=== PATIENT | female | born 1975 | race American Indian/Alaskan Native ===

== ENCOUNTER 2016-06-29 06:08 | Inpatient (IN) | payer MEDICARE, MEDICAID, OTHER ==
[2016-06-29 06:12] VITALS: BMI 25.9
[2016-06-29 06:17] VITALS: O2SAT 98
--- NOTE | 2016-06-29 06:40 | ED PDOC ---
Arrival/HPI - General Chief Complaint: Psychiatric Evaluation Time Seen by Provider: 06/29/16 06:28 - History of Present Illness Narrative History of Present Illness (Text): 41F c/o feeling "very depressed" for the last 2 months. she stopped taking her psych meds 30 days ago bc she says "I didn't feel right on them." she says her uncle 2 days ago and she drank etoh last night and wanted to overdose on nyquill, she says not to kill herself but to "sleep a long time." she says she wants help and to get back on medications. she admits to smoking a drug called "redstack" 2 days ago. (Kervin Cohen) Past Medical History - Infectious Disease Hx of Infectious Diseases: None - Cardiac Hx Cardiac Disorders: Yes Hx Hypertension: Yes - Pulmonary Hx Respiratory Disorders: No Hx Tuberculosis: No - Neurological Hx Neurological Disorder: No HX Cerebrovascular Accident: No Hx Seizures: No - HEENT Hx HEENT Disorder: No Other/Comment: PATIENT HAS INFECTION IN LEFT EYE - Renal Hx Renal Disorder: No - Endocrine/Metabolic Hx Endocrine Disorders: No - Hematological/Oncological Hx Blood Disorders: No Hx Cancer: No - Integumentary Hx Dermatological Disorder: No - Musculoskeletal/Rheumatological Hx Musculoskeletal Disorders: No - Gastrointestinal Hx Gastrointestinal Disorders: No - Genitourinary/Gynecological Hx Genitourinary Disorders: No Hx Sexually Transmitted Diseases: No - Psychiatric Hx Schizophrenia: Yes Hx Substance Use: Yes - Surgical History Other/Comment: Laparoscopy; had tumor - Anesthesia Hx Anesthesia: Yes Hx Anesthesia Reactions: No Hx Malignant Hyperthermia: No - Suicidal Assessment Feels Threatened In Home Enviroment: No Family/Social History Family/Social History: Other (nc) Smoking Status: yes Hx Alcohol Use: Yes Frequency of alcohol use: Socially Hx Substance Use: Yes Substance used: PCP Allergies/Home Meds Allergies/Adverse Reactions: Allergies No Known Allergies Allergy (Verified 04/26/16 19:15) Review of Systems - Physician Review All systems were reviewed & negative as marked: Yes - Review of Systems Constitutional: absent: Fevers Eyes: absent: Vision Changes Respiratory: absent: SOB, Cough Cardiovascular: absent: Chest Pain Gastrointestinal: absent: Abdominal Pain, Vomiting Genitourinary Female: Frequency. absent: Dysuria Neurological: absent: Headache, Dizziness, Focal Weakness Psychiatric: Depression Physical Exam Vital Signs Reviewed: Yes Appearance: Positive for: Well-Appearing, Non-Toxic, Comfortable Pain Distress: None Mental Status: Positive for: Alert and Oriented X 3 - Systems Exam Head: Present: Atraumatic Pupils: Present: PERRL Extroacular Muscles: Present: EOMI Mouth: Present: Moist Mucous Membranes Neck: Present: Normal Range of Motion Respiratory/Chest: Present: Clear to Auscultation. No: Respiratory Distress, Accessory Muscle Use Cardiovascular: Present: Regular Rate and Rhythm Abdomen: No: Tenderness, Distention Neurological: Present: GCS=15, Motor Func Grossly Intact, Normal Sensory Function Skin: Present: Warm, Dry Psychiatric: Present: Alert, Oriented x 3 Medical Decision Making ED Course and Treatment: ecg- nsr 73, nl axis, nl int, no acute ischemia (Kervin Cohen) 06/29/16 07:00 Patient signed out to me by Dr. Cohen. Patient medically cleared for PES evaluation 06/29/16 09:10 Patient accepted to psych (Jerome Tse) - Lab Interpretations Lab Results: 06/29/16 06:30 06/29/16 06:30 Lab Results 06/29/16 06:30: Alcohol, Quantitative < 10 06/29/16 06:30: Salicylates < 1 L, Acetaminophen < 10.0 L 06/29/16 06:30: Sodium 136, Potassium 3.6, Chloride 103, Carbon Dioxide 26, Anion Gap 11, BUN 9, Creatinine 0.8, Est GFR ( Amer) > 60, Est GFR (Non- Af Amer) > 60, Random Glucose 80, Calcium 8.9, Total Bilirubin 0.6, AST 26, ALT 27, Alkaline Phosphatase 56, Total Protein 7.2, Albumin 4.0, Globulin 3.2, Albumin/Globulin Ratio 1.3 06/29/16 06:30: WBC 7.2 D, RBC 4.11, Hgb 12.9, Hct 37.6, MCV 91.5, MCH 31.4, MCHC 34.3, RDW 13.0, Plt Count 213, MPV 10.6, Gran % 52.5, Lymph % (Auto) 36.0 H , [place] % (Auto) 8.6 H, Eos % (Auto) 2.5, Baso % (Auto) 0.4, Gran # 3.80, Lymph # 2.6, [place] # 0.6, Eos # 0.2, Baso # 0.03 06/29/16 06:28: Urine Opiates Screen Negative, Urine Methadone Screen Negative, Ur Barbiturates Screen Negative, Ur Phencyclidine Scrn Negative, Ur Amphetamines Screen Negative, U Benzodiazepines Scrn Negative, U Oth Cocaine Metabols Positive H, U Cannabinoids Screen Negative 06/29/16 06:28: Urine Color Yellow, Urine Appearance Sl cloudy, Urine pH 6.0, Ur Specific [place] 1.020, Urine Protein 100 H, Urine Glucose (UA) Negative, Urine Ketones Negative, Urine Blood Trace-lysed H, Urine Nitrate Negative, Urine Bilirubin Negative, Urine Urobilinogen 0.2, Ur Leukocyte Esterase Trace H , Urine RBC 1 - 3, Urine WBC 1 - 3, Ur Epithelial Cells 1 - 3, Urine Bacteria Few, Urine HCG, Qual Negative Disposition/Present on Arrival - Present on Arrival Any Indicators Present on Arrival: No History of DVT/PE: No History of Uncontrolled Diabetes: No Urinary Catheter: No History of Decub. Ulcer: No History Surgical Site Infection Following: None - Disposition Have Diagnosis and Disposition been Completed?: No Disposition Time: 07:00 - Disposition Diagnosis: Depression Patient Problems: Current Active Problems Problem Status Onset Depression Acute Condition: STABLE Referrals: Sheldon Rose MD [Primary Care Provider] - Follow up with primary Physician Patient Turnover Patient Signed Over To: Jerome Tse Handoff Comments: f/u wrkup and psych recs
[2016-06-29 07:15] LABS: ADD MANUAL DIFF? NO
[2016-06-29 07:18] LABS: BASO # 0.03 K/mm3 (0.0-2.0); BASO % 0.4 % (0.0-3.0); EOS # 0.2 (0.0-0.7); EOS % 2.5 % (1.5-5.0); GRAN % 52.5 % (50.0-68.0); HEMATOCRIT 37.6 % (36.0-48.0); LYMPH # 2.6 (1.2-3.4); MEAN CELL VOLUME 91.5 fL (80.0-105.0); MEAN CORPUSCULAR HEMOGLOBIN 31.4 pg (25.0-35.0); MEAN CORPUSCULAR HGB CONC 34.3 g/dl (31.0-37.0); MEAN PLATELET VOLUME 10.6 fl (7.0-11.0); MONO # 0.6 (0.1-0.6); MONO % 8.6 % (1.0-6.0); PLATELET COUNT 213 10^3/uL (120.0-450.0); WHITE BLOOD COUNT 7.2 10^3/ul (4.5-11.0)
[2016-06-29 07:35] LABS: ALB/GLOB RATIO 1.3 (1.1-1.8); ALKALINE PHOSPHATASE 56 U/L (38-133); ALT/SGPT 27 U/L (7-56); AST/SGOT 26 U/L (15-39); BILIRUBIN,TOTAL 0.6 mg/dL (0.2-1.3); BLOOD UREA NITROGEN 9 mg/dL (7-21); CALCIUM 8.9 mg/dL (8.4-10.5); CARBON DIOXIDE 26 mmol/L (21-33); CHLORIDE 103 mmol/L (98-107); GFR AFRICAN-AMERICAN > 60; GLUCOSE,RANDOM 80 mg/dL (70-110); POTASSIUM 3.6 mmol/L (3.6-5.0); SODIUM 136 mmol/L (132-148); TOTAL PROTEIN 7.2 g/dL (5.8-8.3)
[2016-06-29 07:48] LABS: URINE APPEARANCE SL CLOUDY (CLEAR); URINE BILIRUBIN NEGATIVE (NEGATIVE); URINE BLOOD TRACE-LYSED (NEGATIVE); URINE COLOR YELLOW (YELLOW); URINE GLUCOSE (UA) NEGATIVE (NEGATIVE); URINE KETONE NEGATIVE (NEGATIVE); URINE LEUKOCYTE ESTERASE TRACE Leu/uL (NEGATIVE); URINE PROTEIN 100 mg/dL (<30 mg/dL); URINE UROBILINOGEN 0.2 E.U./dL (<1 E.U./dL)
[2016-06-29 07:53] LABS: URINE BACTERIA FEW (NEG)
--- NOTE | 2016-06-29 09:06 | CARD ---
APPROVED REPORT EKG Measurement Heart [id number] [id number] [id number] <Conclusion> Normal sinus rhythm Normal ECG
[2016-06-29] MEDS ORDERED: OLANZapine 5 mg Disintegrating Tab PO STA (09:20)
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
[2016-06-29] MEDS: OLANZapine 5 mg Disintegrating Tab PO SCH (21:43)
[2016-06-29] MEDS: Divalproex 500 mg ER (ONCE DAILY formulation) PO SCH (21:43)
--- NOTE | 2016-06-30 09:36 | PCM.PYCHPN ---
Psychiatric Progress Note - Psychiatric Progress Note Patient seen today, length of contact: 25 min Patient Chief Complaint: "all right" Problems Identified/Issues Discussed: I reviewed recent notes and met with patient at bedside. Patient appears poorly groomed however she is superficially oriented to month, year and circumstances. Patient reports she is feeling "all right". Affect is blunt. Patient appears a little withdrawn and disengaged during questioning. She denies hallucinations however appears preoccupied. Active delusions were not elicited during this initial interview. Patient denies any new discomfort or pain and has been tolerating her medications thus far. Does complain of chronic back pain. Nursing indicates that patient has been spending a lot of time in her room. She generally keeps to her self, minimally interacting with other patients. There were no major behavioral issues overnight Diagnostic Results: h/o schizophrenia stimulant use disorder r/o substance induced psychosis Medication Change: No Medical Record Reviewed: Yes (notes, vitals, labs, reports) Mental Status Examination - Cognitive Function Orientation: Person, Place, Situation - Mood Mood: Depressed ( "all right"), Anxious - Affect Affect: Flat - Formal Thought Process Formal Thought Process: Hallucinations (denies this morning), Delusions, Paranoia - Suicidal Ideation Suicidal Ideation: No - Homicidal Ideation Homicidal Ideation: No Goal/Treatment Plan - Goal/Treatment Plan Progress Toward Problem(s) and Goals/Treatment Plan: * c/w current tx and plan * No new labs overnight * Vitals reviewed and noted below: Selected Entries 06/29/16 06/29/16 06/29/16 06:12 06:17 10:59 Temperature 98.2 F 98.2 F 98.2 F Pulse Rate 78 78 70 Pulse Rate [ Radial] Pulse Rhythm [ Radial] Pulse Strength [Radial] Pulse Assessment Method [Radial] Respiratory 18 18 18 Rate Blood Pressure 118/74 118/78 120/67 Blood Pressure Mean 06/29/16 06/29/16 13:38 16:16 Temperature Pulse Rate 61 Pulse Rate [ 58 L Radial] Pulse Rhythm [ Regular Radial] Pulse Strength +2=Normal [Radial] Pulse BP Machine Assessment Method [Radial] Respiratory 20 Rate Blood Pressure 81/50 L Blood Pressure 60 Mean
[2016-06-30] MEDS: OLANZapine 5 mg Disintegrating Tab PO SCH ×2 (10:06→22:27)
[2016-06-30] MEDS: Divalproex 500 mg ER (ONCE DAILY formulation) PO SCH (22:27)
--- NOTE | 2016-07-01 08:37 | PCM.PYCHPN ---
Psychiatric Progress Note - Psychiatric Progress Note Patient seen today, length of contact: 25 min Patient Chief Complaint: "all right" Problems Identified/Issues Discussed: I reviewed recent notes and met with patient at bedside. Patient appears \\ better groomed and more engaged this morning. She is oriented to month, year and circumstances. Patient reports that she is "doing great" and that she is sleeping well. Affect is less blunt and more reactive as well as more related than yesterday though she still appears internally preoccupied. She continues to deny hallucinations and delusions were not elicited throughout the weekend. Patient denies any new discomfort or pain and has been tolerating her medications thus far. There were no major behavioral issues over the weekend. Diagnostic Results: h/o schizophrenia stimulant use disorder r/o substance induced psychosis Medication Change: No Medical Record Reviewed: Yes (notes, vitals, labs, reports) Mental Status Examination - Cognitive Function Orientation: Person, Place, Situation - Mood Mood: Depressed ( "all right"), Anxious - Affect Affect: Flat (more related and reactive than yesterday) - Formal Thought Process Formal Thought Process: Hallucinations (denied all weekend), Delusions, Paranoia - Suicidal Ideation Suicidal Ideation: No - Homicidal Ideation Homicidal Ideation: No Goal/Treatment Plan - Goal/Treatment Plan Progress Toward Problem(s) and Goals/Treatment Plan: * c/w current tx and plan * No new weekend labs * Vitals reviewed and noted below: Selected Entries 06/29/16 06/29/16 06/29/16 06:17 10:59 13:38 Temperature 98.2 F 98.2 F Pulse Rate 78 70 Pulse Rate [ 58 L Radial] Pulse Rhythm [ Regular Radial] Pulse Strength +2=Normal [Radial] Pulse BP Machine Assessment Method [Radial] Respiratory 18 18 20 Rate Blood Pressure 118/78 120/67 O2 Sat by Pulse 98 98 Oximetry 06/29/16 06/30/16 16:16 06:24 Temperature 98 F Pulse Rate 61 56 L Pulse Rate [ Radial] Pulse Rhythm [ Radial] Pulse Strength [Radial] Pulse Assessment Method [Radial] Respiratory 20 Rate Blood Pressure 81/50 L 84/50 L O2 Sat by Pulse Oximetry
[2016-07-01] MEDS: OLANZapine 5 mg Disintegrating Tab PO SCH ×2 (09:00→22:02)
[2016-07-01] MEDS: Divalproex 500 mg ER (ONCE DAILY formulation) PO SCH (22:02)
--- NOTE | 2016-07-02 08:15 | PN ---
DATE: 07/01/2016 The patient is a 41-year-old female. The patient seen and examined on the bedside, sleepy, arousable, moving all 4 extremities. No focal deficits. No fever, no chills. No hematuria, no hematochezia. No swelling of the legs. PHYSICAL EXAMINATION: VITAL SIGNS: Temperature 97.1, pulse 80 , blood pressure 94/45, respiratory rate 15. HEENT: Head normocephalic, atraumatic. Eyes PERRLA. Extraocular muscles intact. Conjunctivae clear. Nose patent. Mucous membranes moist. NECK: Supple. No carotid bruit, no JVD, no thyromegaly. CHEST: Bilaterally symmetrical. HEART: S1, S2 positive. LUNGS: Clear to auscultation. ABDOMEN: Soft. Bowel sounds positive. No organomegaly. EXTREMITIES: No edema, no cyanosis. NEUROLOGIC: The patient is sleepy, moving all 4 extremities. No focal deficits. MEDICATIONS: Abilify, Ativan, Depakote, Geodon, Nicoderm, Zyprexa. LABORATORIES: We do not have recent labs today, but I reviewed old labs. ASSESSMENT AND PLAN: The patient is a 41-year-old lady with proteinuria, hematuria, urinary tract infection, cocaine is positive in her system, history of bipolar disorder, history of hypertension, gastroesophageal reflux disease, dyspepsia, anxiety, depression, history of use of marijuana and cocaine, history of abnormal liver function test. Psychiatrist is on the case. Complaining about anxiety. Gastrointestinal and deep venous thrombosis prophylaxis. Repeat labs. We will follow up. Vira Denton MD cc: [id number] TT: 07/02/2016 08:14:29 Confirmation # [id number] Dictation # [id number] en MTDD
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
[2016-07-02] MEDS: OLANZapine 5 mg Disintegrating Tab PO SCH ×2 (09:14→22:05)
--- NOTE | 2016-07-02 16:24 | PCM.PYCHPN ---
Psychiatric Progress Note - Psychiatric Progress Note Patient seen today, length of contact: 30 minute Patient Chief Complaint: "I m feeling great, by the way have cavities, I came here only because of was vomiting, I had adverse reactions from the medications." Problems Identified/Issues Discussed: Suicide/ homicide prevention, past psychiatric h/o, current psychiatric symptoms , medical problems, risk/benefits and alternatives of medications, medications compliance, coping strategies, substance abuse h/o, relapse prevention, importance of follow up with psychiatrist and therapist, discharge plan. Medical Problems: multiple medical issues, please see medical team notes for more detailed information, patient complained that she had needful discharges, denied things discharged today. Diagnostic Results: 06/29/16 06:30 06/29/16 06:30 Lab Results 06/29/16 06:30: Alcohol, Quantitative < 10 06/29/16 06:30: Salicylates < 1 L, Acetaminophen < 10.0 L 06/29/16 06:30: Sodium 136, Potassium 3.6, Chloride 103, Carbon Dioxide 26, Anion Gap 11, BUN 9, Creatinine 0.8, Est GFR ( Amer) > 60, Est GFR (Non- Af Amer) > 60, Random Glucose 80, Calcium 8.9, Total Bilirubin 0.6, AST 26, ALT 27, Alkaline Phosphatase 56, Total Protein 7.2, Albumin 4.0, Globulin 3.2, Albumin/Globulin Ratio 1.3 06/29/16 06:30: WBC 7.2 D, RBC 4.11, Hgb 12.9, Hct 37.6, MCV 91.5, MCH 31.4, MCHC 34.3, RDW 13.0, Plt Count 213, MPV 10.6, Gran % 52.5, Lymph % (Auto) 36.0 H , [place] % (Auto) 8.6 H, Eos % (Auto) 2.5, Baso % (Auto) 0.4, Gran # 3.80, Lymph # 2.6, [place] # 0.6, Eos # 0.2, Baso # 0.03 06/29/16 06:28: Urine Opiates Screen Negative, Urine Methadone Screen Negative, Ur Barbiturates Screen Negative, Ur Phencyclidine Scrn Negative, Ur Amphetamines Screen Negative, U Benzodiazepines Scrn Negative, U Oth Cocaine Metabols Positive H, U Cannabinoids Screen Negative 06/29/16 06:28: Urine Color Yellow, Urine Appearance Sl cloudy, Urine pH 6.0, Ur Specific [place] 1.020, Urine Protein 100 H, Urine Glucose (UA) Negative, Urine Ketones Negative, Urine Blood Trace-lysed H, Urine Nitrate Negative, Urine Bilirubin Negative, Urine Urobilinogen 0.2, Ur Leukocyte Esterase Trace H , Urine RBC 1 - 3, Urine WBC 1 - 3, Ur Epithelial Cells 1 - 3, Urine Bacteria Few, Urine HCG, Qual Negative Temp Pulse Resp BP Pulse Ox 97.1 F L 63 16 94/45 L 98 07/01/16 07:30 07/01/16 07:30 07/01/16 07:30 07/01/16 07:30 06/29/16 10:59 Vital Signs Temp Pulse Pulse Resp BP Pulse Ox 07/01/16 07:30 97.1 F L 63 16 94/45 L 06/30/16 06:24 98 F 56 L 20 84/50 L 06/29/16 16:16 61 81/50 L 06/29/16 13:38 58 L 20 06/29/16 10:59 98.2 F 70 18 120/67 98 06/29/16 06:17 98.2 F 78 18 118/78 98 06/29/16 06:12 98.2 F 78 18 118/74 98 DSM 5 Symptoms Update: Shortly pt is a 41 year old female, with long h/o mental illness and substance abuse, pt has multiple psychiatric admissions into the psychiatric inpatient unit including to [facility], most recent was about 2 months ago, pt has chronic noncompliance with f/u appts and medications, pt brought herself for evaluation of auditory hallucinations, suicidal ideation, worsening of depression, noncompliance with medications, using drugs. Pt needs further evaluation and stabilization. patient was seen at the treatment team meeting, acceptable personal hygiene, fare ADLs. patient was superficially corporative, said that she feels "great", patient reported that after she was discharged from the hospital last admission patient was taking her medication but he shouldn't was discharged from the psychiatric inpatient unit here in [place] on 05/03/16, 4 weeks supply was provided, most likely pt was not taking meds. pt was disorganized, psychotic, superficial. he shouldn't reported tolerating medications well, no side effects observed or reported. Patient complains of needle discharges last Saturday, prolactin level was ordered, was not done, we'll find out why. Patient denied any nipple discharge is today. Impression: DSM 5 Diagnosis: h/o schizophrenia stimulant use disorder r/o substance induced psychosis Medication Change: Yes Medical Record Reviewed: Yes (notes, vitals, labs, reports) Consults ordered or reviewed: Medical consult appreciated Mental Status Examination - Cognitive Function Orientation: Person, Place, Situation Memory: Intact Attention: Poor Concentration: Poor Association: Loose Fund of Knowledge: Poor - Mood Mood: Depressed ( "all right"), Anxious - Affect Affect: Flat (more related and reactive than yesterday) - Formal Thought Process Formal Thought Process: Hallucinations (denied all weekend), Delusions, Paranoia - Suicidal Ideation Suicidal Ideation: No - Homicidal Ideation Homicidal Ideation: No Goal/Treatment Plan - Goal/Treatment Plan Need for Continued Stay: Remain at risks for inpatient hospitalization, Severe depression anxiety, Discharge may exacerbated symptoms, Failed transitioning, Severe functional impairment Progress Toward Problem(s) and Goals/Treatment Plan: milieu, structure, supportive therapyWe'll not resume Risperdal as of now Zyprexa zydis is 5 mg at the morning time at the nighttime for psychosis Depakote will be resumed 500 mg daily for mood stabilization Trazodone 50 mg at the nighttime for depression and insomnia pt c/o nipples discharges (will f/u on Prolactin level) urine test was negative Abilify as dopamine agonist antagonist when necessary medications Medical evaluation draw off worker evaluation We'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 - Smoking Cessation Smoking Cessation Initiated: Yes
[2016-07-02 18:40] LABS: HEMATOCRIT 38.1 % (36.0-48.0); MEAN CELL VOLUME 93.2 fL (80.0-105.0); MEAN CORPUSCULAR HEMOGLOBIN 31.1 pg (25.0-35.0); MEAN CORPUSCULAR HGB CONC 33.3 g/dl (31.0-37.0); MEAN PLATELET VOLUME 10.8 fl (7.0-11.0); RED CELL DISTRIBUTION WIDTH 12.7 % (11.5-14.5); WHITE BLOOD COUNT 6.2 10^3/ul (4.5-11.0)
[2016-07-02 18:50] LABS: ALB/GLOB RATIO 1.2 (1.1-1.8); ALKALINE PHOSPHATASE 45 U/L (38-133); ALT/SGPT 21 U/L (7-56); AST/SGOT 17 U/L (15-39); BILIRUBIN,TOTAL 0.3 mg/dL (0.2-1.3); BLOOD UREA NITROGEN 16 mg/dL (7-21); CALCIUM 8.9 mg/dL (8.4-10.5); CARBON DIOXIDE 27 mmol/L (21-33); CHLORIDE 105 mmol/L (98-107); CHOLESTEROL 178 mg/dL (130-200); GFR AFRICAN-AMERICAN > 60; GLUCOSE,FASTING 102 mg/dL (65-110); GLUCOSE,RANDOM 102 mg/dL (70-110); POTASSIUM 3.7 mmol/L (3.6-5.0); SODIUM 139 mmol/L (132-148); TOTAL PROTEIN 6.7 g/dL (5.8-8.3)
[2016-07-02] MEDS: Divalproex 500 mg ER (ONCE DAILY formulation) PO SCH (22:04)
--- NOTE | 2016-07-03 07:17 | PN ---
DATE: 07/02/2016 SUBJECTIVE: The patient was seen and examined on the bedside, sleepy, arousable , moving all 4 extremities. No focal deficits. No fever, no chills, nausea, vomiting, or diarrhea. No hematuria or hematochezia. No swelling of the legs. PHYSICAL EXAMINATION: VITAL SIGNS: Temperature 97.1, pulse 75, blood pressure 104/49, respiratory rate 15. HEENT: Head normocephalic, atraumatic. Eyes: PERRLA. Extraocular muscles intact. Conjunctivae clear. Nose patent. Mucous membranes moist. NECK: Supple. No carotid bruit, JVD or thyromegaly. CHEST: Bilaterally symmetrical. HEART: S1, S2 positive. LUNGS: Clear to auscultation. ABDOMEN: Soft. Bowel sounds positive. No organomegaly. EXTREMITIES: No edema, no cyanosis. NEUROLOGIC: The patient is awake, alert and moving all 4 extremities. No focal deficit. MEDICATIONS: Abilify, Ativan, Depakote, trazodone, Geodon, Nicoderm, Pepcid. LABORATORY DATA: We do not have recent labs today, but I reviewed old labs. ASSESSMENT AND PLAN: The patient is a 41-year-old female with multiple medical problems. According to the patient, she wanted to go home today. The patient thinking that she is working some whare , Gastrointestinal and deep venous thrombosis prophylaxis. Repeat labs. We will follow up. Vira Denton MD cc: [id number] TT: 07/03/2016 07:16:31 Confirmation # [id number] Dictation # [id number] tn MTDD
[2016-07-03] MEDS: OLANZapine 5 mg Disintegrating Tab PO SCH (10:23)
--- NOTE | 2016-07-03 15:16 | PCM.PYCHPN ---
Psychiatric Progress Note - Psychiatric Progress Note Patient seen today, length of contact: 30 minute Patient Chief Complaint: "I m feeling great, I found a job in [employer], are you happy for me?" Problems Identified/Issues Discussed: Suicide/ homicide prevention, past psychiatric h/o, current psychiatric symptoms , medical problems, risk/benefits and alternatives of medications, medications compliance, coping strategies, substance abuse h/o, relapse prevention, importance of follow up with psychiatrist and therapist, discharge plan. Medical Problems: multiple medical issues, please see medical team notes for more detailed information, patient complained that she had needful discharges, denied things discharged today. Diagnostic Results: 06/29/16 06:30 06/29/16 06:30 Lab Results 06/29/16 06:30: Alcohol, Quantitative < 10 06/29/16 06:30: Salicylates < 1 L, Acetaminophen < 10.0 L 06/29/16 06:30: Sodium 136, Potassium 3.6, Chloride 103, Carbon Dioxide 26, Anion Gap 11, BUN 9, Creatinine 0.8, Est GFR ( Amer) > 60, Est GFR (Non- Af Amer) > 60, Random Glucose 80, Calcium 8.9, Total Bilirubin 0.6, AST 26, ALT 27, Alkaline Phosphatase 56, Total Protein 7.2, Albumin 4.0, Globulin 3.2, Albumin/Globulin Ratio 1.3 06/29/16 06:30: WBC 7.2 D, RBC 4.11, Hgb 12.9, Hct 37.6, MCV 91.5, MCH 31.4, MCHC 34.3, RDW 13.0, Plt Count 213, MPV 10.6, Gran % 52.5, Lymph % (Auto) 36.0 H , [place] % (Auto) 8.6 H, Eos % (Auto) 2.5, Baso % (Auto) 0.4, Gran # 3.80, Lymph # 2.6, [place] # 0.6, Eos # 0.2, Baso # 0.03 06/29/16 06:28: Urine Opiates Screen Negative, Urine Methadone Screen Negative, Ur Barbiturates Screen Negative, Ur Phencyclidine Scrn Negative, Ur Amphetamines Screen Negative, U Benzodiazepines Scrn Negative, U Oth Cocaine Metabols Positive H, U Cannabinoids Screen Negative 06/29/16 06:28: Urine Color Yellow, Urine Appearance Sl cloudy, Urine pH 6.0, Ur Specific [place] 1.020, Urine Protein 100 H, Urine Glucose (UA) Negative, Urine Ketones Negative, Urine Blood Trace-lysed H, Urine Nitrate Negative, Urine Bilirubin Negative, Urine Urobilinogen 0.2, Ur Leukocyte Esterase Trace H , Urine RBC 1 - 3, Urine WBC 1 - 3, Ur Epithelial Cells 1 - 3, Urine Bacteria Few, Urine HCG, Qual Negative Temp Pulse Resp BP Pulse Ox 97.1 F L 63 16 94/45 L 98 07/01/16 07:30 07/01/16 07:30 07/01/16 07:30 07/01/16 07:30 06/29/16 10:59 Vital Signs Temp Pulse Pulse Resp BP Pulse Ox 07/01/16 07:30 97.1 F L 63 16 94/45 L 06/30/16 06:24 98 F 56 L 20 84/50 L 06/29/16 16:16 61 81/50 L 06/29/16 13:38 58 L 20 06/29/16 10:59 98.2 F 70 18 120/67 98 06/29/16 06:17 98.2 F 78 18 118/78 98 06/29/16 06:12 98.2 F 78 18 118/74 98 Temp Pulse Resp BP Pulse Ox 97.1 F L 75 16 104/49 L 98 07/01/16 07:30 07/02/16 16:15 07/01/16 07:30 07/02/16 16:15 06/29/16 10:59 Abnormal Lab Results 07/02/16 07/02/16 07/02/16 17:55 17:55 17:55 WBC 6.2 RBC 4.09 Hgb 12.7 Hct 38.1 MCV 93.2 MCH 31.1 MCHC 33.3 RDW 12.7 Plt Count 212 MPV 10.8 Sodium 139 Potassium 3.7 Chloride 105 Carbon Dioxide 27 Anion Gap 11 BUN 16 Creatinine 0.8 Est GFR ( Amer) > 60 Est GFR (Non-Af Amer) > 60 Random Glucose 102 Fasting Glucose 102 Hemoglobin A1c 5.2 Calcium 8.9 Total Bilirubin 0.3 AST 17 ALT 21 Alkaline Phosphatase 45 Total Protein 6.7 Albumin 3.6 Globulin 3.1 Albumin/Globulin Ratio 1.2 Triglycerides 178 H Cholesterol 178 LDL Cholesterol Direct 72 HDL Cholesterol 72 H TSH 3rd Generation Prolactin 11.8 07/02/16 17:55 WBC RBC Hgb Hct MCV MCH MCHC RDW Plt Count MPV Sodium Potassium Chloride Carbon Dioxide Anion Gap BUN Creatinine Est GFR ( Amer) Est GFR (Non-Af Amer) Random Glucose Fasting Glucose Hemoglobin A1c Calcium Total Bilirubin AST ALT Alkaline Phosphatase Total Protein Albumin Globulin Albumin/Globulin Ratio Triglycerides Cholesterol LDL Cholesterol Direct HDL Cholesterol TSH 3rd Generation 0.54 Prolactin DSM 5 Symptoms Update: Shortly pt is a 41 year old female, with long h/o mental illness and substance abuse, pt has multiple psychiatric admissions into the psychiatric inpatient unit including to [facility], most recent was about 2 months ago, pt has chronic noncompliance with f/u appts and medications, pt brought herself for evaluation of auditory hallucinations, suicidal ideation, worsening of depression, noncompliance with medications, using drugs. Pt needs further evaluation and stabilization. patient was seen at the treatment team meeting, poor personal hygiene, fare ADLs. patient was superficially corporative, said that she feels "great", "I found a job, it is started tomorrow, I will start working at [employer], are you happy for me?", pt seems to be delusional, psychotic, disorganized, but at the same time there is some improvement with pt's presentation, no agitation no aggression. pt c/o nipple discharges at the time of admission, prolactin level is WNL, abilify will be d/c, will d/w . Patient denied any nipple discharge is today. Impression: DSM 5 Diagnosis: h/o schizophrenia stimulant use disorder r/o substance induced psychosis Medication Change: Yes (abilify d/c, zyprexa increased) Medical Record Reviewed: Yes (notes, vitals, labs, reports) Consults ordered or reviewed: Medical consult appreciated Mental Status Examination - Cognitive Function Orientation: Person, Place, Situation Memory: Intact Attention: Poor Concentration: Poor Association: Loose Fund of Knowledge: Poor - Mood Mood: Depressed ( "all right"), Anxious - Affect Affect: Flat (more related and reactive than yesterday) - Formal Thought Process Formal Thought Process: Hallucinations (denied all weekend), Delusions, Paranoia - Suicidal Ideation Suicidal Ideation: No - Homicidal Ideation Homicidal Ideation: No Goal/Treatment Plan - Goal/Treatment Plan Need for Continued Stay: Remain at risks for inpatient hospitalization, Severe depression anxiety, Discharge may exacerbated symptoms, Failed transitioning, Severe functional impairment Progress Toward Problem(s) and Goals/Treatment Plan: milieu, structure, supportive therapyWe'll not resume Risperdal as of now Zyprexa zydis is 5 mg at the morning time and 10 mg at nighttime for psychosis Depakote will be resumed 500 mg daily for mood stabilization Trazodone 50 mg at the nighttime for depression and insomnia history of nipples discharges (Prolactin level within normal limits) urine test was negative Abilify was discontinued today when necessary medications 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
[2016-07-03] MEDS: OLANZapine 10 mg Disintegrating Tab PO SCH (21:20)
[2016-07-03] MEDS: Divalproex 500 mg ER (ONCE DAILY formulation) PO SCH (21:21)
--- NOTE | 2016-07-04 07:31 | PN ---
DATE: 07/03/2016 SUBJECTIVE: The patient was seen and examined on the bedside. According to the patient, she is havi ng milk from her left breast and she is feeling great. She found a job in [employer] and "I want to go home because I have to go for a job," but on physical examination, there is no milk from both giovanni sts. No headache, no dizziness. No nausea, vomiting, or diarrhea. No hematuria or hematochezia. N o swelling of the leg. No headache, no dizziness. PHYSICAL EXAMINATION: VITAL SIGNS: Temperature 97.1, pulse 56, blood pressure 109/61, respiratory rate is 16. HEENT: Head normocephalic and atraumatic. Eyes: PERRLA. Extraocular muscles intact. Conjunctivae pink. Eyelids unremarkable. Nose patent. Mucous membranes moist. NECK: Supple. No carotid bruit. No JVD or thyromegaly. CHEST: Bilaterally symmetrical. HEART: S1, S2 positive. LUNGS: Clear to auscultation. ABDOMEN: Soft. Bowel sounds positive. No organomegaly. EXTREMITIES: No edema, no cyanosis. NEUROLOGIC: The patient is awake, alert, moving all 4 extremities. No focal deficits. MEDICATIONS: Ativan, Depakote, trazodone, Geodon, Nicoderm patch, Pepcid, Zyprexa. LABORATORY DATA: White blood cells 6.8, hemoglobin 12.7, hematocrit 38.1, platelets 212, triglycerid es 178, HDL 72. ASSESSMENT AND PLAN: The patient is a 41-year-old lady with hypertriglyceridemia. Prolactin is 11.8 . History of cocaine abuse. RPR is negative. History of bipolar, schizophrenia, under care of the psychiatrist. The patient seen by Dr. Laureen Fajardo. History of proteinuria, hematuria, urinary tract infection. History of hypertension, gastroesophageal reflux disease, dyspepsia, anxiety, depre ssion, history of use of marijuana and cocaine, history of abnormal liver function test, but improved . Gastrointestinal and deep venous thrombosis prophylaxis. Repeat labs. We will follow up. Vira Denton MD cc: [id number] TT: 07/04/2016 07:30:37 Confirmation # [id number] Dictation # [id number] tn
[2016-07-04 07:34] VITALS: RESP 20
[2016-07-04] MEDS: OLANZapine 5 mg Disintegrating Tab PO SCH (08:21)
--- NOTE | 2016-07-04 14:07 | PCM.PYCHPN ---
Psychiatric Progress Note - Psychiatric Progress Note Patient seen today, length of contact: 30 minutes Patient Chief Complaint: "I m feeling great, I found a job in [employer], are you happy for me?"few minutes later patient said that she wants to go to inpatient rehabilitation. Problems Identified/Issues Discussed: Suicide/ homicide prevention, past psychiatric h/o, current psychiatric symptoms , medical problems, risk/benefits and alternatives of medications, medications compliance, coping strategies, substance abuse h/o, relapse prevention, importance of follow up with psychiatrist and therapist, discharge plan. Medical Problems: multiple medical issues, please see medical team notes for more detailed information, patient complained that she had needful discharges, denied things discharged today. Diagnostic Results: 06/29/16 06:30 06/29/16 06:30 Lab Results 06/29/16 06:30: Alcohol, Quantitative < 10 06/29/16 06:30: Salicylates < 1 L, Acetaminophen < 10.0 L 06/29/16 06:30: Sodium 136, Potassium 3.6, Chloride 103, Carbon Dioxide 26, Anion Gap 11, BUN 9, Creatinine 0.8, Est GFR ( Amer) > 60, Est GFR (Non- Af Amer) > 60, Random Glucose 80, Calcium 8.9, Total Bilirubin 0.6, AST 26, ALT 27, Alkaline Phosphatase 56, Total Protein 7.2, Albumin 4.0, Globulin 3.2, Albumin/Globulin Ratio 1.3 06/29/16 06:30: WBC 7.2 D, RBC 4.11, Hgb 12.9, Hct 37.6, MCV 91.5, MCH 31.4, MCHC 34.3, RDW 13.0, Plt Count 213, MPV 10.6, Gran % 52.5, Lymph % (Auto) 36.0 H , [place] % (Auto) 8.6 H, Eos % (Auto) 2.5, Baso % (Auto) 0.4, Gran # 3.80, Lymph # 2.6, [place] # 0.6, Eos # 0.2, Baso # 0.03 06/29/16 06:28: Urine Opiates Screen Negative, Urine Methadone Screen Negative, Ur Barbiturates Screen Negative, Ur Phencyclidine Scrn Negative, Ur Amphetamines Screen Negative, U Benzodiazepines Scrn Negative, U Oth Cocaine Metabols Positive H, U Cannabinoids Screen Negative 06/29/16 06:28: Urine Color Yellow, Urine Appearance Sl cloudy, Urine pH 6.0, Ur Specific [place] 1.020, Urine Protein 100 H, Urine Glucose (UA) Negative, Urine Ketones Negative, Urine Blood Trace-lysed H, Urine Nitrate Negative, Urine Bilirubin Negative, Urine Urobilinogen 0.2, Ur Leukocyte Esterase Trace H , Urine RBC 1 - 3, Urine WBC 1 - 3, Ur Epithelial Cells 1 - 3, Urine Bacteria Few, Urine HCG, Qual Negative Temp Pulse Resp BP Pulse Ox 97.1 F L 63 16 94/45 L 98 07/01/16 07:30 07/01/16 07:30 07/01/16 07:30 07/01/16 07:30 06/29/16 10:59 Vital Signs Temp Pulse Pulse Resp BP Pulse Ox 07/01/16 07:30 97.1 F L 63 16 94/45 L 06/30/16 06:24 98 F 56 L 20 84/50 L 06/29/16 16:16 61 81/50 L 06/29/16 13:38 58 L 20 06/29/16 10:59 98.2 F 70 18 120/67 98 06/29/16 06:17 98.2 F 78 18 118/78 98 06/29/16 06:12 98.2 F 78 18 118/74 98 Temp Pulse Resp BP Pulse Ox 97.1 F L 75 16 104/49 L 98 07/01/16 07:30 07/02/16 16:15 07/01/16 07:30 07/02/16 16:15 06/29/16 10:59 Abnormal Lab Results 07/02/16 07/02/16 07/02/16 17:55 17:55 17:55 WBC 6.2 RBC 4.09 Hgb 12.7 Hct 38.1 MCV 93.2 MCH 31.1 MCHC 33.3 RDW 12.7 Plt Count 212 MPV 10.8 Sodium 139 Potassium 3.7 Chloride 105 Carbon Dioxide 27 Anion Gap 11 BUN 16 Creatinine 0.8 Est GFR ( Amer) > 60 Est GFR (Non-Af Amer) > 60 Random Glucose 102 Fasting Glucose 102 Hemoglobin A1c 5.2 Calcium 8.9 Total Bilirubin 0.3 AST 17 ALT 21 Alkaline Phosphatase 45 Total Protein 6.7 Albumin 3.6 Globulin 3.1 Albumin/Globulin Ratio 1.2 Triglycerides 178 H Cholesterol 178 LDL Cholesterol Direct 72 HDL Cholesterol 72 H TSH 3rd Generation Prolactin 11.8 07/02/16 17:55 WBC RBC Hgb Hct MCV MCH MCHC RDW Plt Count MPV Sodium Potassium Chloride Carbon Dioxide Anion Gap BUN Creatinine Est GFR ( Amer) Est GFR (Non-Af Amer) Random Glucose Fasting Glucose Hemoglobin A1c Calcium Total Bilirubin AST ALT Alkaline Phosphatase Total Protein Albumin Globulin Albumin/Globulin Ratio Triglycerides Cholesterol LDL Cholesterol Direct HDL Cholesterol TSH 3rd Generation 0.54 Prolactin DSM 5 Symptoms Update: Shortly pt is a 41 year old female, with long h/o mental illness and substance abuse, pt has multiple psychiatric admissions into the psychiatric inpatient unit including to [facility], most recent was about 2 months ago, pt has chronic noncompliance with f/u appts and medications, pt brought herself for evaluation of auditory hallucinations, suicidal ideation, worsening of depression, noncompliance with medications, using drugs. Pt needs further evaluation and stabilization. patient was seen at the treatment team meeting, poor personal hygiene, fare ADLs. patient was superficially corporative, said that she feels "great", "I found a job, it is started tomorrow, I will start working at [employer], are you happy for me?", patient seems to be hyper,speech was overproductive, at the same time patient wanted to go to rehabilitation, patient seems to be very superficial, Disorganized, cannot finalize her discharge plan, patient also has poor personal hygiene, has flat stains on her T-shirt, wig is very messy, appearance gives patient weird look. pt was paranoid towards her roommate. patient was seen by medical team, this law writer discussed case with Dr. Denton, there is no nipple discharge is, there is no action needs to be done at present moment. Patient tolerates medication well, no side effects observed or reported. Impression: DSM 5 Diagnosis: h/o schizophrenia stimulant use disorder r/o substance induced psychosis Medication Change: Yes (Abilify was discontinued yesterday, Depakote will be increased today) Medical Record Reviewed: Yes (notes, vitals, labs, reports) Consults ordered or reviewed: Medical consult appreciated see no somewhat detailed information No nipple discharge is, prolactin level within normal limits, no action needs to be taken at present moment Mental Status Examination - Cognitive Function Orientation: Person, Place, Situation Memory: Intact Attention: Poor Concentration: Poor Association: Loose Fund of Knowledge: Poor - Mood Mood: Euphoric - Affect Affect: Broad (aat times inappropriate) - Formal Thought Process Formal Thought Process: Hallucinations (denied all weekend), Delusions, Paranoia - Suicidal Ideation Suicidal Ideation: No - Homicidal Ideation Homicidal Ideation: No Goal/Treatment Plan - Goal/Treatment Plan Need for Continued Stay: Remain at risks for inpatient hospitalization (a), Severe depression anxiety, Discharge may exacerbated symptoms, Failed transitioning, Severe functional impairment Progress Toward Problem(s) and Goals/Treatment Plan: milieu, structure, supportive therapyWe'll not resume Risperdal as of now Zyprexa zydis is 5 mg at the morning time and 10 mg at nighttime for psychosis Depakote will be increased to 1000 mg daily for mood stabilization Trazodone 50 mg at the nighttime for depression and insomnia history of nipples discharges (Prolactin level within normal limits), no action need to be taken now as per medical team urine test was negative Abilify was discontinued 07/03/2016 when necessary medications/ 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
[2016-07-04] MEDS: Divalproex 500 mg ER (ONCE DAILY formulation) PO SCH (21:03)
[2016-07-04] MEDS: OLANZapine 10 mg Disintegrating Tab PO SCH (21:04)
--- NOTE | 2016-07-05 07:13 | PN ---
DATE: 07/04/2016 SUBJECTIVE: The patient was seen and examined on her bed, sleepy, arousable, talking about going go home and was complaining about milk is coming from her breast. I did her detailed examination. It is ____, maybe she is feeling like that. No nausea, vomiting, or diarrhea. Detailed discussion was done with Dr. Laureen Fajardo. No fever, no chills. PHYSICAL EXAMINATION: VITAL SIGNS: Temperature 98.1, pulse 65, blood pressure 101/57, respiratory rate 20. HEENT: Head normocephalic, atraumatic. Eyes: PERRLA. Extraocular muscles intact. Conjunctivae pink. Eyelids unremarkable. Nose patent. Mucous membranes moist. NECK: Supple. No carotid bruit, JVD or thyromegaly. CHEST: Bilaterally symmetrical. HEART: S1, S2 positive. LUNGS: Clear to auscultation. ABDOMEN: Soft. Bowel sounds present. No organomegaly. EXTREMITIES: No edema, no cyanosis. NEUROLOGIC: The patient is sleepy, but arousable, moving all 4 extremities. No focal deficit. MEDICATIONS: Ativan, Depakote, trazodone and Geodon, Nicoderm patch, Zyprexa. LABORATORY DATA: We do not have recent labs today, but I reviewed old labs. ASSESSMENT AND PLAN: The patient is a 41-year-old lady with hypertriglyceridemia, proteinuria, hematuria, rule out urinary tract infection, but the patient does not have any signs or symptoms of urinary tract infection. History of cocaine abuse. RPR negative, seen by Dr. Laureen Fajardo, psychiatrist, and as per Dr. Laureen aFjardo, the patient cannot to inpatient rehabilitation. The patient has history of schizophrenia, and substance- induced psychosis. Dr. Garduno started Depakote and increased the dose. No nipple discharge. Prolactin level is within normal limits. No action needed to take at present moment because there is no pathology. History of degenerative joint disease; is complaining about insomnia, history of hypertension, hypercholesterolemia, history of laparoscopic removal of tumor, but the patient does not remember what type. Continue present treatment. Continue, Ativan, Depakote, trazodone, Geodon, nicotine patch because of the patient is a heavy smoker, Pepcid. Gastrointestinal prophylaxis, Zyprexa. We will follow up. Vira Denton MD cc: [id number] TT: 07/05/2016 07:12:07 Confirmation # [id number] Dictation # [id number] tn MTDD
[2016-07-05] MEDS: OLANZapine 5 mg Disintegrating Tab PO SCH (08:04)
--- NOTE | 2016-07-05 14:40 | PCM.PYCHPN ---
Psychiatric Progress Note - Psychiatric Progress Note Patient seen today, length of contact: 30 minutes Patient Chief Complaint: "I m feeling great" Problems Identified/Issues Discussed: Suicide/ homicide prevention, past psychiatric h/o, current psychiatric symptoms , medical problems, risk/benefits and alternatives of medications, medications compliance, coping strategies, substance abuse h/o, relapse prevention, importance of follow up with psychiatrist and therapist, discharge plan. Medical Problems: multiple medical issues, please see medical team notes for more detailed information, patient complained that she had needful discharges, denied things discharged today. Diagnostic Results: 06/29/16 06:30 06/29/16 06:30 Lab Results 06/29/16 06:30: Alcohol, Quantitative < 10 06/29/16 06:30: Salicylates < 1 L, Acetaminophen < 10.0 L 06/29/16 06:30: Sodium 136, Potassium 3.6, Chloride 103, Carbon Dioxide 26, Anion Gap 11, BUN 9, Creatinine 0.8, Est GFR ( Amer) > 60, Est GFR (Non- Af Amer) > 60, Random Glucose 80, Calcium 8.9, Total Bilirubin 0.6, AST 26, ALT 27, Alkaline Phosphatase 56, Total Protein 7.2, Albumin 4.0, Globulin 3.2, Albumin/Globulin Ratio 1.3 06/29/16 06:30: WBC 7.2 D, RBC 4.11, Hgb 12.9, Hct 37.6, MCV 91.5, MCH 31.4, MCHC 34.3, RDW 13.0, Plt Count 213, MPV 10.6, Gran % 52.5, Lymph % (Auto) 36.0 H , [place] % (Auto) 8.6 H, Eos % (Auto) 2.5, Baso % (Auto) 0.4, Gran # 3.80, Lymph # 2.6, [place] # 0.6, Eos # 0.2, Baso # 0.03 06/29/16 06:28: Urine Opiates Screen Negative, Urine Methadone Screen Negative, Ur Barbiturates Screen Negative, Ur Phencyclidine Scrn Negative, Ur Amphetamines Screen Negative, U Benzodiazepines Scrn Negative, U Oth Cocaine Metabols Positive H, U Cannabinoids Screen Negative 06/29/16 06:28: Urine Color Yellow, Urine Appearance Sl cloudy, Urine pH 6.0, Ur Specific [place] 1.020, Urine Protein 100 H, Urine Glucose (UA) Negative, Urine Ketones Negative, Urine Blood Trace-lysed H, Urine Nitrate Negative, Urine Bilirubin Negative, Urine Urobilinogen 0.2, Ur Leukocyte Esterase Trace H , Urine RBC 1 - 3, Urine WBC 1 - 3, Ur Epithelial Cells 1 - 3, Urine Bacteria Few, Urine HCG, Qual Negative Temp Pulse Resp BP Pulse Ox 97.1 F L 63 16 94/45 L 98 07/01/16 07:30 07/01/16 07:30 07/01/16 07:30 07/01/16 07:30 06/29/16 10:59 Vital Signs Temp Pulse Pulse Resp BP Pulse Ox 07/01/16 07:30 97.1 F L 63 16 94/45 L 06/30/16 06:24 98 F 56 L 20 84/50 L 06/29/16 16:16 61 81/50 L 06/29/16 13:38 58 L 20 06/29/16 10:59 98.2 F 70 18 120/67 98 06/29/16 06:17 98.2 F 78 18 118/78 98 06/29/16 06:12 98.2 F 78 18 118/74 98 Temp Pulse Resp BP Pulse Ox 97.1 F L 75 16 104/49 L 98 07/01/16 07:30 07/02/16 16:15 07/01/16 07:30 07/02/16 16:15 06/29/16 10:59 Abnormal Lab Results 07/02/16 07/02/16 07/02/16 17:55 17:55 17:55 WBC 6.2 RBC 4.09 Hgb 12.7 Hct 38.1 MCV 93.2 MCH 31.1 MCHC 33.3 RDW 12.7 Plt Count 212 MPV 10.8 Sodium 139 Potassium 3.7 Chloride 105 Carbon Dioxide 27 Anion Gap 11 BUN 16 Creatinine 0.8 Est GFR ( Amer) > 60 Est GFR (Non-Af Amer) > 60 Random Glucose 102 Fasting Glucose 102 Hemoglobin A1c 5.2 Calcium 8.9 Total Bilirubin 0.3 AST 17 ALT 21 Alkaline Phosphatase 45 Total Protein 6.7 Albumin 3.6 Globulin 3.1 Albumin/Globulin Ratio 1.2 Triglycerides 178 H Cholesterol 178 LDL Cholesterol Direct 72 HDL Cholesterol 72 H TSH 3rd Generation Prolactin 11.8 05/01/17 17:55 WBC RBC Hgb Hct MCV MCH MCHC RDW Plt Count MPV Sodium Potassium Chloride Carbon Dioxide Anion Gap BUN Creatinine Est GFR ( Amer) Est GFR (Non-Af Amer) Random Glucose Fasting Glucose Hemoglobin A1c Calcium Total Bilirubin AST ALT Alkaline Phosphatase Total Protein Albumin Globulin Albumin/Globulin Ratio Triglycerides Cholesterol LDL Cholesterol Direct HDL Cholesterol TSH 3rd Generation 0.54 Prolactin DSM 5 Symptoms Update: Shortly pt is a 41 year old female, with long h/o mental illness and substance abuse, pt has multiple psychiatric admissions into the psychiatric inpatient unit including to [facility], most recent was about 2 months ago, pt has chronic noncompliance with f/u appts and medications, pt brought herself for evaluation of auditory hallucinations, suicidal ideation, worsening of depression, noncompliance with medications, using drugs. Pt needs further evaluation and stabilization. patient was seen in her room, poor personal hygiene, fare ADLs. said that she feels "great", patient complained of galactorrhea at the time of admission, patient was educated about normal lab work, patient also got to know that as per she does not need to have any additional workup, patient seems to be happy to hear that. pt denied nipple discharges anymore. Patient was superficially corporative, patient requested to be discharged tomorrow, saying that she has job interview, at the same time patient presented to be mildly disorganized, poor personal hygiene, but to compare with the time of admission patient presents better. patient deemed to be at her baseline,we will consider to discharge patient tomorrow. Patient tolerates medication well, no side effects observed or reported.aims 0, no EPS. Impression: DSM 5 Diagnosis: h/o schizophrenia stimulant use disorder r/o substance induced psychosis Medication Change: No (aadjusted yesterday) Medical Record Reviewed: Yes (notes, vitals, labs, reports) Consults ordered or reviewed: Medical consult appreciated see no somewhat detailed information No nipple discharge is, prolactin level within normal limits, no action needs to be taken at present moment Mental Status Examination - Cognitive Function Orientation: Person, Place, Situation Memory: Intact Attention: Poor (some improvement) Concentration: Poor (some improvement) Association: Loose (chronic) Fund of Knowledge: Poor (chronic) - Mood Mood: Euphoric - Affect Affect: Broad (aat times inappropriate) - Formal Thought Process Formal Thought Process: Hallucinations (enied), Delusions (denied), Paranoia ( better) - Suicidal Ideation Suicidal Ideation: No - Homicidal Ideation Homicidal Ideation: No Goal/Treatment Plan - Goal/Treatment Plan Need for Continued Stay: Remain at risks for inpatient hospitalization (a), Severe depression anxiety, Discharge may exacerbated symptoms, Failed transitioning, Severe functional impairment Progress Toward Problem(s) and Goals/Treatment Plan: milieu, structure, supportive therapyWe'll not resume Risperdal as of now Zyprexa zydis is 5 mg at the morning time and 10 mg at nighttime for psychosis Depakote 1000 mg daily for mood stabilization Trazodone 50 mg at the nighttime for depression and insomnia we'll check Depakote level tomorrow history of nipples discharges (Prolactin level within normal limits), no action need to be taken now as per medical team urine test was negative Abilify was discontinued 07/03/2016 when necessary medications/ Medical evaluation campaign worker evaluation We'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
[2016-07-05] MEDS: OLANZapine 10 mg Disintegrating Tab PO SCH (22:01)
[2016-07-05] MEDS: Divalproex 500 mg ER (ONCE DAILY formulation) PO SCH (22:04)
[2016-07-06 06:35] VITALS: BP 126/59; PULSE 60; TEMP 98
--- NOTE | 2016-07-06 08:07 | PN ---
DATE: 07/05/2016 SUBJECTIVE: The patient seen and examined on the bedside. Looks comfortable. Looks better. As per patient, she is feeling better. No nausea, vomiting, or diarrhea. No hematuria or hematochezia. According to her, she did not have bowel movement and her knees are hurting her, feeling gassy in the stomach. PHYSICAL EXAMINATION: VITAL SIGNS: Temperature 97.6, pulse 71, blood pressure 102/58, respiratory rate 20. HEENT: Head normocephalic, atraumatic. Eyes: PERRLA. Extraocular muscles intact. Conjunctivae pink. Eyelids unremarkable. Nose patent. Mucous membranes are moist. NECK: Supple. No carotid bruit, JVD or thyromegaly. CHEST: Bilaterally symmetrical. HEART: S1, S2 positive. LUNGS: Clear to auscultation. ABDOMEN: Soft. Bowel sounds present. No organomegaly. EXTREMITIES: No edema, no cyanosis. NEUROLOGIC: The patient is awake, alert, moving all 4 extremities. No focal deficits. MEDICATIONS: Ativan, Depakote, trazodone, Geodon, Nicoderm, Pepcid, Zyprexa. LABORATORY DATA: We do not have recent labs today, but I reviewed old labs. ASSESSMENT AND PLAN: The patient is a 41-year-old lady with hypertriglyceridemia, proteinuria, hematochezia, cocaine positive in the toxicology, RPR negative, has history of hypertension, hypercholesterolemia, gastroesophageal reflux disease, dyspepsia, history of drug abuse with a long history of mental illness and substance abuse. The patient had multiple psychiatric admissions into the psychiatric inpatient unit, including [facility]; most recent was about 2 months ago. Has chronic noncompliance with followup appointments and medications. The patient brought herself for auditory hallucinations and suicidal ideation, worsening depression, noncompliance with medications. The patient needs further evaluation and stabilization. Now, according to her, she wants a letter to show her boyfriend that she does not have any STD. I explained to her but she wants a written letter that she does not have std, syphilis, or hepatitis. RPR is ordered, negative. Ordered hepatitis and HIV profile. Appreciated psych input. Repeat labs. Will follow up. Vira Denton MD cc: [id number] TT: 07/06/2016 08:07:11 Confirmation # [id number] Dictation # [id number] diane MAY
[2016-07-06] MEDS: OLANZapine 5 mg Disintegrating Tab PO SCH (08:42)
--- NOTE | 2016-07-06 16:56 | PCM.PYCHDC ---
Mental Status Examination - Mental Status Examination Orientation: Person, Place, Situation, Time Memory: Intact Mood: Neutral Affect: Constricted (but reactive mood congruent) Speech: Appropriate Attention: WNL Concentration: WNL Association: WNL Fund of Knowledge: WNL Formal Thought Process: Other (mild thought disorganized process, chronic) Description of patient's judgement and insight: Pt has improved insight into mental and medical illness, pt was compliant with medications and unit rules and regulations, pt was going to groups, was calm, cooperative, socially appropriate, no behavioral incidents, no agitation, no aggression. Psychotic Thoughts and Behaviors: Pt denied v/a/t hallucinations, denied paranoid ideations, pt does not appear to be psychotic, and thought process is goal directed. Suicidal Ideation: No Current Homicidal Ideation?: No Plan: pt adamantly denied thoughts of harming self or others denied intent or plan. Discharge Summary - Discharge Note Reason for Hospitalization: patient was admitted to the psychiatric inpatient unit for evaluation and stabilization of psychotic symptoms, worsening of depression, inability to function,patient was noncompliant with the medications, using drugs. Psychiatric History (includes Medical, Family, Personal Hx): see HPI Laboratory Data: Abnormal Lab Results 07/06/16 07/06/16 07/06/16 07:00 07:30 07:30 Valproic Acid 40 L RPR Nonreactive Hepatitis A IgM Ab Negative Hep Bs Antigen Negative Hep B Core IgM Ab Negative Hepatitis C Antibody Negative Consultations:: List each consultation separately and include: 1. Reason for request. 2. Findings. 3. Follow-up Consultations: Medical consult appreciated see no somewhat detailed information No nipple discharge is, prolactin level within normal limits, no action needs to be taken at present moment Summary of Hospital Course include:: 1. Description of specific treatment plan utilized for patients during their course of treatmen. 2. Summarize the time- course for resolution of acute symptoms and/or regressed behaviors. 3. Describe issues identified and worked on during hospitalization. 4. Describe medication utilized. 5. Describe medical problems identified and treated. 6. Reassessment of suicide risk Summary of Hospital Course: Shortly pt is a 41 year old female, with long h/o mental illness and substance abuse, pt has multiple psychiatric admissions into the psychiatric inpatient unit including [place] [facility], most recent was about 2 months ago, pt has chronic noncompliance with f/u appts and medications, pt brought herself for evaluation of auditory hallucinations, suicidal ideation, worsening of depression, noncompliance with medications, using drugs. Pt needs further evaluation and stabilization. patient was seen in the emergency room, presented to have acceptable personal hygiene, fare ADLs. Patient presented to be depressed, patient reported that her uncle 3 days ago, since that time she is feeling worse, feeling of hopelessness and helplessness, passive wish to be . Patient reported that she was hearing voices and whispers denied command type hallucinations. Patient reported no anxiety symptoms. Patient said that she was noncompliant with the medications for the past 2 months because she has discharges from her breasts. patient said that she was using drugs, UDS positive for cocaine pt said that she was using "redstack". pt is disorganized in her thoughts, difficulties to stay focused, difficulties to concentrate, thought process is circumstantial and tangential. 06/29/16 06:30 06/29/16 06:30 Lab Results 06/29/16 06:30: Alcohol, Quantitative < 10 06/29/16 06:30: Salicylates < 1 L, Acetaminophen < 10.0 L 06/29/16 06:30: Sodium 136, Potassium 3.6, Chloride 103, Carbon Dioxide 26, Anion Gap 11, BUN 9, Creatinine 0.8, Est GFR ( Amer) > 60, Est GFR (Non- Af Amer) > 60, Random Glucose 80, Calcium 8.9, Total Bilirubin 0.6, AST 26, ALT 27, Alkaline Phosphatase 56, Total Protein 7.2, Albumin 4.0, Globulin 3.2, Albumin/Globulin Ratio 1.3 06/29/16 06:30: WBC 7.2 D, RBC 4.11, Hgb 12.9, Hct 37.6, MCV 91.5, MCH 31.4, MCHC 34.3, RDW 13.0, Plt Count 213, MPV 10.6, Gran % 52.5, Lymph % (Auto) 36.0 H , [place] % (Auto) 8.6 H, Eos % (Auto) 2.5, Baso % (Auto) 0.4, Gran # 3.80, Lymph # 2.6, [place] # 0.6, Eos # 0.2, Baso # 0.03 06/29/16 06:28: Urine Opiates Screen Negative, Urine Methadone Screen Negative, Ur Barbiturates Screen Negative, Ur Phencyclidine Scrn Negative, Ur Amphetamines Screen Negative, U Benzodiazepines Scrn Negative, U Oth Cocaine Metabols Positive H, U Cannabinoids Screen Negative 06/29/16 06:28: Urine Color Yellow, Urine Appearance Sl cloudy, Urine pH 6.0, Ur Specific [place] 1.020, Urine Protein 100 H, Urine Glucose (UA) Negative, Urine Ketones Negative, Urine Blood Trace-lysed H, Urine Nitrate Negative, Urine Bilirubin Negative, Urine Urobilinogen 0.2, Ur Leukocyte Esterase Trace H , Urine RBC 1 - 3, Urine WBC 1 - 3, Ur Epithelial Cells 1 - 3, Urine Bacteria Few, Urine HCG, Qual Negative Vital Signs Temp Pulse Pulse Resp BP Pulse Ox 06/29/16 13:38 58 L 20 06/29/16 10:59 98.2 F 70 18 120/67 98 06/29/16 06:17 98.2 F 78 18 118/78 98 06/29/16 06:12 98.2 F 78 18 118/74 98 uring this hospitalization patient was stabilized on the following medications: zyprexa Zydis 5 mg at the morning time and 10 mg at the nighttime for psychotic symptoms and disorganized behavior Depakote was increased to 1000 mg at the nighttime, please see Depakote level which was normal limits For insomnia patient had trazodone 50 mg at the nighttime patient complained of Galactorrhea that's why Abilify was started, prolactin level was within normal limits, no galactorrhea observed, patient was cleared by medical team. No further action needs to be taken. Abilify was discontinued Patient tolerated medications well, no side effectsreported or observed, aims 0 , no EPS. overall patient improved, patient became more organized in her thoughts and behavior, patient still has some mild thought process disorganization, but much improvement. Patient denied being depressed, denied thoughts of harming herself or others, patient does not present to be depressed or anxious. Over the course of hospitalization patient had therapeutic milieu, medication management, was seen by therapist, medical team as well as. patient seems to be improved, deems to be pretty for discharge. At the time of discharge patient denied thoughts of harming herself or others, has future oriented plans to follow up with outpatient psychiatrist, and find a job at [employer], patient reported that she has job interview today, seems to be doing much better. pt will be following up with outpatient psychiatrist and therapist, [facility] program, information about follow up appointment, time and address provided to the pt, it is patient responsibility to follow up with outpatient clinic, PMD as well as specialists (see note for more detailed information). In case pt will need to obtain results of studies pending at discharge pt was provided with contact information of Psychiatric Inpatient unit [phone] as well as Medical Record Department [phone]. Nicotine patch was offered Counseling about smoking and alcohol cessation provided AA meetings as well as [facility] smoking cessation treatment program information was provided by the pt was provided with prescriptions for all of medications (please see medication reconciliation form) Pt was educated about safety plan in case of worsening of symptoms or in case of suicidal or homicidal ideation call 911 or go to the nearest ER, also was educated to take meds as prescribed and stay away from drugs, pt verbalized understanding. - Diagnosis (1) Disorganized type schizophrenia Status: Acute (2) Polysubstance dependence including opioid type drug without complication, episodic abuse Status: Acute - Final Diagnosis (DSM 5) Condition upon Discharge: STABLE Disposition: HOME/ ROUTINE Follow-up Treatment Plan: pt will be following up with outpatient psychiatrist and therapist, [facility] program, information about follow up appointment, time and address provided to the pt, it is patient responsibility to follow up with outpatient clinic, PMD as well as specialists (see note for more detailed information). In case pt will need to obtain results of studies pending at discharge pt was provided with contact information of Psychiatric Inpatient unit [phone] as well as Medical Record Department [phone]. Nicotine patch was offered Counseling about smoking and alcohol cessation provided AA meetings as well as [facility] smoking cessation treatment program information was provided by the pt was provided with prescriptions for all of medications (please see medication reconciliation form) Pt was educated about safety plan in case of worsening of symptoms or in case of suicidal or homicidal ideation call 911 or go to the nearest ER, also was educated to take meds as prescribed and stay away from drugs, pt verbalized understanding. Prescriptions/Medication Reconciliation: Divalproex [Depakote ER(ONCE DAILY)] 1,000 mg PO HS #30 ter Famotidine [Pepcid] 40 mg PO HS #7 tab Nicotine 14 mg/24 hr [Nicoderm CQ] 1 patch TD DAILY #14 patch OLANZapine [Zyprexa Zydis] 10 mg PO HS #14 odt OLANZapine [Zyprexa Zydis] 5 mg PO DAILY #14 odt traZODone [Desyrel] 50 mg PO HS PRN #14 tab PRN Reason: Insomnia depression - Smoking Cessation Smoking Cessation Medication prescribed: Yes - Antipsychotic Medications Pt discharged on 2 or more routine antipsychotic medications: No
--- NOTE | 2016-07-07 07:23 | PN ---
DATE: 07/06/2016 SUBJECTIVE: The patient was seen and examined on 07/06/2016. The patient was seen walking around. No nausea, vomiting, or diarrhea. No hematuria or hematochezia. No swelling of the leg. No chest pain, no palpitations. No headache, no dizziness. PHYSICAL EXAMINATION: VITAL SIGNS: Temperature 98, heart rate 60, blood pressure 126/59, respiratory rate 20. HEENT: Head normocephalic, atraumatic. Eyes: PERRLA. Extraocular muscles intact. Conjunctivae are clear. Nose patent. NECK: Supple. No carotid bruit, JVD or thyromegaly. CHEST: Bilaterally symmetrical. HEART: S1, S2 positive. LUNGS: Clear to auscultation. ABDOMEN: Soft. Bowel sounds present. No organomegaly. EXTREMITIES: No edema, no cyanosis. NEUROLOGIC: The patient is awake, alert, moving all 4 extremities. No focal deficits. MEDICATIONS: She was getting in the hospital was Ativan, Depakote, Trazodone, Geodon, Nicoderm patch, Pepcid, Zyprexa. Prescription medication given by Dr. Fajardo. LABORATORY DATA: White blood cells 6.2, hemoglobin 12.7, hematocrit 38.1, platelets 212. Sodium 139, potassium 3.7. Hemoglobin A1c 5.2. Triglycerides 178, HDL 72. ASSESSMENT AND PLAN: The patient is a 41-year-old with hypertriglyceridemia. She was talking about STD. Will check her RPR, nonreactive. Hepatitis profile is nonreactive. The patient's cocaine was positive. Urine has proteinuria, hematuria, urinary tract infection, but the patient was not symptomatic. The patient was seen and treated by Dr. Fajardo. History of depression, substance abuse, gastroesophageal reflux disease, dyspepsia, history of hypertension, history of breast discharge as per patient, but there is no witness. Discharge home with followup with her own psychiatrist and primary care physician. Vira Denton MD cc: [id number] TT: 07/07/2016 07:22:09 Confirmation # [id number] Dictation # [id number]
== END 2016-07-06 15:48 | disposition home or self-care (01) | DRG 885 ==
LOC: ED 06:08 → ERH 09:08 → PSYC 11:17
PROVIDERS: ADMIT Psychiatry & Neurology Psychiatry; ATTEND Psychiatry & Neurology Psychiatry
DX: F20.1 Disorganized schizophrenia (principal); Z91.14 Patient's other noncompliance with medication regimen; I10 Essential (primary) hypertension; F19.20 Other psychoactive substance dependence, uncomplicated; E78.00 Pure hypercholesterolemia, unspecified; R31.9 Hematuria, unspecified; K21.9 Gastro-esophageal reflux disease without esophagitis; F41.9 Anxiety disorder, unspecified; F12.90 Cannabis use, unspecified, uncomplicated; J45.909 Unspecified asthma, uncomplicated; F14.10 Cocaine abuse, uncomplicated; G47.00 Insomnia, unspecified; M19.90 Unspecified osteoarthritis, unspecified site; F17.210 Nicotine dependence, cigarettes, uncomplicated; E78.1 Pure hyperglyceridemia; Z91.19 Patient's noncompliance with other medical treatment and regimen

== ENCOUNTER 2016-09-22 06:40 | Inpatient (IN) | payer MEDICARE, MEDICAID, OTHER ==
[2016-09-22 06:45] VITALS: BMI 27.3
[2016-09-22 08:00] LABS: BARBITURATES, UR NEGATIVE (NEGATIVE); BASO # 0.04 K/mm3 (0.0-2.0); BASO % 0.4 % (0.0-3.0); EOS # 0.3 (0.0-0.7); EOS % 2.5 % (1.5-5.0); GRAN # 5.95 (1.4-6.5); GRAN % 58.2 % (50.0-68.0); HEMOGLOBIN 12.4 gm/dL (12.0-16.0); LYMPH # 3.4 (1.2-3.4); LYMPH % 32.9 % (22.0-35.0); MEAN CELL VOLUME 90.7 fL (80.0-105.0); MEAN CORPUSCULAR HEMOGLOBIN 31.3 pg (25.0-35.0); MEAN CORPUSCULAR HGB CONC 34.5 g/dl (31.0-37.0); MEAN PLATELET VOLUME 10.6 fl (7.0-11.0); MONO # 0.6 (0.1-0.6); OPIATES, UR NEGATIVE (NEGATIVE); PHENCYCLIDINE, UR NEGATIVE (NEGATIVE); PLATELET COUNT 215 10^3/uL (120.0-450.0); RBC 3.96 10^6/uL (3.5-6.1); RED CELL DISTRIBUTION WIDTH 12.9 % (11.5-14.5); SALICYLATE < 1 mg/dL (2.0-20.0); WHITE BLOOD COUNT 10.2 10^3/ul (4.5-11.0)
[2016-09-22 08:04] LABS: ACETAMINOPHEN < 10.0 ug/ml (10.0-20.0)
[2016-09-22 08:05] LABS: URINE BILIRUBIN NEGATIVE (NEGATIVE); URINE BLOOD SMALL (NEGATIVE); URINE GLUCOSE (UA) NEGATIVE (NEGATIVE); URINE LEUKOCYTE ESTERASE NEGATIVE Leu/uL (NEGATIVE); URINE NITRATE NEGATIVE (NEGATIVE); URINE PROTEIN 100 mg/dL (<30 mg/dL); URINE UROBILINOGEN 0.2 E.U./dL (<1 E.U./dL)
[2016-09-22 08:06] LABS: ALB/GLOB RATIO 1.4 (1.1-1.8); ALBUMIN 4.2 g/dL (3.0-4.8); ALT/SGPT 17 U/L (7-56); AST/SGOT 27 U/L (15-39); BLOOD UREA NITROGEN 9 mg/dL (7-21); CALCIUM 8.9 mg/dL (8.4-10.5); GFR AFRICAN-AMERICAN > 60; GFR NON-AFRICAN AMERICAN > 60
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
[2016-09-22 08:09] LABS: URINE APPEARANCE CLEAR (CLEAR); URINE COLOR YELLOW (YELLOW)
[2016-09-22 08:12] LABS: BENZODIAZEPINES, UR NEGATIVE (NEGATIVE)
[2016-09-22 08:16] LABS: URINE BACTERIA NEG (NEG)
[2016-09-22] MEDS ORDERED: Nitroglycerin 2% Ointment Foilpak UD TOP ONE (09:18)
[2016-09-22 12:09] VITALS: RESP 20; O2SAT 96
--- NOTE | 2016-09-22 12:50 | PCM.BM ---
<DamianTriston - Last Filed: 09/22/16 12:57> Treatment Plan Problems - Problems identified on initial assessmt Altered thought process Date Initiated: 09/22/16 Time Initiated: 12:51 Assessment reference: NA Status: Active Medication nonadherence Date Initiated: 09/22/16 Time Initiated: 12:52 Assessment reference: NA Status: Active Auditory hallucinations Date Initiated: 09/22/16 Time Initiated: 12:54 Assessment reference: NA Status: Active Treatment assets and liabiliti Patient Assests: adapts well, resourceful, negotiates basic needs Patient Liabilities: live alone, poor support system, relationship conflicts, substance abuse, medical problems, other - Milieu Protocol Maintain good personal hygiene: daily Encourage regular showers, daily Remind patient to perform daily oral care, daily Assist patient to perform ADL's Maintain personal safety: daily Educate patient to report safety concerns to staff, daily Monitor environment for contraband/sharps Medication safety: Monitor for expected outcome, potential side effects: daily, Assess barriers to learning: daily, Assess readiness for medication education: daily Discharge/Continuing Care - Education Needs Education Needs: Patient Medication, Patient Diagnosis/Disease Process, Patient Coping Skills, Patient Anger Management skills, Patient Placement options, Patient Community resources, Patient Activities of Daily Living, Patient Personal Hygiene/Grooming, Patient Aftercare Safety Plan, Patient Other - Discharge Discharge Criteria: Tolerates medication w/o severe side effects, Free of Suicidal thoughts, Free of Homicidal thoughts, Free of paranoid thoughts, Free of agitation Discharge to:: Other <Anca Jordan - Last Filed: 09/24/16 07:57> - Diagnosis (1) Schizophrenia Status: Acute (2) Anxiety Status: Acute (3) Cocaine abuse Status: Acute (4) Depression Status: Acute <Gina Castillo - Last Filed: 09/24/16 15:52> Family Contact Family involvement: Famliy/SO not involved
--- NOTE | 2016-09-22 20:38 | CARD ---
APPROVED REPORT EKG Measurement Heart [id number] <Conclusion> Normal sinus rhythm Normal ECG
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
[2016-09-23 08:05] LABS: GLUCOSE,FASTING 127 mg/dL (65-110); HDL CHOLESTEROL 75 mg/dL (29-60); LDL CHOLESTEROL 66 mg/dL (0-129)
[2016-09-23 08:24] LABS: FREE T4 0.85 ng/dL (0.78-2.19)
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
[2016-09-23] MEDS: Divalproex 500 mg ER (ONCE DAILY formulation) PO SCH (22:00)
[2016-09-23] MEDS ORDERED: Magnesium Hydroxide Susp 30 ml UD PO PRN (22:23)
[2016-09-23] MEDS ORDERED: Alum-Mag Hydrox-Simethicone Susp (30 mL) PO PRN (22:23)
--- NOTE | 2016-09-24 04:43 | PN ---
DATE: 09/24/2016 SUBJECTIVE: The patient was seen and examined at the bedside, looks like restless, talking about unknown things, about getting education and needs certificate, does not make any sense. No nausea, vomiting, diarrhea. No hematuria or hematochezia. No swelling of the leg. No chest pain. No palpitations. PHYSICAL EXAMINATION VITAL SIGNS: Temperature 98.2, pulse 54, blood pressure 104/46, respiratory rate is 18. HEENT: Head is normocephalic and atraumatic. Eyes: PERRLA. Extraocular muscles intact. Conjunctivae clear. Nose patent. Mucous membranes moist. NECK: Supple. No carotid bruit. No thyromegaly. CHEST: Bilaterally symmetrical. HEART: S1 and S2 positive. LUNGS: Clear to auscultation. ABDOMEN: Soft. Bowel sounds positive. No organomegaly. EXTREMITIES: No edema. No cyanosis. NEUROLOGIC: The patient is awake and alert. Moving all four extremities. No focal deficit. MEDICATIONS: Depakote, Haldol, Maalox, milk of magnesia, Nicoderm patch, Sonata, Tylenol, Zyprexa. LABORATORY DATA: White blood cell 10.2, hemoglobin 11.4, hematocrit 35.9, platelets 215. Sodium 132, potassium 3.09, BUN 9, creatinine 0.7, glucose of 127. HDL 75. ASSESSMENT AND PLAN: The patient is a 41-year-old female with hyperglycemia, history of hypercholesterolemia, history of schizophrenia, depression, schizoaffective disorder, substance abuse, UDS positive cocaine, multiple psychiatric admissions, chronic noncompliance with follow up appointments and medications, who brought herself for treatment of hallucination and depression in context of noncompliance with the medications. She is a marijuana abuser, history of heavy smoking. Has to quit smoking, has to quit drugs. Nicotine patches given. We will continue Centrum, Seroquel, Risperdal. GI and DVT prophylaxis. We will follow up. Vira Denton MD
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
[2016-09-24] MEDS: Divalproex 500 mg ER (ONCE DAILY formulation) PO SCH (22:26)
--- NOTE | 2016-09-25 03:30 | PN ---
SUBJECTIVE: The patient is seen and examined at the bedside, looking comfortable. No nausea, vomiting, or diarrhea. No hematuria or hematochezia. No swelling of the leg. No chest pain, no palpitations. No headache, no dizziness. PHYSICAL EXAMINATION: VITAL SIGNS: Temperature 99.2, pulse 54, blood pressure 104/46, and respiratory rate 20. HEENT: Head is normocephalic and atraumatic. Eyes, PERRLA. Extraocular muscles are intact. Conjunctivae clear. Nose is patent. Mucous membranes moist. NECK: Supple. No carotid bruits or thyromegaly. CHEST: Bilaterally symmetrical. HEART: S1 and S2 positive. LUNGS: Clear to auscultation. ABDOMEN: Soft. Bowel sounds positive. No organomegaly. EXTREMITIES: No edema. No cyanosis. NEUROLOGIC: The patient is awake and alert. Moving all four extremities. No focal deficit. MEDICATIONS: Depakote, trazodone, Haldol, Maalox, milk of magnesia, Nicoderm patch, Tylenol and Zyprexa. LABORATORY DATA: We do not have recent labs today, but I reviewed old labs. ASSESSMENT AND PLAN: Ms. Chelsea Aleman is a 41-year-old lady with multiple psych problem, still having hallucinations, has disorganized type schizophrenia, polysubstance dependency, cocaine in UDS. Psychiatrist increased the Zyprexa. Thyroid is within normal limits. History of hyperglycemia, hypercholesterolemia, schizophrenia. Very noncompliant with medications and appointments. She is a marijuana abuser, advised to quit smoking because she is heavy smoker. GI and DVT prophylaxis. Repeat labs. Vira Denton MD MTD[facility]
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
[2016-09-25] MEDS: Divalproex 500 mg ER (ONCE DAILY formulation) PO SCH (21:12)
--- NOTE | 2016-09-26 14:45 | PCM.PYCHPN ---
Psychiatric Progress Note - Psychiatric Progress Note Patient seen today, length of contact: 30min Patient Chief Complaint: "guess what, I had a great news, I will have an apartment, you need to let me go tomorrow" Problems Identified/Issues Discussed: Suicide/ homicide prevention, past psychiatric h/o, current psychiatric symptoms , medical problems, risk/benefits and alternatives of medications, medications compliance, coping strategies, substance abuse h/o, relapse prevention, importance of follow up with psychiatrist and therapist, discharge plan. Medical Problems: pt reported to be healthy, was seen by Diagnostic Results: 09/22/16 06:55 09/22/16 06:55 Lab Results 09/23/16 06:30: Free T4 0.85, TSH 3rd Generation 1.25 09/23/16 06:30: Fasting Glucose 127 H, Triglycerides 100, Cholesterol 165, LDL Cholesterol Direct 66, HDL Cholesterol 75 H 09/22/16 07:22: Valproic Acid < 10 L 09/22/16 06:55: [place] < 0.2 L 09/22/16 06:55: Urine HCG, Qual Negative 09/22/16 06:55: Urine Opiates Screen Negative, Urine Methadone Screen Negative, Ur Barbiturates Screen Negative, Ur Phencyclidine Scrn Negative, Ur Amphetamines Screen Negative, U Benzodiazepines Scrn Negative, U Oth Cocaine Metabols Positive H, U Cannabinoids Screen Negative 09/22/16 06:55: Alcohol, Quantitative < 10 09/22/16 06:55: Salicylates < 1 L, Acetaminophen < 10.0 L 09/22/16 06:55: Sodium 138, Potassium 3.9, Chloride 105, Carbon Dioxide 24, Anion Gap 13, BUN 9, Creatinine 0.7, Est GFR ( Amer) > 60, Est GFR (Non- Af Amer) > 60, Random Glucose 85, Calcium 8.9, Total Bilirubin 0.8, AST 27, ALT 17, Alkaline Phosphatase 48, Total Creatine Kinase 165, Total Protein 7.3, Albumin 4.2, Globulin 3.1, Albumin/Globulin Ratio 1.4 09/22/16 06:55: Urine Color Yellow, Urine Appearance Clear, Urine pH 6.0, Ur Specific [place] >= 1.030, Urine Protein 100 H, Urine Glucose (UA) Negative, Urine Ketones Negative, Urine Blood Small H, Urine Nitrate Negative, Urine Bilirubin Negative, Urine Urobilinogen 0.2, Ur Leukocyte Esterase Negative, Urine RBC 2 - 5, Urine WBC 1 - 3, Ur Epithelial Cells 4 - 5, Urine Bacteria Neg 09/22/16 06:55: WBC 10.2 D, RBC 3.96, Hgb 12.4, Hct 35.9 L, MCV 90.7, MCH 31.3 , MCHC 34.5, RDW 12.9, Plt Count 215, MPV 10.6, Gran % 58.2, Lymph % (Auto) 32.9 , [place] % (Auto) 6.0, Eos % (Auto) 2.5, Baso % (Auto) 0.4, Gran # 5.95, Lymph # 3.4, [place] # 0.6, Eos # 0.3, Baso # 0.04 Vital Signs Temp Pulse Resp BP Pulse Ox 09/23/16 16:27 54 L 104/46 L 09/22/16 12:08 99.2 F 72 20 99/49 L 96 09/22/16 09:00 77 18 110/78 99 09/22/16 07:07 98.2 F 76 16 109/58 L 98 Temp Pulse Resp BP Pulse Ox 99.2 F 69 20 106/52 L 96 09/22/16 12:08 09/25/16 16:30 09/22/16 12:08 09/25/16 16:30 09/22/16 12:08 DSM 5 Symptoms Update: Pt is a 41 year old female, with long h/o mental illness [dx include schizophrenia, depression, schizoaffective disorder] and substance abuse [UDS + cocaine], multiple psychiatric admissions, most recently at [facility] 06/29/16-07/06/16, chronic noncompliance with f/u appts and medications who brought herself for treatment of hallucinations and depression in context of noncompliance with medications x two weeks as well as cocaine use [UDS +cocaine on 09/22/16]. pt is very familiar to this write from multiple psych admissions. pt presented to be disorganized, personal hygiene is poor, patient wears big wig (correction to my yesterday note), dirty clothes, pt is disorganized, said "guess what, I had a great news, I will have an apartment, you need to let me go tomorrow", pt is very superficial, was observed next to the entrance door screaming for food. , thought process is disorganized, tangential, circumstantial, pressured speech. As per reports from the nursing staff patient is stealing food from other patients, needs to have constant observation, but there is no aggression, no agitation. patient tolerates medications well, no side effects observed or reported, AIMS 0 , no EPS. Impression: shcizoaffective disorder polysubstance abuse and dependence Medication Change: No (zyprexa increased, depakote started) Medical Record Reviewed: Yes Mental Status Examination - Cognitive Function Orientation: Person, Place, Situation Attention: WNL Concentration: Poor Association: Loose - Mood Mood: Depressed (improving) - Affect Affect: Other (labile) - Speech Speech: Appropriate - Formal Thought Process Formal Thought Process: Hallucinations (currently denies), Loosening of associations - Suicidal Ideation Suicidal Ideation: No - Homicidal Ideation Homicidal Ideation: No Goal/Treatment Plan - Goal/Treatment Plan Need for Continued Stay: Remain at risks for inpatient hospitalization, Severe depression anxiety, Discharge may exacerbated symptoms, Severe functional impairment Progress Toward Problem(s) and Goals/Treatment Plan: milieu, structure, supportive therapy Depakote was resumed 1000 mg at the nighttime for mood stabilization Zyprexa 10 mg at the morning time 10 mg at the nighttime for psychosis depakote 500mg bid for mood stabilization PRN medications Medical consult derrick worker evaluation We'll monitor closely pt submitted 48hr notice, later decided to rescinded it later on Estimated Date of D/C: 09/28/16 (will monitor closely)
[2016-09-26] MEDS: Divalproex 500 mg DR(BID formulation) PO SCH (17:55)
[2016-09-26] MEDS: Divalproex 500 mg ER (ONCE DAILY formulation) PO SCH (22:34)
--- NOTE | 2016-09-27 08:11 | PN ---
DATE: 09/25/2016 SUBJECTIVE: The patient seen and examined , looking comfortable. No nausea, vomiting, or diarrhea. No hematuria or hematochezia. No swelling of the legs. No chest pain. No palpitations. No headache. No dizziness. PHYSICAL EXAMINATION: VITAL SIGNS: Temperature is 99.2, pulse 80, blood pressure 106/52, respiratory rate 20. HEENT: Normocephalic and atraumatic. Eyes, PERRLA. Extraocular muscles intact. Conjunctivae clear. Nose is patent. Mucous membranes moist. NECK: Supple. No carotid bruits. No JVD. No thyromegaly. CHEST: Bilaterally symmetrical. HEART: S1 and S2 positive. LUNGS: Clear to auscultation. ABDOMEN: Soft. Bowel sounds positive. No organomegaly. EXTREMITIES: No edema. No cyanosis. NEUROLOGIC: The patient is awake and alert, moving all four extremities. No focal deficit. MEDICATIONS: Depakote, trazodone, Haldol, Maalox, milk of magnesia, Nicoderm patch, Tylenol, and Zyprexa. LABORATORY DATA: We do not have recent labs today, but I reviewed old labs. ASSESSMENT AND PLAN: The patient is a 41-year-old female with multiple medical problems, especially multiple psych problems, has multiple site admissions, has disorganized type of schizophrenia, polysubstance abuse, history of hyperglycemia, hypercholesterolemia, schizophrenia, noncompliant, history of migraine, marijuana abuser, still smoking, advised to quit smoking. Psychiatrist is on the case. Gastrointestinal and deep vein thrombosis prophylaxis. Repeat labs. We will follow up. Vira Denton MD MTD[facility]
[2016-09-27] MEDS: Divalproex 500 mg DR(BID formulation) PO SCH (09:21)
--- NOTE | 2016-09-27 14:22 | PCM.PYCHPN ---
Psychiatric Progress Note - Psychiatric Progress Note Patient seen today, length of contact: 30min Patient Chief Complaint: "guess what, I sign 48hr notice, I feel great, I want to go home..., I was angry but not anymore, I feel great" Problems Identified/Issues Discussed: Suicide/ homicide prevention, past psychiatric h/o, current psychiatric symptoms , medical problems, risk/benefits and alternatives of medications, medications compliance, coping strategies, substance abuse h/o, relapse prevention, importance of follow up with psychiatrist and therapist, discharge plan. Medical Problems: pt reported to be healthy, was seen by Diagnostic Results: 09/22/16 06:55 09/22/16 06:55 Lab Results 09/23/16 06:30: Free T4 0.85, TSH 3rd Generation 1.25 09/23/16 06:30: Fasting Glucose 127 H, Triglycerides 100, Cholesterol 165, LDL Cholesterol Direct 66, HDL Cholesterol 75 H 09/22/16 07:22: Valproic Acid < 10 L 09/22/16 06:55: [place] < 0.2 L 09/22/16 06:55: Urine HCG, Qual Negative 09/22/16 06:55: Urine Opiates Screen Negative, Urine Methadone Screen Negative, Ur Barbiturates Screen Negative, Ur Phencyclidine Scrn Negative, Ur Amphetamines Screen Negative, U Benzodiazepines Scrn Negative, U Oth Cocaine Metabols Positive H, U Cannabinoids Screen Negative 09/22/16 06:55: Alcohol, Quantitative < 10 09/22/16 06:55: Salicylates < 1 L, Acetaminophen < 10.0 L 09/22/16 06:55: Sodium 138, Potassium 3.9, Chloride 105, Carbon Dioxide 24, Anion Gap 13, BUN 9, Creatinine 0.7, Est GFR ( Amer) > 60, Est GFR (Non- Af Amer) > 60, Random Glucose 85, Calcium 8.9, Total Bilirubin 0.8, AST 27, ALT 17, Alkaline Phosphatase 48, Total Creatine Kinase 165, Total Protein 7.3, Albumin 4.2, Globulin 3.1, Albumin/Globulin Ratio 1.4 09/22/16 06:55: Urine Color Yellow, Urine Appearance Clear, Urine pH 6.0, Ur Specific [place] >= 1.030, Urine Protein 100 H, Urine Glucose (UA) Negative, Urine Ketones Negative, Urine Blood Small H, Urine Nitrate Negative, Urine Bilirubin Negative, Urine Urobilinogen 0.2, Ur Leukocyte Esterase Negative, Urine RBC 2 - 5, Urine WBC 1 - 3, Ur Epithelial Cells 4 - 5, Urine Bacteria Neg 09/22/16 06:55: WBC 10.2 D, RBC 3.96, Hgb 12.4, Hct 35.9 L, MCV 90.7, MCH 31.3 , MCHC 34.5, RDW 12.9, Plt Count 215, MPV 10.6, Gran % 58.2, Lymph % (Auto) 32.9 , [place] % (Auto) 6.0, Eos % (Auto) 2.5, Baso % (Auto) 0.4, Gran # 5.95, Lymph # 3.4, [place] # 0.6, Eos # 0.3, Baso # 0.04 Vital Signs Temp Pulse Resp BP Pulse Ox 09/23/16 16:27 54 L 104/46 L 09/22/16 12:08 99.2 F 72 20 99/49 L 96 09/22/16 09:00 77 18 110/78 99 09/22/16 07:07 98.2 F 76 16 109/58 L 98 Temp Pulse Resp BP Pulse Ox 99.2 F 69 20 106/52 L 96 09/22/16 12:08 09/25/16 16:30 09/22/16 12:08 09/25/16 16:30 09/22/16 12:08 Temp Pulse Resp BP Pulse Ox 99.2 F 69 20 106/52 L 96 09/22/16 12:08 09/25/16 16:30 09/22/16 12:08 09/25/16 16:30 09/22/16 12:08 DSM 5 Symptoms Update: Pt is a 41 year old female, with long h/o mental illness [dx include schizophrenia, depression, schizoaffective disorder] and substance abuse [UDS + cocaine], multiple psychiatric admissions, most recently at [facility] [place] [place] 06/29/16-07/06/16, chronic noncompliance with f/u appts and medications who brought herself for treatment of hallucinations and depression in context of noncompliance with medications x two weeks as well as cocaine use [UDS +cocaine on 09/22/16]. pt is very familiar to this write from multiple psych admissions. pt presented to be disorganized, personal hygiene is somewhat better, but still poor, patient wears big wig, pt is disorganized superficial, but overall pleasant and cooperative. pt signed 48hr notice, wants to be d/c. pt said that she does not have any thoughts of harming self or others. there is no aggression, no agitation. patient tolerates medications well, no side effects observed or reported, AIMS 0 , no EPS. Impression: shcizoaffective disorder polysubstance abuse and dependence Medication Change: No (zyprexa was increased yesterday) Medical Record Reviewed: Yes Consults ordered or reviewed: medical consult appreciated Mental Status Examination - Cognitive Function Orientation: Person, Place, Situation Attention: WNL Concentration: Poor (somewhat better) Association: Loose (somewhat better) - Mood Mood: Depressed (improving) - Affect Affect: Other (labile) - Speech Speech: Appropriate - Formal Thought Process Formal Thought Process: Hallucinations (currently denies), Loosening of associations (chronic) - Suicidal Ideation Suicidal Ideation: No - Homicidal Ideation Homicidal Ideation: No Goal/Treatment Plan - Goal/Treatment Plan Need for Continued Stay: Remain at risks for inpatient hospitalization, Severe depression anxiety, Discharge may exacerbated symptoms, Severe functional impairment Progress Toward Problem(s) and Goals/Treatment Plan: milieu, structure, supportive therapy Depakote was resumed 1000 mg at the nighttime for mood stabilization Zyprexa 10 mg at the morning time 10 mg at the nighttime for psychosis PRN medications Medical consult workers compensation paralegal evaluation We'll monitor closely pt submitted 48hr notice, requesting d/c tomorrow Estimated Date of D/C: 09/28/16 (will monitor closely)
[2016-09-27] MEDS: Divalproex 500 mg ER (ONCE DAILY formulation) PO SCH (21:11)
[2016-09-28 07:34] VITALS: BP 106/64; PULSE 72; TEMP 98
--- NOTE | 2016-09-28 08:14 | PCM.PYCHDC ---
Mental Status Examination - Mental Status Examination Orientation: Person, Place, Situation Memory: Intact Mood: Neutral Affect: Broad (expanded, at times smiles inapropriately) Speech: Appropriate (overproductive, but not pressured) Attention: WNL (improved) Concentration: WNL (improved) Association: WNL Fund of Knowledge: WNL Formal Thought Process: Other (disorganized thought process, chronic) Description of patient's judgement and insight: Pt has improved but still limited insight into mental and medical illness, pt was compliant with medications and unit rules and regulations, pt was going to groups, was calm, cooperative, socially appropriate, no behavioral incidents, no agitation, no aggression. Psychotic Thoughts and Behaviors: Pt denied v/a/t hallucinations, denied paranoid ideations, pt does not appear to be psychotic, and thought process is goal directed. Suicidal Ideation: No Current Homicidal Ideation?: No Plan: pt adamantly denied thoughts of harming self or others denied intent or plan. Discharge Summary - Discharge Note Reason for Hospitalization: psychosis, possible suicidal/ homicidal thoughts (pt denied at the time of d/c) Psychiatric History (includes Medical, Family, Personal Hx): multiple psych admisisons, choronic noncompliance with meds and f/u appt Laboratory Data: 09/22/16 06:55 09/22/16 06:55 Lab Results 09/23/16 06:30: Free T4 0.85, TSH 3rd Generation 1.25 09/23/16 06:30: Fasting Glucose 127 H, Triglycerides 100, Cholesterol 165, LDL Cholesterol Direct 66, HDL Cholesterol 75 H 09/22/16 07:22: Valproic Acid < 10 L 09/22/16 06:55: [place] < 0.2 L 09/22/16 06:55: Urine HCG, Qual Negative 09/22/16 06:55: Urine Opiates Screen Negative, Urine Methadone Screen Negative, Ur Barbiturates Screen Negative, Ur Phencyclidine Scrn Negative, Ur Amphetamines Screen Negative, U Benzodiazepines Scrn Negative, U Oth Cocaine Metabols Positive H, U Cannabinoids Screen Negative 09/22/16 06:55: Alcohol, Quantitative < 10 09/22/16 06:55: Salicylates < 1 L, Acetaminophen < 10.0 L 09/22/16 06:55: Sodium 138, Potassium 3.9, Chloride 105, Carbon Dioxide 24, Anion Gap 13, BUN 9, Creatinine 0.7, Est GFR ( Amer) > 60, Est GFR (Non- Af Amer) > 60, Random Glucose 85, Calcium 8.9, Total Bilirubin 0.8, AST 27, ALT 17, Alkaline Phosphatase 48, Total Creatine Kinase 165, Total Protein 7.3, Albumin 4.2, Globulin 3.1, Albumin/Globulin Ratio 1.4 09/22/16 06:55: Urine Color Yellow, Urine Appearance Clear, Urine pH 6.0, Ur Specific [place] >= 1.030, Urine Protein 100 H, Urine Glucose (UA) Negative, Urine Ketones Negative, Urine Blood Small H, Urine Nitrate Negative, Urine Bilirubin Negative, Urine Urobilinogen 0.2, Ur Leukocyte Esterase Negative, Urine RBC 2 - 5, Urine WBC 1 - 3, Ur Epithelial Cells 4 - 5, Urine Bacteria Neg 09/22/16 06:55: WBC 10.2 D, RBC 3.96, Hgb 12.4, Hct 35.9 L, MCV 90.7, MCH 31.3 , MCHC 34.5, RDW 12.9, Plt Count 215, MPV 10.6, Gran % 58.2, Lymph % (Auto) 32.9 , [place] % (Auto) 6.0, Eos % (Auto) 2.5, Baso % (Auto) 0.4, Gran # 5.95, Lymph # 3.4, [place] # 0.6, Eos # 0.3, Baso # 0.04 Vital Signs Temp Pulse Resp BP Pulse Ox 09/28/16 07:34 98.0 F 72 20 106/64 09/27/16 16:00 82 98/53 L 09/25/16 16:30 69 106/52 L 09/23/16 16:27 54 L 104/46 L 09/22/16 12:08 99.2 F 72 20 99/49 L 96 09/22/16 09:00 77 18 110/78 99 09/22/16 07:07 98.2 F 76 16 109/58 L 98 Consultations:: List each consultation separately and include: 1. Reason for request. 2. Findings. 3. Follow-up Consultations: medical consult appreciated see notes for more detailed information Summary of Hospital Course include:: 1. Description of specific treatment plan utilized for patients during their course of treatmen. 2. Summarize the time- course for resolution of acute symptoms and/or regressed behaviors. 3. Describe issues identified and worked on during hospitalization. 4. Describe medication utilized. 5. Describe medical problems identified and treated. 6. Reassessment of suicide risk Summary of Hospital Course: Pt is a 41 year old female, with long h/o mental illness [dx include schizophrenia, depression, schizoaffective disorder] and substance abuse [UDS + cocaine], multiple psychiatric admissions, most recently at [facility] [place] 06/29/16-07/06/16, chronic noncompliance with f/u appts and medications who brought herself for treatment of hallucinations and depression in context of noncompliance with medications x two weeks as well as cocaine use [UDS +cocaine on 09/22/16]. at the time of the initial evaluation pt presented to be depressed with hallucinations, denies having any suicidal thoughts or thoughts of harming anybody including her ex-boyfriend. pt would like to be stabilized with her discharge medication regimen. pt presented to be disorganized with poor personal hygiene over the course of this hospitalization pt was stabilized on the following meds: Depakote 1000 mg at the nighttime for mood stabilization Zyprexa 10 mg at the morning time 10 mg at the nighttime for psychosis pt tolerated meds well, no side effects observed or reported, AIMS 0, no EPS pt is chronically disorganized, was constantly asking for food, tried to steal it from other patients, pt's hygiene is far from ideal, wears big wig, clothes with a lot of stains from food, but overall pt is pleasant, superficial, tried to present well, no aggression or agitation. pt submitted 48hr notice, requested d/c today. Over the course of this hospitalization pt was attending groups, pt also had medication management, had therapeutic milieu. Overall pt improved no behavioral issues, pts insight improved, but still limited, pt deemed to be ready for discharge. At the time of the discharge pt denied been depressed, denied thoughts of harming self or others, denied psychotic symptoms, but presented to be disorganized (chronic), pt was considered to pose no threat to self or others, will be following up with outpatient provider of her choice, information about follow up appointment, time and address provided to the pt, it is patient responsibility to follow up with outpatient clinic, PMD as well as specialists ( see SW note for more detailed information). In case pt will need to obtain results of studies pending at discharge pt was provided with contact information of Psychiatric Inpatient unit [phone] as well as Medical Record Department [phone]. Nicotine patch was offered Counseling about smoking and substance cessation provided AA meetings as well as smoking cessation treatment program information was provided by the pt was provided with prescriptions for all of medications (please see medication reconciliation form) Pt was educated about safety plan in case of worsening of symptoms or in case of suicidal or homicidal ideation call 911 or go to the nearest ER, also was educated to take meds as prescribed and stay away from drugs, pt verbalized understanding. - Diagnosis (1) Schizophrenia Current Visit: Yes Status: Chronic Priority: Medium (2) Cocaine abuse Current Visit: No Status: Chronic Priority: Medium - Final Diagnosis (DSM 5) Condition upon Discharge: FAIR Disposition: AGAINST MEDICAL ADVICE Follow-up Treatment Plan: At the time of the discharge pt denied been depressed, denied thoughts of harming self or others, denied psychotic symptoms, but presented to be disorganized (chronic), pt was considered to pose no threat to self or others, will be following up with outpatient provider of her choice, information about follow up appointment, time and address provided to the pt, it is patient responsibility to follow up with outpatient clinic, PMD as well as specialists ( see note for more detailed information). In case pt will need to obtain results of studies pending at discharge pt was provided with contact information of Psychiatric Inpatient unit [phone] as well as Medical Record Department [phone]. Nicotine patch was offered Counseling about smoking and substance cessation provided AA meetings as well as smoking cessation treatment program information was provided by the pt was provided with prescriptions for all of medications (please see medication reconciliation form) Pt was educated about safety plan in case of worsening of symptoms or in case of suicidal or homicidal ideation call 911 or go to the nearest ER, also was educated to take meds as prescribed and stay away from drugs, pt verbalized understanding. Prescriptions/Medication Reconciliation: Divalproex [Depakote ER(ONCE DAILY)] 1,000 mg PO HS #30 ter Nicotine 7 mg/24 hr [Nicoderm CQ] 1 patch TD DAILY #14 patch OLANZapine [Zyprexa] 10 mg PO AMHS #30 tab
--- NOTE | 2016-09-28 14:03 | PN ---
DATE: 09/27/2016 The patient is a 41-year-old female. CHIEF COMPLAINT: The patient was complaining about anxiety, otherwise no nausea, vomiting, diarrhea, hematuria, or hematochezia. No headaches. No dizziness. No chest pain. No palpitation. No diarrhea or constipation. PHYSICAL EXAMINATION: VITAL SIGNS: Temperature 97.8, pulse is 82, blood pressure 98/63, respiratory rate 18. HEENT: Head is normocephalic, atraumatic. Eyes; PERRLA, extraocular muscles intact, conjunctivae clear. Nose patent. Mucous membranes moist. NECK: Supple. No carotid bruits. No JVD or thyromegaly. CHEST: Bilaterally symmetrical. HEART: S1 and S2 positive. LUNGS: Clear to auscultation. ABDOMEN: Soft. Bowel sounds present. No organomegaly. EXTREMITIES: No edema. No cyanosis. NEUROLOGIC: The patient is awake and alert. Moving all four extremities. No focal deficit. MEDICATIONS: Depakote, trazodone, Haldol, Maalox, milk of magnesia, nicotine patch, Tylenol, Zyprexa. LABORATORY DATA: We do not have recent lab, but I reviewed old labs. Glucose 127, TSH 1.25. ASSESSMENT AND PLAN: Ms. Chelsea Aleman is a 41-year-old lady with multiple psych problems, multiple ER admissions; history of polysubstance abuse, history of schizophrenia and depression; was admitted with hallucination and depression, noncompliance with medication; history of gastroesophageal reflux disease, dyspepsia. The patient is disorganized; history of hypercholesterolemia, still smoking , still using drugs, GI and DVT prophylaxis. Length of time on discussion done, education done. We will follow up. Vira Denton MD
== END 2016-09-28 12:51 | disposition left against medical advice (07) | DRG 885 ==
LOC: ED 06:40 → ERH 10:46 → PSYC 11:04
PROVIDERS: ADMIT Psychiatry & Neurology Psychiatry; ATTEND Psychiatry & Neurology Psychiatry
PROC: GZ3ZZZZ Medication Management (ICD-10-PCS; principal; 2016-09-22)
DX: F20.1 Disorganized schizophrenia (principal); Z91.14 Patient's other noncompliance with medication regimen; I10 Essential (primary) hypertension; F14.10 Cocaine abuse, uncomplicated; F32.9 Major depressive disorder, single episode, unspecified; F41.9 Anxiety disorder, unspecified; E78.00 Pure hypercholesterolemia, unspecified; R73.9 Hyperglycemia, unspecified; K21.9 Gastro-esophageal reflux disease without esophagitis; F17.210 Nicotine dependence, cigarettes, uncomplicated; Z91.19 Patient's noncompliance with other medical treatment and regimen

== ENCOUNTER 2016-12-03 21:01 | Inpatient (IN) | payer MEDICARE, MEDICAID, OTHER ==
--- NOTE | 2016-12-03 21:35 | ED PDOC ---
Arrival/HPI - General Time Seen by Provider: 12/03/16 21:20 Historian: Patient - History of Present Illness Narrative History of Present Illness (Text): 12/03/16 21:32 pt presents for evaluation for suicidal ideation. she is homeless, and does marijuana occasionally Etoh. denies any tonight she has been out of her BPD and schizophrenia meds x 1 month. states she has OD'd in the past and is afraid she might do so again. currently she has no particular plan, she states she is afraid she is a danger to herself. she is also here for a refill of her psyche medicatoins. no somatic complaints although she does say she is having irregular periods. no self mutilation. no sob/cough. Time/Duration: 24 hours Symptom Course: Unchanged Past Medical History - Provider Review Nursing Documentation Reviewed: Yes - Travel History Have you recently traveled outside [place] w/in the past 3 mons?: No - Infectious Disease Hx of Infectious Diseases: None - Cardiac Hx Cardiac Disorders: Yes Hx Hypertension: Yes Other/Comment: hx of bipolar disorder/schizophrenia - Pulmonary Hx Respiratory Disorders: No Hx Tuberculosis: No - Neurological HX Cerebrovascular Accident: No Hx Seizures: No - HEENT Hx HEENT Disorder: No Other/Comment: PATIENT HAS INFECTION IN LEFT EYE - Renal Hx Renal Disorder: No - Endocrine/Metabolic Hx Endocrine Disorders: No - Hematological/Oncological Hx Cancer: No - Integumentary Hx Dermatological Disorder: No - Musculoskeletal/Rheumatological Hx Musculoskeletal Disorders: No - Gastrointestinal Hx Gastrointestinal Disorders: No - Genitourinary/Gynecological Hx Sexually Transmitted Diseases: No - Psychiatric Hx Anxiety: Yes Hx Depression: Yes Hx Schizophrenia: Yes Hx Substance Use: No - Surgical History Other/Comment: Laparoscopy; had tumor - Anesthesia Hx Anesthesia: Yes Hx Anesthesia Reactions: No Hx Malignant Hyperthermia: No - Suicidal Assessment Feels Threatened In Home Enviroment: No Family/Social History - Physician Review Nursing Documentation Reviewed: Yes Family/Social History: No Known Family HX Smoking Status: Light Smoker < 10 Cigarettes Daily Hx Alcohol Use: Yes Hx Substance Use: Yes Substance used: PCP Route: Smoking/Inhalation Hx Substance Use Treatment: No Allergies/Home Meds Allergies/Adverse Reactions: Allergies No Known Allergies Allergy (Verified 12/04/16 01:34) Review of Systems - Physician Review All systems were reviewed & negative as marked: Yes - Review of Systems Respiratory: absent: SOB, Cough Skin: Normal, Other (stains to hand) Psychiatric: Depression, Suicidal Ideation, Other Physical Exam Vital Signs Reviewed: Yes Vital Signs Temp Pulse Resp BP Pulse Ox 12/03/16 23:02 74 17 128/74 99 12/03/16 21:02 98.1 F 78 18 128/74 100 Appearance: Positive for: Non-Toxic Mental Status: Positive for: Alert and Oriented X 3, other (flat affect) - Systems Exam Head: Present: Atraumatic Pupils: Present: PERRL Extroacular Muscles: Present: EOMI Mouth: Present: Moist Mucous Membranes Pharnyx: Present: Normal Respiratory/Chest: Present: Clear to Auscultation, Good Air Exchange Cardiovascular: Present: Regular Rate and Rhythm, Normal S1, S2 Back: Present: Normal Inspection Upper Extremity: Present: Normal Inspection, Other (dye to hands bilaterally. ) Lower Extremity: Present: Normal Inspection Neurological: Present: GCS=15 Skin: Present: Warm, Dry Medical Decision Making ED Course and Treatment: 12/03/16 21:45 pt presenting for suicidal ideation. will obtain PES. pt c/o anemia and VB check basic labs, UDS. ddx BPD, SI, malingering, polysubstance abuse. 12/04/16 21:41 PES recommends psychiatric admission as admitted by Dr. Lama - Lab Interpretations Lab Results: 12/03/16 21:59 12/03/16 21:59 Lab Results 12/03/16 22:00: Urine Opiates Screen Negative, Urine Methadone Screen Negative, Ur Barbiturates Screen Negative, Ur Phencyclidine Scrn Negative, Ur Amphetamines Screen Negative, U Benzodiazepines Scrn Negative, U Oth Cocaine Metabols Positive H, U Cannabinoids Screen Negative 12/03/16 21:59: Sodium 138, Potassium 3.7, Chloride 104, Carbon Dioxide 27, Anion Gap 11, BUN 13, Creatinine 0.8, Est GFR ( Amer) > 60, Est GFR (Non- Af Amer) > 60, Random Glucose 110, Calcium 8.8 12/03/16 21:59: Alcohol, Quantitative < 10 12/03/16 21:59: WBC 6.4 D, RBC 3.91, Hgb 12.5, Hct 36.0, MCV 92.1, MCH 32.0, MCHC 34.7, RDW 12.8, Plt Count 189, MPV 10.7, Gran % 37.1 L, Lymph % (Auto) 52.4 H, [place] % (Auto) 6.4 H, Eos % (Auto) 3.6, Baso % (Auto) 0.5, Gran # 2.36, Lymph # 3.3, [place] # 0.4, Eos # 0.2, Baso # 0.03 I have reviewed the lab results: Yes Interpretation: All labs normal - Medication Orders Current Medication Orders: Acetaminophen (Tylenol 325mg Tab) 650 mg PO Q4 PRN PRN Reason: Pain, moderate (4-7) Al Hydrox/Mg Hydrox/Simethicone (Maalox Plus 30 Ml) 30 ml PO DAILY PRN PRN Reason: Upset Stomach Divalproex Sodium (Depakote Dr(*Bid*)) 500 mg PO BID VARGAS PRN Reason: Protocol Last Admin: 12/04/16 18:12 Dose: 500 mg Behavioural Document 12/04/16 18:12 RGO (Rec[facility] 12[facility]04/16 18:[id number] Maintenance Maintenance Dose Yes Divalproex Sodium (Depakote Er(Once Daily)) 1,000 mg PO HS VARGAS PRN Reason: Protocol Haloperidol (Haldol) 1 mg PO Q6 PRN; Protocol PRN Reason: Agitation Haloperidol Lactate (Haldol) 1 mg IM Q6 PRN; Protocol PRN Reason: Agitation Magnesium Hydroxide (Milk Of Magnesia) 30 ml PO DAILY PRN PRN Reason: Constipation Olanzapine (Zyprexa) 10 mg PO DAILY VARGAS PRN Reason: Protocol Last Admin: 12/04/16 11:00 Dose: 10 mg Behavioural Document 12/04/16 11:00 RGO (Rec: 12/04/16 13:04 RGO [id number]) Maintenance Maintenance Dose Yes Trazodone HCl (Desyrel) 50 mg PO HS PRN PRN Reason: Insomnia Zaleplon (Sonata) 5 mg PO HS PRN PRN Reason: Insomnia Disposition/Present on Arrival - Present on Arrival Any Indicators Present on Arrival: No History of DVT/PE: No History of Uncontrolled Diabetes: No Urinary Catheter: No History Surgical Site Infection Following: None - Disposition Have Diagnosis and Disposition been Completed?: Yes Diagnosis: Suicidal behavior, Cocaine abuse Disposition: HOSPITALIZED Disposition Time: 05:00 Patient Plan: Admission Patient Problems: Current Active Problems Problem Status Onset Suicidal behavior Acute Cocaine abuse Chronic Condition: STABLE
[2016-12-03 21:40] VITALS: BMI 26.4
--- NOTE | 2016-12-03 22:07 | ED PDOC ---
Disposition/Present on Arrival - Present on Arrival Any Indicators Present on Arrival: No History of DVT/PE: No History of Uncontrolled Diabetes: No Urinary Catheter: No History of Decub. Ulcer: No History Surgical Site Infection Following: None - Disposition Have Diagnosis and Disposition been Completed?: Yes Diagnosis: Suicidal behavior, Cocaine abuse Disposition: HOSPITALIZED Disposition Time: 00:45 Condition: STABLE
[2016-12-03 22:15] LABS: BASO # 0.03 K/mm3 (0.0-2.0); BASO % 0.5 % (0.0-3.0); EOS # 0.2 (0.0-0.7); EOS % 3.6 % (1.5-5.0); GRAN # 2.36 (1.4-6.5); GRAN % 37.1 % (50.0-68.0); LYMPH # 3.3 (1.2-3.4); LYMPH % 52.4 % (22.0-35.0); MEAN CELL VOLUME 92.1 fl (80.0-105.0); MEAN CORPUSCULAR HGB CONC 34.7 g/dl (31.0-37.0); MEAN PLATELET VOLUME 10.7 fl (7.0-11.0); MONO # 0.4 (0.1-0.6); MONO % 6.4 % (1.0-6.0); RED CELL DISTRIBUTION WIDTH 12.8 % (11.5-14.5); WHITE BLOOD COUNT 6.4 10^3/ul (4.5-11.0)
[2016-12-03 22:21] LABS: BLOOD UREA NITROGEN 13 mg/dL (7-21); CALCIUM 8.8 mg/dL (8.4-10.5); CARBON DIOXIDE 27 mmol/L (21-33); CHLORIDE 104 mmol/L (98-107); GFR AFRICAN-AMERICAN > 60; GLUCOSE,RANDOM 110 mg/dL (70-110); POTASSIUM 3.7 mmol/L (3.6-5.0); SODIUM 138 mmol/L (132-148)
[2016-12-04] MEDS ORDERED: Alum-Mag Hydrox-Simethicone Susp (30 mL) PO PRN (01:41)
[2016-12-04] MEDS ORDERED: Magnesium Hydroxide Susp 30 ml UD PO PRN (01:41)
[2016-12-04 02:33] VITALS: RESP 18
--- NOTE | 2016-12-04 03:11 | PCM.BM ---
<Dina Hernández - Last Filed: 12/04/16 03:08> Treatment Plan Problems - Problems identified on initial assessmt substance use Date Initiated: 12/04/16 Time Initiated: 01:00 Assessment reference: NA Status: Active Priority: 1 medication noncompliance Date Initiated: 12/04/16 Time Initiated: 01:00 Assessment reference: NA Status: Active Priority: 2 Treatment assets and liabiliti Patient Assests: adapts well, self-reliant, ADL independent, negotiates basic needs Patient Liabilities: live alone, financial problems, poor support system, substance abuse - Milieu Protocol Maintain good personal hygiene: daily Encourage regular showers, daily Remind patient to perform daily oral care, daily Assist patient to perform ADL's Conduct patient checks and document Observation sheet: Q15 minutes Maintain personal safety: every shift Educate patient to report safety concerns to staff, every shift Monitor environment for contraband/sharps Medication safety: Monitor for expected outcome, potential side effects: every shift, Assess barriers to learning: every shift, Assess readiness for medication education: every shift Discharge/Continuing Care - Education Needs Education Needs: Patient Medication, Patient Diagnosis/Disease Process, Patient Coping Skills, Patient Anger Management skills, Patient Placement options, Patient Community resources, Patient Activities of Daily Living, Patient Nutrition - Discharge Discharge Criteria: Tolerates medication w/o severe side effects, Free of agitation, Normal sleep pattern <Gina Castillo - Last Filed: 12/04/16 15:33> Family Contact Family involvement: Famliy/SO not involved - Goals for Treatment Patient goals for treatment: "To get my medication." <Renee Camargo - Last Filed: 12/06/16 16:39>
[2016-12-04 06:52] VITALS: BP 120/69; PULSE 70; TEMP 97.4; O2SAT 97
[2016-12-04] MEDS: Divalproex 500 mg DR(BID formulation) PO SCH ×2 (11:00→18:12)
[2016-12-04] MEDS ORDERED: Divalproex 500 mg ER (ONCE DAILY formulation) PO SCH (22:00)
--- NOTE | 2016-12-05 01:06 | CARD ---
APPROVED REPORT EKG Measurement Heart [id number] [id number] <Conclusion> Sinus bradycardia with sinus arrhythmia Otherwise normal ECG
[2016-12-05] MEDS: Divalproex 500 mg DR(BID formulation) PO SCH (08:36)
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
== END 2016-12-05 14:42 | disposition home or self-care (01) | DRG 885 ==
LOC: ED 21:01 → ERH 23:32 → PSYC 12-04 00:45 → ERH 12-04 07:47 → PSYC 12-04 07:48
PROVIDERS: ADMIT Psychiatry & Neurology Addiction Medicine; ATTEND Psychiatry & Neurology Addiction Medicine
PROC: GZ3ZZZZ Medication Management (ICD-10-PCS; principal; 2016-12-04)
DX: F25.9 Schizoaffective disorder, unspecified (principal); Z91.14 Patient's other noncompliance with medication regimen; F16.10 Hallucinogen abuse, uncomplicated; F14.10 Cocaine abuse, uncomplicated; F10.10 Alcohol abuse, uncomplicated; Z59.0 Homelessness; Z76.5 Malingerer [conscious simulation]; N92.6 Irregular menstruation, unspecified; Z62.810 Personal history of physical and sexual abuse in childhood

== ENCOUNTER 2017-01-23 17:32 | Inpatient (IN) | payer MEDICARE, OTHER ==
[2017-01-23 17:33] VITALS: BMI 27.3
--- NOTE | 2017-01-23 18:19 | ED PDOC ---
Arrival/HPI - General Chief Complaint: Psychiatric Evaluation Time Seen by Provider: 01/23/17 17:35 Historian: Patient - History of Present Illness Narrative History of Present Illness (Text): 01/23/17 18:14 A 41 year old female whose past medical history includes schizophrenia, presents to the emergency department with a complaint of nausea and vomiting x1 today. The patient states that she was recently discharged for schizophrenia 3 weeks ago. She states that she was prescribed and started on new medications with she is attributing to her symptoms. She states that she has been having visual hallucination of shadows and a cat. She notes that she feels paranoid. The patient denies fevers, chills, headache, dizziness, chest pain, shortness of breath, dyspnea on exertion, cough, abdominal pain, diarrhea, back pain, neck pain, urinary/bowel changes, suicidal/homicidal ideation, auditory hallucination or any other complaint. PMD: Dr. Martinez Time/Duration: Other (Today) Symptom Onset: Sudden Symptom Course: Unchanged Activities at Onset: Light Context: Home Past Medical History - Provider Review Nursing Documentation Reviewed: Yes - Infectious Disease Hx of Infectious Diseases: None - Reproductive Menopause: No - Cardiac Hx Cardiac Disorders: Yes Hx Hypertension: Yes - Pulmonary Hx Respiratory Disorders: No Hx Tuberculosis: No - Neurological HX Cerebrovascular Accident: No Hx Seizures: No - HEENT Hx HEENT Disorder: No - Renal Hx Renal Disorder: No - Endocrine/Metabolic Hx Endocrine Disorders: No - Hematological/Oncological Hx Blood Disorders: No - Integumentary Hx Dermatological Disorder: No - Musculoskeletal/Rheumatological Hx Musculoskeletal Disorders: No - Gastrointestinal Hx Gastrointestinal Disorders: No - Genitourinary/Gynecological Hx Genitourinary Disorders: No Hx Sexually Transmitted Diseases: No - Psychiatric Hx Anxiety: Yes Hx Depression: Yes Hx Schizophrenia: Yes Hx Substance Use: Yes - Surgical History Other/Comment: Laparoscopy; had tumor - Anesthesia Hx Anesthesia: Yes Hx Anesthesia Reactions: No Hx Malignant Hyperthermia: No - Suicidal Assessment Feels Threatened In Home Enviroment: No Family/Social History - Physician Review Nursing Documentation Reviewed: Yes Family/Social History: No Known Family HX Smoking Status: Light Smoker < 10 Cigarettes Daily Hx Alcohol Use: Yes Hx Substance Use: Yes Substance used: pcp Hx Substance Use Treatment: No Allergies/Home Meds Allergies/Adverse Reactions: Allergies shellfish derived Allergy (Verified 01/03/17 16:17) .unknown Home Medications: Home Meds Medication Instructions Recorded Confirmed Cogentin 0.5 mg PO BID 01/03/17 01/23/17 Risperdal 2 mg PO BID 01/03/17 01/23/17 [place] Aspartate [Lithate] 0 mg PO DAILY 01/23/17 01/23/17 QUEtiapine [SEROquel] 0 mg PO DAILY 01/23/17 01/23/17 Review of Systems - Physician Review All systems were reviewed & negative as marked: Yes - Review of Systems Constitutional: absent: Fevers, Night Sweats Respiratory: absent: SOB Cardiovascular: absent: Chest Pain, JIMENEZ Gastrointestinal: Nausea, Vomiting. absent: Abdominal Pain, Stool Changes, Diarrhea Genitourinary Female: absent: Urine Output Changes Musculoskeletal: absent: Back Pain, Neck Pain Neurological: absent: Headache, Dizziness Psychiatric: Other ((+) visual hallucination, feels paranoid. Negative for homicidal ideation/ auditory hallucination.). absent: Suicidal Ideation Physical Exam Vital Signs Reviewed: Yes Vital Signs Temp Pulse Resp BP Pulse Ox 01/23/17 17:44 98.2 F 80 16 118/79 98 Temperature: Afebrile Blood Pressure: Normal Pulse: Regular Respiratory Rate: Normal Appearance: Positive for: Well-Appearing, Non-Toxic, Comfortable Pain Distress: None Mental Status: Positive for: Alert and Oriented X 3 - Systems Exam Head: Present: Atraumatic, Normocephalic Pupils: Present: PERRL Extroacular Muscles: Present: EOMI Conjunctiva: Present: Normal Mouth: Present: Moist Mucous Membranes Neck: Present: Normal Range of Motion Respiratory/Chest: Present: Clear to Auscultation, Good Air Exchange. No: Respiratory Distress, Accessory Muscle Use Cardiovascular: Present: Regular Rate and Rhythm, Normal S1, S2. No: Murmurs Abdomen: Present: Normal Bowel Sounds. No: Tenderness, Distention, Peritoneal Signs Back: Present: Normal Inspection Upper Extremity: Present: Normal Inspection. No: Cyanosis, Edema Lower Extremity: Present: Normal Inspection. No: Edema Neurological: Present: GCS=15, CN II-XII Intact, Speech Normal Skin: Present: Warm, Dry, Normal Color. No: Rashes Psychiatric: Present: Alert, Oriented x 3, Normal Insight, Normal Concentration. No: Suicidal Ideation, Homicidal Ideation Medical Decision Making ED Course and Treatment: 01/23/17 18:21 Impression: A 41 year old female presents to the emergency department with a complaint of nausea and vomiting. Plan: -- EKG -- Chest X-ray -- Urinalysis -- Labs -- Reassess and disposition Progress Notes: - Lab Interpretations I have reviewed the lab results: Yes - RAD Interpretation Radiology Orders: 01/23/17 17:52 CHEST ONE VIEW [RAD] Stat - EKG Interpretation Interpreted by ED Physician: Yes Type: 12 lead EKG - Scribe Statement The provider has reviewed the documentation as recorded by the Jobibe Svetlana Fritz Provider Scribe Attestation: All medical record entries made by the Scribe were at my direction and personally dictated by me. I have reviewed the chart and agree that the record accurately reflects my personal performance of the history, physical exam, medical decision making, and the department course for this patient. I have also personally directed, reviewed, and agree with the discharge instructions and disposition. Disposition/Present on Arrival - Present on Arrival Any Indicators Present on Arrival: Yes History of DVT/PE: No History of Uncontrolled Diabetes: No Urinary Catheter: No History of Decub. Ulcer: No History Surgical Site Infection Following: None - Disposition Have Diagnosis and Disposition been Completed?: No Diagnosis: Schizophrenia Disposition Time: 19:00 Condition: STABLE Forms: [employer] (Belizean)
[2017-01-23 18:47] LABS: BASO # 0.03 K/mm3 (0.0-2.0); BASO % 0.4 % (0.0-3.0); EOS # 0.3 (0.0-0.7); EOS % 3.2 % (1.5-5.0); GRAN # 3.83 (1.4-6.5); GRAN % 49.7 % (50.0-68.0); HEMATOCRIT 37.3 % (36.0-48.0); LYMPH % 39.2 % (22.0-35.0); MEAN CELL VOLUME 94.4 fl (80.0-105.0); MEAN CORPUSCULAR HEMOGLOBIN 31.6 pg (25.0-35.0); MEAN CORPUSCULAR HGB CONC 33.5 g/dl (31.0-37.0); MEAN PLATELET VOLUME 10.3 fl (7.0-11.0); MONO # 0.6 (0.1-0.6); MONO % 7.5 % (1.0-6.0); RED CELL DISTRIBUTION WIDTH 13.3 % (11.5-14.5); WHITE BLOOD COUNT 7.7 10^3/ul (4.5-11.0)
[2017-01-23 19:02] LABS: ALB/GLOB RATIO 1.4 (1.1-1.8); ALKALINE PHOSPHATASE 51 U/L (38-126); ALT/SGPT 23 U/L (7-56); AST/SGOT 25 U/L (14-36); BILIRUBIN,TOTAL 0.4 mg/dL (0.2-1.3); BLOOD UREA NITROGEN 19 mg/dL (7-21); CALCIUM 9.1 mg/dL (8.4-10.5); CARBON DIOXIDE 26 mmol/L (21-33); CHLORIDE 107 mmol/L (98-107); GFR AFRICAN-AMERICAN > 60; GLUCOSE,RANDOM 102 mg/dL (70-110); POTASSIUM 3.9 mmol/L (3.6-5.0); SODIUM 139 mmol/L (132-148); TOTAL PROTEIN 6.7 g/dL (5.8-8.3)
[2017-01-23 22:19] LABS: PH,URINE 6.5 (4.7-8.0); URINE BILIRUBIN NEGATIVE (NEGATIVE); URINE BLOOD TRACE-INTACT (NEGATIVE); URINE GLUCOSE (UA) NEGATIVE (NEGATIVE); URINE KETONE NEGATIVE (NEGATIVE); URINE LEUKOCYTE ESTERASE NEGATIVE Leu/uL (NEGATIVE); URINE PROTEIN 100 mg/dL (<30 mg/dL); URINE UROBILINOGEN 0.2 E.U./dL (<1 E.U./dL)
[2017-01-23 22:27] LABS: URINE APPEARANCE SL CLOUDY (CLEAR); URINE COLOR YELLOW (YELLOW)
[2017-01-23 22:28] LABS: URINE BACTERIA MOD (NEG)
[2017-01-24] MEDS ORDERED: Magnesium Hydroxide Susp 30 ml UD PO PRN (00:09)
[2017-01-24] MEDS ORDERED: Alum-Mag Hydrox-Simethicone Susp (30 mL) PO PRN (00:09)
--- NOTE | 2017-01-24 00:55 | PCM.BM ---
<Dina Hernández - Last Filed: 01/24/17 00:51> Treatment Plan Problems - Problems identified on initial assessmt depression Date Initiated: 01/23/17 Time Initiated: 23:45 Assessment reference: NA Status: Active Priority: 2 medication noncompliance Date Initiated: 01/23/17 Time Initiated: 23:45 Status: Active Priority: 1 Treatment assets and liabiliti Patient Assests: self-reliant, ADL independent, negotiates basic needs Patient Liabilities: financial problems, poor support system, substance abuse - Milieu Protocol Maintain good personal hygiene: daily Encourage regular showers, daily Remind patient to perform daily oral care, daily Assist patient to perform ADL's Conduct patient checks and document Observation sheet: Q15 minutes Maintain personal safety: every shift Educate patient to report safety concerns to staff, every shift Monitor environment for contraband/sharps Medication safety: Monitor for expected outcome, potential side effects: every shift, Assess barriers to learning: every shift, Assess readiness for medication education: every shift Discharge/Continuing Care - Education Needs Education Needs: Patient Medication, Patient Diagnosis/Disease Process, Patient Coping Skills, Patient Anger Management skills, Patient Placement options, Patient Community resources, Patient Activities of Daily Living, Patient Health Practices/Safety, Patient Personal Hygiene/Grooming - Discharge Discharge Criteria: Tolerates medication w/o severe side effects, Free of agitation, Normal sleep pattern, Ability to care for self <Laureen Fajardo - Last Filed: 01/24/17 13:04> - Diagnosis (1) Disorganized type schizophrenia Status: Acute Interventions: 01/24/17 13:04 Psychoeducation/psychotherapy Psychopharmacology/adjustment of medications as needed/ monitoring possible side effects Evaluate pt on daily basis Compliance with medications and follow up appointments Long acting medication if pt is noncompliant with pill form Suicide and homicide risk assessment and prevention, coping strategies, safety plan Relapse prevention Reduction of symptoms Improve functional status Possible assertive community treatment Cognitive behavioral therapy Family involvement Possible social skill training as outpatient (2) Cocaine abuse Status: Chronic Interventions: 01/24/17 13:04 Monitoring withdrawal symptoms Medical detoxification Pharmacotherapy for alcohol/benzos/opioid dependence Maintaining sobriety Relapse prevention Possible rehabilitation Motivational interviewing 12-step programs: AA meetings <Amna Casey - Last Filed: 01/28/17 09:32> Family Contact Family involvement: Famliy/SO not involved Family contact: Patient declines to allow family contact at present
[2017-01-24] MEDS: Divalproex 250 mg DR (BID formulation) PO SCH ×2 (09:50→21:26)
--- NOTE | 2017-01-24 09:52 | RAD ---
PROCEDURE: CHEST RADIOGRAPH, 1 VIEW HISTORY: psych eval COMPARISON: Comparison made with chest radiograph 01/03/2017 FINDINGS: LUNGS: Poor inspiration with low lung volumes, crowded bronchovascular markings and mild bibasilar atelectasis PLEURA: No pneumothorax or pleural fluid seen. CARDIOVASCULAR: Normal. OSSEOUS STRUCTURES: No significant abnormalities. VISUALIZED UPPER ABDOMEN: Normal. OTHER FINDINGS: None. IMPRESSION: Poor inspiration with low lung volumes, crowded bronchovascular markings and mild bibasilar atelectasis
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
--- NOTE | 2017-01-25 09:38 | CON ---
DATE: 01/24/2017 CHIEF COMPLAINT: Nausea and vomiting. HISTORY OF PRESENT ILLNESS: Ms. Brenna Escobar is a 41-year-old female with past medical history of schizophrenia, bipolar, came to the Emergency Room for one day nausea and vomiting, history of schizophrenia. The patient states that she was recently discharged for schizophrenia 3 weeks ago. She states that she was prescribed and started on medication with she is attributing to her symptoms. She states that she has been having visual hallucinations of shadows of cat. She noticed that she feels paranoid. The patient denies fever, chills, headache, dizziness, chest pain, shortness of breath. At this moment, no nausea or vomiting or diarrhea. No fever. No chills. No homicidal or suicidal ideations. No auditory hallucination at that moment. PAST MEDICAL HISTORY: Hypertension, anxiety, depression, schizophrenia, substance abuse. FAMILY HISTORY: Father and mother noncontributory. SOCIAL HISTORY: Smoking, light smoker; alcohol yes; substance abuse yes, especially PCP. ALLERGIES: ALLERGIC TO SHELLFISH. HOME MEDICATIONS: Cogentin, Risperdal, lithium and Seroquel. REVIEW OF SYSTEMS: The patient is seen and examined on the bedside in the Psych Department, complaining about some irrelevant things, talking about , about neck pain, about headache, but no nausea or vomiting at this moment. No fever. No chills. No shortness of breath. No abdominal pain. No hematuria. No hematochezia. PHYSICAL EXAMINATION VITAL SIGNS: Temperature 97.5, pulse 78, blood pressure 110/78 and respiratory rate 18. HEENT: Head is normocephalic and atraumatic. Eyes; PERRLA. Extraocular muscles are intact. Conjunctivae clear. Nose patent. Mucous membrane moist. NECK: Supple. No carotid bruit, JVD or thyromegaly. CHEST: Bilaterally symmetrical. HEART: S1 and S2 positive. LUNGS: Clear to auscultation. ABDOMEN: Soft. Bowel sounds present. No organomegaly. EXTREMITIES: No edema. No cyanosis. NEUROLOGIC: The patient is awake and alert. Moving all 4 extremities. No focal deficits. LABORATORY DATA: White blood cells 7.7, hemoglobin 12.7, hematocrit 37.8 and platelets 256. Sodium 139, potassium 3.9, BUN 19, creatinine 1.0 and glucose 106. ASSESSMENT AND PLAN: Ms. Brenna Escobar is a 41-year-old lady with proteinuria, hematuria, cocaine positive in the system, came with the episodes of nausea and vomiting, history of schizophrenia, history of hypertension, renal insufficiency, anemia, anxiety, depression, history of hallucinations and delusions. Right now, the patient is not feeling hallucination and delusion. Psychiatrist is on the case. Repeat labs. Vira Denton MD
[2017-01-25] MEDS: Divalproex 250 mg DR (BID formulation) PO SCH ×2 (10:12→22:16)
--- NOTE | 2017-01-25 14:24 | PCM.PYCHPN ---
Psychiatric Progress Note - Psychiatric Progress Note Patient seen today, length of contact: 30min Patient Chief Complaint: "I am balanced now, I need to find an apartment..." Medical Problems: Medical h/o:HTN, asthma, h/o hematuria, h/o proteiuria, h/o galactorhea (r/o risperdal side effect) Diagnostic Results: 01/23/17 18:37 01/23/17 18:37 Lab Results 01/23/17 22:00: Urine Color Yellow, Urine Appearance Sl cloudy, Urine pH 6.5, Ur Specific [place] >= 1.030, Urine Protein 100 H, Urine Glucose (UA) Negative, Urine Ketones Negative, Urine Blood Trace-intact H, Urine Nitrate Negative, Urine Bilirubin Negative, Urine Urobilinogen 0.2, Ur Leukocyte Esterase Negative , Urine RBC 1 - 3, Urine WBC 5 - 10, Ur Epithelial Cells 4 - 5, Urine Bacteria Mod, Urine HCG, Qual Negative 01/23/17 22:00: Urine Opiates Screen Negative, Urine Methadone Screen Negative, Ur Barbiturates Screen Negative, Ur Phencyclidine Scrn Negative, Ur Amphetamines Screen Negative, U Benzodiazepines Scrn Negative, U Oth Cocaine Metabols Positive H, U Cannabinoids Screen Negative 01/23/17 18:37: Alcohol, Quantitative < 10 01/23/17 18:37: Salicylates < 1 L, Acetaminophen < 10.0 L 01/23/17 18:37: Sodium 139, Potassium 3.9, Chloride 107, Carbon Dioxide 26, Anion Gap 10, BUN 19, Creatinine 1.0, Est GFR ( Amer) > 60, Est GFR (Non- Af Amer) > 60, Random Glucose 102, Calcium 9.1, Total Bilirubin 0.4, AST 25, ALT 23, Alkaline Phosphatase 51, Total Protein 6.7, Albumin 3.9, Globulin 2.8, Albumin/Globulin Ratio 1.4 01/23/17 18:37: WBC 7.7 D, RBC 3.95, Hgb 12.5, Hct 37.3, MCV 94.4, MCH 31.6, MCHC 33.5, RDW 13.3, Plt Count 256, MPV 10.3, Gran % 49.7 L, Lymph % (Auto) 39.2 H, [place] % (Auto) 7.5 H, Eos % (Auto) 3.2, Baso % (Auto) 0.4, Gran # 3.83, Lymph # 3.0, [place] # 0.6, Eos # 0.3, Baso # 0.03 Vital Signs Temp Pulse Resp BP Pulse Ox 01/25/17 06:54 97.8 F 75 20 129/82 01/24/17 07:00 97.5 F L 78 18 110/78 01/23/17 23:45 97.9 F 64 22 130/70 100 01/23/17 23:00 67 20 127/67 98 01/23/17 21:00 68 20 125/68 98 01/23/17 19:19 62 20 124/62 98 01/23/17 17:44 98.2 F 80 16 118/79 98 DSM 5 Symptoms Update: Pt is a 41 year old female, with long h/o mental illness [dx include schizophrenia, depression, schizoaffective disorder] and substance abuse [UDS + cocaine], multiple psychiatric admissions, most recently at [facility] [place] at the beginning of this month, chronic noncompliance with f/u appts and medications who brought herself for treatment of hallucinations, pt reported to see " shadows of cats", pt also wanted to be resumed on the Risperdal. pt is chronic noncompliant with meds, but this time pt reported being compliant, pt also c/o nausea and vomiting in ED (unwitnessed). this senior mortgage underwriter is very familiar to this pt from multiple psych admissions, pt was seen at the tx team meeting today, poor personal hygiene, malodorous, disorganized in her thoughts, loud, seems to be in her hypomanic stage. pt was keep asking about her discharge date, pt said that she needs to start looking for an apartment "I got a voucher, I need to find section [address]". pt was educated about h/o galactorhea on Risperdal, pt was in agreement to be on seroquel "seroquel is my favorite..". as per staff pt is disorganized, loud, trying to steal food from other patients. but no aggression or agitation. MSE: Pt deemed to be unreliable historian, well related to this senior mortgage underwriter, but in her manic stage, overpoducitve speech, was loud, was laughing inappropriately, pt has poor hygiene, good ADLs, psychomotor agitation, intense eye contact, mood described: "I am balanced now, I will look for an apartment", affect:labile , thought process:disorganized, tangential and circumstantial, thought content: denied SI/ HI, pt reported to hear some whispers, seeing shadows, denied paranoid ideation, insight/judgment:are poor, impulse control is unpredictable. 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 Treatment plan: Milieu/structure/supportive therapy Medical consult appreciated, see medical team note for more detailed info consultation for discharge plan and social issues Med management Patient had galactorrhea on Risperdal, agreed today to d/c it seroquel was started 100mg po bid for psychosis depakote resumed 500mg po bid by psychiatrist automation controls specialist Medical consult Family involvement Follow up on labs Will monitor closely evaluation for d/c planning Pt was educated about risk/benefits and alternatives of medications, coping strategies (safety plan, suicide prevention), relapse prevention, importance of follow up with psychiatrist and therapist, stay away from drugs/alcohol/smoking Medication Change: Yes (seroquel started) Medical Record Reviewed: Yes Consults ordered or reviewed: medical consult appreciated Mental Status Examination - Homicidal Ideation Homicidal Ideation: No Goal/Treatment Plan - Goal/Treatment Plan Need for Continued Stay: Remain at risks for inpatient hospitalization, Severe depression anxiety, Discharge may exacerbated symptoms, Severe functional impairment Estimated Date of D/C: 01/29/17
--- NOTE | 2017-01-25 23:21 | PN ---
DATE: SUBJECTIVE: The patient is a 41-year-old female. The patient seen and examined on the bedside, looking comfortable. No nausea, vomiting, diarrhea. No hematuria. No hematochezia. No swelling of the leg. No chest pain. No palpitation. No headache. No dizziness. Lying down on her bed comfortably. Complaining about some vague symptoms, seen by the psychiatrist. No fever. No chills. No nausea, vomiting or diarrhea. PHYSICAL EXAMINATION: VITAL SIGNS: Temperature 98.2, pulse 65, blood pressure 107/52, respiratory rate 20. HEENT: Head normocephalic and atraumatic. Eyes: PERRLA. Extraocular muscles intact. Conjunctivae clear. Nose is patent. Mucous membranes moist. NECK: Supple. No carotid bruits. No JVD or thyromegaly. CHEST: Bilaterally symmetrical. HEART: S1 and S2 positive. LUNGS: Clear to auscultation. ABDOMEN: Soft. Bowel sounds present. No organomegaly. EXTREMITIES: No edema. No cyanosis. NEUROLOGIC: The patient is awake and alert. Moving all four extremities. No focal deficits. MEDICATIONS: Cogentin, Depakote, Maalox, milk of magnesia, Seroquel, Sonata, Tylenol. LABORATORY DATA: We do not have recent lab today. I ordered yesterday; I think the patient refused. ASSESSMENT AND PLAN: Ms. Chelsea Aleman is 41-year-old lady with proteinuria, hematuria; tox screen was positive with cannabinoids, metabolites, history of delusions and hallucinations, schizophrenia, bipolar. Dr. Laureen Fajardo is taking care of psych problem. The patient has hypertension, anxiety, depression, history of substance abuse. We will continue present treatment out of bed, physical therapy, gastrointestinal and deep venous thrombosis prophylaxis, repeat laboratories. Vira Denton MD
[2017-01-26 06:50] VITALS: O2SAT 99
--- NOTE | 2017-01-26 09:05 | PCM.PYCHPN ---
Psychiatric Progress Note - Psychiatric Progress Note Patient seen today, length of contact: 25 min Patient Chief Complaint: "better" Problems Identified/Issues Discussed: I reviewed assessment and recent notes. I met with patient in the dayroom. She is very familiar to me from numerous prior admissions. Patient's grooming is adequate and she is oriented to location, month and year. Speech is overproductive and thought process is tangential. She is elevated and labile. She denies any hallucinations and feels that she is getting better. She doesn't have any complaints about her medications. Denies any new discomfort or pain. I agree with staff notes which indicate that patient remains disorganized. She has been loud and trying to steal food from other patients. Can be intrusive with her needs and has low frustration tolerance. Generally she is redirectable. Remains brittle and unpredictable with poor insight and judgement. 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 Medication Change: No ( ) Medical Record Reviewed: Yes Mental Status Examination - Mood Mood: Other ("better") - Affect Affect: Broad, Other (labile, brittle) - Speech Speech: Loud (rapid, overinclusive) - Formal Thought Process Formal Thought Process: Other (tangential) - Suicidal Ideation Suicidal Ideation: No - Homicidal Ideation Homicidal Ideation: No Goal/Treatment Plan - Goal/Treatment Plan Need for Continued Stay: Remain at risks for inpatient hospitalization, Severe depression anxiety, Discharge may exacerbated symptoms, Severe functional impairment Progress Toward Problem(s) and Goals/Treatment Plan: * c/w current tx and plan * c/w depakote 500 mg po bid, VPA on 01/10/17=48L, no recent VPA from this admission, will order * Vitals reviewed and noted below: Selected Entries 01/24/17 01/25/17 01/25/17 07:00 06:54 16:18 Temperature 97.5 F L 97.8 F 98.2 F Pulse Rate 78 75 65 Respiratory 18 20 Rate Blood Pressure 110/78 129/82 107/52 L Estimated Date of D/C: 01/29/17
[2017-01-26] MEDS: Divalproex 250 mg DR (BID formulation) PO SCH ×2 (09:09→21:38)
--- NOTE | 2017-01-27 08:57 | PCM.PYCHPN ---
Psychiatric Progress Note - Psychiatric Progress Note Patient seen today, length of contact: 25 min Patient Chief Complaint: "better" Problems Identified/Issues Discussed: I reviewed recent notes and met with patient at bedside. Patient's grooming is adequate and she is oriented to location, month and year. Speech remains a little overproductive and thought process is tangential. Continues to present as elevated and labile. She denies any hallucinations and feels that she is getting better. She doesn't have any complaints about her medications. Denies any new discomfort or pain. I agree with staff notes which indicate that patient remains manipulative and disorganized. She has been loud and tried to steal food from other patients. Her low frustration tolerance is low and she refused to join group yesterday. Remains brittle and unpredictable with poor insight and judgement.. 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 Medication Change: No ( ) Medical Record Reviewed: Yes Mental Status Examination - Mood Mood: Other ("better") - Affect Affect: Broad, Other (labile, brittle) - Speech Speech: Loud (rapid, overinclusive) - Formal Thought Process Formal Thought Process: Other (tangential) - Suicidal Ideation Suicidal Ideation: No - Homicidal Ideation Homicidal Ideation: No Goal/Treatment Plan - Goal/Treatment Plan Need for Continued Stay: Remain at risks for inpatient hospitalization, Severe depression anxiety, Discharge may exacerbated symptoms, Severe functional impairment Progress Toward Problem(s) and Goals/Treatment Plan: * c/w current tx and plan * c/w depakote 500 mg po bid, VPA on 01/10/17=48L, no recent VPA from this admission, ordered this weekend, result noted below: 01/26/17 11:00 Valproic Acid 21 L * Vitals reviewed and noted below: Selected Entries 01/24/17 01/25/17 01/25/17 07:00 06:54 16:18 Temperature 97.5 F L 97.8 F 98.2 F Pulse Rate 78 75 65 Respiratory 18 20 Rate Blood Pressure 110/78 129/82 107/52 L O2 Sat by Pulse Oximetry 01/26/17 06:49 Temperature Pulse Rate 64 Respiratory 16 Rate Blood Pressure 113/64 O2 Sat by Pulse 99 Oximetry Estimated Date of D/C: 01/29/17
[2017-01-27] MEDS: Divalproex 250 mg DR (BID formulation) PO SCH ×2 (10:55→21:38)
--- NOTE | 2017-01-27 19:17 | PN ---
DATE: SUBJECTIVE: The patient is 41-year-old female. The patient seen and examined at the bedside, lying down on the bed, looking comfortable. No nausea, vomiting, or diarrhea. No hematuria or hematochezia. No swelling of the legs. No chest pian or palpitation. No headache or dizziness. PHYSICAL EXAMINATION: VITAL SIGNS: Temperature 98.9, pulse 64, blood pressure 113/64, respiratory rate 15. HEENT: Head; normocephalic and atraumatic. Eyes; PERRLA. Extraocular muscles intact. Conjunctiva clear. Nose patent. Mucous membrane moist. NECK: Supple. No carotid bruits or thyromegaly. CHEST: Bilaterally symmetrical. HEART: S1, S2 positive. LUNGS: Clear to auscultation. ABDOMEN: Soft. Bowel sounds are present. No organomegaly. EXTREMITIES: No edema. No cyanosis. NEUROLOGIC: The patient is awake and alert. Moving all four extremities. No focal deficit. MEDICATION: Cogentin, Depakote, Maalox, milk of magnesia, Seroquel, Sonata, Tylenol. LABORATORY DATA: We do not have written labs today, but I reviewed old labs. ASSESSMENT AND PLAN: Ms. Chelsea Aleman 41 -year-old lady with hematuria, proteinuria, history of substance abuse, especially cocaine, seen by psychiatrist Dr. Jackson, schizophrenia disorganized type, PCP abuse, substance-induced psychosis, history of hypertension, history of hypercholesterolemia, chronic pain syndrome, noncompliant. We will continue present treatment, repeat labs, and we will follow. Vira Denton MD
[2017-01-28 07:11] VITALS: RESP 20; TEMP 98.4
[2017-01-28] MEDS: Divalproex 250 mg DR (BID formulation) PO SCH ×2 (09:08→22:07)
--- NOTE | 2017-01-28 09:42 | PN ---
DATE: 01/26/2017 SUBJECTIVE: The patient is a 41-year-old female. The patient seen and examined on the bedside, looking comfortable. No nausea, vomiting, or diarrhea. No chest pain. No palpitation. No headache. No dizziness. No hematuria or hematochezia. No swelling of the leg. PHYSICAL EXAMINATION: VITAL SIGNS: Temperature 98.9, pulse is 64, blood pressure 113/64, respiratory rate 16. HEENT: Head is normocephalic, atraumatic. Eyes; PERRLA. Extraocular muscle intact. Conjunctivae clear. Nose patent. Mucous membranes moist. NECK: Supple. No carotid bruits, JVD or thyromegaly. CHEST: Bilaterally symmetrical. HEART: S1 and S2 positive. LUNGS: Clear to auscultation. ABDOMEN: Soft. Bowel sounds present. No organomegaly. EXTREMITIES: No edema. No cyanosis. NEUROLOGIC: The patient is awake, alert. Moving all 4 extremities. No focal deficits. MEDICATIONS: Cogentin, Depakote, Maalox, Milk of Magnesia, Seroquel, Sonata, and Tylenol. LABORATORY DATA: White blood cell 7.7, hemoglobin 12.5, hematocrit 37.3, platelets 256. Sodium 139, potassium 3.4, BUN 19, creatinine 1.0. AST 25, ALT 23. Urine has trace blood. Drug screen is positive for cocaine. ASSESSMENT AND PLAN: a 41-year-old female with proteinuria, hematuria, cocaine metabolite positive, history of hypertension, hypercholesterolemia, bipolar, schizophrenia, history of hallucinations, getting treatment from Dr. Laureen Fajardo, complaining of multiple things, but do not make any sense. GI and DVT prophylaxis. Repeat labs. Vria Denton MD MTDD
--- NOTE | 2017-01-28 14:13 | PCM.PYCHPN ---
Psychiatric Progress Note - Psychiatric Progress Note Patient seen today, length of contact: 25 min Patient Chief Complaint: "I am fine. Dr. Hodge said I could go home tomorrow." Problems Identified/Issues Discussed: Patient was seen in treatment team. She initially refused to attend because I was "not my psychiatrist." Her appearance is dishevelled, and she is not clean. She is circumstantial, tangential, and over productive in conversation. She is somewhat hypomanic and is wanting to be discharged tomorrow to meet with her water resources program director. A depakote level was ordered for tomorrow morning. Her insight and judgment are poor. Medication Change: No ( ) Medical Record Reviewed: Yes Mental Status Examination - Mood Mood: Other ("better") - Affect Affect: Broad, Other (labile, brittle) - Speech Speech: Loud (rapid, overinclusive) - Formal Thought Process Formal Thought Process: Other (tangential) - Suicidal Ideation Suicidal Ideation: No - Homicidal Ideation Homicidal Ideation: No Goal/Treatment Plan - Goal/Treatment Plan Need for Continued Stay: Remain at risks for inpatient hospitalization, Severe depression anxiety, Discharge may exacerbated symptoms, Severe functional impairment Estimated Date of D/C: 01/29/17
[2017-01-28 19:07] VITALS: BP 114/71; PULSE 67
--- NOTE | 2017-01-29 08:42 | PN ---
DATE: 01/28/2017 SUBJECTIVE: The patient is a 41-year-old female. The patient is seen and examined at the bedside, looking comfortable. No nausea, vomiting, or diarrhea. No hematuria or hematochezia. No swelling of the legs. No chest pain. No palpitation. No headache. No dizziness. No fever. No chills. PHYSICAL EXAMINATION: VITAL SIGNS: Temperature 98.4, pulse 67, blood pressure 114/71, respiratory rate 20. HEENT: Head is normocephalic, atraumatic. Eyes; PERRLA. Extraocular muscles intact. Conjunctivae clear. Nose patent. Mucous membrane moist. NECK: Supple. No carotid bruit. No JVD or thyromegaly. CHEST: Bilateral symmetrical. HEART: S1 and S2 positive. LUNGS: Clear to auscultation. ABDOMEN: Soft. Bowel sounds present. No organomegaly. EXTREMITIES: No edema. No cyanosis. NEUROLOGIC: The patient is awake and alert. Moving all four extremities. No focal deficit. MEDICATIONS: Cogentin, Depakote, Maalox, Milk of Magnesia, Seroquel, Sonata, and Tylenol. LABORATORY DATA: We do not have recent labs today, but reviewed old labs. ASSESSMENT AND PLAN: The patient is a 41-year-old lady with multiple medical problems, multiple hospitalizations, and multiple emergency room visits, admitted in the psychiatric department because of depression, anxiety, suicidal and homicidal ideation; has hematuria, cocaine metabolites are positive. History of hypertension, hypercholesterolemia, bipolar, schizophrenia, and history of hallucination. The patient is admitted under Dr. Fajardo's service, getting psychiatric treatment. GI and DVT prophylaxis. Repeat labs. We will follow up. Vira Denton MD MTDD
[2017-01-29] MEDS: Divalproex 250 mg DR (BID formulation) PO SCH (09:09)
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
--- NOTE | 2017-01-30 02:20 | PN ---
DATE: 01/29/2017 SUBJECTIVE: The patient is a 41-year-old female. The patient is seen and examined at the bedside early in the morning and very happy to going home. No nausea, vomiting, or diarrhea. No hematuria or hematochezia. No swelling of the legs. No chest pain. No palpitations. No headache. No dizziness. PHYSICAL EXAMINATION: VITAL SIGNS: Temperature 98.4, pulse 67, blood pressure 114/71, and respiratory rate 20. HEENT: Head is normocephalic and atraumatic. Eyes; PERRLA. Extraocular muscles are intact. Conjunctivae clear. Nose patent. Mucous membranes moist. NECK: Supple. No carotid bruits. No JVD or thyromegaly. CHEST: Bilaterally symmetrical. HEART: S1 and S2 positive. LUNGS: Clear to auscultation. ABDOMEN: Soft. Bowel sounds present. No organomegaly. EXTREMITIES: No edema. No cyanosis. NEUROLOGICAL: The patient is awake and alert. Moving all 4 extremities. No focal deficit. MEDICATIONS: Cogentin, Depakote, Milk of Magnesia, Seroquel, Sonata, and Tylenol. LABORATORY DATA: We do not have recent labs today, but I reviewed old labs. ASSESSMENT AND PLAN: The patient is a 41-year-old lady with multiple hospitalizations on multiple emergency room visits. She got treatment from Psychiatric Department from Dr. Laureen Fajardo, has anxiety, suicidal and homicidal ideation, and has hematuria. Cocaine metabolites are positive. History of hypertension, hypercholesterolemia, bipolar, schizophrenia, and hallucination. GI and DVT prophylaxis. The patient was treated, got better, and sent home. Follow up with primary care physician Dr. Sheldon Rose and the patient's psychiatrist. Vira Denton MD
== END 2017-01-29 16:20 | disposition home or self-care (01) | DRG 885 ==
LOC: ED 17:32 → ERH 22:00 → PSYC 23:46
PROVIDERS: ADMIT Psychiatry & Neurology Psychiatry; ATTEND Psychiatry & Neurology Psychiatry
PROC: GZ3ZZZZ Medication Management (ICD-10-PCS; principal; 2017-01-24)
DX: F20.1 Disorganized schizophrenia (principal); R45.851 Suicidal ideations; F11.20 Opioid dependence, uncomplicated; D64.9 Anemia, unspecified; I10 Essential (primary) hypertension; F41.9 Anxiety disorder, unspecified; F14.159 Cocaine abuse with cocaine-induced psychotic disorder, unspecified; J45.909 Unspecified asthma, uncomplicated; R31.9 Hematuria, unspecified; E78.00 Pure hypercholesterolemia, unspecified; F16.10 Hallucinogen abuse, uncomplicated; G89.4 Chronic pain syndrome; R80.9 Proteinuria, unspecified; F17.210 Nicotine dependence, cigarettes, uncomplicated; R45.850 Homicidal ideations; F32.9 Major depressive disorder, single episode, unspecified; Z59.0 Homelessness; Z91.14 Patient's other noncompliance with medication regimen; Z91.19 Patient's noncompliance with other medical treatment and regimen; Z91.013 Allergy to seafood

== ENCOUNTER 2017-03-14 03:00 | Inpatient (IN) | payer MEDICARE, OTHER ==
[2017-03-14 03:01] VITALS: BMI 27.3
--- NOTE | 2017-03-14 04:19 | ED PDOC ---
Arrival/HPI - General Chief Complaint: Medical Clearance Time Seen by Provider: 03/14/17 03:05 Historian: Patient - History of Present Illness Narrative History of Present Illness (Text): 03/14/17 04:16 Chelsea Aleman is a 42 year old female, whose past medical history includes hypertension, anxiety, depression, sand chizoaffective disorder, who presents to the Emergency department complaining of intermittent epistaxis for the past days. Patient notes she was recently seen at [facility] for similar complaint and discharged. Patient also wants to see a psychiatrist because her medication is "not working any more." Patient denies any suicidal ideation, homicidal ideation , fever, chills, chest pain, shortness of breath, nausea, vomiting, diarrhea, urinary symptoms, back pain, neck pain, headache, dizziness, or any other complaints. Time/Duration: Other (tonight) Symptom Onset: Gradual Symptom Course: Unchanged Activities at Onset: Light Past Medical History - Provider Review Nursing Documentation Reviewed: Yes - Infectious Disease Hx of Infectious Diseases: None - Cardiac Hx Hypertension: Yes - Pulmonary Hx Asthma: Yes - Neurological HX Cerebrovascular Accident: No Hx Seizures: No - HEENT Hx HEENT Disorder: Yes Hx Cataracts: Yes - Renal Hx Renal Disorder: Yes - Endocrine/Metabolic Hx Endocrine Disorders: No - Hematological/Oncological Hx Anemia: Yes - Integumentary Hx Dermatological Disorder: No - Musculoskeletal/Rheumatological Hx Arthritis: Yes - Gastrointestinal Hx Gastrointestinal Disorders: No - Genitourinary/Gynecological Hx Sexually Transmitted Diseases: No - Psychiatric Hx Anxiety: Yes Hx Bipolar Disorder: Yes Hx Depression: Yes Hx Schizophrenia: Yes Hx Substance Use: Yes (marijuanai month ago) - Surgical History Other/Comment: Laparoscopy - Anesthesia Hx Anesthesia: Yes Hx Anesthesia Reactions: No Hx Malignant Hyperthermia: No - Suicidal Assessment Feels Threatened In Home Enviroment: No Family/Social History - Physician Review Nursing Documentation Reviewed: Yes Family/Social History: Unknown Family HX Smoking Status: Light Smoker < 10 Cigarettes Daily Hx Alcohol Use: Yes Hx Substance Use: Yes (marijuanai month ago) Substance used: marijuana, PCP Hx Substance Use Treatment: No Allergies/Home Meds Allergies/Adverse Reactions: Allergies shellfish derived Allergy (Verified 03/14/17 03:45) .unknown Home Medications: Home Meds Medication Instructions Recorded Confirmed Cogentin 02/06/17 [place] 02/06/17 SEROquel 02/06/17 risperiDONE [RisperDAL] 2 mg PO BID 02/06/17 02/06/17 Review of Systems - Physician Review All systems were reviewed & negative as marked: Yes - Review of Systems Constitutional: Normal. absent: Fevers Eyes: Normal ENT: Epistaxis Respiratory: Normal. absent: SOB, Cough Cardiovascular: Normal. absent: Chest Pain Gastrointestinal: Normal. absent: Abdominal Pain, Diarrhea, Nausea, Vomiting Genitourinary Female: Normal. absent: Dysuria, Frequency, Hematuria Musculoskeletal: Normal. absent: Back Pain, Neck Pain Skin: Normal. absent: Rash Neurological: Normal. absent: Headache, Dizziness Endocrine: Normal Hemo/Lymphatic: Normal Physical Exam Vital Signs Reviewed: Yes Vital Signs Temp Pulse Resp BP Pulse Ox 03/14/17 03:51 98.0 F 77 18 130/72 100 Temperature: Afebrile Blood Pressure: Normal Pulse: Regular Respiratory Rate: Normal Appearance: Positive for: Well-Appearing, Non-Toxic, Comfortable, Unkept Pain Distress: None Mental Status: Positive for: Alert and Oriented X 3 - Systems Exam Head: Present: Atraumatic, Normocephalic Pupils: Present: PERRL Extroacular Muscles: Present: EOMI Conjunctiva: Present: Normal Ears: Present: Normal, NORMAL TM, Normal Canal. No: Erythema, TM Bulging, Fluid Mouth: Present: Moist Mucous Membranes, Normal Lips, Normal Teeth. No: Other ( No blood noted in mouth) Pharnyx: Present: Normal. No: ERYTHEMA, EXUDATE, TONSILS ENLARGED, Peritonsilar Swelling, Uvular Deviation, Muffled/Hoarse Voice, [place], Soft Palate/Uvular Edema Nose (External): Present: Atraumatic Nose (Internal): Present: Normal Inspection, No Active Bleeding, Other (No blood noted in nares) Neck: Present: Normal Range of Motion Respiratory/Chest: Present: Clear to Auscultation, Good Air Exchange. No: Respiratory Distress, Accessory Muscle Use Cardiovascular: Present: Regular Rate and Rhythm, Normal S1, S2. No: Murmurs Abdomen: Present: Normal Bowel Sounds. No: Tenderness, Distention, Peritoneal Signs Back: Present: Normal Inspection Upper Extremity: Present: Normal Inspection. No: Cyanosis, Edema Lower Extremity: Present: Normal Inspection. No: Edema Neurological: Present: GCS=15, CN II-XII Intact, Speech Normal Skin: Present: Warm, Dry, Normal Color. No: Rashes Psychiatric: Present: Alert, Oriented x 3, Other (Tangential though process) Medical Decision Making ED Course and Treatment: 03/14/17 04:16 Impression: 42 year old female complaining of intermittent epistaxis, also requesting psychiatric evaluation. Plan: -- EKG -- Chest X-ray -- Labs, alcohol level -- Urine drug screen -- Reassess and disposition Prior Visits: Notes and results from previous visits were reviewed. On 02/06/2017, pt was seen in the [facility] emergency department for suicidal ideation. Pt was admitted for further psychiatric evaluation. Progress Notes: 03/14/17 05:09 Chest X-ray reviewed, shows no acute processes. 03/14/17 07:00 Case endorsed to pending medical clearance, PES evaluation, re- assessment, and final disposition. - RAD Interpretation Radiology Orders: 03/14/17 04:16 CHEST PORTABLE [RAD] Stat Service Specialist: ED Physician - Scribe Statement The provider has reviewed the documentation as recorded by the Mark Bello Provider Scribe Attestation: All medical record entries made by the Scribe were at my direction and personally dictated by me. I have reviewed the chart and agree that the record accurately reflects my personal performance of the history, physical exam, medical decision making, and the department course for this patient. I have also personally directed, reviewed, and agree with the discharge instructions and disposition. Disposition/Present on Arrival - Present on Arrival Any Indicators Present on Arrival: No History of DVT/PE: No History of Uncontrolled Diabetes: No Urinary Catheter: No History of Decub. Ulcer: No History Surgical Site Infection Following: None - Disposition Have Diagnosis and Disposition been Completed?: No Diagnosis: Schizophrenia Disposition Time: 07:00 Patient Problems: Current Active Problems Problem Status Onset Schizophrenia Chronic Condition: STABLE Forms: bttn (Amharic)
--- NOTE | 2017-03-14 07:11 | ED PDOC ---
Physical Exam Vital Signs Reviewed: Yes Vital Signs Temp Pulse Resp BP Pulse Ox 03/14/17 08:44 98.1 F 74 18 125/51 L 100 03/14/17 07:30 80 16 112/77 99 03/14/17 03:51 98.0 F 77 18 130/72 100 Temperature: Afebrile Blood Pressure: Normal Pulse: Regular Respiratory Rate: Normal Appearance: Positive for: Well-Appearing, Non-Toxic, Comfortable Pain Distress: None Mental Status: Positive for: Alert and Oriented X 3 Medical Decision Making ED Course and Treatment: 03/14/17 07:09: Case endorsed to me by Dr. Langley. Pending medical clearance , PES evaluation, re-assessment, and final disposition. EKG: Ordered, reviewed, and independently interpreted the EKG. Rate : 68 BPM Rhythm : NSR Interpretation : Prolonged QT CHEST X-RAY Dictator : Mitesh Zamudio MD Report Date : 03/14/2017 08:29:15 IMPRESSION: No active disease. 03/14/17 10:37: Patient was evaluated by PES. Will admit patient to the psychiatric floor under Dr. Valentine's service. - Lab Interpretations Lab Results: 03/14/17 07:35 03/14/17 07:35 Lab Results 03/14/17 08:51: Urine Opiates Screen Negative, Urine Methadone Screen Negative, Ur Barbiturates Screen Negative, Ur Phencyclidine Scrn Negative, Ur Amphetamines Screen Negative, U Benzodiazepines Scrn Negative, U Oth Cocaine Metabols Positive H, U Cannabinoids Screen Negative 03/14/17 07:35: WBC 9.1, RBC 3.94, Hgb 12.5, Hct 37.2, MCV 94.4, MCH 31.7, MCHC 33.6, RDW 13.1, Plt Count 219, MPV 11.3 H 03/14/17 07:35: Alcohol, Quantitative < 10 03/14/17 07:35: Sodium 138, Potassium 4.0, Chloride 105, Carbon Dioxide 23, Anion Gap 14, BUN 12, Creatinine 0.8, Est GFR ( Amer) > 60, Est GFR (Non- Af Amer) > 60, Random Glucose 62 L, Calcium 9.4, Total Bilirubin 0.6, AST 29, ALT 23, Alkaline Phosphatase 55, Total Protein 7.4, Albumin 4.3, Globulin 3.1, Albumin/Globulin Ratio 1.4 - RAD Interpretation Radiology Orders: 03/14/17 04:16 CHEST PORTABLE [RAD] Stat - Scribe Statement The provider has reviewed the documentation as recorded by the Scribe Svetlana Fritz Provider Scribe Attestation: All medical record entries made by the Scribe were at my direction and personally dictated by me. I have reviewed the chart and agree that the record accurately reflects my personal performance of the history, physical exam, medical decision making, and the department course for this patient. I have also personally directed, reviewed, and agree with the discharge instructions and disposition. Disposition/Present on Arrival - Present on Arrival Any Indicators Present on Arrival: No History of DVT/PE: No History of Uncontrolled Diabetes: No Urinary Catheter: No History of Decub. Ulcer: No History Surgical Site Infection Following: None - Disposition Have Diagnosis and Disposition been Completed?: Yes Diagnosis: Schizophrenia Disposition: HOSPITALIZED Disposition Time: 07:00 Patient Plan: Admission Patient Problems: Current Active Problems Problem Status Onset Schizophrenia Chronic Condition: STABLE
[2017-03-14 07:54] LABS: HEMOGLOBIN 12.5 g/dL (12.0-16.0); MEAN CELL VOLUME 94.4 fl (80.0-105.0); MEAN CORPUSCULAR HEMOGLOBIN 31.7 pg (25.0-35.0); MEAN CORPUSCULAR HGB CONC 33.6 g/dl (31.0-37.0); MEAN PLATELET VOLUME 11.3 fl (7.0-11.0); RBC 3.94 10^6/uL (3.5-6.1); RED CELL DISTRIBUTION WIDTH 13.1 % (11.5-14.5); WHITE BLOOD COUNT 9.1 10^3/ul (4.5-11.0)
[2017-03-14 08:07] LABS: ALB/GLOB RATIO 1.4 (1.1-1.8); ALBUMIN 4.3 g/dL (3.0-4.8); ALT/SGPT 23 U/L (7-56); AST/SGOT 29 U/L (14-36); BLOOD UREA NITROGEN 12 mg/dL (7-21); CALCIUM 9.4 mg/dL (8.4-10.5); GFR AFRICAN-AMERICAN > 60; GFR NON-AFRICAN AMERICAN > 60
--- NOTE | 2017-03-14 08:31 | RAD ---
HISTORY: medical clearance COMPARISON: No prior. FINDINGS: LUNGS: No active pulmonary disease. PLEURA: No significant pleural effusion identified, no pneumothorax apparent. CARDIOVASCULAR: Normal. OSSEOUS STRUCTURES: No significant abnormalities. VISUALIZED UPPER ABDOMEN: Normal. OTHER FINDINGS: None. IMPRESSION: No active disease.
[2017-03-14 09:28] LABS: BARBITURATES, UR NEGATIVE (NEGATIVE); BENZODIAZEPINES, UR NEGATIVE (NEGATIVE); OPIATES, UR NEGATIVE (NEGATIVE); PHENCYCLIDINE, UR NEGATIVE (NEGATIVE)
[2017-03-14] MEDS ORDERED: DiphenhydrAMINE 50 mg/ml Inj IM PRN (12:55)
--- NOTE | 2017-03-14 15:37 | PCM.BM ---
<Rita Holguin - Last Filed: 03/14/17 15:34> Treatment Plan Problems - Problems identified on initial assessmt delusions Date Initiated: 03/14/17 Time Initiated: 15:00 Assessment reference: NA Status: Active Priority: 1 medicationnonadherence Date Initiated: 03/14/17 Time Initiated: 15:00 Assessment reference: NA Status: Active Priority: 2 agitated/aggressive Date Initiated: 03/14/17 Time Initiated: 15:00 Assessment reference: NA Status: Active Priority: 3 ineffective coping Date Initiated: 03/14/17 Time Initiated: 15:00 Assessment reference: NA Status: Active Priority: 4 Treatment assets and liabiliti Patient Assests: adapts well, self-reliant, ADL independent, negotiates basic needs Patient Liabilities: live alone, financial problems, poor support system, substance abuse, auditory impairment - Milieu Protocol Maintain good personal hygiene: daily Assist patient to perform ADL's, every shift Encourage regular showers, every shift Remind patient to perform daily oral care Conduct patient checks and document Observation sheet: Q15 minutes Maintain personal safety: every shift Educate patient to report safety concerns to staff, every shift Monitor environment for contraband/sharps Medication safety: Monitor for expected outcome, potential side effects: every shift, Assess barriers to learning: every shift, Assess readiness for medication education: every shift Family Contact - Goals for Treatment Patient goals for treatment: to get back on her medication Discharge/Continuing Care - Education Needs Education Needs: Patient Medication, Patient Diagnosis/Disease Process, Patient Coping Skills, Patient Placement options, Patient Community resources, Patient Personal Hygiene/Grooming - Discharge Discharge Criteria: Tolerates medication w/o severe side effects, Free of Suicidal thoughts, Free of paranoid thoughts, Free of agitation, Normal sleep pattern, Ability to care for self <Laureen Fajardo - Last Filed: 03/15/17 15:37> - Diagnosis (1) Antisocial personality disorder Status: Acute Interventions: 03/15/17 15:38 Psychoeducation Psychopharmacology/adjustment of medications as needed/ monitoring possible side effects Evaluate pt on daily basis Compliance with medications and follow up appointments Suicide and homicide risk assessment and prevention, coping strategies, safety plan Relapse prevention Family involvement As outpatient: Transference-focused psychotherapy/dialectical behavioral therapy /schema therapy Mindfulness skills (2) Schizoaffective disorder, bipolar type Status: Acute Interventions: 03/15/17 15:38 Psychoeducation/psychotherapy Psychopharmacology/adjustment of medications as needed/ monitoring possible side effects Evaluate pt on daily basis Compliance with medications and follow up appointments Long acting medication if pt is noncompliant with pill form Suicide and homicide risk assessment and prevention, coping strategies, safety plan Relapse prevention Reduction of symptoms Improve functional status Possible assertive community treatment Cognitive behavioral therapy Family involvement Possible social skill training as outpatient (3) Cocaine abuse Status: Chronic Interventions: 03/15/17 15:38 Monitoring withdrawal symptoms Medical detoxification Pharmacotherapy for alcohol/benzos/opioid dependence Maintaining sobriety Relapse prevention Possible rehabilitation Motivational interviewing 12-step programs: AA meetings <Gina Castillo - Last Filed: 03/15/17 17:29> Family Contact Family involvement: Famliy/SO not involved
--- NOTE | 2017-03-14 17:54 | CARD ---
APPROVED REPORT EKG Measurement Heart [id number] <Conclusion> Normal sinus rhythm Prolonged QT Abnormal ECG
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
--- NOTE | 2017-03-15 01:40 | CON ---
DATE: CHIEF COMPLAINT: Body aches. HISTORY OF PRESENT ILLNESS: Ms. Chelsea Aleman is a 42-year-old female who has past medical history of hypertension, anxiety, depression, has schizoaffective disorder, came to the Emergency Department complaining of intermittent episodes of anxiety in the past days. The patient noticed she was recently seen at [facility] for similar complaints and discharged. The patient also wants to see the psychiatrist because of her medication is not working very well. The patient denies any suicidal ideation, homicidal ideation. No fever or chills, chest pain, nausea, vomiting, diarrhea. No hematuria or hematochezia. No swelling of the legs. No dysuria. No back pain. No neck pain. No headache. No dizziness. No other complaints. PHYSICAL EXAMINATION: VITAL SIGNS: Temperature 98.0, pulse 58, blood pressure 106/61 and respiratory rate 20. HEENT: Head; normocephalic and atraumatic. Eyes; PERRLA. Extraocular muscles intact. Conjunctivae clear. Nose patent. Mucous membranes moist. NECK: Supple. No carotid bruits, JVD, or thyromegaly. CHEST: Bilaterally symmetrical. HEART: S1 and S2 positive. LUNGS: Clear to auscultation. ABDOMEN: Soft. Bowel sounds positive. No organomegaly. EXTREMITIES: No edema. No cyanosis. NEUROLOGIC: The patient is awake and alert. Moving all 4 extremities. No focal deficits. MEDICATIONS: Benadryl, Haldol and Seroquel. LABORATORY DATA: White blood cell is 9.1, hemoglobin 12.5, hematocrit 37.2 and platelets 219. Sodium 130, potassium 4.0, BUN 12, creatinine 0.8 and glucose 62. ASSESSMENT AND PLAN: Ms. Chelsea Aleman is a 42-year-old female with history of anemia, hyperglycemia, cocaine was positive in drug screening. The patient has history of hypertension, hypercholesterolemia, anxiety, depression, schizoaffective disorder, was admitted to [facility], discharged from there, now came to [facility]. She is under care of Dr. Laureen Fajardo, psychiatrist. Infectious Disease is consulted on their request. We will continue the same treatment. Gastrointestinal and deep venous thrombosis prophylaxis. Repeat labs. We will follow up. Vira Denton MD
[2017-03-15 10:01] VITALS: O2SAT 99
--- NOTE | 2017-03-15 16:22 | PCM.PYCHPN ---
Psychiatric Progress Note - Psychiatric Progress Note Patient seen today, length of contact: 30min Patient Chief Complaint: "stop calling my name! I know my name! You can call me Ms. Aleman! We don't know each other that well!" "I know my manners, I'm a 42 year old woman! I'm a grown ass woman, I have sex, I like to go to [employer] and I can sing!", "they just starred at me when I am sleeping, why me?, I think nurses have nothing to do, leave me alone..." Problems Identified/Issues Discussed: Suicide/ homicide prevention, past psychiatric h/o, current psychiatric symptoms , medical problems, risk/benefits and alternatives of medications, medications compliance, coping strategies, substance abuse h/o, relapse prevention, importance of follow up with psychiatrist and therapist, discharge plan. Medical Problems: h/o galactorhea on Risperdal as per pt, her liver was damaged from Depakote, AST and ALT wnl, will resume it Diagnostic Results: 03/14/17 07:35 03/14/17 07:35 Lab Results 03/14/17 08:51: Urine Opiates Screen Negative, Urine Methadone Screen Negative, Ur Barbiturates Screen Negative, Ur Phencyclidine Scrn Negative, Ur Amphetamines Screen Negative, U Benzodiazepines Scrn Negative, U Oth Cocaine Metabols Positive H, U Cannabinoids Screen Negative 03/14/17 07:35: WBC 9.1, RBC 3.94, Hgb 12.5, Hct 37.2, MCV 94.4, MCH 31.7, MCHC 33.6, RDW 13.1, Plt Count 219, MPV 11.3 H 03/14/17 07:35: Alcohol, Quantitative < 10 03/14/17 07:35: Sodium 138, Potassium 4.0, Chloride 105, Carbon Dioxide 23, Anion Gap 14, BUN 12, Creatinine 0.8, Est GFR ( Amer) > 60, Est GFR (Non- Af Amer) > 60, Random Glucose 62 L, Calcium 9.4, Total Bilirubin 0.6, AST 29, ALT 23, Alkaline Phosphatase 55, Total Protein 7.4, Albumin 4.3, Globulin 3.1, Albumin/Globulin Ratio 1.4 Vital Signs Temp Pulse Pulse Resp BP Pulse Ox 03/15/17 07:00 98.3 F 62 18 107/54 L 99 03/14/17 16:00 68 106/61 03/14/17 14:17 79 20 03/14/17 10:44 98 F 76 16 122/82 98 03/14/17 08:44 98.1 F 74 18 125/51 L 100 03/14/17 07:30 80 16 112/77 99 03/14/17 03:51 98.0 F 77 18 130/72 100 DSM 5 Symptoms Update: Pt is a 42 year old female, with long h/o mental illness [dx include schizophrenia, depression, schizoaffective disorder] and substance abuse [UDS + cocaine], multiple psychiatric admissions, most recently at [facility] February 2017, chronic noncompliance with f/u appts and medications who brought herself for treatment of hallucinations, pt reported to see "shadows and lights ", pt said that her psychiatrist was on vacation and she was not able to be compliant with medications, this technical report writer doubt usually clinics have covering physicians. pt was seen at the treatment team meeting today, pt presented to be irritable, angry, paranoid, poor hygiene. "stop calling my name! I know my name! You can call me Ms. Aleman! We don't know each other that well!" "I know my manners, I'm a 42 year old woman! I'm a grown ass woman, I have sex, I like to go to [employer] and I can sing!", "they just starred at me when I am sleeping, why me?, I think nurses have nothing to do, leave me alone...", pt also said that staff needs to keep their hands off her, nobody was even in close proximity to the pt. as per pt, depakote was damaging her liver, no report for this, pt's labs wnl, will continue it. pt tolerated meds well, pt said "seroquel made me good". pt denied any side effects and none were elicited. AIMS 0, no EPS. DSM 5 Diagnosis: schizoaffective disorder, bipolar type cocaine abuse and dependence antisocial personality disorder. Medication Change: Yes (seroquel incrased, depakote increased, ativan added) Medical Record Reviewed: Yes Consults ordered or reviewed: medical consult called discussed with Dr.Corrie. Mental Status Examination - Cognitive Function Orientation: Person, Place, Situation Memory: Impaired Attention: Poor Concentration: Poor Association: Loose Fund of Knowledge: Poor - Mood Mood: Depressed, Anxious - Affect Affect: Constricted, Other (angry and irritable) - Speech Speech: Pressured - Formal Thought Process Formal Thought Process: Hallucinations, Delusions, Paranoia, Circumstantial - Suicidal Ideation Suicidal Ideation: No - Homicidal Ideation Homicidal Ideation: No Goal/Treatment Plan - Goal/Treatment Plan Need for Continued Stay: Remain at risks for inpatient hospitalization, Severe depression anxiety, Discharge may exacerbated symptoms, Severe functional impairment Progress Toward Problem(s) and Goals/Treatment Plan: Milieu/structure/supportive therapy Medical consult appreciated, see medical team note for more detailed info consultation for discharge plan and social issues Med management Patient had galactorrhea on Risperdal seroquel increased to 100mg po tid for psychosis depakote 500mg po amhs for mood stabilizatin will add ativan 1mg po tid for anxiety and agitation PRN medications Haldol benadryl Family involvement Follow up on labs Will monitor closely evaluation for d/c planning Pt was educated about risk/benefits and alternatives of medications, coping strategies (safety plan, suicide prevention), relapse prevention, importance of follow up with psychiatrist and therapist, stay away from drugs/alcohol/smoking Estimated Date of D/C: 03/21/17 (will monitor closely) - Smoking Cessation Smoking Cessation Initiated: Yes
[2017-03-15] MEDS: Divalproex 500 mg DR(BID formulation) PO SCH (23:12)
--- NOTE | 2017-03-16 00:26 | PN ---
DATE: SUBJECTIVE: Patient is seen and examined at the bedside, looking comfortable, sleepy, arousable, but according to nursing staff and Dr. Fajardo's documentation, patient was very disturbed and restless but no fever, no chills. No nausea, vomiting or diarrhea. No hematuria, no hematochezia. No swelling of the legs. PHYSICAL EXAMINATION VITAL SIGNS: Temperature 98.3, pulse 62, blood pressure 107/57, respiratory rate 18. HEENT: Head: Normocephalic, atraumatic. Eyes: Closed. Nose: Patent. NECK: Supple. No carotid bruits. No JVD or thyromegaly. CHEST: Bilaterally symmetrical. HEART: S1, S2 positive. LUNGS: Clear to auscultation. ABDOMEN: Soft. Bowel sounds present. No organomegaly. EXTREMITIES: No edema. No cyanosis. NEUROLOGIC: Sleepy, arousable, moving all four extremities. MEDICATIONS: Ativan, Benadryl, Depakote, Haldol, Seroquel. LABORATORY DATA: White blood cell 9.1, hemoglobin 12.5, hematocrit 37.2, platelets 219. Sodium 138, potassium 4.0, BUN 12, creatinine 0.8, glucose 52. Drug screen is positive for cocaine metabolites. ASSESSMENT AND PLAN: Ms. Ash Tran is 42 years old lady with history of drug abuse, especially cocaine, history of hypotension, gastroesophageal reflux disease, dyspepsia, history of anemia, hypocalcemia, hypercholesterolemia, anxiety, depression, schizoaffective disorder who was recently admitted in [facility]. Now, Dr. Fajardo was taking care of her psych problem. GI and DVT prophylaxis. Repeat labs. We will follow. Vira Denton MD YADIRA
--- NOTE | 2017-03-16 09:15 | PCM.PYCHPN ---
Psychiatric Progress Note - Psychiatric Progress Note Patient seen today, length of contact: 25 min Problems Identified/Issues Discussed: I reviewed assessment and recent notes. I met with patient in her room. She is very familiar to me from numerous prior admissions. Patient's grooming is unkempt and she is superficially oriented to location and circumstances. Patient reports that she is feeling better and that she slept well. Reports continued hallucinations of "seeing shadows". She appears tired and preoccupied. Her thought process is tangential. She denies any major side effects from her medications. She denies any new discomfort or pain. I agree with staff notes which indicate that patient remains disorganized and unpredictable. Similar to prior admissions, patient can be intrusive with her needs and has low frustration tolerance. Remains brittle and unpredictable with poor insight and judgement. Diagnostic Results: schizoaffective disorder, bipolar type cocaine abuse and dependence antisocial personality disorder. Medication Change: Yes (seroquel incrased, depakote increased, ativan added) Medical Record Reviewed: Yes Mental Status Examination - Cognitive Function Orientation: Person, Place, Situation Memory: Impaired Attention: Poor Concentration: Poor Association: Loose Fund of Knowledge: Poor - Mood Mood: Depressed, Anxious - Affect Affect: Constricted, Other (angry and irritable) - Speech Speech: Pressured - Formal Thought Process Formal Thought Process: Hallucinations ("seeing shadows"), Delusions, Paranoia, Circumstantial - Suicidal Ideation Suicidal Ideation: No - Homicidal Ideation Homicidal Ideation: No Goal/Treatment Plan - Goal/Treatment Plan Need for Continued Stay: Remain at risks for inpatient hospitalization, Severe depression anxiety, Discharge may exacerbated symptoms, Severe functional impairment Progress Toward Problem(s) and Goals/Treatment Plan: * c/w current tx and plan * c/w depakote 500/500, check VPA in the AM * No new weekend labs thus far * Vitals reviewed and noted below: Selected Entries 03/14/17 03/14/17 03/14/17 10:44 14:17 16:00 Temperature 98 F Pulse Rate 68 Pulse Rate [ 79 Radial] Pulse Rhythm [ Regular Radial] Pulse Strength +1=Weak [Radial] Pulse BP Machine Assessment Method [Radial] Respiratory 16 20 Rate Blood Pressure 122/82 106/61 O2 Sat by Pulse 98 Oximetry 03/15/17 07:00 Temperature 98.3 F Pulse Rate 62 Pulse Rate [ Radial] Pulse Rhythm [ Radial] Pulse Strength [Radial] Pulse Assessment Method [Radial] Respiratory 18 Rate Blood Pressure 107/54 L O2 Sat by Pulse 99 Oximetry Estimated Date of D/C: 03/21/17 (will monitor closely)
[2017-03-16] MEDS: Divalproex 500 mg DR(BID formulation) PO SCH ×2 (10:36→21:49)
--- NOTE | 2017-03-16 21:03 | PN ---
DATE: SUBJECTIVE: The patient is 42-years old female. The patient is seen and examined at the bedside, looking comfortable, sleepy, arousable, moving all four extremities. Complaining of anxiety. No nausea, vomiting or diarrhea. No hematemesis or hematochezia. No fever. No chills. No swelling of the legs. No headache, no chest pain or palpitations. PHYSICAL EXAMINATION VITAL SIGNS: Temperature 98.3, pulse is 62, blood pressure 107/54 and respiratory rate is 18. HEENT: Head; normocephalic and atraumatic. Eyes; PERRLA. Extraocular muscles intact. Conjunctivae clear. Nose patent. Mucous membranes are moist. NECK: Supple. No carotid bruits. No JVD or thyromegaly. CHEST: Bilaterally symmetrical. HEART: S1 and S2 positive. LUNGS: Clear to auscultation. ABDOMEN: Soft. Bowel sounds present. No organomegaly. EXTREMITIES: No edema. No cyanosis. NEUROLOGIC: The patient is awake and alert. Moving all four extremities. No focal deficits. MEDICATIONS: Ativan, Benadryl, Depakote, Haldol and Seroquel. LABORATORY DATA: We do not have additional labs today, but I reviewed old labs. ASSESSMENT AND PLAN: Ms. Chelsea Aleman is 42-year-old lady with multiple medical problems, has drug abuse behavior, cocaine metabolites are positive in her system, history of hypertension, hypercholesterolemia, gastroesophageal reflux disease, dyspepsia, anxiety, depression, schizoaffective disorder, noncompliant, was admitted in [facility], now she is in [facility]. Psychiatrist is on the case. As outpatient, the patient is not very compliant with the medication and doctor's followup. We will continue treatment. Gastrointestinal and deep venous thrombosis prophylaxis. We will follow up. Vira Denton MD
--- NOTE | 2017-03-17 08:56 | PCM.PYCHPN ---
Psychiatric Progress Note - Psychiatric Progress Note Patient seen today, length of contact: 25 min Patient Chief Complaint: "good" and "doing better" Problems Identified/Issues Discussed: I reviewed recent notes and met with patient in her room. She is very familiar to me from numerous prior admissions. Patient's grooming is unkempt and she is malodorous. Patient is superficially oriented to month and year however believes she is currently hospitalized at [facility]. Similar to her prior admissions, patient has been loud, labile, and angry on the unit. Patient's demeanor is aloof and preoccupied though she reports that she is "good" and "doing better". She reports continued hallucinations of "seeing shadows". Affect is flat and disinterested. Her thought process is tangential and scattered. She denies any major side effects from her medications. She denies any new discomfort or pain. I agree with staff notes which indicate that patient remains disorganized and unpredictable. She is intrusive with her needs and has low frustration tolerance. Appears to be responding to internal. Remains brittle and unpredictable with poor insight and judgement. Diagnostic Results: schizoaffective disorder, bipolar type cocaine abuse and dependence antisocial personality disorder. Medication Change: No ( ) Medical Record Reviewed: Yes Mental Status Examination - Cognitive Function Orientation: Person, Place, Situation Memory: Impaired Attention: Poor Concentration: Poor Association: Loose Fund of Knowledge: Poor - Mood Mood: Depressed, Anxious - Affect Affect: Constricted, Other (angry and irritable) - Speech Speech: Pressured - Formal Thought Process Formal Thought Process: Hallucinations ("seeing shadows"), Delusions, Paranoia, Circumstantial - Suicidal Ideation Suicidal Ideation: No - Homicidal Ideation Homicidal Ideation: No Goal/Treatment Plan - Goal/Treatment Plan Need for Continued Stay: Remain at risks for inpatient hospitalization, Severe depression anxiety, Discharge may exacerbated symptoms, Severe functional impairment Progress Toward Problem(s) and Goals/Treatment Plan: * c/w current tx and plan * c/w depakote 500/500, awaiting VPA level ordered yesterday * Appreciate f/u by Dr. Denton on 03/16/17 * No new weekend labs thus far * Vitals reviewed and noted below: 03/15/17 07:00 Temperature 98.3 F Pulse Rate 62 Respiratory 18 Rate Blood Pressure 107/54 L Estimated Date of D/C: 03/21/17 (will monitor closely)
[2017-03-17] MEDS: Divalproex 500 mg DR(BID formulation) PO SCH ×2 (10:00→22:21)
--- NOTE | 2017-03-17 23:34 | PN ---
DATE: SUBJECTIVE: The patient is 42-year-old female. The patient is seen and examined at the bedside, looking comfortable. No nausea, vomiting or diarrhea. No hematemesis or hematochezia. No swelling of the legs. No chest pain, no palpitations. Sleepy. She has menses and blood is spread everywhere on her sheet. Hygiene is very poor. Discussion done with nursing staff about the patient's hygiene. PHYSICAL EXAMINATION: VITAL SIGNS: Temperature 98.3, pulse is 62, blood pressure 107/54 and respiratory rate is 18. HEENT: Head; normocephalic and atraumatic. Eyes; PERRLA. Extraocular muscles intact. Conjunctivae clear. Nose patent. Mucous membranes are moist. NECK: Supple. No carotid bruits. No JVD or thyromegaly. CHEST: Bilaterally symmetrical. HEART: S1 and S2 positive. LUNGS: Clear to auscultation. ABDOMEN: Soft. Bowel sounds present. No organomegaly. EXTREMITIES: No edema. No cyanosis. NEUROLOGIC: The patient is awake and alert. Moving all four extremities. No focal deficits. MEDICATIONS: Ativan, Benadryl, Depakote, Haldol and Seroquel. LABORATORY DATA: We do not have recent labs today, but I reviewed old labs. ASSESSMENT AND PLAN: Ms. Chelsea Aleman is a 42-year-old lady, the patient has schizoaffective disorder bipolar type, cocaine abuse and dependency, antisocial personality disorder. The patient has multiple admissions in [facility] and [facility] very noncompliant with her medication, history of hypertension, hypercholesterolemia, multiple medical problems, gastroesophageal reflux disease, dyspepsia, anxiety, depression. We will continue present treatment. Gastrointestinal and deep venous thrombosis prophylaxis. Repeat labs. We will follow up. Vira Denton MD
[2017-03-18] MEDS ORDERED: Magnesium Hydroxide Susp 30 ml UD PO PRN (00:33)
[2017-03-18] MEDS ORDERED: Alum-Mag Hydrox-Simethicone Susp (30 mL) PO PRN (00:33)
[2017-03-18] MEDS: Divalproex 500 mg DR(BID formulation) PO SCH ×2 (09:35→22:27)
--- NOTE | 2017-03-18 15:09 | PCM.PYCHPN ---
Psychiatric Progress Note - Psychiatric Progress Note Patient seen today, length of contact: 30min Patient Chief Complaint: "I am just fine..." Problems Identified/Issues Discussed: Suicide/ homicide prevention, past psychiatric h/o, current psychiatric symptoms , medical problems, risk/benefits and alternatives of medications, medications compliance, coping strategies, substance abuse h/o, relapse prevention, importance of follow up with psychiatrist and therapist, discharge plan. Medical Problems: h/o galactorhea on Risperdal as per pt, her liver was damaged from Depakote, AST and ALT wnl, will resume it Diagnostic Results: 03/14/17 07:35 03/14/17 07:35 Lab Results 03/14/17 08:51: Urine Opiates Screen Negative, Urine Methadone Screen Negative, Ur Barbiturates Screen Negative, Ur Phencyclidine Scrn Negative, Ur Amphetamines Screen Negative, U Benzodiazepines Scrn Negative, U Oth Cocaine Metabols Positive H, U Cannabinoids Screen Negative 03/14/17 07:35: WBC 9.1, RBC 3.94, Hgb 12.5, Hct 37.2, MCV 94.4, MCH 31.7, MCHC 33.6, RDW 13.1, Plt Count 219, MPV 11.3 H 03/14/17 07:35: Alcohol, Quantitative < 10 03/14/17 07:35: Sodium 138, Potassium 4.0, Chloride 105, Carbon Dioxide 23, Anion Gap 14, BUN 12, Creatinine 0.8, Est GFR ( Amer) > 60, Est GFR (Non- Af Amer) > 60, Random Glucose 62 L, Calcium 9.4, Total Bilirubin 0.6, AST 29, ALT 23, Alkaline Phosphatase 55, Total Protein 7.4, Albumin 4.3, Globulin 3.1, Albumin/Globulin Ratio 1.4 Vital Signs Temp Pulse Pulse Resp BP Pulse Ox 03/15/17 07:00 98.3 F 62 18 107/54 L 99 03/14/17 16:00 68 106/61 03/14/17 14:17 79 20 03/14/17 10:44 98 F 76 16 122/82 98 03/14/17 08:44 98.1 F 74 18 125/51 L 100 03/14/17 07:30 80 16 112/77 99 03/14/17 03:51 98.0 F 77 18 130/72 100 DSM 5 Symptoms Update: Pt is a 42 year old female, with long h/o mental illness [dx include schizophrenia, depression, schizoaffective disorder] and substance abuse [UDS + cocaine], multiple psychiatric admissions, most recently at [facility] February 2017, chronic noncompliance with f/u appts and medications who brought herself for treatment of hallucinations, pt reported to see "shadows and lights ", pt said that her psychiatrist was on vacation and she was not able to be compliant with medications, 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 pt was seen in her room, pt presented to be irritable, angry, paranoid, poor hygiene, smells horrible. somewhat calmer to compare to the last week. but still paranoid, guarded, impulses unpredictable. as per pt, depakote was damaging her liver, no report for this, pt's labs wnl, will continue it. pt tolerated meds well, pt said "seroquel made me good". pt denied any side effects and none were elicited. AIMS 0, no EPS. DSM 5 Diagnosis: schizoaffective disorder, bipolar type cocaine abuse and dependence antisocial personality disorder. Medication Change: Yes (seroquel 300mg bid) Medical Record Reviewed: Yes Consults ordered or reviewed: medical consult called discussed with . Mental Status Examination - Cognitive Function Orientation: Person, Place, Situation Memory: Impaired Attention: Poor Concentration: Poor Association: Loose Fund of Knowledge: Poor - Mood Mood: Depressed, Anxious - Affect Affect: Constricted, Other (angry and irritable) - Speech Speech: Pressured - Formal Thought Process Formal Thought Process: Hallucinations ("seeing shadows"), Delusions, Paranoia, Circumstantial - Suicidal Ideation Suicidal Ideation: No - Homicidal Ideation Homicidal Ideation: No Goal/Treatment Plan - Goal/Treatment Plan Need for Continued Stay: Remain at risks for inpatient hospitalization, Severe depression anxiety, Discharge may exacerbated symptoms, Severe functional impairment Progress Toward Problem(s) and Goals/Treatment Plan: Milieu/structure/supportive therapy Medical consult appreciated, see medical team note for more detailed info SW consultation for discharge plan and social issues Med management Patient had galactorrhea on Risperdal seroquel increased to 300mg po bid for psychosis depakote 500mg po amhs for mood stabilizatin will add ativan 1mg po tid for anxiety and agitation PRN medications Haldol benadryl Family involvement Follow up on labs Will monitor closely SW evaluation for d/c planning Pt was educated about risk/benefits and alternatives of medications, coping strategies (safety plan, suicide prevention), relapse prevention, importance of follow up with psychiatrist and therapist, stay away from drugs/alcohol/smoking Estimated Date of D/C: 03/21/17 (will monitor closely)
--- NOTE | 2017-03-19 09:23 | PN ---
DATE: 03/18/2017 SUBJECTIVE: The patient is a 42-year-old female. The patient was seen and examined on the bedside, sleepy and arousable. The patient was last seen on 03/18/2017. I am doing progress notes for 03/18/2017. No nausea, vomiting, or diarrhea. No headache. No dizziness. No chest pain. No palpitations. No fever. No chills. PHYSICAL EXAMINATION: VITAL SIGNS: Temperature 98.3, pulse 62, blood pressure 107/57, and respiratory rate 18. HEENT: Head is normocephalic and atraumatic. Eyes, PERRLA. Extraocular muscles are intact. Conjunctivae are clear. Nose is patent. Mucous membranes are moist. NECK: Supple. No carotid bruits. No JVD or thyromegaly. CHEST: Bilaterally symmetrical. HEART: S1, S2, positive. LUNGS: Clear to auscultation. ABDOMEN: Soft. Bowel sounds are positive. No organomegaly. EXTREMITIES: No edema. No cyanosis. NEUROLOGIC: The patient is awake and alert. The patient is sleepy and arousable. Moving all 4 extremities. No focal deficits. MEDICATIONS: Ativan, Benadryl, Depakote, Haldol, Maalox, milk of magnesia, Seroquel, and Tylenol. LABORATORY DATA: We do not have recent labs, but I reviewed old labs. ASSESSMENT AND PLAN: Ms. Christiano Aleman is a 42-year-old female with multiple medical problems, history of galactorrhea on risperidone, history of hypertension, hypercholesterolemia, history of schizophrenia, depression, schizoaffective disorder, history of substance abuse , especially cocaine. Multiple psych admissions, most recent was at [facility] in February 2017. Chronic noncompliance with followup appointments and medications. Gastrointestinal and deep venous thrombosis prophylaxis. Repeat labs. Vira Denton MD MTDD
[2017-03-19] MEDS: Divalproex 500 mg DR(BID formulation) PO SCH ×2 (10:30→21:46)
--- NOTE | 2017-03-19 15:22 | PCM.PYCHPN ---
Psychiatric Progress Note - Psychiatric Progress Note Patient seen today, length of contact: 30min Patient Chief Complaint: "guess what, I got my section 8 voucher...", of note pt got it for at least 6months. Problems Identified/Issues Discussed: Suicide/ homicide prevention, past psychiatric h/o, current psychiatric symptoms , medical problems, risk/benefits and alternatives of medications, medications compliance, coping strategies, substance abuse h/o, relapse prevention, importance of follow up with psychiatrist and therapist, discharge plan. Medical Problems: h/o galactorhea on Risperdal as per pt, her liver was damaged from Depakote, AST and ALT wnl, will resume it Diagnostic Results: 03/14/17 07:35 03/14/17 07:35 Lab Results 03/14/17 08:51: Urine Opiates Screen Negative, Urine Methadone Screen Negative, Ur Barbiturates Screen Negative, Ur Phencyclidine Scrn Negative, Ur Amphetamines Screen Negative, U Benzodiazepines Scrn Negative, U Oth Cocaine Metabols Positive H, U Cannabinoids Screen Negative 03/14/17 07:35: WBC 9.1, RBC 3.94, Hgb 12.5, Hct 37.2, MCV 94.4, MCH 31.7, MCHC 33.6, RDW 13.1, Plt Count 219, MPV 11.3 H 03/14/17 07:35: Alcohol, Quantitative < 10 03/14/17 07:35: Sodium 138, Potassium 4.0, Chloride 105, Carbon Dioxide 23, Anion Gap 14, BUN 12, Creatinine 0.8, Est GFR ( Amer) > 60, Est GFR (Non- Af Amer) > 60, Random Glucose 62 L, Calcium 9.4, Total Bilirubin 0.6, AST 29, ALT 23, Alkaline Phosphatase 55, Total Protein 7.4, Albumin 4.3, Globulin 3.1, Albumin/Globulin Ratio 1.4 Vital Signs Temp Pulse Pulse Resp BP Pulse Ox 03/15/17 07:00 98.3 F 62 18 107/54 L 99 03/14/17 16:00 68 106/61 03/14/17 14:17 79 20 03/14/17 10:44 98 F 76 16 122/82 98 03/14/17 08:44 98.1 F 74 18 125/51 L 100 03/14/17 07:30 80 16 112/77 99 03/14/17 03:51 98.0 F 77 18 130/72 100 Temp Pulse Resp BP Pulse Ox 98.3 F 62 18 107/54 L 99 03/15/17 07:00 03/15/17 07:00 03/15/17 07:00 03/15/17 07:00 03/15/17 07:00 DSM 5 Symptoms Update: Pt is a 42 year old female, with long h/o mental illness [dx include schizophrenia, depression, schizoaffective disorder] and substance abuse [UDS + cocaine], multiple psychiatric admissions, most recently at [facility] February 2017, chronic noncompliance with f/u appts and medications who brought herself for treatment of hallucinations, pt reported to see "shadows and lights ", pt said that her psychiatrist was on vacation and she was not able to be compliant with medications, 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 pt was seen at the treatment team meeting room, pt presented to be disorganized , delusional, could be irritable, angry, paranoid, poor hygiene, smells horrible. somewhat calmer to compare to the last week. but still paranoid, guarded, impulses unpredictable. pt tolerated meds well, pt said "seroquel made me good". pt denied any side effects and none were elicited. AIMS 0, no EPS. DSM 5 Diagnosis: schizoaffective disorder, bipolar type cocaine abuse and dependence antisocial personality disorder. Medication Change: Yes (ativan 1mg bid) Medical Record Reviewed: Yes Consults ordered or reviewed: medical consult called discussed with . Mental Status Examination - Cognitive Function Orientation: Person, Place, Situation Memory: Impaired Attention: Poor Concentration: Poor Association: Loose Fund of Knowledge: Poor - Mood Mood: Depressed, Anxious - Affect Affect: Constricted, Other (angry and irritable) - Speech Speech: Pressured - Formal Thought Process Formal Thought Process: Hallucinations ("seeing shadows"), Delusions, Paranoia, Circumstantial - Suicidal Ideation Suicidal Ideation: No - Homicidal Ideation Homicidal Ideation: No Goal/Treatment Plan - Goal/Treatment Plan Need for Continued Stay: Remain at risks for inpatient hospitalization, Severe depression anxiety, Discharge may exacerbated symptoms, Severe functional impairment Progress Toward Problem(s) and Goals/Treatment Plan: Milieu/structure/supportive therapy Medical consult appreciated, see medical team note for more detailed info consultation for discharge plan and social issues Med management Patient had galactorrhea on Risperdal seroquel increased to 300mg po bid for psychosis depakote 500mg po amhs for mood stabilizatin will add ativan 1mg po bid for anxiety and agitation PRN medications Haldol benadryl Family involvement Follow up on labs Will monitor closely evaluation for d/c planning Pt was educated about risk/benefits and alternatives of medications, coping strategies (safety plan, suicide prevention), relapse prevention, importance of follow up with psychiatrist and therapist, stay away from drugs/alcohol/smoking Estimated Date of D/C: 03/21/17 (will monitor closely)
--- NOTE | 2017-03-20 01:42 | CP.PCM.PN ---
<Lakshmi Royal - Last Filed: 03/20/17 01:42> Subjective - Date & Time of Evaluation Date of Evaluation: 03/19/17 Time of Evaluation: 18:00 - Subjective Subjective: 42 yr female w/ history HTN, galactorrhea, hypercholesterolemia , schizophrenia, depression, schizoaffective disorder, & substance abuse ( cocaine). Poor hygiene and self-neglect noted. Pt speaks about her plans to attend AA meetings and get a job. Flight of ideas noted. Pt denies fevers, chills, n/v, diarrhea, constipation, urinary frequency, or chest pain. Objective - Vital Signs/Intake and Output Vital Signs (last 24 hours): Temp Pulse Resp BP Pulse Ox 98.3 F 82 18 125/66 99 03/15/17 07:00 03/19/17 16:01 03/15/17 07:00 03/19/17 16:01 03/15/17 07:00 - Medications Medications: Current Medications Acetaminophen (Tylenol 325mg Tab) 650 mg PO Q4H PRN PRN Reason: Pain, Mild (1-3) Al Hydrox/Mg Hydrox/Simethicone (Maalox Plus 30 Ml) 30 ml PO DAILY PRN PRN Reason: Upset Stomach Diphenhydramine HCl (Benadryl) 50 mg PO HS PRN PRN Reason: Insomnia Last Admin: 03/19/17 21:47 Dose: 50 mg Diphenhydramine HCl (Benadryl) 50 mg PO Q6H PRN PRN Reason: Agitation Diphenhydramine HCl (Benadryl) 50 mg IM Q6H PRN PRN Reason: agitaiton Divalproex Sodium (Depakote Dr(*Bid*)) 500 mg PO [facility] Last Admin: 03/19/17 21:46 Dose: 500 mg Haloperidol (Haldol) 5 mg PO Q6H PRN; Protocol PRN Reason: agitation/psychosis Haloperidol Lactate (Haldol) 5 mg IM Q6H PRN; Protocol PRN Reason: Agitation Lorazepam (Ativan) 1 mg PO BID VARGAS PRN Reason: Protocol Last Admin: 03/19/17 15:53 Dose: Not Given Magnesium Hydroxide (Milk Of Magnesia) 30 ml PO DAILY PRN PRN Reason: Constipation Quetiapine Fumarate (Seroquel) 300 mg PO AMHS VARGAS PRN Reason: Protocol Last Admin: 03/19/17 21:47 Dose: 300 mg - Constitutional Appears: Unkempt - Head Exam Head Exam: ATRAUMATIC, NORMAL INSPECTION, NORMOCEPHALIC - Eye Exam Eye Exam: EOMI, Normal appearance, PERRL Pupil Exam: NORMAL ACCOMODATION, PERRL - ENT Exam ENT Exam: Mucous Membranes Moist, Normal Exam - Neck Exam Neck Exam: Full ROM, Normal Inspection. absent: Lymphadenopathy - Respiratory Exam Respiratory Exam: Clear to Ausculation Bilateral, NORMAL BREATHING PATTERN - Cardiovascular Exam Cardiovascular Exam: REGULAR RHYTHM, +S1, +S2. absent: Murmur - GI/Abdominal Exam GI & Abdominal Exam: Soft, Normal Bowel Sounds. absent: Tenderness - Extremities Exam Extremities Exam: Full ROM, Normal Capillary Refill, Normal Inspection. absent : Joint Swelling, Pedal Edema - Back Exam Back Exam: NORMAL INSPECTION - Neurological Exam Neurological Exam: Alert, Awake, CN II-XII Intact, Normal Gait, Oriented x3 - Psychiatric Exam Psychiatric exam: Normal Affect, Normal Mood - Skin Skin Exam: Dry, Intact, Normal Color, Warm Assessment and Plan (1) Schizophrenia Status: Chronic (2) HTN (hypertension) Status: Acute (3) Cocaine abuse Status: Chronic - Assessment and Plan (Free Text) Plan: Labs ordered. Continue current plan of care. Reviewed: CXR = WNL ECG - ABNORMAL, NSR, prolonged QT <Vira Denton - Last Filed: 03/20/17 13:19> Objective - Vital Signs/Intake and Output Vital Signs (last 24 hours): Temp Pulse Resp BP Pulse Ox 97.9 F 80 20 117/73 99 03/20/17 07:49 03/20/17 07:49 03/20/17 07:49 03/20/17 07:49 03/15/17 07:00 - Medications Medications: Current Medications Acetaminophen (Tylenol 325mg Tab) 650 mg PO Q4H PRN PRN Reason: Pain, Mild (1-3) Al Hydrox/Mg Hydrox/Simethicone (Maalox Plus 30 Ml) 30 ml PO DAILY PRN PRN Reason: Upset Stomach Diphenhydramine HCl (Benadryl) 50 mg PO HS PRN PRN Reason: Insomnia Last Admin: 01/14/18 22:21 Dose: 50 mg Diphenhydramine HCl (Benadryl) 50 mg PO Q6H PRN PRN Reason: Agitation Diphenhydramine HCl (Benadryl) 50 mg IM Q6H PRN PRN Reason: agitaiton Divalproex Sodium (Depakote Dr(*Bid*)) 500 mg PO [facility] Last Admin: 03/20/17 10:00 Dose: 500 mg Haloperidol (Haldol) 5 mg PO Q6H PRN; Protocol PRN Reason: agitation/psychosis Haloperidol Lactate (Haldol) 5 mg IM Q6H PRN; Protocol PRN Reason: Agitation Lorazepam (Ativan) 1 mg PO BID [facility] PRN Reason: Protocol Last Admin: 03/20/17 08:48 Dose: 1 mg Magnesium Hydroxide (Milk Of Magnesia) 30 ml PO DAILY PRN PRN Reason: Constipation Quetiapine Fumarate (Seroquel) 300 mg PO [facility] PRN Reason: Protocol Last Admin: 03/20/17 10:00 Dose: 300 mg Assessment and Plan - Assessment and Plan (Free Text) Plan: 42 yr female w/ history HTN, galactorrhea, hypercholesterolemia , schizophrenia, depression, schizoaffective disorder, & substance abuse ( cocaine). Poor hygiene and self-neglect noted. Pt speaks about her plans to attend AA meetings and get a job. Flight of ideas noted. Pt denies fevers, chills, n/v, diarrhea, constipation, urinary frequency, or chest pain. agreed all above , chart , meds and labs noted , psyche is on the case . cont. same treatment , will f/u
[2017-03-20 07:50] VITALS: BP 117/73; PULSE 80; RESP 20; TEMP 97.9
[2017-03-20] MEDS: Divalproex 500 mg DR(BID formulation) PO SCH ×2 (10:00→21:46)
--- NOTE | 2017-03-20 17:04 | PCM.PYCHPN ---
Psychiatric Progress Note - Psychiatric Progress Note Patient seen today, length of contact: 30min Patient Chief Complaint: "guess what, I got my section 8 voucher..., do you think I can be discharged?", of note pt got it for at least 6months. Problems Identified/Issues Discussed: Suicide/ homicide prevention, past psychiatric h/o, current psychiatric symptoms , medical problems, risk/benefits and alternatives of medications, medications compliance, coping strategies, substance abuse h/o, relapse prevention, importance of follow up with psychiatrist and therapist, discharge plan. Medical Problems: h/o galactorhea on Risperdal as per pt, her liver was damaged from Depakote, AST and ALT wnl, will resume it Diagnostic Results: 03/14/17 07:35 03/14/17 07:35 Lab Results 03/14/17 08:51: Urine Opiates Screen Negative, Urine Methadone Screen Negative, Ur Barbiturates Screen Negative, Ur Phencyclidine Scrn Negative, Ur Amphetamines Screen Negative, U Benzodiazepines Scrn Negative, U Oth Cocaine Metabols Positive H, U Cannabinoids Screen Negative 03/14/17 07:35: WBC 9.1, RBC 3.94, Hgb 12.5, Hct 37.2, MCV 94.4, MCH 31.7, MCHC 33.6, RDW 13.1, Plt Count 219, MPV 11.3 H 03/14/17 07:35: Alcohol, Quantitative < 10 03/14/17 07:35: Sodium 138, Potassium 4.0, Chloride 105, Carbon Dioxide 23, Anion Gap 14, BUN 12, Creatinine 0.8, Est GFR ( Amer) > 60, Est GFR (Non- Af Amer) > 60, Random Glucose 62 L, Calcium 9.4, Total Bilirubin 0.6, AST 29, ALT 23, Alkaline Phosphatase 55, Total Protein 7.4, Albumin 4.3, Globulin 3.1, Albumin/Globulin Ratio 1.4 Vital Signs Temp Pulse Pulse Resp BP Pulse Ox 03/15/17 07:00 98.3 F 62 18 107/54 L 99 03/14/17 16:00 68 106/61 03/14/17 14:17 79 20 03/14/17 10:44 98 F 76 16 122/82 98 03/14/17 08:44 98.1 F 74 18 125/51 L 100 01/11/18 07:30 80 16 112/77 99 03/14/17 03:51 98.0 F 77 18 130/72 100 Temp Pulse Resp BP Pulse Ox 98.3 F 62 18 107/54 L 99 03/15/17 07:00 03/15/17 07:00 03/15/17 07:00 03/15/17 07:00 03/15/17 07:00 DSM 5 Symptoms Update: Pt is a 42 year old female, with long h/o mental illness [dx include schizophrenia, depression, schizoaffective disorder] and substance abuse [UDS + cocaine], multiple psychiatric admissions, most recently at [facility] February 2017, chronic noncompliance with f/u appts and medications who brought herself for treatment of hallucinations, pt reported to see "shadows and lights ", pt said that her psychiatrist was on vacation and she was not able to be compliant with medications, this radio script writer doubt usually clinics have covering physicians. pt was seen on the hallway, pt presented to be disorganized, delusional, could be irritable, angry, paranoid, but some improvement with hygiene, pt's impulses are better controlled. somewhat calmer to compare to the last week. pt tolerated meds well, pt said "seroquel made me good". pt denied any side effects and none were elicited. AIMS 0, no EPS. as per staff pt is more pleasant, compliant with meds. DSM 5 Diagnosis: schizoaffective disorder, bipolar type cocaine abuse and dependence antisocial personality disorder. Medication Change: Yes (seroquel maximized, ativan decreased) Medical Record Reviewed: Yes Consults ordered or reviewed: medical consult called discussed with . Mental Status Examination - Cognitive Function Orientation: Person, Place, Situation Memory: Impaired Attention: Poor Concentration: Poor Association: Loose Fund of Knowledge: Poor - Mood Mood: Depressed ("I feel better"), Anxious ("I am just fine") - Affect Affect: Constricted, Other (angry and irritable) - Speech Speech: Pressured - Formal Thought Process Formal Thought Process: Hallucinations (denied), Delusions, Paranoia - Suicidal Ideation Suicidal Ideation: No - Homicidal Ideation Homicidal Ideation: No Goal/Treatment Plan - Goal/Treatment Plan Need for Continued Stay: Remain at risks for inpatient hospitalization, Severe depression anxiety, Discharge may exacerbated symptoms, Severe functional impairment Progress Toward Problem(s) and Goals/Treatment Plan: Milieu/structure/supportive therapy Medical consult appreciated, see medical team note for more detailed info consultation for discharge plan and social issues Med management Patient had galactorrhea on Risperdal seroquel increased to 400mg po bid for psychosis depakote 500mg po amhs for mood stabilizatin ativan 0.5mg po bid for anxiety and agitation PRN medications Haldol benadryl Family involvement Follow up on labs Will monitor closely evaluation for d/c planning Pt was educated about risk/benefits and alternatives of medications, coping strategies (safety plan, suicide prevention), relapse prevention, importance of follow up with psychiatrist and therapist, stay away from drugs/alcohol/smoking Estimated Date of D/C: 03/22/17 (will monitor closely)
--- NOTE | 2017-03-21 03:39 | PN ---
DATE: SUBJECTIVE: The patient seen and examined on the bedside, looking comfortable No nausea, vomiting, or diarrhea. No hematuria or hematochezia. No swelling of the legs. No chest pain or palpitations. No headache or dizziness. PHYSICAL EXAMINATION: VITAL SIGNS: Temperature is 97.9, pulse 80, blood pressure 170/73 and respiratory rate is 20. HEENT: Head; normocephalic and atraumatic. Eyes; PERRLA. Extraocular muscles intact. Conjunctivae clear. Nose patent. NECK: Supple. No carotid bruits. No JVD or thyromegaly. CHEST: Bilaterally symmetrical. HEART: S1 and S2 positive. LUNGS: Clear to auscultation. ABDOMEN: Soft. Bowel sounds present. No organomegaly. EXTREMITIES: No edema. No cyanosis. NEUROLOGIC: The patient is awake and alert. Moving all four extremities. No focal deficits. MEDICATIONS: Ativan, Benadryl, Depakote, Haldol, milk of magnesia, Seroquel, and Tylenol. LABORATORY DATA: We do not have recent labs today, but reviewed old labs. ASSESSMENT AND PLAN: Ms. Chelsea Aleman is a 42-year-old female with history of multiple medical problems, history of galactorrhea on Risperdal. According to the patient, is on Depakote now . AST and ALT was within normal limits. We will resume it. Hypoglycemia, history of hypertension, hypercholesterolemia. Psychiatrist is on the case. Gastrointestinal and deep venous thrombosis prophylaxis. Repeat labs. We will followup. Vira Denton MD MTDD
[2017-03-21] MEDS: Divalproex 500 mg DR(BID formulation) PO SCH (10:10)
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
--- NOTE | 2017-03-22 04:34 | PN ---
SUBJECTIVE: The patient is 42 years old female. The patient is seen and examined in the morning of 03/21/2017, feeling comfortable. No nausea, vomiting, or diarrhea. No hematuria or hematochezia. No swelling of the legs. No chest pain or palpitations. No headache or dizziness. She is happy to leave the hospital. PHYSICAL EXAMINATION: VITAL SIGNS: Temperature 97.9, pulse 80, blood pressure 170/73, respiratory rate 20. HEENT: Head; normocephalic and atraumatic. Eyes; PERRLA. Extraocular muscles intact. Conjunctivae clear. Nose patent. Mucus membrane moist. NECK: Supple. No carotid bruits. No JVD or thyromegaly. CHEST: Bilaterally symmetrical. HEART: S1 and S2 positive. LUNGS: Clear to auscultation. ABDOMEN: Soft. Bowel sounds present. No organomegaly. EXTREMITIES: No edema. No cyanosis. NEUROLOGIC: The patient is awake and alert. Moving all four extremities. No focal deficits. MEDICATIONS: Given in the hospital were Ativan, Benadryl, Depakote, Haldol, Maalox, Milk of Magnesia, and Seroquel. ASSESSMENT AND PLAN: The patient is 42-year-old female with multiple medical problems, history of galactorrhea on risperidone, history of hypertension, hypercholesteremia, schizophrenia bipolar, history of IV substance abuse, very noncompliant, history of abnormal liver function test, hypercholesterolemia, gastroesophageal reflux disease, dyspepsia. The patient got treatment from the weight calculator, got better, went home, urged to be complaint. We will follow up. Vira Denton MD
== END 2017-03-21 13:58 | disposition home or self-care (01) | DRG 885 ==
LOC: ED 03:00 → ERH 10:36 → PSYC 11:44
PROVIDERS: ADMIT Psychiatry & Neurology Psychiatry; ATTEND Psychiatry & Neurology Psychiatry
PROC: GZ3ZZZZ Medication Management (ICD-10-PCS; principal; 2017-03-14)
DX: F25.0 Schizoaffective disorder, bipolar type (principal); F60.2 Antisocial personality disorder; E83.51 Hypocalcemia; F14.20 Cocaine dependence, uncomplicated; Z59.0 Homelessness; F41.9 Anxiety disorder, unspecified; I10 Essential (primary) hypertension; E78.00 Pure hypercholesterolemia, unspecified; Z91.19 Patient's noncompliance with other medical treatment and regimen; Z91.14 Patient's other noncompliance with medication regimen; K21.9 Gastro-esophageal reflux disease without esophagitis; N64.3 Galactorrhea not associated with childbirth; E16.2 Hypoglycemia, unspecified; R04.0 Epistaxis

== ENCOUNTER 2017-03-27 19:52 | Emergency (ER) | payer MEDICARE, OTHER ==
[2017-03-27 19:57] VITALS: BMI 27.3
[2017-03-27 20:27] VITALS: TEMP 97.7
[2017-03-27 21:40] LABS: HEMOGLOBIN 13.9 g/dL (12.0-16.0); MEAN CELL VOLUME 95.2 fl (80.0-105.0); MEAN CORPUSCULAR HGB CONC 33.6 g/dl (31.0-37.0); MEAN PLATELET VOLUME 10.9 fl (7.0-11.0); RBC 4.35 10^6/uL (3.5-6.1); RED CELL DISTRIBUTION WIDTH 12.7 % (11.5-14.5); WHITE BLOOD COUNT 12.3 10^3/ul (4.5-11.0)
[2017-03-27 22:10] LABS: ALB/GLOB RATIO 1.5 (1.1-1.8); ALBUMIN 4.5 g/dL (3.0-4.8); ALT/SGPT 30 U/L (7-56); AST/SGOT 28 U/L (14-36); BLOOD UREA NITROGEN 12 mg/dL (7-21); CALCIUM 9.3 mg/dL (8.4-10.5); GFR AFRICAN-AMERICAN > 60; GFR NON-AFRICAN AMERICAN > 60
--- NOTE | 2017-03-27 22:19 | ED PDOC ---
Arrival/HPI - General Chief Complaint: Alcohol Ingestion Time Seen by Provider: 03/27/17 20:04 Historian: Patient, EMS - History of Present Illness Narrative History of Present Illness (Text): 03/27/17 20:40 Chelsea Aleman is a 42 year old female, whose past medical history includes schizoaffective disorder and bipolar disorder, who presents to the Emergency department brought in by EMS for public intoxication tonight. Patient found by EMS apparently intoxicated and transported to the Emergency room. Patient is somnolent, when aroused patient states she want to be left alone. Patient denies any fever, chills, chest pain, shortness of breath, nausea, vomiting, diarrhea, urinary symptoms, back pain, neck pain, headache, dizziness, trauma/ injury, suicidal/homicidal ideation or any other complaints. Symptom Onset: Gradual Symptom Course: Unchanged Activities at Onset: Light Context: Home Past Medical History - Provider Review Nursing Documentation Reviewed: Yes - Infectious Disease Hx of Infectious Diseases: None - Cardiac Hx Hypertension: Yes - Pulmonary Hx Asthma: Yes - Neurological HX Cerebrovascular Accident: No Hx Seizures: No - HEENT Hx HEENT Disorder: Yes Hx Cataracts: Yes - Renal Hx Renal Disorder: Yes - Endocrine/Metabolic Hx Endocrine Disorders: No - Hematological/Oncological Hx Anemia: Yes - Integumentary Hx Dermatological Disorder: No - Musculoskeletal/Rheumatological Hx Arthritis: Yes - Gastrointestinal Hx Gastrointestinal Disorders: No - Genitourinary/Gynecological Hx Sexually Transmitted Diseases: No - Psychiatric Hx Bipolar Disorder: Yes Hx Substance Use: Yes - Surgical History Other/Comment: Laparoscopy - Anesthesia Hx Anesthesia: Yes Hx Anesthesia Reactions: No Hx Malignant Hyperthermia: No - Suicidal Assessment Feels Threatened In Home Enviroment: No Family/Social History - Physician Review Nursing Documentation Reviewed: Yes Family/Social History: Unknown Family HX Smoking Status: Light Smoker < 10 Cigarettes Daily Hx Alcohol Use: Yes Hx Substance Use: Yes Substance used: marijuana, PCP Hx Substance Use Treatment: No Allergies/Home Meds Allergies/Adverse Reactions: Allergies shellfish derived Allergy (Verified 03/14/17 15:42) .unknown Home Medications: Home Meds Medication Instructions Recorded Confirmed Unobtainable 03/27/17 03/27/17 Review of Systems - Physician Review All systems were reviewed & negative as marked: Yes - Review of Systems Constitutional: Normal. absent: Fevers Eyes: Normal ENT: Normal Respiratory: Normal. absent: SOB, Cough Cardiovascular: Normal. absent: Chest Pain Gastrointestinal: Normal. absent: Abdominal Pain, Diarrhea, Nausea, Vomiting Genitourinary Female: Normal. absent: Dysuria, Frequency, Hematuria, Urine Output Changes Musculoskeletal: Normal. absent: Back Pain, Neck Pain Skin: Normal. absent: Rash Neurological: Normal. absent: Headache, Dizziness Endocrine: Normal Hemo/Lymphatic: Normal Psychiatric: Normal Physical Exam Vital Signs Reviewed: Yes Vital Signs Temp Pulse Resp BP Pulse Ox 03/28/17 03:00 92 H 12 110/68 99 03/28/17 01:00 90 16 132/72 100 03/27/17 23:55 77 18 133/66 98 03/27/17 20:25 97.7 F 65 16 107/59 L 100 Temperature: Afebrile Blood Pressure: Normal Pulse: Regular Respiratory Rate: Normal Appearance: Positive for: Well-Appearing, Non-Toxic, Comfortable Pain Distress: None Mental Status: Positive for: other (Drowsy but arousable) Finger Stick Blood Glucose: 103 - Systems Exam Head: Present: Atraumatic, Normocephalic Pupils: Present: PERRL Extroacular Muscles: Present: EOMI Conjunctiva: Present: Normal Mouth: Present: Moist Mucous Membranes Neck: Present: Normal Range of Motion Respiratory/Chest: Present: Clear to Auscultation, Good Air Exchange. No: Respiratory Distress, Accessory Muscle Use Cardiovascular: Present: Regular Rate and Rhythm, Normal S1, S2. No: Murmurs Abdomen: Present: Normal Bowel Sounds. No: Tenderness, Distention, Peritoneal Signs Back: Present: Normal Inspection Upper Extremity: Present: Normal Inspection. No: Cyanosis, Edema Lower Extremity: Present: Normal Inspection. No: Edema Neurological: Present: GCS=15, CN II-XII Intact, Speech Normal Skin: Present: Warm, Dry, Normal Color. No: Rashes Psychiatric: Present: Other (Drowsy but arousable) Medical Decision Making ED Course and Treatment: 03/27/17 20:40 Impression: 42 year old female brought in for alcohol intoxication tonight. Differential Diagnosis included but are not limited to: alcohol intoxication Plan: -- Labs, alcohol level -- Urine drug screen -- Reassess and disposition Prior Visits: Notes and results from previous visits were reviewed. On 03/14/2017, pt was seen in the Emergency department for intermittent epistaxis and psychiatric evaluation. Pt was admitted to the hospital for further psychiatric evaluation. Progress Notes: - Lab Interpretations Lab Results: 03/27/17 21:20 03/27/17 21:20 Lab Results 03/27/17 21:31: POC Glucose (mg/dL) 103 03/27/17 21:20: Alcohol, Quantitative 270 H 03/27/17 21:20: WBC 12.3 H D, RBC 4.35, Hgb 13.9, Hct 41.4, MCV 95.2, MCH 32.0, MCHC 33.6, RDW 12.7, Plt Count 251, MPV 10.9 03/27/17 21:20: Sodium 143, Potassium 4.3, Chloride 107, Carbon Dioxide 24, Anion Gap 15, BUN 12, Creatinine 0.8, Est GFR ( Amer) > 60, Est GFR (Non- Af Amer) > 60, Random Glucose 101, Calcium 9.3, Total Bilirubin 0.3, AST 28, ALT 30, Alkaline Phosphatase 58, Total Protein 7.6, Albumin 4.5, Globulin 3.0, Albumin/Globulin Ratio 1.5 I have reviewed the lab results: Yes - Scribe Statement The provider has reviewed the documentation as recorded by the Scribe Katelin Bello All medical record entries made by the Scribe were at my direction and personally dictated by me. I have reviewed the chart and agree that the record accurately reflects my personal performance of the history, physical exam, medical decision making, and the department course for this patient. I have also personally directed, reviewed, and agree with the discharge instructions and disposition. Disposition/Present on Arrival - Present on Arrival Any Indicators Present on Arrival: No History of DVT/PE: No History of Uncontrolled Diabetes: No Urinary Catheter: No History of Decub. Ulcer: No History Surgical Site Infection Following: None - Disposition Have Diagnosis and Disposition been Completed?: Yes Diagnosis: Alcohol abuse Disposition: HOME/ ROUTINE Disposition Time: 06:25 Patient Plan: Discharge Condition: STABLE Referrals: Grace Wilson, [Primary Care Provider] - Follow up with primary Forms: [employer] (Italian)
[2017-03-28 04:19] VITALS: BP 110/68; PULSE 92; RESP 12; O2SAT 99
== END 2017-03-28 06:20 | disposition home or self-care (01) ==
LOC: ED 19:52
DX: F10.129 Alcohol abuse with intoxication, unspecified (principal); F17.210 Nicotine dependence, cigarettes, uncomplicated; I10 Essential (primary) hypertension; Y90.8 Blood alcohol level of 240 mg/100 ml or more

== ENCOUNTER 2017-05-16 21:15 | Emergency (ER) | payer MEDICARE, OTHER ==
[2017-05-16 23:30] VITALS: BMI 25.4
--- NOTE | 2017-05-16 23:52 | ED PDOC ---
Arrival/HPI <RonbrittanyWalter - Last Filed: 05/17/17 05:01> - History of Present Illness Time/Duration: Prior to Arrival Symptom Onset: Gradual Symptom Course: Unchanged, Worsening Severity Level: 3 Activities at Onset: Rest Context: Home <Claudia Garcia - Last Filed: 05/17/17 11:56> - General Chief Complaint: Psychiatric Evaluation Time Seen by Provider: 05/16/17 21:40 - History of Present Illness Narrative History of Present Illness (Text): 05/16/17 23:47 Chelsea Aleman is a 42 year old female, whose past medical history includes schizoaffective disorder and bipolar disorder, who presents to the Emergency department for hallucinations and anxiety. Patient state that she has been off her medication for the past 4 weeks due to the cost of the medication. Pt has had daily hallucinations, seeing shadows and hearing voices that are prompting her to hurt herself. Reports her last alcoholic beverage was 1 day ago and smoked marijuana today after going to a . Patient denies any fever, chills, chest pain, shortness of breath, nausea, diarrhea, GIB, urinary symptoms , back pain, neck pain, headache, dizziness, trauma/injury, homicidal ideation or any other complaints. (Claudia Garcia) Past Medical History - Provider Review Nursing Documentation Reviewed: Yes - Travel History Have you recently traveled outside [place] w/in the past 3 mons?: No - Infectious Disease Hx of Infectious Diseases: None - Cardiac Hx Hypertension: Yes - Pulmonary Hx Asthma: Yes - Neurological HX Cerebrovascular Accident: No Hx Seizures: No - HEENT Hx HEENT Disorder: Yes Hx Cataracts: Yes - Renal Hx Renal Disorder: Yes - Endocrine/Metabolic Hx Endocrine Disorders: No - Hematological/Oncological Hx Anemia: Yes - Integumentary Hx Dermatological Disorder: No - Musculoskeletal/Rheumatological Hx Arthritis: Yes - Gastrointestinal Hx Gastrointestinal Disorders: No - Genitourinary/Gynecological Hx Sexually Transmitted Diseases: No - Psychiatric Hx Bipolar Disorder: Yes Hx Schizophrenia: Yes Hx Substance Use: Yes - Surgical History Other/Comment: Laparoscopy - Anesthesia Hx Anesthesia: Yes Hx Anesthesia Reactions: No Hx Malignant Hyperthermia: No - Suicidal Assessment Feels Threatened In Home Enviroment: No <Claudia Garcia - Last Filed: 05/17/17 11:56> Family/Social History - Physician Review Nursing Documentation Reviewed: Yes Family/Social History: Unknown Family HX Smoking Status: Light Smoker < 10 Cigarettes Daily Hx Alcohol Use: Yes Hx Substance Use: Yes Substance used: marijuana, PCP Hx Substance Use Treatment: No <Claudia Garcia - Last Filed: 05/17/17 11:56> Allergies/Home Meds <BaldomeroWalter - Last Filed: 05/17/17 05:01> <Claudia Garcia - Last Filed: 05/17/17 11:56> Allergies/Adverse Reactions: Allergies shellfish derived Allergy (Verified 05/17/17 06:50) .unknown Home Medications: Home Meds Medication Instructions Recorded Confirmed Unobtainable 03/27/17 05/17/17 Review of Systems - Review of Systems Constitutional: Normal Eyes: Normal ENT: Normal Respiratory: Normal Cardiovascular: Normal Gastrointestinal: Nausea, Vomiting Genitourinary Female: Normal Musculoskeletal: Normal Skin: Normal Neurological: Normal Endocrine: Normal Hemo/Lymphatic: Normal Psychiatric: Anxiety, Suicidal Ideation <Claudia Garcia - Last Filed: 05/17/17 11:56> Physical Exam Vital Signs Reviewed: Yes Temperature: Afebrile Blood Pressure: Normal Pulse: Regular Respiratory Rate: Normal Appearance: Positive for: Well-Appearing, Non-Toxic, Comfortable Pain Distress: None Mental Status: Positive for: Alert and Oriented X 3 - Systems Exam Head: Present: Atraumatic, Normocephalic Pupils: Present: PERRL Extroacular Muscles: Present: EOMI Conjunctiva: Present: Normal Mouth: Present: Moist Mucous Membranes Neck: Present: Normal Range of Motion Respiratory/Chest: Present: Clear to Auscultation, Good Air Exchange. No: Respiratory Distress, Accessory Muscle Use Cardiovascular: Present: Regular Rate and Rhythm, Normal S1, S2. No: Murmurs Abdomen: Present: Normal Bowel Sounds. No: Tenderness, Distention, Peritoneal Signs Back: Present: Normal Inspection Upper Extremity: Present: Normal Inspection. No: Cyanosis, Edema Lower Extremity: Present: Normal Inspection. No: Edema Neurological: Present: GCS=15, CN II-XII Intact, Speech Normal Skin: Present: Warm, Dry, Normal Color. No: Rashes Psychiatric: Present: Alert, Oriented x 3, Normal Insight, Normal Concentration , Normal Affect, Anxious, Suicidal Ideation, Hallucinations <Claudia Garcia - Last Filed: 05/17/17 11:56> Vital Signs Temp Pulse Resp BP Pulse Ox 05/17/17 06:13 98.7 F 71 20 101/60 98 05/17/17 02:17 72 16 120/78 99 05/16/17 23:53 98.6 F 65 17 113/70 100 Medical Decision Making <Walter Alexandre - Last Filed: 05/17/17 05:01> - Lab Interpretations I have reviewed the lab results: Yes <Claudia Garcia - Last Filed: 05/17/17 11:56> ED Course and Treatment: 05/17/17 01:27 PATIENT IS MEDICALLY CLEARED FOR PSYCHIATRIC ADMISSION/DISPOSITION. Dr. Walter Alexandre 05/17/17 03:58 EKG 3:21:03 Normal Sinus Prolonged QT interval Otherwise Normal EKG Rate + 72 CXR 04:00:00 Normal Cardiac [place] No Infiltrates or Atelectasis Normal Chest X-Ray 05/17/17 04:[address] [facility] by Dr. Abraham. Will arrange transportation. (Walter Alexandre) 05/16/17 23:5 Impression Chelsea Aleman is a 42 year old female, whose past medical history includes schizoaffective disorder and bipolar disorder, who presents to the Emergency department for hallucinations and anxiety. On PE, strong urine odor on patient, coherent and conversing well, A&O x3, normal affect with mild agitation at times Plan Psych consult Labs and Tox screen ETOH levels Progress Note Pt medically cleared for transfer to [facility] PES contacting [facility] to establish bed 05/17/17 02:23 (Claudia Garcia) - Lab Interpretations Lab Results: 05/17/17 00:11 05/17/17 00:11 Lab Results 05/17/17 00:11: Alcohol, Quantitative < 10 05/17/17 00:11: Sodium 136, Potassium 3.5 L, Chloride 101, Carbon Dioxide 23, Anion Gap 15, BUN 8, Creatinine 0.8, Est GFR ( Amer) > 60, Est GFR (Non- Af Amer) > 60, Random Glucose 69 L, Calcium 10.1, Total Bilirubin 0.8, AST 29, ALT 21, Alkaline Phosphatase 59, Total Protein 7.6, Albumin 4.4, Globulin 3.3, Albumin/Globulin Ratio 1.3 03/16/18 00:11: WBC 6.8 D, RBC 4.42, Hgb 14.1, Hct 40.3, MCV 91.2 D, MCH 31.9 , MCHC 35.0, RDW 12.5, Plt Count 223, MPV 11.4 H 05/17/17 00:01: Urine Opiates Screen Negative, Urine Methadone Screen Negative, Ur Barbiturates Screen Negative, Ur Phencyclidine Scrn Negative, Ur Amphetamines Screen Negative, U Benzodiazepines Scrn Negative, U Oth Cocaine Metabols Positive H, U Cannabinoids Screen Negative 05/17/17 00:01: Urine Color Yellow, Urine Appearance Clear, Urine pH 6.0, Ur Specific [place] 1.010, Urine Protein 30 H, Urine Glucose (UA) Negative, Urine Ketones 15 H, Urine Blood Small H, Urine Nitrate Negative, Urine Bilirubin Negative, Urine Urobilinogen 0.2, Ur Leukocyte Esterase Trace H, Urine RBC 1 - 3 , Urine WBC 2 - 5, Ur Epithelial Cells 1 - 3, Urine Bacteria Rare, Urine Other Trichomonas, Urine HCG, Qual Negative - RAD Interpretation Radiology Orders: 05/17/17 02:46 CXR [CHEST PORTABLE] [RAD] Stat - PA / JAMMER HOOKER / Resident Statement MD/DO has reviewed & agrees with the documentation as recorded. <Walter Alexandre - Last Filed: 05/17/17 05:01> Disposition/Present on Arrival <Walter Alexandre - Last Filed: 05/17/17 05:01> - Present on Arrival Any Indicators Present on Arrival: Yes History of DVT/PE: No History of Uncontrolled Diabetes: No Urinary Catheter: No History of Decub. Ulcer: No History Surgical Site Infection Following: None - Disposition Have Diagnosis and Disposition been Completed?: Yes Disposition Time: 02:13 Patient Plan: Transfer To <Claudia Garcia - Last Filed: 05/17/17 11:56> - Disposition Diagnosis: Schizoaffective disorder, bipolar type, Psychosis, Schizophrenia, acute, Bipolar disease, chronic Disposition: Transfer [facility] Patient Problems: Current Active Problems Problem Status Onset Major depressive disorder Acute Condition: STABLE Forms: [employer] (Nigerien)
[2017-05-17 00:12] LABS: URINE BILIRUBIN NEGATIVE (NEGATIVE); URINE BLOOD SMALL (NEGATIVE); URINE GLUCOSE (UA) NEGATIVE (NEGATIVE); URINE LEUKOCYTE ESTERASE TRACE Leu/uL (NEGATIVE); URINE PROTEIN 30 mg/dL (<30 mg/dL); URINE UROBILINOGEN 0.2 E.U./dL (<1 E.U./dL)
[2017-05-17 00:14] LABS: URINE APPEARANCE CLEAR (CLEAR); URINE COLOR YELLOW (YELLOW)
[2017-05-17 00:24] LABS: HCG,QUALITATIVE URINE NEGATIVE (NEGATIVE)
[2017-05-17 00:26] LABS: URINE BACTERIA RARE (NEG)
[2017-05-17 00:43] LABS: HEMOGLOBIN 14.1 g/dL (12.0-16.0); MEAN CORPUSCULAR HEMOGLOBIN 31.9 pg (25.0-35.0); MEAN PLATELET VOLUME 11.4 fl (7.0-11.0); RBC 4.42 10^6/uL (3.5-6.1); RED CELL DISTRIBUTION WIDTH 12.5 % (11.5-14.5); WHITE BLOOD COUNT 6.8 10^3/ul (4.5-11.0)
[2017-05-17 00:47] LABS: ALB/GLOB RATIO 1.3 (1.1-1.8); ALBUMIN 4.4 g/dL (3.0-4.8); ALT/SGPT 21 U/L (7-56); AST/SGOT 29 U/L (14-36); BLOOD UREA NITROGEN 8 mg/dL (7-21); CALCIUM 10.1 mg/dL (8.4-10.5); GFR AFRICAN-AMERICAN > 60; GFR NON-AFRICAN AMERICAN > 60
[2017-05-17 00:48] LABS: MEAN CELL VOLUME 91.2 fl (80.0-105.0)
[2017-05-17 00:51] LABS: BARBITURATES, UR NEGATIVE (NEGATIVE); BENZODIAZEPINES, UR NEGATIVE (NEGATIVE); OPIATES, UR NEGATIVE (NEGATIVE); PHENCYCLIDINE, UR NEGATIVE (NEGATIVE)
[2017-05-17 06:14] VITALS: BP 101/60; PULSE 71; RESP 20; TEMP 98.7; O2SAT 98
--- NOTE | 2017-05-17 09:49 | RAD ---
HISTORY: MEDICAL CLEARANCE COMPARISON: 03/14/2017 FINDINGS: LUNGS: No active pulmonary disease. PLEURA: No significant pleural effusion identified, no pneumothorax apparent. CARDIOVASCULAR: Normal. OSSEOUS STRUCTURES: No significant abnormalities. VISUALIZED UPPER ABDOMEN: Normal. OTHER FINDINGS: None. IMPRESSION: No active disease.
--- NOTE | 2017-05-18 09:50 | CARD ---
APPROVED REPORT EKG Measurement Heart [id number] <Conclusion> Normal sinus rhythm Moderate voltage criteria for LVH, may be normal variant Prolonged QT RVCD NSSTW changes, new
== END 2017-05-17 06:19 | disposition short-term general hospital (02) ==
LOC: ED 21:15
DX: F25.0 Schizoaffective disorder, bipolar type (principal); F23 Brief psychotic disorder; F31.9 Bipolar disorder, unspecified; F17.210 Nicotine dependence, cigarettes, uncomplicated; I10 Essential (primary) hypertension

== ENCOUNTER 2017-08-20 08:14 | Inpatient (IN) | payer MEDICARE, OTHER ==
[2017-08-20 08:15] VITALS: BMI 25.4
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
[2017-08-20 09:34] LABS: BASO # 0.05 K/mm3 (0.0-2.0); BASO % 0.6 % (0.0-3.0); EOS # 0.2 (0.0-0.7); EOS % 1.8 % (1.5-5.0); GRAN # 5.24 (1.4-6.5); GRAN % 59.8 % (50.0-68.0); HEMOGLOBIN 13.9 g/dL (12.0-16.0); LYMPH # 2.8 (1.2-3.4); LYMPH % 31.7 % (22.0-35.0); MEAN CELL VOLUME 90.9 fl (80.0-105.0); MEAN CORPUSCULAR HEMOGLOBIN 31.7 pg (25.0-35.0); MEAN CORPUSCULAR HGB CONC 34.9 g/dl (31.0-37.0); MEAN PLATELET VOLUME 10.5 fl (7.0-11.0); MONO # 0.5 (0.1-0.6); MONO % 6.1 % (1.0-6.0); RBC 4.38 10^6/uL (3.5-6.1); RED CELL DISTRIBUTION WIDTH 13.1 % (11.5-14.5); WHITE BLOOD COUNT 8.8 10^3/ul (4.5-11.0)
[2017-08-20 09:42] LABS: ALB/GLOB RATIO 1.6 (1.1-1.8); ALBUMIN 4.7 g/dL (3.0-4.8); ALT/SGPT 27 U/L (7-56); AST/SGOT 36 U/L (14-36); BLOOD UREA NITROGEN 11 mg/dL (7-21); CALCIUM 8.9 mg/dL (8.4-10.5); GFR NON-AFRICAN AMERICAN > 60
[2017-08-20 09:43] LABS: ACETAMINOPHEN < 10.0 ug/ml (10.0-20.0); SALICYLATE < 1 mg/dL (2.0-20.0)
[2017-08-20 09:58] LABS: CK-MB 3.9 ng/mL (0.0-3.6)
[2017-08-20 10:09] LABS: PH,URINE 5.5 (4.7-8.0); URINE BILIRUBIN NEGATIVE (NEGATIVE); URINE BLOOD LARGE (NEGATIVE); URINE GLUCOSE (UA) NEGATIVE (NEGATIVE); URINE LEUKOCYTE ESTERASE NEGATIVE Leu/uL (NEGATIVE); URINE PROTEIN >=300 mg/dL (<30 mg/dL); URINE UROBILINOGEN 0.2 E.U./dL (<1 E.U./dL)
[2017-08-20 10:12] LABS: URINE APPEARANCE CLEAR (CLEAR); URINE COLOR YELLOW (YELLOW)
[2017-08-20 10:26] LABS: BARBITURATES, UR NEGATIVE (NEGATIVE)
[2017-08-20 10:33] LABS: BENZODIAZEPINES, UR NEGATIVE (NEGATIVE); OPIATES, UR NEGATIVE (NEGATIVE); PHENCYCLIDINE, UR NEGATIVE (NEGATIVE)
[2017-08-20 10:38] LABS: URINE RBC 25 - 30 /hpf (0-2); URINE WBC 0 - 2 /hpf (0-6)
[2017-08-20 10:39] LABS: URINE BACTERIA MANY (NEG); URINE FINE GRANULAR CAST 0 - 2 /hpf (0-2); URINE HYALINE CAST 0 - 2 /hpf
[2017-08-20 10:40] LABS: URINE COARSE GRANULAR CAST TRACE /hpf (0-2)
[2017-08-20] MEDS ORDERED: Alum-Mag Hydrox-Simethicone Susp (30 mL) PO PRN (11:20)
[2017-08-20] MEDS ORDERED: Magnesium Hydroxide Susp 30 ml UD PO PRN (11:20)
[2017-08-20 11:41] VITALS: O2SAT 100
--- NOTE | 2017-08-20 12:11 | RAD ---
HISTORY: routine med exam COMPARISON: No prior. FINDINGS: LUNGS: No active pulmonary disease. PLEURA: No significant pleural effusion identified, no pneumothorax apparent. CARDIOVASCULAR: Normal. OSSEOUS STRUCTURES: No significant abnormalities. VISUALIZED UPPER ABDOMEN: Normal. OTHER FINDINGS: None. IMPRESSION: No active disease.
--- NOTE | 2017-08-20 12:11 | CARD ---
APPROVED REPORT EKG Measurement Heart [id number] <Conclusion> Normal sinus rhythm Prolonged QT Abnormal ECG
[2017-08-20 12:47] LABS: HDL CHOLESTEROL 106 mg/dL (29-60)
[2017-08-20 12:58] LABS: LDL CHOLESTEROL 57 mg/dL (0-129)
[2017-08-20 13:08] LABS: FREE T4 1.08 ng/dL (0.78-2.19)
[2017-08-20] MEDS: Divalproex 500 mg DR(BID formulation) PO SCH (21:40)
--- NOTE | 2017-08-21 04:25 | PCM.BM ---
<Christopher Jones - Last Filed: 08/21/17 04:21> Treatment Plan Problems - Problems identified on initial assessmt Auditory Hallucinations Date Initiated: 08/20/17 Time Initiated: 12:00 Assessment reference: NA Status: Active Priority: 1 Visual Hallucinations Date Initiated: 08/20/17 Time Initiated: 12:00 Assessment reference: NA Status: Active Priority: 2 Ineffective Coping Date Initiated: 08/20/17 Time Initiated: 12:00 Assessment reference: NA Status: Active Priority: 3 Treatment assets and liabiliti Patient Assests: adapts well, self-reliant, ADL independent, negotiates basic needs Patient Liabilities: poor support system, substance abuse - Milieu Protocol Maintain good personal hygiene: daily Encourage regular showers, every shift Remind patient to perform daily oral care, every shift Assist patient to perform ADL's Maintain personal safety: every shift Educate patient to report safety concerns to staff, every shift Monitor environment for contraband/sharps Medication safety: Monitor for expected outcome, potential side effects: every shift, Assess barriers to learning: every shift, Assess readiness for medication education: every shift Discharge/Continuing Care - Education Needs Education Needs: Patient Medication, Patient Diagnosis/Disease Process, Patient Coping Skills, Patient Anger Management skills, Patient Placement options, Patient Community resources, Patient Activities of Daily Living, Patient Pain, Patient Nutrition, Patient Health Practices/Safety, Patient Personal Hygiene/ Grooming, Patient Aftercare Safety Plan - Discharge Discharge Criteria: Tolerates medication w/o severe side effects, Free of agitation <Laureen Fajardo - Last Filed: 08/21/17 15:37> - Diagnosis (1) Substance abuse Status: Acute Interventions: 08/21/17 15:37 Maintaining sobriety Relapse prevention Possible rehabilitation Motivational interviewing 12-step programs: AA meetings (2) Schizophrenia Status: Chronic Interventions: 08/21/17 15:37 Psychoeducation/psychotherapy Psychopharmacology/adjustment of medications as needed/ monitoring possible side effects Evaluate pt on daily basis Compliance with medications and follow up appointments Long acting medication if pt is noncompliant with pill form Suicide and homicide risk assessment and prevention, coping strategies, safety plan Relapse prevention Reduction of symptoms Improve functional status Possible assertive community treatment Cognitive behavioral therapy Family involvement Possible social skill training as outpatient <Gina Castillo - Last Filed: 08/21/17 17:00> Family Contact Family involvement: Famliy/SO not involved
[2017-08-21 07:06] VITALS: RESP 20
[2017-08-21] MEDS: Divalproex 500 mg DR(BID formulation) PO SCH (09:58)
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
--- NOTE | 2017-08-24 22:36 | PN ---
DATE: 08/24/2017 SUBJECTIVE: The patient is a 42-year-old female. The patient was seen and examined on the bedside, looking comfortable. According to the patient, she is doing perfectly fine. No nausea or vomiting. No hematuria or hematochezia. No headache. No dizziness. No chest pain. No palpitation. No fever. No chills. PHYSICAL EXAMINATION: VITAL SIGNS: Temperature 98.2, pulse 60, respiratory rate 20, blood pressure 114/65. HEENT: Head normocephalic, atraumatic. Eyes PERRLA. Extraocular muscles intact. Conjunctivae clear. Nose patent. Mucous membrane moist. NECK: Supple. No carotid bruit. No JVD or thyromegaly. CHEST: No chest pain. LUNGS: Clear to auscultation. ABDOMEN: Soft. Bowel sounds positive. No organomegaly. EXTREMITIES: No edema. No cyanosis. NEUROLOGICAL: The patient is awake and alert. Moving all 4 extremities. No focal deficits. LABORATORY DATA: White blood cells are 8.8, hemoglobin 13.9, hematocrit 39.8, platelets 228. Sodium 141, potassium 3.6, BUN 11, creatinine 0.7, glucose 87, total creatinine 440, HDL 106. MEDICATIONS: Geodon, lithium, Maalox, milk of magnesia, Neurontin, Remeron, Seroquel, Tylenol. ASSESSMENT AND PLAN: Ms. Chelsea Aleman, 42-year-old female with history of multiple psychiatric problems, has multiple admissions. Has history of schizophrenia; depression; schizoaffective disorder; substance abuse, especially cocaine; multiple psychiatric admissions; noncompliance for medications and hospital visits; still actively hallucinating ,shadows and lights and voices are bothering her; history of polysubstance abuse, is under the care of psychiatrist. We will continue present treatment. Repeat labs. We will follow up. Vira Denton MD YADIR[facility]
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
--- NOTE | 2017-08-26 02:56 | PN ---
DATE: 08/25/2017 SUBJECTIVE: Patient was seen and examined at the bedside on 08/25/2017, looking comfortable. No nausea, vomiting, or diarrhea. No hematuria or hematochezia. No swelling of the legs. No chest pain, no palpitation. No headache, no dizziness. PHYSICAL EXAMINATION: VITAL SIGNS: Temperature 97.8, pulse 52, respiratory rate 18, blood pressure 118/56. HEENT: Head: Normocephalic, atraumatic. Eyes: PERRLA. Extraocular muscles intact. Conjunctivae clear. Nose: Patent. Mucous membrane moist. NECK: Supple. No carotid bruit. No JVD or thyromegaly. CHEST: Bilaterally symmetrical. HEART: S1 and S2 positive. LUNGS: Clear to auscultation. ABDOMEN: Soft. Bowel sounds positive. No organomegaly. EXTREMITIES: No edema. No cyanosis. NEUROLOGIC: Patient is awake and alert. Moving all 4 extremities. No focal deficits. MEDICATIONS: Geodon, lithium, Maalox, milk of magnesia, Neurontin, Remeron, Seroquel, and Tylenol. LABORATORY DATA: We do not have recent labs today, but reviewed old labs. ASSESSMENT AND PLAN: Ms. Chelsea Aleman is a 42-year-old lady with proteinuria, ketonuria, hematuria, has cocaine and metabolites positive in drug screening, rapid plasma reagin negative, is admitted in the Psych Department. Dr. Anca Jordan saw the patient. Patient has a history of mental illness, schizophrenia and depression; schizoaffective disorder; substance abuse; had multiple psych admissions. Patient reports to see shadows and lights and voices. Noncompliant with the medications, history of hypertension, degenerative joint disease. Psych is taking care of the patient. Repeat labs. We will follow up. Vira Denton MD
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
[2017-08-26] MEDS: Bacitracin Ointment 30 GM TUBE TOP SCH ×2 (13:47→18:02)
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
--- NOTE | 2017-08-27 06:01 | PN ---
DATE: 08/26/2017 SUBJECTIVE: The patient is a 42-year-old female. The patient was seen and examined on the bedside on 08/26/2017. Looking comfortable. No nausea, vomiting, diarrhea. No hematuria, no hematochezia. No swelling of the leg. No chest pain, no palpitations. No headache, no dizziness. PHYSICAL EXAMINATION: VITAL SIGNS: Temperature 97.8, pulse 75, blood pressure 113/59, pulse oximetry of noted . HEENT: Head normocephalic, atraumatic. Eyes PERRLA. Extraocular muscles intact. Conjunctivae clear. Nose patent. Mucous membrane moist. NECK: Supple. No carotid bruit. No JVD, thyromegaly. CHEST: Clear to auscultation. HEART: S1, S2 positive. LUNGS: Clear to auscultation. ABDOMEN: Soft. Bowel sounds present. No organomegaly. EXTREMITIES: No edema, no cyanosis. NEUROLOGICAL: The patient is awake, alert, moving all 4 extremities. No focal deficits. MEDICATIONS: Bacitracin, Geodon, lithium, Maalox, milk of magnesia, Neurontin, mirtazapine, Seroquel, Tylenol. LABORATORY DATA: White blood cells 8.8, hemoglobin 13.9, hematocrit 39.8, platelets 228. Sodium 141, potassium 3.6, BUN 11, creatinine 0.7, total creatinine kinase 440, CK-MB 23.9. ASSESSMENT AND PLAN: Ms. Chelsea Aleman is a 42-year-old lady with proteinuria, ketonuria, hematuria, history of polysubstance abuse, cocaine is positive in toxicology, RPR nonreactive, seen by Dr. Laureen Fajardo, psychiatrist, history of multiple psych admissions, noncompliant, history of mental illnesses including schizophrenia, depression, schizoaffective disorder, substance abuse, who was brought into the ER due to seeing shadows and lights and voices, history of hypertension, hypercholesterolemia, degenerative joint disease, history of schizophrenia also. We will continue present treatment. Gastric and deep venous thrombosis prophylaxes. Under care of Dr. Laureen Fajardo. Continue Neurontin. Repeat labs. We will follow up. Vira Corrie, MD [facility] # [id number] MTDD
[2017-08-27] MEDS: Bacitracin Ointment 30 GM TUBE TOP SCH ×2 (09:29→16:38)
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
[2017-08-28 06:56] VITALS: BP 125/81; PULSE 65; TEMP 97.8
--- NOTE | 2017-08-28 08:22 | PN ---
DATE: 08/27/2017 SUBJECTIVE: The patient is 42 years old female. The patient was seen and examined at the bedside. Early in the morning, looking comfortable. Sleepy, was able to move all four extremities. Obeying simple orders. No nausea, vomiting, or diarrhea. No fever. No chills. No headache. No dizziness. PHYSICAL EXAMINATION: VITAL SIGNS: Temperature 98.1, pulse 74, blood pressure 108/68, respiratory rate 20. HEENT: Head: Normocephalic and atraumatic. Eyes: PERRLA. Extraocular muscles intact. Conjunctivae clear. Nose patent. Mucous membrane moist. NECK: Supple. No carotid bruit. No JVD or thyromegaly. CHEST: Bilaterally symmetrical. HEART: S1 and S2 positive. LUNGS: Clear to auscultation. ABDOMEN: Soft. Bowel sounds positive. No organomegaly. EXTREMITIES: No edema. No cyanosis. NEUROLOGICAL: The patient is awake and alert. Moving all four extremities. No focal deficits. MEDICATIONS: Bacitracin, Geodon, lithium, simethicone, Maalox, magnesium oxide, Milk of Magnesia, Tylenol. LABORATORY DATA: We do not have lab today, but I reviewed old labs. ASSESSMENT AND PLAN: Ms. Ash Ceja is 42 years old lady with multiple medical problems, multiple psychiatric admissions, talking something that does not make sense. She want to apply for food stamps, want referrals, has history of hypertension, hypercholesterolemia, noncompliant, schizophrenia, history of drug abuse. She is under the care of Dr. Laureen Fajardo. history of cocaine abuse, hematuria, proteinuria, ketonuria. Continue present treatment, repeat labs. We will follow up. Vira Denton MD [facility]
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
--- NOTE | 2017-08-29 01:42 | PN ---
DATE: 08/28/2017 SUBJECTIVE: The patient was seen and examined on the bedside on 08/28/2017, looking comfortable. No nausea, vomiting, diarrhea. No hematuria or hematochezia. No headache. No dizziness. No chest pain. No palpitation. Happy to get discharged from the hospital, going back to the retirement from where she came. No fever. No chills. PHYSICAL EXAMINATION: VITAL SIGNS: Temperature 97.8, pulse 65, blood pressure 125/81, respiratory rate 20. HEENT: Head normocephalic, atraumatic. Eyes PERRLA. Extraocular muscles intact. Conjunctivae clear. Nose patent. Mucous membrane moist. NECK: Supple. No carotid bruit. No JVD or thyromegaly. CHEST: Bilaterally symmetrical. HEART: S1 and S2 positive. LUNGS: Clear to auscultation. ABDOMEN: Soft. Bowel sounds positive. No organomegaly. EXTREMITIES: No edema. No cyanosis. NEUROLOGICAL: The patient is awake and alert. Moving all 4 extremities. No focal deficits. MEDICATIONS: Bacitracin, Geodon, lithium, Maalox, Milk of magnesia, Neurontin, mirtazapine. LABORATORY DATA: We do not have recent labs today. ASSESSMENT AND PLAN: Ms. Chelsea Aleman, 42-year-old female with history of multiple psychiatric and medical problems. Has multiple psychiatric admissions and emergency room visits. Has history of proteinuria, ketonuria, hematuria. Cocaine and metabolites are positive on the toxic screening. Rapid plasma reagin is negative. The patient is admitted in the Psychiatry floor for depression and anxiety, history of schizophrenia, schizoaffective disorders, substance abuse, multiple psychiatric admission. The patient has history of noncompliant with the medication and doctor visit. Never came in to my office like private visit. Degenerative joint disease. Gastrointestinal, deep venous thrombosis prophylaxis. Repeat labs. We will follow up. Vira Denton MD
== END 2017-08-28 11:44 | disposition home or self-care (01) | DRG 885 ==
LOC: ED 08:14 → ERH 10:16 → PSYC 11:08
PROVIDERS: ADMIT Psychiatry & Neurology Psychiatry; ATTEND Psychiatry & Neurology Psychiatry
DX: F20.9 Schizophrenia, unspecified (principal); R45.851 Suicidal ideations; F12.90 Cannabis use, unspecified, uncomplicated; E78.00 Pure hypercholesterolemia, unspecified; F17.210 Nicotine dependence, cigarettes, uncomplicated; F31.60 Bipolar disorder, current episode mixed, unspecified; F41.0 Panic disorder [episodic paroxysmal anxiety]; I10 Essential (primary) hypertension; J45.909 Unspecified asthma, uncomplicated; K21.9 Gastro-esophageal reflux disease without esophagitis; M19.90 Unspecified osteoarthritis, unspecified site; Z59.0 Homelessness; Z79.899 Other long term (current) drug therapy; Z91.14 Patient's other noncompliance with medication regimen; Z91.19 Patient's noncompliance with other medical treatment and regimen; H26.9 Unspecified cataract; D64.9 Anemia, unspecified; Z91.013 Allergy to seafood; R40.2412 Glasgow coma scale score 13-15, at arrival to emergency department; Z91.5 Personal history of self-harm

== ENCOUNTER 2017-08-30 21:03 | Inpatient (IN) | payer MEDICARE, OTHER ==
[2017-08-30 21:03] VITALS: BMI 25.4
--- NOTE | 2017-08-30 21:29 | ED PDOC ---
Arrival/HPI - General Chief Complaint: Psychiatric Evaluation Time Seen by Provider: 08/30/17 21:11 Historian: Patient - History of Present Illness Narrative History of Present Illness (Text): 08/30/17 21:25 pt p/w + worsening hallucinations - pt states she is hearing numerous voices ( mostly whispering to her), no commands, and visual hallucinations - seeing spots /dots/colors/animals; no tactile hallucinations; + at times feeling suicidal/ homicidal, particularly after she has an argument with her uncle/boyfriend; pt states when she is in a secure environment (i.e hospital), pt is not feeling SI/ HI; pt states she is currently homeless; pt states she drank 2-3 beers prior to Emergency department arrival; pt denied any medical complaints; pt denied cp/sob /palpitations, no abd pain, no numbness/tingling, no n/v, no urinary/bowel changes, no gross bleeding; pt is here for further eval; pt's without other complaints. PCP: unknown psych: Dr Garduno? pt is homeless/lives in a [facility] currently Time/Duration: Prior to Arrival Symptom Onset: Gradual Symptom Course: Worsening Activities at Onset: Rest Context: Street (pt is homeless) Past Medical History - Provider Review Nursing Documentation Reviewed: Yes - Travel History Have you recently traveled outside [place] w/in the past 3 mons?: No - Past History Past History: No Previous - Infectious Disease Hx of Infectious Diseases: None - Reproductive Currently : Unknown - Cardiac Hx Hypertension: Yes - Pulmonary Hx Asthma: Yes - Neurological Hx Neurological Disorder: No - HEENT Hx HEENT Disorder: Yes Hx Cataracts: Yes - Renal Hx Renal Disorder: Yes Other/Comment: Kidney disease - Endocrine/Metabolic Hx Endocrine Disorders: No - Hematological/Oncological Hx Anemia: Yes - Integumentary Hx Dermatological Disorder: No - Musculoskeletal/Rheumatological Hx Arthritis: Yes - Gastrointestinal Hx Gastrointestinal Disorders: No - Genitourinary/Gynecological Hx Genitourinary Disorders: No - Psychiatric Hx Bipolar Disorder: Yes Hx Depression: Yes Hx Schizophrenia: Yes Hx Substance Use: Yes - Surgical History Other/Comment: Laparoscopy ovarian cyst - Anesthesia Hx Anesthesia: Yes Hx Anesthesia Reactions: No Hx Malignant Hyperthermia: No - Suicidal Assessment Feels Threatened In Home Enviroment: No Family/Social History - Physician Review Nursing Documentation Reviewed: Yes Family/Social History: Unknown Family HX Smoking Status: Heavy Smoker > 10 Cigarettes Daily Hx Alcohol Use: Yes Frequency of alcohol use: Daily Hx Substance Use: Yes Substance used: marijuana, PCP Hx Substance Use Treatment: No Allergies/Home Meds Allergies/Adverse Reactions: Allergies shellfish derived Allergy (Verified 08/30/17 21:12) .unknown Home Medications: Home Meds Medication Instructions Recorded Confirmed Unobtainable 08/30/17 08/30/17 Review of Systems - Review of Systems Constitutional: Normal Eyes: Normal ENT: Normal Respiratory: Normal Cardiovascular: Normal Gastrointestinal: Normal Genitourinary Female: Normal Musculoskeletal: Normal Skin: Normal Neurological: Dizziness. absent: Headache, Speech Changes, Facial Droop Endocrine: Normal Hemo/Lymphatic: Normal Psychiatric: Other (hearing voices/seeing things, HI/SI?) Physical Exam - Physical Exam Narrative Physical Exam (Text): 08/30/17 21:26 General: alert/awake, GCS = 15, oriented x 2 (not to date/time), resting in bed , uncomfortable, cooperative, interactive; NAD; unkempt Head: NC/AT EYE: PERRLA, EOMI, sclera anicteric, no nystagmus, no photophobia; visual field intact b/l Facial: WNL, old right facial abrasions noted, non-tender Oral: uvula/tongue are midline, no exudate/lesions, no drooling/stridor, no dysphonia; fair dentitions; mild dry oral mucosa NECK: intact ROM, no midline tenderness, no nuchal rigidity, no meningeal signs ; no step off Chest: CTA b/l, no w/r/r; no tachypenia, no accessory muscle use noted Chest Wall: no focal tenderness, no gross deformities, no crepitus, no lesions/ rashes noted Cardiac: +S1, +S2, no m/r/r, no tachycardia Abdominal: +BS, soft/nd/nt, well nourished patient; no masses/rebound/guarding/ rigidity; no garcia's sign, no mcburney's point tenderness Extremities: intact ROM, strength 5/5 grossly intact in all limbs, neurovasc intact b/l; + ambulatory; reflex +2/2 BACK: no step off, no midline tenderness, NO crepitus, no gross deformities noted; Intact ROM SKIN: cap refill < 1 sec, no ulcerations, no petechiae, no rashes NEURO: CNII-XII WNL, no facial asymmetries, no slurr speech, oriented x 3 NIH stroke scale ~ 0 Psych: slightly poor insight, bizarre/flat affect; follows command with ease Vital Signs Reviewed: Yes Vital Signs Temp Pulse Resp BP Pulse Ox 08/30/17 22:11 98.4 F 78 18 119/61 100 Temperature: Afebrile Blood Pressure: Normal Pulse: Regular Respiratory Rate: Normal Appearance: Positive for: Well-Appearing, Non-Toxic, Comfortable, Unkept. No: Ill-Appearing, Uncomfortable Pain Distress: None Mental Status: Positive for: Alert and Oriented X 3 - Systems Exam Head: Present: Atraumatic, Normocephalic Medical Decision Making ED Course and Treatment: 08/30/17 21:26 Impression: hallucinations; SI/HI; pt is homeless; pt is concern that the medications she was prescribed are not helping her i have consider all the differential diagnosis regarding pt's chief medical complaints/clinical findings, including but are not limited to: medical clearance for psych eval A/P: hallucinations, medication side effect?; psych eval - labs - iv - xray - supportive care - observe/reevaluation 08/30/17 22:52 pt currently at baseline pt is not in any distress pt is awaiting PES eval PT IS MEDICALLY CLEARED FOR PSYCH/PES EVALUATION 2300 pt is endorsed to overnight attending, Dr Allred, pt is pending PES eval and final disposition Re-evaluation Time: 23:00 Reassessment Condition: Unchanged - Lab Interpretations Lab Results: 08/30/17 22:13 08/30/17 22:13 Lab Results 08/30/17 22:13: Urine Opiates Screen Negative, Urine Methadone Screen Negative, Ur Barbiturates Screen Negative, Ur Phencyclidine Scrn Negative, Ur Amphetamines Screen Negative, U Benzodiazepines Scrn Negative, U Oth Cocaine Metabols Positive H, U Cannabinoids Screen Negative 08/30/17 22:13: Alcohol, Quantitative < 10 08/30/17 22:13: Salicylates < 1 L, Acetaminophen < 10.0 L 08/30/17 22:13: Sodium 142, Potassium 4.1, Chloride 103, Carbon Dioxide 28, Anion Gap 15, BUN 18, Creatinine 0.8, Est GFR ( Amer) > 60, Est GFR (Non- Af Amer) > 60, Random Glucose 86, Calcium 9.2, Magnesium 2.5 H, Total Bilirubin 0.4, AST 55 H D, ALT 40, Alkaline Phosphatase 51, Total Protein 7.4, Albumin 4.4 , Globulin 3.0, Albumin/Globulin Ratio 1.5 08/30/17 22:13: Urine Color Yellow, Urine Appearance Clear, Urine pH 6.5, Ur Specific [place] >= 1.030, Urine Protein 100 H, Urine Glucose (UA) Negative, Urine Ketones Trace H, Urine Blood Small H, Urine Nitrate Negative, Urine Bilirubin Negative, Urine Urobilinogen 0.2, Ur Leukocyte Esterase Negative, Urine RBC 5 - 10, Urine WBC 0 - 2, Ur Epithelial Cells 4 - 5, Urine Bacteria Mod 08/30/17 22:13: WBC 6.9 D, RBC 4.05, Hgb 12.7, Hct 37.1, MCV 91.6, MCH 31.4, MCHC 34.2, RDW 12.8, Plt Count 254, MPV 10.5, Gran % 43.2 L, Lymph % (Auto) 46.2 H, [place] % (Auto) 7.0 H, Eos % (Auto) 3.2, Baso % (Auto) 0.4, Gran # 2.97, Lymph # (Auto) 3.2, [place] # (Auto) 0.5, Eos # (Auto) 0.2, Baso # (Auto) 0.03 I have reviewed the lab results: Yes Interpretation: Abnormal lab values (+ UTOX) - RAD Interpretation Narrative RAD Interpretations (Text): 08/30/17 22:48 prelim results Chest X-ray - nad Radiology Orders: 08/30/17 21:24 CHEST PORTABLE [RAD] Stat Regional Maintenance Manager: Radiologist - EKG Interpretation EKG Interpretation (Text): 08/30/17 22:31 NSR at 75 bpm, normal axis, no ectopy, slightly prolonged QT, no st-t changes, BORDERLINE EKG; unchanged compare with old ekg 08/2017 Interpreted by ED Physician: Yes Type: 12 lead EKG Comparison: Similar to previous EKG - Transfer of Care Patient signed out to Dr:: SYLWIA Pending Labs:: LABS, Urinalysis, UTOX Other: PES evaluation and final disposition - Scribe Statement The provider has reviewed the documentation as recorded by the Scribe Eden Lakhani Provider Scribe Attestation: All medical record entries made by the Scribe were at my direction and personally dictated by me. I have reviewed the chart and agree that the record accurately reflects my personal performance of the history, physical exam, medical decision making, and the department course for this patient. I have also personally directed, reviewed, and agree with the discharge instructions and disposition. Disposition/Present on Arrival - Present on Arrival Any Indicators Present on Arrival: No History of DVT/PE: No History of Uncontrolled Diabetes: No Urinary Catheter: No History of Decub. Ulcer: No History Surgical Site Infection Following: None - Disposition Have Diagnosis and Disposition been Completed?: Yes Diagnosis: Hallucinations, Weakness, Substance abuse, Disorganized type schizophrenia Disposition Time: 23:00 Patient Plan: Transfer To (Dr Allred) Patient Problems: Current Active Problems Problem Status Onset Hallucinations Acute Weakness Acute Condition: STABLE Discharge Instructions (ExitCare): Weakness (ED), Drug Abuse and Drug Addiction (DC) Print Language: QATARI Forms: [employer] (Sri [place]ankan)
[2017-08-30 22:34] LABS: PH,URINE 6.5 (4.7-8.0); URINE BILIRUBIN NEGATIVE (NEGATIVE); URINE BLOOD SMALL (NEGATIVE); URINE GLUCOSE (UA) NEGATIVE (NEGATIVE); URINE LEUKOCYTE ESTERASE NEGATIVE Leu/uL (NEGATIVE); URINE PROTEIN 100 mg/dL (<30 mg/dL); URINE UROBILINOGEN 0.2 E.U./dL (<1 E.U./dL)
[2017-08-30 22:38] LABS: ACETAMINOPHEN < 10.0 ug/ml (10.0-20.0); SALICYLATE < 1 mg/dL (2.0-20.0)
[2017-08-30 22:39] LABS: BASO # 0.03 K/mm3 (0.0-2.0); BASO % 0.4 % (0.0-3.0); EOS # 0.2 (0.0-0.7); EOS % 3.2 % (1.5-5.0); GRAN # 2.97 (1.4-6.5); GRAN % 43.2 % (50.0-68.0); HEMOGLOBIN 12.7 g/dL (12.0-16.0); LYMPH # 3.2 (1.2-3.4); LYMPH % 46.2 % (22.0-35.0); MEAN CELL VOLUME 91.6 fl (80.0-105.0); MEAN CORPUSCULAR HEMOGLOBIN 31.4 pg (25.0-35.0); MEAN CORPUSCULAR HGB CONC 34.2 g/dl (31.0-37.0); MEAN PLATELET VOLUME 10.5 fl (7.0-11.0); MONO # 0.5 (0.1-0.6); RBC 4.05 10^6/uL (3.5-6.1); RED CELL DISTRIBUTION WIDTH 12.8 % (11.5-14.5); URINE APPEARANCE CLEAR (CLEAR); URINE COLOR YELLOW (YELLOW); WHITE BLOOD COUNT 6.9 10^3/ul (4.5-11.0)
[2017-08-30 22:44] LABS: URINE BACTERIA MOD (NEG); URINE WBC 0 - 2 /hpf (0-6)
[2017-08-30 22:54] LABS: ALB/GLOB RATIO 1.5 (1.1-1.8); ALBUMIN 4.4 g/dL (3.0-4.8); ALT/SGPT 40 U/L (7-56); AST/SGOT 55 U/L (14-36); BARBITURATES, UR NEGATIVE (NEGATIVE); BENZODIAZEPINES, UR NEGATIVE (NEGATIVE); BLOOD UREA NITROGEN 18 mg/dL (7-21); CALCIUM 9.2 mg/dL (8.4-10.5); GFR AFRICAN-AMERICAN > 60; GFR NON-AFRICAN AMERICAN > 60; OPIATES, UR NEGATIVE (NEGATIVE); PHENCYCLIDINE, UR NEGATIVE (NEGATIVE)
--- NOTE | 2017-08-30 23:16 | ED PDOC ---
Physical Exam Vital Signs Reviewed: Yes Vital Signs Temp Pulse Resp BP Pulse Ox 08/31/17 00:00 75 18 120/72 100 08/30/17 22:11 98.4 F 78 18 119/61 100 Temperature: Afebrile Blood Pressure: Normal Pulse: Regular Respiratory Rate: Normal Appearance: Positive for: Well-Appearing, Non-Toxic, Comfortable Pain Distress: None Mental Status: Positive for: Alert and Oriented X 3 Medical Decision Making ED Course and Treatment: 08/30/17 23:14: Case endorsed to me by Dr. Delatorre. Patient is medically clear and pending PES evaluation, reassessment and disposition. 08/31/17 00:46: Patient evaluated by PES. Will admit patient to Dr. Fajardo' s service. - Lab Interpretations Lab Results: 08/30/17 22:13 08/30/17 22:13 Lab Results 08/30/17 22:13: Urine Opiates Screen Negative, Urine Methadone Screen Negative, Ur Barbiturates Screen Negative, Ur Phencyclidine Scrn Negative, Ur Amphetamines Screen Negative, U Benzodiazepines Scrn Negative, U Oth Cocaine Metabols Positive H, U Cannabinoids Screen Negative 08/30/17 22:13: Alcohol, Quantitative < 10 08/30/17 22:13: Salicylates < 1 L, Acetaminophen < 10.0 L 08/30/17 22:13: Sodium 142, Potassium 4.1, Chloride 103, Carbon Dioxide 28, Anion Gap 15, BUN 18, Creatinine 0.8, Est GFR ( Amer) > 60, Est GFR (Non- Af Amer) > 60, Random Glucose 86, Calcium 9.2, Magnesium 2.5 H, Total Bilirubin 0.4, AST 55 H D, ALT 40, Alkaline Phosphatase 51, Total Protein 7.4, Albumin 4.4 , Globulin 3.0, Albumin/Globulin Ratio 1.5 08/30/17 22:13: Urine Color Yellow, Urine Appearance Clear, Urine pH 6.5, Ur Specific [place] >= 1.030, Urine Protein 100 H, Urine Glucose (UA) Negative, Urine Ketones Trace H, Urine Blood Small H, Urine Nitrate Negative, Urine Bilirubin Negative, Urine Urobilinogen 0.2, Ur Leukocyte Esterase Negative, Urine RBC 5 - 10, Urine WBC 0 - 2, Ur Epithelial Cells 4 - 5, Urine Bacteria Mod 08/30/17 22:13: WBC 6.9 D, RBC 4.05, Hgb 12.7, Hct 37.1, MCV 91.6, MCH 31.4, MCHC 34.2, RDW 12.8, Plt Count 254, MPV 10.5, Gran % 43.2 L, Lymph % (Auto) 46.2 H, [place] % (Auto) 7.0 H, Eos % (Auto) 3.2, Baso % (Auto) 0.4, Gran # 2.97, Lymph # (Auto) 3.2, [place] # (Auto) 0.5, Eos # (Auto) 0.2, Baso # (Auto) 0.03 I have reviewed the lab results: Yes - RAD Interpretation Radiology Orders: 08/30/17 21:24 CHEST PORTABLE [RAD] Stat - Medication Orders Current Medication Orders: Gabapentin (Neurontin) 300 mg PO TID VARGAS PRN Reason: Protocol [place] Carbonate ([place] Carbonate 300mg) 300 mg PO BID VARGAS Mirtazapine (Remeron) 30 mg PO HS VARGAS Last Admin: 08/31/17 04:12 Dose: 30 mg Quetiapine Fumarate (Seroquel) 300 mg PO AMHS VARGAS PRN Reason: Protocol Last Admin: 08/31/17 04:12 Dose: 300 mg Behavioural Document 08/31/17 04:12 DC (Rec: 08/31/17 04:12 DC [id number]) Maintenance Maintenance Dose Yes Ziprasidone (Geodon Inj) 20 mg IM Q6H PRN; Protocol PRN Reason: Severe Agitation, Psychosis Ziprasidone (Geodon Cap) 20 mg PO Q6H PRN; Protocol PRN Reason: Agitation, Psychosis - Scribe Statement The provider has reviewed the documentation as recorded by the Scribe Svetlana Fritz Provider Scribe Attestation: All medical record entries made by the Scribe were at my direction and personally dictated by me. I have reviewed the chart and agree that the record accurately reflects my personal performance of the history, physical exam, medical decision making, and the department course for this patient. I have also personally directed, reviewed, and agree with the discharge instructions and disposition. Disposition/Present on Arrival - Present on Arrival Any Indicators Present on Arrival: No History of DVT/PE: No History of Uncontrolled Diabetes: No Urinary Catheter: No History of Decub. Ulcer: No History Surgical Site Infection Following: None - Disposition Have Diagnosis and Disposition been Completed?: Yes Diagnosis: Hallucinations, Weakness, Substance abuse, Disorganized type schizophrenia Disposition: HOSPITALIZED Disposition Time: 06:56 Patient Problems: Current Active Problems Problem Status Onset Substance abuse Chronic Hallucinations Acute Weakness Acute Disorganized type schizophrenia Chronic Condition: STABLE
--- NOTE | 2017-08-31 05:04 | PCM.BM ---
Treatment Plan Problems - Problems identified on initial assessmt Auditory Hallucinations Date Initiated: 08/31/17 Time Initiated: 04:00 Assessment reference: NA Status: Active Priority: 1 Altered Thought Process Date Initiated: 08/31/17 Time Initiated: 04:00 Assessment reference: NA Status: Active Priority: 2 Medication Nonadherence Date Initiated: 08/31/17 Time Initiated: 04:00 Assessment reference: NA Status: Active Priority: 3 Ineffective Coping Date Initiated: 08/31/17 Time Initiated: 04:00 Assessment reference: NA Status: Active Priority: 4 Treatment assets and liabiliti Patient Assests: adapts well, cooperative, ADL independent, negotiates basic needs Patient Liabilities: live alone, financial problems, poor support system, substance abuse - Milieu Protocol Maintain good personal hygiene: daily Encourage regular showers, every shift Remind patient to perform daily oral care, every shift Assist patient to perform ADL's Maintain personal safety: every shift Educate patient to report safety concerns to staff, every shift Monitor environment for contraband/sharps Medication safety: Monitor for expected outcome, potential side effects: every shift, Assess barriers to learning: every shift, Assess readiness for medication education: every shift Family Contact Family involvement: Famliy/SO not involved Family contact: Patient declines to allow family contact at present - Goals for Treatment Patient goals for treatment: "Tell the doctor about how I can get a different medication to stabilize the mood I like." Discharge/Continuing Care - Education Needs Education Needs: Patient Medication, Patient Diagnosis/Disease Process, Patient Coping Skills, Patient Anger Management skills, Patient Placement options, Patient Community resources, Patient Activities of Daily Living, Patient Pain, Patient Nutrition, Patient Uses of Medical Equipment, Patient Health Practices/ Safety, Patient Personal Hygiene/Grooming, Patient Aftercare Safety Plan - Discharge Discharge Criteria: Tolerates medication w/o severe side effects
[2017-08-31 06:50] VITALS: O2SAT 99
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
[2017-08-31] MEDS: Divalproex 250 mg DR (BID formulation) PO SCH (17:09)
--- NOTE | 2017-08-31 22:48 | CARD ---
APPROVED REPORT EKG Measurement Heart [id number] <Conclusion> Normal sinus rhythm Prolonged QT Abnormal ECG
[2017-09-01 07:02] VITALS: RESP 20
[2017-09-01] MEDS: Divalproex 250 mg DR (BID formulation) PO SCH ×2 (08:26→16:18)
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
[2017-09-01] MEDS: Amoxicillin-Clav 500-125 mg Tab PO SCH (16:17)
--- NOTE | 2017-09-02 05:32 | PN ---
DATE: 09/01/2017 SUBJECTIVE: Patient was seen and examined on the bedside on 09/01/2017, and looking comfortable. Is complaining about headache. Nose is congested, sneezing, runny nose, coughing sometime. No fever, no chills. PHYSICAL EXAMINATION: VITAL SIGNS: Temperature 97.7, pulse 68, blood pressure 121/78, respiratory rate 20. HEENT: Head normocephalic, atraumatic. Eyes, PERRLA. Extraocular muscles intact. Conjunctivae clear. Nose patent. Mucous membrane moist. NECK: Supple. No carotid bruit. No JVD or thyromegaly. CHEST: Bilaterally symmetrical. HEART: S1 and S2 positive. LUNGS: Clear to auscultation. ABDOMEN: Soft. Bowel sounds present. No organomegaly. EXTREMITIES: No edema. No cyanosis. NEUROLOGICAL: The patient is awake and alert. Moving all 4 extremities. No focal deficits. MEDICATIONS: Augmentin, Colace, Depakote, Geodon, NS, Pepcid, Remeron, Seroquel, Singulair. LABORATORY DATA: We do not have recent labs today, but I reviewed old labs. ASSESSMENT AND PLAN: Ms. Chelsea Aleman is a 42 years old lady, has sinusitis, seasonal allergies, started on Augmentin, Singulair, Nasacort. Discussion done with Dr. Laureen Fajardo. Patient has history of proteinuria, ketonuria, degenerative disk disease, history of hypertension, history of opiate abuse, history of alcohol abuse, has multiple admissions due to her mental illness that includes schizophrenia, depression, schizoaffective disorder, substance abuse, multiple psychiatric admissions, [place] [facility]. Noncompliant, having multiple times hallucinations and delusions. Started patient on the medications. Repeat labs. We will follow up. Vira Denton MD MTDD
[2017-09-02] MEDS: Amoxicillin-Clav 500-125 mg Tab PO SCH ×2 (08:10→17:01)
[2017-09-02] MEDS: Divalproex 250 mg DR (BID formulation) PO SCH ×2 (08:11→21:04)
--- NOTE | 2017-09-02 08:25 | CON ---
DATE: 08/31/2017 CHIEF COMPLAINT: Depression, anxiety, feeling suicidal and homicidal. HISTORY OF PRESENT ILLNESS: Ms. Chelsea Aleman is a 42-year-old female, well-known to me from previous admissions, was discharged recently. She is homeless; from hospital, she was discharged to alf; now she came back because of hearing numerous voices mostly whisper to her, visual hallucinations, sees spots, dots, colors, animals; no tactile hallucination at that time. Feeling homicidal and suicidal she has argued with her uncle/boyfriend. Patient states that when she is in secured environment like in the hospital, she is not feeling suicidal or homicidal, but when she is currently homeless. She states she drank 2 to 3 beers prior to emergency department arrival. Dr. Laureen Fajardo is the patient's psychiatrist. When Dr. Laureen Fajardo saw the patient, the patient expressed that she wanted to see medical doctor, so I saw that patient. That moment, patient was complaining about body aches, headaches, want screening of all her body. PAST MEDICAL HISTORY: Hypertension, asthma, history of asthma as per patient, history of kidney disease, anemia, arthritis, bipolar, depression, schizophrenia, history of substance abuse, history of laparoscopic ovarian cyst removal. FAMILY HISTORY: Father and mother, noncontributory. HABITS: Smoking, heavy smoking, more than 10 cigarettes a day. Alcohol, yes. Substance abuse yes, especially PCP and marijuana. ALLERGIES: PATIENT IS ALLERGIC TO SHELLFISH. HOME MEDICATIONS: Patient does not remember. REVIEW OF SYSTEMS: Patient was seen and examined in the Psychiatry Department. She is in her room, complaining about dizziness, hearing voices, seeing things, complaining about headache, anxiety, feeling fatigue and tired. PHYSICAL EXAMINATION: VITAL SIGNS: Temperature 98.4, pulse 78, respiratory rate 18, blood pressure 119/51, pulse oximetry 100%. HEENT: Head, normocephalic and atraumatic. Eyes, PERRLA. Extraocular muscles intact. Conjunctivae clear. Nose patent. Mucous membrane moist. NECK: Supple. No carotid bruits. No JVD. No thyromegaly. CHEST: Bilaterally symmetrical. HEART: S1 and S2 positive. LUNGS: Clear to auscultation. ABDOMEN: Soft. Bowel sounds present. No organomegaly. EXTREMITIES: No edema. No cyanosis. NEUROLOGICAL: Patient is awake and alert. Follows simple commands. LABORATORY DATA: White blood cell 6.9, hemoglobin 12.7, hematocrit 37.1, platelets 254. Sodium 142, potassium 4.1, BUN 18, creatinine 0.8. Glucose 86. ASSESSMENT AND PLAN: Ms. Chelsea Aleman is a 42-year-old lady with history of multiple hospitalizations, multiple emergency room visits, has hypertension, asthma, history of kidney disease as per patient, history of anemia, arthritis, bipolar, depression, schizophrenia, substance abuse, was discharged recently, came back with the same problems, hypomagnesemia, abnormal liver function test, magnesium was replaced, proteinuria, ketonuria, hematuria. Toxicology shows cocaine positive. Gastrointestinal and deep venous thrombosis prophylaxis. Repeat labs. Discussion done with Dr. Laureen Fajardo. We will follow up. Vira Denton MD MTDD
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
--- NOTE | 2017-09-03 08:08 | PN ---
DATE: 09/02/2017 SUBJECTIVE: The patient is a 42-year-old female. Patient was seen and examined at the bedside on 09/02/2017, looking comfortable. No nausea, vomiting or diarrhea. No hematuria. No hematochezia. No swelling of the leg. Shortness of breath is better. Nasal congestion is better. PHYSICAL EXAMINATION: VITAL SIGNS: Temperature 97.6, pulse 79, blood pressure 115/66, respiratory rate 16. HEENT: Head: Normocephalic, atraumatic. Eyes: PERRLA. Extraocular muscles are intact. Conjunctivae are clear. Nose patent. Mucous membranes moist. NECK: Supple. No carotid bruit. No thyromegaly. CHEST: Bilaterally symmetrical. LUNGS: Clear to auscultation. HEART: S1 and S2 positive. ABDOMEN: Soft. Bowel sounds positive. No organomegaly. EXTREMITIES: No edema. No cyanosis. NEUROLOGIC: Patient is awake, alert, moving all four extremities. No focal deficit. MEDICATIONS: Augmentin, Colace, Depakote, Geodon, famotidine, Remeron, Seroquel, Singulair. LABORATORY DATA: We do not have recent labs today, but I reviewed old labs. ASSESSMENT AND PLAN: Ms. Chelsea Aleman is a 42-year-old female with multiple psychiatric problems, multiple psychiatric admissions, has history of proteinuria, ketonuria, degenerative disk disease, sinusitis, seasonal allergies, congestion of the nose, history of schizophrenia, depression, schizoaffective disorder, substance abuse, history of hypertension, hypercholesterolemia, congestive heart failure, coronary artery disease, chronic obstructive pulmonary disease. We will continue present treatment. Patient is reassured about the condition, will get better. Appreciated Dr. Fajardo's input. We will follow up. Thank you for giving me the consult. Vira Denton MD MTDWaqar
[2017-09-03] MEDS: Divalproex 250 mg DR (BID formulation) PO SCH ×2 (09:51→21:17)
[2017-09-03] MEDS: Amoxicillin-Clav 500-125 mg Tab PO SCH ×2 (09:51→17:06)
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
[2017-09-04] MEDS: Amoxicillin-Clav 500-125 mg Tab PO SCH ×2 (08:13→15:48)
[2017-09-04] MEDS: Divalproex 250 mg DR (BID formulation) PO SCH ×2 (09:12→22:25)
--- NOTE | 2017-09-04 09:14 | PCM.PYCHPN ---
Psychiatric Progress Note - Psychiatric Progress Note Patient seen today, length of contact: 25 min Patient Chief Complaint: "great mood" Problems Identified/Issues Discussed: I reviewed assessment and recent notes. Patient is familiar to me from her multiple prior admissions to the unit. She is oriented to month, year and location though unkempt, blunt and oddly related during my visit. Patient is only superficially oriented to circumstances, her thought process is scattered. Patient reports that she is "doing really well" and generally minimizes her symptoms. She still appears labile and impulsive. Patient is tolerating her medications and denies any new discomfort or pain. Patient has been intrusive on the unit. Patient has been loud, demanding as well as intrusive on the unit. Requires a lot of limit setting and she continues to have poor insight and judgment about her behaviors. Remains unpredictable and requires continued treatment and monitoring. Diagnostic Results: schizophrenia substance induced psychosis stimulant use disorder. Medication Change: Yes (Seroquel increased) Medical Record Reviewed: Yes Mental Status Examination - Cognitive Function Orientation: Person Memory: Impaired Attention: Poor Concentration: Poor Association: Loose Fund of Knowledge: Poor - Mood Mood: Depressed - Affect Affect: Constricted - Speech Speech: Pressured (overpoductive) - Formal Thought Process Formal Thought Process: Hallucinations, Delusions, Paranoia, Loosening of associations, Circumstantial - Suicidal Ideation Suicidal Ideation: Yes - Homicidal Ideation Homicidal Ideation: No Goal/Treatment Plan - Goal/Treatment Plan Need for Continued Stay: Remain at risks for inpatient hospitalization, Severe depression anxiety, Discharge may exacerbated symptoms, Failed transitioning, Severe functional impairment Progress Toward Problem(s) and Goals/Treatment Plan: * c/w current tx and plan * No new floor lab results today * Vitals reviewed and noted below: Selected Entries 09/04/17 07:05 Temperature 97.5 F L Pulse Rate 20 L Blood Pressure 115/79 Estimated Date of D/C: 09/06/17
[2017-09-05 07:04] VITALS: TEMP 97.9
[2017-09-05] MEDS: Amoxicillin-Clav 500-125 mg Tab PO SCH ×2 (09:10→17:28)
[2017-09-05] MEDS: Divalproex 250 mg DR (BID formulation) PO SCH ×2 (09:10→21:01)
[2017-09-05] MEDS: Fluticasone Nasal 50 mcg/Spray NS SCH (12:50)
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
[2017-09-06] MEDS: Amoxicillin-Clav 500-125 mg Tab PO SCH ×2 (08:02→16:52)
[2017-09-06] MEDS: Fluticasone Nasal 50 mcg/Spray NS SCH (08:03)
[2017-09-06] MEDS: Divalproex 250 mg DR (BID formulation) PO SCH ×2 (09:57→21:05)
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
[2017-09-07] MEDS: Fluticasone Nasal 50 mcg/Spray NS SCH (08:22)
--- NOTE | 2017-09-07 08:58 | PCM.PYCHPN ---
Psychiatric Progress Note - Psychiatric Progress Note Patient seen today, length of contact: 30min Patient Chief Complaint: Patient initially reports that she is "not great" but later reports that she is "doing really well". Problems Identified/Issues Discussed: I reviewed recent notes. Patient is familiar to me from her multiple prior admissions to the unit as well as my interview when her on September 04. She is oriented to month, year and location. She remains unkempt, blunt, ferrara and oddly related during my visit. Patient is only superficially oriented to circumstances, her thought process is sometimes overinclusive to the point of being illogical. Patient initially reports that she is "not great" but later reports that she is "doing really well". She has a tendency to minimize her symptoms. She still appears labile and impulsive. Patient is tolerating her medications and denies any new discomfort or pain. I agree with staff, patient appears less restless and ferrara but thought process is still scattered. Impulses are unpredictable. She has been intrusive but staff notes she is less argumentative and more redirectable. There were no behavioral issues overnight. Diagnostic Results: schizophrenia substance induced psychosis stimulant use disorder. Medication Change: Yes (meds increased yesterday) Medical Record Reviewed: Yes Mental Status Examination - Cognitive Function Orientation: Person Memory: Impaired Attention: Poor Concentration: Poor Association: Loose Fund of Knowledge: Poor - Mood Mood: Depressed - Affect Affect: Constricted - Speech Speech: Pressured (overpoductive) - Formal Thought Process Formal Thought Process: Hallucinations, Delusions, Paranoia, Loosening of associations, Circumstantial - Suicidal Ideation Suicidal Ideation: Yes - Homicidal Ideation Homicidal Ideation: No Goal/Treatment Plan - Goal/Treatment Plan Need for Continued Stay: Remain at risks for inpatient hospitalization, Severe depression anxiety, Discharge may exacerbated symptoms, Failed transitioning, Severe functional impairment Progress Toward Problem(s) and Goals/Treatment Plan: * c/w current tx and plan * No new floor lab results today * Vitals reviewed and noted below: Selected Entries 09/05/17 09/05/17 09/06/17 07:03 16:00 15:45 Temperature 97.9 F Pulse Rate 75 75 86 Respiratory 20 Rate Blood Pressure 113/64 100/69 110/72 Estimated Date of D/C: 09/09/17
[2017-09-07] MEDS: Divalproex 250 mg DR (BID formulation) PO SCH ×2 (09:00→23:31)
[2017-09-07] MEDS: Bacitracin Ointment 30 GM TUBE TOP SCH (16:32)
--- NOTE | 2017-09-08 08:53 | PCM.PYCHPN ---
Psychiatric Progress Note - Psychiatric Progress Note Patient seen today, length of contact: 30min Patient Chief Complaint: Patient initially reports that she is "not great" but later reports that she is "doing really well". Problems Identified/Issues Discussed: I reviewed recent notes and met with patient at bedside again. She remains oriented to month, year and location. Grooming is a little unkempt and affect is blunt and odd during my visit. She does appear a little less labile today. Patient is only superficially oriented to circumstances, her thought process is sometimes overinclusive to the point of being illogical. Patient reports that everything is perfect, everything is in place regarding her upcoming discharge. She denies having any new concerns but she does have a tendency to minimize her symptoms. Patient is tolerating her medications and denies any new discomfort or pain. I agree with staff, patient appears less restless and ferrara but thought process is still scattered. According to staff notes, patient seemed brighter and could tolerate groups yesterday. Patient remains intrusive but less argumentative than before. There were no major behavioral issues over the weekend. Diagnostic Results: schizophrenia substance induced psychosis stimulant use disorder. Medication Change: Yes (meds increased yesterday) Medical Record Reviewed: Yes Mental Status Examination - Cognitive Function Orientation: Person Memory: Impaired Attention: Poor Concentration: Poor Association: Loose Fund of Knowledge: Poor - Mood Mood: Depressed - Affect Affect: Constricted - Speech Speech: Pressured (overpoductive) - Formal Thought Process Formal Thought Process: Hallucinations, Delusions, Paranoia, Loosening of associations, Circumstantial - Suicidal Ideation Suicidal Ideation: Yes - Homicidal Ideation Homicidal Ideation: No Goal/Treatment Plan - Goal/Treatment Plan Need for Continued Stay: Remain at risks for inpatient hospitalization, Severe depression anxiety, Discharge may exacerbated symptoms, Failed transitioning, Severe functional impairment Progress Toward Problem(s) and Goals/Treatment Plan: * c/w current tx and plan * No new floor lab results thus far this weekend * Vitals reviewed and noted below: Selected Entries 09/08/17 06:50 Temperature 97.9 F Pulse Rate 74 Respiratory 20 Rate Blood Pressure 109/65 Estimated Date of D/C: 09/09/17
[2017-09-08] MEDS: Divalproex 250 mg DR (BID formulation) PO SCH ×2 (09:18→21:23)
[2017-09-08] MEDS: Bacitracin Ointment 30 GM TUBE TOP SCH ×2 (09:19→15:28)
[2017-09-08] MEDS: Fluticasone Nasal 50 mcg/Spray NS SCH (09:19)
[2017-09-08 16:46] VITALS: BP 114/56; PULSE 80
--- NOTE | 2017-09-08 19:39 | PN ---
DATE: 09/08/2017 SUBJECTIVE: She is complaining of sore throat. She completed course of Augmentin for URI. No other complaints. Appetite is good. No nausea. No vomiting. She is ambulating without difficulty. REVIEW OF SYSTEMS: As per HPI. Rest of 12-point review of systems is reviewed and negative. PHYSICAL EXAMINATION: GENERAL: Comfortably sitting in bed, no acute distress. VITAL SIGNS: Temperature 98.6, heart rate 80 per minute, respiratory rate 18 per minute, blood pressure 120/70, pulse ox is 100% on room air. HEENT: No lymphadenopathy, normal. NECK: Supple. CHEST: Air entry present and equal bilaterally. No added sounds. LUNGS: Clear to auscultation. CARDIOVASCULAR: S1, S2 normal. No murmur. No gallop. ABDOMEN: Soft, nontender. No hepatosplenomegaly. CENTRAL NERVOUS SYSTEM: Alert and oriented x3. No focal sensory motor deficit. LABORATORY DATA: White count 6.9, hemoglobin 12.7, hematocrit 37.1, platelet 251. Creatinine 0.8, glucose 86. Granulocytosis, increased neutrophil count. MEDICATIONS: Reviewed. ASSESSMENT AND PLAN: Bipolar disorder, hypertension, chronic kidney disease, osteoarthritis, history of anemia. Cocaine positive on toxicology. We will recommend continuing Pepcid 40 mg daily. Currently on Depakote mg at bedtime, continue that; Singulair 10 mg p.o. at bedtime and she is on Seroquel also 300 mg at bedtime and Geodon q.a.m. Blood pressure is normal in the unit, we will hold antihypertensives. Eliana Mccartney MD
[2017-09-09] MEDS: Divalproex 250 mg DR (BID formulation) PO SCH (09:06)
[2017-09-09] MEDS: Fluticasone Nasal 50 mcg/Spray NS SCH (09:07)
[2017-09-09] MEDS: Bacitracin Ointment 30 GM TUBE TOP SCH (09:07)
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
== END 2017-09-09 12:17 | disposition home or self-care (01) | DRG 885 ==
LOC: ED 21:03 → ERH 08-31 00:46 → PSYC 08-31 03:18
PROVIDERS: ADMIT Psychiatry & Neurology Psychiatry; ATTEND Psychiatry & Neurology Psychiatry
DX: F20.1 Disorganized schizophrenia (principal); I13.0 Hypertensive heart and chronic kidney disease with heart failure and stage 1 through stage 4 chronic kidney disease, or unspecified chronic kidney disease; R45.851 Suicidal ideations; F25.9 Schizoaffective disorder, unspecified; F11.159 Opioid abuse with opioid-induced psychotic disorder, unspecified; F15.159 Other stimulant abuse with stimulant-induced psychotic disorder, unspecified; E78.00 Pure hypercholesterolemia, unspecified; F17.210 Nicotine dependence, cigarettes, uncomplicated; F31.9 Bipolar disorder, unspecified; F41.9 Anxiety disorder, unspecified; G47.00 Insomnia, unspecified; I50.9 Heart failure, unspecified; N18.9 Chronic kidney disease, unspecified; I25.10 Atherosclerotic heart disease of native coronary artery without angina pectoris; J44.9 Chronic obstructive pulmonary disease, unspecified; K59.00 Constipation, unspecified; M19.90 Unspecified osteoarthritis, unspecified site; R56.9 Unspecified convulsions; Z59.0 Homelessness; Z79.899 Other long term (current) drug therapy; Z91.14 Patient's other noncompliance with medication regimen; Z91.19 Patient's noncompliance with other medical treatment and regimen

== ENCOUNTER 2017-10-14 06:47 | Inpatient (IN) | payer MEDICARE, OTHER ==
[2017-10-14 07:01] VITALS: BMI 28.9
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
[2017-10-14 07:58] LABS: BASO # 0.04 K/mm3 (0.0-2.0); BASO % 0.3 % (0.0-3.0); EOS # 0.1 (0.0-0.7); EOS % 1.2 % (1.5-5.0); GRAN # 7.43 (1.4-6.5); GRAN % 64.8 % (50.0-68.0); HEMOGLOBIN 12.2 g/dL (12.0-16.0); LYMPH % 25.9 % (22.0-35.0); MEAN CORPUSCULAR HEMOGLOBIN 31.4 pg (25.0-35.0); MEAN CORPUSCULAR HGB CONC 34.2 g/dl (31.0-37.0); MEAN PLATELET VOLUME 10.6 fl (7.0-11.0); MONO # 0.9 (0.1-0.6); MONO % 7.8 % (1.0-6.0); RBC 3.88 10^6/uL (3.5-6.1); RED CELL DISTRIBUTION WIDTH 13.8 % (11.5-14.5); WHITE BLOOD COUNT 11.5 10^3/ul (4.5-11.0)
[2017-10-14 08:01] LABS: ALB/GLOB RATIO 1.5 (1.1-1.8); ALBUMIN 4.4 g/dL (3.0-4.8); ALT/SGPT 23 U/L (7-56); AST/SGOT 33 U/L (14-36); BLOOD UREA NITROGEN 20 mg/dL (7-21); CALCIUM 8.9 mg/dL (8.4-10.5); GFR AFRICAN-AMERICAN > 60; GFR NON-AFRICAN AMERICAN > 60
[2017-10-14 08:02] LABS: ACETAMINOPHEN < 10.0 ug/ml (10.0-20.0); SALICYLATE < 1 mg/dL (2.0-20.0)
[2017-10-14 12:11] LABS: URINE BILIRUBIN NEGATIVE (NEGATIVE); URINE BLOOD MODERATE (NEGATIVE); URINE GLUCOSE (UA) NEGATIVE (NEGATIVE); URINE LEUKOCYTE ESTERASE NEGATIVE Leu/uL (NEGATIVE); URINE PROTEIN 100 mg/dL (<30 mg/dL); URINE UROBILINOGEN 0.2 E.U./dL (<1 E.U./dL)
[2017-10-14 12:12] LABS: URINE APPEARANCE CLEAR (CLEAR); URINE COLOR YELLOW (YELLOW)
[2017-10-14 12:17] LABS: BARBITURATES, UR NEGATIVE (NEGATIVE)
[2017-10-14 12:19] LABS: BENZODIAZEPINES, UR NEGATIVE (NEGATIVE); OPIATES, UR NEGATIVE (NEGATIVE); PHENCYCLIDINE, UR NEGATIVE (NEGATIVE)
[2017-10-14 12:45] LABS: URINE RBC 15 - 20 /hpf (0-2); URINE WBC 0 - 2 /hpf (0-6)
[2017-10-14 12:46] LABS: URINE BACTERIA MANY (NEG)
--- NOTE | 2017-10-14 13:14 | RAD ---
Date of service: 10/14/2017 HISTORY: medical screening COMPARISON: 08/30/2017 FINDINGS: LUNGS: No active pulmonary disease. PLEURA: No significant pleural effusion identified, no pneumothorax apparent. CARDIOVASCULAR: Normal. OSSEOUS STRUCTURES: No significant abnormalities. VISUALIZED UPPER ABDOMEN: Normal. OTHER FINDINGS: None. IMPRESSION: No active disease.
--- NOTE | 2017-10-14 13:18 | CARD ---
APPROVED REPORT Date of service: 10/14/2017 EKG Measurement Heart [id number] <Conclusion> Poor data quality, interpretation may be adversely affected Normal sinus rhythm Prolonged QT Abnormal ECG
[2017-10-14 13:29] VITALS: O2SAT 98
[2017-10-14] MEDS ORDERED: Alum-Mag Hydrox-Simethicone Susp (30 mL) PO PRN (15:05)
[2017-10-14] MEDS ORDERED: Magnesium Hydroxide Susp 30 ml UD PO PRN (15:05)
--- NOTE | 2017-10-14 17:40 | PCM.BM ---
<Kamilah Tsai - Last Filed: 10/14/17 17:36> Treatment Plan Problems - Problems identified on initial assessmt AUDITORY HALLUCINATION Date Initiated: 10/14/17 Time Initiated: 17:30 Assessment reference: NA Status: Active Priority: 1 NON COMPLIANCE MEDICATIION Date Initiated: 10/14/17 Time Initiated: 17:30 Assessment reference: NA Status: Active Priority: 2 INEFFECTIVE INV COPING SKILLS Date Initiated: 10/14/17 Time Initiated: 17:30 Assessment reference: NA Status: Active Priority: 3 Treatment assets and liabiliti Patient Assests: adapts well, cooperative, ADL independent, negotiates basic needs Patient Liabilities: live alone, poor support system, relationship conflicts, substance abuse - Milieu Protocol Maintain good personal hygiene: every shift Encourage regular showers, every shift Remind patient to perform daily oral care, every shift Assist patient to perform ADL's Maintain personal safety: daily Educate patient to report safety concerns to staff, daily Monitor environment for contraband/sharps Medication safety: Monitor for expected outcome, potential side effects: daily, Assess barriers to learning: daily, Assess readiness for medication education: daily Discharge/Continuing Care - Education Needs Education Needs: Patient Medication, Patient Diagnosis/Disease Process, Patient Coping Skills, Patient Community resources, Patient Activities of Daily Living, Patient Uses of Medical Equipment, Patient Health Practices/Safety, Patient Personal Hygiene/Grooming, Patient Aftercare Safety Plan - Discharge Discharge Criteria: Tolerates medication w/o severe side effects, Free of paranoid thoughts, Free of agitation, Normal sleep pattern, Ability to care for self, No longer exhibiting s/s of withdrawal, Reduction of target symptoms Discharge to:: [facility] <Anca Jordan - Last Filed: 10/15/17 12:37> - Diagnosis (1) Schizophrenia, acute Status: Acute Interventions: 10/15/17 12:37 Restart prior effective medications including: Depakote DR 500 mg PO AMHS SEROquel XR 200 mg PO AMHS ~titrate to prior effective dose of 300/300 Initiate Paxil 20 mg HS for depression and anxiety, d/c remeron (2) Depression Status: Acute Interventions: Restart prior effective medications including: Depakote DR 500 mg PO AMHS SEROquel XR 200 mg PO AMHS ~titrate to prior effective dose of 300/300 Initiate Paxil 20 mg HS for depression and anxiety, d/c remeron 10/15/17 12:37 (3) Hallucinations Status: Acute Interventions: 10/15/17 12:38 Restart prior effective medications including: Depakote DR 500 mg PO AMHS SEROquel XR 200 mg PO AMHS ~titrate to prior effective dose of 300/300 Initiate Paxil 20 mg HS for depression and anxiety, d/c remeron (4) Cocaine abuse Status: Chronic Interventions: 10/15/17 12:38 Restart prior effective medications including: Depakote DR 500 mg PO AMHS SEROquel XR 200 mg PO AMHS ~titrate to prior effective dose of 300/300 Initiate Paxil 20 mg HS for depression and anxiety, d/c remeron <Renee Camargo - Last Filed: 10/16/17 11:18>
--- NOTE | 2017-10-15 12:38 | PCM.PSYCH ---
Initial Psychiatric Evaluation - Initial Psychiatric Evaluation History of Present Illness and Precipitating Events: Pt is a 41 year old female, with long h/o mental illness [dx include schizophrenia, depression, schizoaffective disorder] and substance abuse [UDS + cocaine], multiple psychiatric admissions, most recently at [facility] [place] 08/31/17-09/09/17, chronic noncompliance with f/u appts and medications who brought herself for treatment of auditory and visual hallucinations in context of noncompliance with medications s/p discharge from [facility] last month as well as cocaine use [UDS + cocaine on 09/22/16]. I interviewed patient at bedside today. She is disheveled and disorganized. It is difficult to keep patient focused due to her scattered and flighty thought process. Her responses are inconsistent. Again she reports noncompliance with medications due to side effects, a common complaint of hers during most of her admissions. She requests to be restarted on risperdal though complained of galactorrhea with this medication in 2017. Presently she denies any new discomfort or pain. She doesn't appear to be actively hallucinating but she is impulsive, bizarre, elevated, ferrara and too unpredictable. Her insight and judgement remain poor. PSYCHIATRIC HISTORY MULTIPLE RECENT ADMISSIONS TO [facility] [place] MOST RECENT [08/31-09/09/17 AND 08/20-08/28/17]. On 09/09/17 patient was discharged on Divalproex [Depakote DR(*BID*)] 500 mg PO AMHS #30 tcp Mirtazapine [Remeron Soltab] 45 mg PO HS #14 odt Nicotine 21 mg/24 hr [Nicoderm Cq] 1 patch TD DAILY #14 patch QUEtiapine [SEROquel XR] 300 mg PO AMHS #3 Prior admission [06/29/16-07/06/16], Discharged on Depakote ER DAILY 1,000 mg PO HS , Zyprexa 5mg AM and 10 mg HS, Trazodone 50 mg HS prn MEDICATION TRIALS: remeron, risperdal Patient denies having any history of suicide attempts SOCIAL Born and raised in [place]. She is . Patient has no children. She is currently homeless and living at a nursing home. Patient admits to a history of marijuana cocaine and PCP use. Denies alcohol use. UDS +Cocaine. Patient reported smoking about a half pack a day, counseling about the morbidity and mortality risks of continued nicotine use provided. Offered nicotine patch which patient accepted. Current Medications: Active Medications Generic Name Dose Route Start Last Admin Trade Name Freq PRN Reason Stop Dose Admin Acetaminophen 650 mg 10/14/17 15:05 Tylenol 325mg Tab PO Q4 PRN Pain, moderate (4-7) Al Hydrox/Mg Hydrox/Simethicone 30 ml 10/14/17 15:05 Maalox Plus 30 Ml PO DAILY PRN Upset Stomach Haloperidol 5 mg 10/14/17 19:10 Haldol PO Q6H PRN Agitation Protocol Haloperidol Lactate 5 mg 10/14/17 19:11 Haldol IM Q6H PRN Agitation Protocol Lorazepam 0.5 mg 10/14/17 22:00 10/14/17 21:26 Ativan PO 0.5 mg AMHS VARGAS Administration Protocol Lorazepam 2 mg 10/14/17 19:12 Ativan PO Q6H PRN Anxiety Protocol Lorazepam 2 mg 10/14/17 19:13 Ativan IM Q6H PRN Anxiety Protocol Magnesium Hydroxide 30 ml 10/14/17 15:05 Milk Of Magnesia PO DAILY PRN Constipation Risperidone 1 mg 10/14/17 22:00 10/14/17 21:26 Risperdal Tab PO 1 mg AMHS VARGAS Administration Protocol Zaleplon 5 mg 10/14/17 22:00 Sonata PO HS PRN Insomnia Past Psychiatric History - Past Psychiatric History Pertinent Medical Hx (Current Medical&Sleep Prob, Allergies): Allergies Allergy/AdvReac Type Severity Reaction Status Date / Time shellfish derived Allergy .unknown Verified 10/14/17 06:54 Divalproex [Depakote DR(*BID*)] 500 mg PO AMHS #30 tcp 09/09/17 Docusate [Colace] 100 mg PO TID #21 cap 09/09/17 Famotidine [Pepcid] 40 mg PO HS #7 tab 09/09/17 Fluticasone Nasal [Flonase] 2 actuation NS DAILY #1 spr 09/09/17 Mirtazapine [Remeron Soltab] 45 mg PO HS #14 odt 09/09/17 Montelukast [Singulair] 10 mg PO HS #7 tab 09/09/17 Nicotine 21 mg/24 hr [Nicoderm Cq] 1 patch TD DAILY #14 patch 09/09/17 QUEtiapine [SEROquel XR] 300 mg PO AMHS #30 ter 09/09/17 Sodium Chloride Nasal [place] [[employer] Nasal [place]] 2 ml NS QID PRN #1 bottle Mental Status Examination - Personal Presentation Personal Presentation: Looks stated age - Affect Affect: Broad - Motor Activity Motor Activity: Psychomotor Agitation - Reliability in Providing Information Reliability in Providing Information: Poor, due to alteration in thoughts, Poor , due to altered mood - Speech Speech: Disorganized, Tangential - Mood Mood: Anxious, Other (labile) - Formal Thought Process Formal Thought Process: Hallucinations, Loosening of associations, Flight of ideas - Cognitive Functions Orientation: Person, Place Sensorium: Alert Attention/Concentration: Easily distracted Estimate of Intelligence: Below average Judgement: Imparied, as evidence by: Poor judgement, Imparied, as evidence by: Lack of insight into illness - Risk Risk: Diminished functioning DSM 5 DX - DSM 5 DSM 5 Diagnosis: Schizoaffective Disorder Polysubstance dependence [UDS +cocaine on 10/14/17 Chronic noncompliance] - Recommended/Plan of Treatment Treatment Recommendations and Plan of Treatment: * group, milieu and supportive tx * Restart prior effective medications including: -Depakote DR 500 mg PO AMHS -SEROquel XR 200 mg PO AMHS ~titrate to prior effective dose of 300/300 * Initiate Paxil 20 mg HS for depression and anxiety, d/c remeron * Nicotine 21 mg/24 hr [Nicoderm Cq] 1 patch TD DAILY for tobacco withdrawal PATIENT PUT IN 48 HOUR NOTICE, REQUESTED SCREENING Vitals reviewed and noted below Selected Entries 10/14/17 10/14/17 13:29 13:30 Temperature 98.3 F 98.3 F Pulse Rate 64 68 Respiratory 18 19 Rate Blood Pressure 120/77 O2 Sat by Pulse 98 98 Oximetry * Admission labs noted below: Laboratory Tests 10/14/17 10/14/17 10/14/17 07:45 07:45 07:45 WBC 11.5 H D RBC 3.88 Hgb 12.2 Hct 35.7 L MCV 92.0 MCH 31.4 MCHC 34.2 RDW 13.8 Plt Count 237 MPV 10.6 Gran % 64.8 Lymph % (Auto) 25.9 [place] % (Auto) 7.8 H Eos % (Auto) 1.2 L Baso % (Auto) 0.3 Gran # 7.43 H Lymph # (Auto) 3.0 [place] # (Auto) 0.9 H Eos # (Auto) 0.1 Baso # (Auto) 0.04 Sodium 139 Potassium 3.8 Chloride 107 Carbon Dioxide 22 Anion Gap 14 BUN 20 Creatinine 0.7 Est GFR ( Amer) > 60 Est GFR (Non-Af Amer) > 60 Random Glucose 95 Calcium 8.9 Total Bilirubin 0.4 AST 33 ALT 23 Alkaline Phosphatase 46 Total Protein 7.3 Albumin 4.4 Globulin 2.9 Albumin/Globulin Ratio 1.5 Urine Color Urine Appearance Urine pH Ur Specific [place] Urine Protein Urine Glucose (UA) Urine Ketones Urine Blood Urine Nitrate Urine Bilirubin Urine Urobilinogen Ur Leukocyte Esterase Urine RBC Urine WBC Ur Epithelial Cells Urine Bacteria Urine HCG, Qual Salicylates < 1 L Urine Opiates Screen Urine Methadone Screen Acetaminophen < 10.0 L Ur Barbiturates Screen Ur Phencyclidine Scrn Ur Amphetamines Screen U Benzodiazepines Scrn U Oth Cocaine Metabols U Cannabinoids Screen Alcohol, Quantitative 10/14/17 10/14/17 10/14/17 07:45 11:50 11:50 WBC RBC Hgb Hct MCV MCH MCHC RDW Plt Count MPV Gran % Lymph % (Auto) [place] % (Auto) Eos % (Auto) Baso % (Auto) Gran # Lymph # (Auto) [place] # (Auto) Eos # (Auto) Baso # (Auto) Sodium Potassium Chloride Carbon Dioxide Anion Gap BUN Creatinine Est GFR ( Amer) Est GFR (Non-Af Amer) Random Glucose Calcium Total Bilirubin AST ALT Alkaline Phosphatase Total Protein Albumin Globulin Albumin/Globulin Ratio Urine Color Yellow Urine Appearance Clear Urine pH 6.0 Ur Specific [place] >= 1.030 Urine Protein 100 H Urine Glucose (UA) Negative Urine Ketones Negative Urine Blood Moderate H Urine Nitrate Negative Urine Bilirubin Negative Urine Urobilinogen 0.2 Ur Leukocyte Esterase Negative Urine RBC 15 - 20 Urine WBC 0 - 2 Ur Epithelial Cells 4 - 5 Urine Bacteria Many Urine HCG, Qual Salicylates Urine Opiates Screen Negative Urine Methadone Screen Negative Acetaminophen Ur Barbiturates Screen Negative Ur Phencyclidine Scrn Negative Ur Amphetamines Screen Negative U Benzodiazepines Scrn Negative U Oth Cocaine Metabols Positive H U Cannabinoids Screen Negative Alcohol, Quantitative < 10 10/14/17 11:50 WBC RBC Hgb Hct MCV MCH MCHC RDW Plt Count MPV Gran % Lymph % (Auto) [place] % (Auto) Eos % (Auto) Baso % (Auto) Gran # Lymph # (Auto) [place] # (Auto) Eos # (Auto) Baso # (Auto) Sodium Potassium Chloride Carbon Dioxide Anion Gap BUN Creatinine Est GFR ( Amer) Est GFR (Non-Af Amer) Random Glucose Calcium Total Bilirubin AST ALT Alkaline Phosphatase Total Protein Albumin Globulin Albumin/Globulin Ratio Urine Color Urine Appearance Urine pH Ur Specific [place] Urine Protein Urine Glucose (UA) Urine Ketones Urine Blood Urine Nitrate Urine Bilirubin Urine Urobilinogen Ur Leukocyte Esterase Urine RBC Urine WBC Ur Epithelial Cells Urine Bacteria Urine HCG, Qual Negative Salicylates Urine Opiates Screen Urine Methadone Screen Acetaminophen Ur Barbiturates Screen Ur Phencyclidine Scrn Ur Amphetamines Screen U Benzodiazepines Scrn U Oth Cocaine Metabols U Cannabinoids Screen Alcohol, Quantitative - Smoking Cessation Smoking Cessation Initiated: Yes
[2017-10-16 07:16] VITALS: RESP 20
[2017-10-16] MEDS: Divalproex 500 mg DR(BID formulation) PO SCH ×2 (09:27→16:54)
[2017-10-16] MEDS: QUEtiapine 200 mg XR Tab PO SCH ×2 (09:27→21:53)
--- NOTE | 2017-10-16 10:03 | PCM.PYCHPN ---
Psychiatric Progress Note - Psychiatric Progress Note Patient seen today, length of contact: 30 min Problems Identified/Issues Discussed: History of Present Illness and Precipitating Events: Pt is a 41 year old female, with long h/o mental illness [dx include schizophrenia, depression, schizoaffective disorder] and substance abuse [UDS + cocaine], multiple psychiatric admissions, most recently at [facility] 08/31/17-09/09/17, chronic noncompliance with f/u appts and medications who brought herself for treatment of auditory and visual hallucinations in context of noncompliance with medications s/p discharge from [facility] last month as well as cocaine use [UDS + cocaine on 09/22/16]. I interviewed patient at bedside today. She is disheveled and disorganized. It is difficult to keep patient focused due to her scattered and flighty thought process. Her responses are inconsistent. Again she reports noncompliance with medications due to side effects, a common complaint of hers during most of her admissions. She requests to be restarted on risperdal though complained of galactorrhea with this medication in 2017. Presently she denies any new discomfort or pain. She doesn't appear to be actively hallucinating but she is impulsive, bizarre, elevated, ferrara and too unpredictable. Her insight and judgement remain poor. PSYCHIATRIC HISTORY MULTIPLE RECENT ADMISSIONS TO [facility] MOST RECENT [08/31-09/09/17 AND 08/20-08/28/17]. On 09/09/17 patient was discharged on Divalproex [Depakote DR(*BID*)] 500 mg PO AMHS #30 tcp Mirtazapine [Remeron Soltab] 45 mg PO HS #14 odt Nicotine 21 mg/24 hr [Nicoderm Cq] 1 patch TD DAILY #14 patch QUEtiapine [SEROquel XR] 300 mg PO AMHS #3 Prior admission [06/29/16-07/06/16], Discharged on Depakote ER DAILY 1,000 mg PO HS , Zyprexa 5mg AM and 10 mg HS, Trazodone 50 mg HS prn MEDICATION TRIALS: remeron, risperdal Patient denies having any history of suicide attempts SOCIAL Born and raised in [place]. She is . Patient has no children. She is currently homeless and living at a long term. Patient admits to a history of marijuana cocaine and PCP use. Denies alcohol use. UDS +Cocaine. Patient reported smoking about a half pack a day, counseling about the morbidity and mortality risks of continued nicotine use provided. Offered nicotine patch which patient accepted. PROGRESS NOTE #1 I reviewed recent notes and met with patient in the hallway as well as during treatment team meeting. She is oriented to month, year and location though unkempt, blunt and oddly related during my visits. Patient is only superficially oriented to circumstances, her thought process is scattered. Patient reports that she is "doing really well" and generally minimizes her symptoms (consistent with her behavior during prior admissions). She still appears labile and impulsive. Patient is tolerating her medications and denies any new discomfort or pain. Staff notes indicate that patient has been intrusive on the unit. Patient has been loud, demanding and disruptive. Requires a lot of limit setting and she continues to have poor insight and judgment about her behaviors. She is flighty and her short term memory isn't reliable due to her poor focus. Remains unpredictable and requires continued treatment and monitoring. Diagnostic Results: Schizoaffective Disorder Polysubstance dependence [UDS +cocaine on 10/14/17] Chronic noncompliance] Medication Change: Yes Medical Record Reviewed: Yes Mental Status Examination - Cognitive Function Orientation: Person, Place - Mood Mood: Anxious, Other (labile) - Affect Affect: Broad - Formal Thought Process Formal Thought Process: Hallucinations, Loosening of associations, Flight of ideas - Homicidal Ideation Homicidal Ideation: No Goal/Treatment Plan - Goal/Treatment Plan Progress Toward Problem(s) and Goals/Treatment Plan: group, milieu and supportive tx * Restart prior effective medications including: Depakote DR 500 mg PO AMHS SEROquel XR 200 mg PO AMHS ~titrate to prior effective dose of 300/300 Initiate Paxil 20 mg HS for depression and anxiety, d/c remeron Nicotine 21 mg/24 hr [Nicoderm Cq] 1 patch TD DAILY for tobacco withdrawal PATIENT PUT IN 48 HOUR NOTICE 10/15/17 at 9 am, WILL REQUEST SCREENING Vitals reviewed and noted below Selected Entries 10/14/17 13:30 Temperature 98.3 F Pulse Rate 68 Respiratory 19 Rate O2 Sat by Pulse 98 Oximetry * Admission labs noted below: Laboratory Tests 10/14/17 10/14/17 10/14/17 07:45 07:45 07:45 WBC 11.5 H D RBC 3.88 Hgb 12.2 Hct 35.7 L MCV 92.0 MCH 31.4 MCHC 34.2 RDW 13.8 Plt Count 237 MPV 10.6 Gran % 64.8 Lymph % (Auto) 25.9 [place] % (Auto) 7.8 H Eos % (Auto) 1.2 L Baso % (Auto) 0.3 Gran # 7.43 H Lymph # (Auto) 3.0 [place] # (Auto) 0.9 H Eos # (Auto) 0.1 Baso # (Auto) 0.04 Sodium 139 Potassium 3.8 Chloride 107 Carbon Dioxide 22 Anion Gap 14 BUN 20 Creatinine 0.7 Est GFR ( Amer) > 60 Est GFR (Non-Af Amer) > 60 Random Glucose 95 Calcium 8.9 Total Bilirubin 0.4 AST 33 ALT 23 Alkaline Phosphatase 46 Total Protein 7.3 Albumin 4.4 Globulin 2.9 Albumin/Globulin Ratio 1.5 Urine Color Urine Appearance Urine pH Ur Specific [place] Urine Protein Urine Glucose (UA) Urine Ketones Urine Blood Urine Nitrate Urine Bilirubin Urine Urobilinogen Ur Leukocyte Esterase Urine RBC Urine WBC Ur Epithelial Cells Urine Bacteria Urine HCG, Qual Salicylates < 1 L Urine Opiates Screen Urine Methadone Screen Acetaminophen < 10.0 L Ur Barbiturates Screen Ur Phencyclidine Scrn Ur Amphetamines Screen U Benzodiazepines Scrn U Oth Cocaine Metabols U Cannabinoids Screen Alcohol, Quantitative 10/14/17 10/14/17 10/14/17 07:45 11:50 11:50 WBC RBC Hgb Hct MCV MCH MCHC RDW Plt Count MPV Gran % Lymph % (Auto) [place] % (Auto) Eos % (Auto) Baso % (Auto) Gran # Lymph # (Auto) [place] # (Auto) Eos # (Auto) Baso # (Auto) Sodium Potassium Chloride Carbon Dioxide Anion Gap BUN Creatinine Est GFR ( Amer) Est GFR (Non-Af Amer) Random Glucose Calcium Total Bilirubin AST ALT Alkaline Phosphatase Total Protein Albumin Globulin Albumin/Globulin Ratio Urine Color Yellow Urine Appearance Clear Urine pH 6.0 Ur Specific [place] >= 1.030 Urine Protein 100 H Urine Glucose (UA) Negative Urine Ketones Negative Urine Blood Moderate H Urine Nitrate Negative Urine Bilirubin Negative Urine Urobilinogen 0.2 Ur Leukocyte Esterase Negative Urine RBC 15 - 20 Urine WBC 0 - 2 Ur Epithelial Cells 4 - 5 Urine Bacteria Many Urine HCG, Qual Salicylates Urine Opiates Screen Negative Urine Methadone Screen Negative Acetaminophen Ur Barbiturates Screen Negative Ur Phencyclidine Scrn Negative Ur Amphetamines Screen Negative U Benzodiazepines Scrn Negative U Oth Cocaine Metabols Positive H U Cannabinoids Screen Negative Alcohol, Quantitative < 10 10/14/17 11:50 WBC RBC Hgb Hct MCV MCH MCHC RDW Plt Count MPV Gran % Lymph % (Auto) [place] % (Auto) Eos % (Auto) Baso % (Auto) Gran # Lymph # (Auto) [place] # (Auto) Eos # (Auto) Baso # (Auto) Sodium Potassium Chloride Carbon Dioxide Anion Gap BUN Creatinine Est GFR ( Amer) Est GFR (Non-Af Amer) Random Glucose Calcium Total Bilirubin AST ALT Alkaline Phosphatase Total Protein Albumin Globulin Albumin/Globulin Ratio Urine Color Urine Appearance Urine pH Ur Specific [place] Urine Protein Urine Glucose (UA) Urine Ketones Urine Blood Urine Nitrate Urine Bilirubin Urine Urobilinogen Ur Leukocyte Esterase Urine RBC Urine WBC Ur Epithelial Cells Urine Bacteria Urine HCG, Qual Negative Salicylates Urine Opiates Screen Urine Methadone Screen Acetaminophen Ur Barbiturates Screen Ur Phencyclidine Scrn Ur Amphetamines Screen U Benzodiazepines Scrn U Oth Cocaine Metabols U Cannabinoids Screen Alcohol, Quantitative
[2017-10-17 07:16] VITALS: BP 99/60; PULSE 68; TEMP 98.4
[2017-10-17] MEDS: QUEtiapine 200 mg XR Tab PO SCH (09:30)
[2017-10-17] MEDS: Divalproex 500 mg DR(BID formulation) PO SCH (09:31)
--- NOTE | 2017-10-17 10:03 | PCM.PYCHDC ---
Mental Status Examination - Mental Status Examination Orientation: Person, Place, Situation Memory: Impaired Mood: Anxious Affect: Broad Speech: Loud Attention: WNL Concentration: Poor Association: Loose Fund of Knowledge: WNL Formal Thought Process: Other (scattered not disorganized) Description of patient's judgement and insight: Improved i/j Psychotic Thoughts and Behaviors: Paitient denies AVH or paranoia. Delusions were not elicited Suicidal Ideation: No Current Homicidal Ideation?: No Discharge Summary - Discharge Note Reason for Hospitalization: History of Present Illness and Precipitating Events: Pt is a 41 year old female, with long h/o mental illness [dx include schizophrenia, depression, schizoaffective disorder] and substance abuse [UDS + cocaine], multiple psychiatric admissions, most recently at [facility] 08/31/17-09/09/17, chronic noncompliance with f/u appts and medications who brought herself for treatment of auditory and visual hallucinations in context of noncompliance with medications s/p discharge from [facility] last month as well as cocaine use [UDS + cocaine on 09/22/16]. Psychiatric History (includes Medical, Family, Personal Hx): see hpi Laboratory Data: Laboratory Tests 10/14/17 10/14/17 10/14/17 07:45 07:45 07:45 WBC 11.5 H D RBC 3.88 Hgb 12.2 Hct 35.7 L MCV 92.0 MCH 31.4 MCHC 34.2 RDW 13.8 Plt Count 237 MPV 10.6 Gran % 64.8 Lymph % (Auto) 25.9 [place] % (Auto) 7.8 H Eos % (Auto) 1.2 L Baso % (Auto) 0.3 Gran # 7.43 H Lymph # (Auto) 3.0 [place] # (Auto) 0.9 H Eos # (Auto) 0.1 Baso # (Auto) 0.04 Sodium 139 Potassium 3.8 Chloride 107 Carbon Dioxide 22 Anion Gap 14 BUN 20 Creatinine 0.7 Est GFR ( Amer) > 60 Est GFR (Non-Af Amer) > 60 Random Glucose 95 Calcium 8.9 Total Bilirubin 0.4 AST 33 ALT 23 Alkaline Phosphatase 46 Total Protein 7.3 Albumin 4.4 Globulin 2.9 Albumin/Globulin Ratio 1.5 Urine Color Urine Appearance Urine pH Ur Specific [place] Urine Protein Urine Glucose (UA) Urine Ketones Urine Blood Urine Nitrate Urine Bilirubin Urine Urobilinogen Ur Leukocyte Esterase Urine RBC Urine WBC Ur Epithelial Cells Urine Bacteria Urine HCG, Qual Salicylates < 1 L Urine Opiates Screen Urine Methadone Screen Acetaminophen < 10.0 L Ur Barbiturates Screen Ur Phencyclidine Scrn Ur Amphetamines Screen U Benzodiazepines Scrn U Oth Cocaine Metabols U Cannabinoids Screen Alcohol, Quantitative 10/14/17 10/14/17 10/14/17 07:45 11:50 11:50 WBC RBC Hgb Hct MCV MCH MCHC RDW Plt Count MPV Gran % Lymph % (Auto) [place] % (Auto) Eos % (Auto) Baso % (Auto) Gran # Lymph # (Auto) [place] # (Auto) Eos # (Auto) Baso # (Auto) Sodium Potassium Chloride Carbon Dioxide Anion Gap BUN Creatinine Est GFR ( Amer) Est GFR (Non-Af Amer) Random Glucose Calcium Total Bilirubin AST ALT Alkaline Phosphatase Total Protein Albumin Globulin Albumin/Globulin Ratio Urine Color Yellow Urine Appearance Clear Urine pH 6.0 Ur Specific [place] >= 1.030 Urine Protein 100 H Urine Glucose (UA) Negative Urine Ketones Negative Urine Blood Moderate H Urine Nitrate Negative Urine Bilirubin Negative Urine Urobilinogen 0.2 Ur Leukocyte Esterase Negative Urine RBC 15 - 20 Urine WBC 0 - 2 Ur Epithelial Cells 4 - 5 Urine Bacteria Many Urine HCG, Qual Salicylates Urine Opiates Screen Negative Urine Methadone Screen Negative Acetaminophen Ur Barbiturates Screen Negative Ur Phencyclidine Scrn Negative Ur Amphetamines Screen Negative U Benzodiazepines Scrn Negative U Oth Cocaine Metabols Positive H U Cannabinoids Screen Negative Alcohol, Quantitative < 10 10/14/17 11:50 WBC RBC Hgb Hct MCV MCH MCHC RDW Plt Count MPV Gran % Lymph % (Auto) [place] % (Auto) Eos % (Auto) Baso % (Auto) Gran # Lymph # (Auto) [place] # (Auto) Eos # (Auto) Baso # (Auto) Sodium Potassium Chloride Carbon Dioxide Anion Gap BUN Creatinine Est GFR ( Amer) Est GFR (Non-Af Amer) Random Glucose Calcium Total Bilirubin AST ALT Alkaline Phosphatase Total Protein Albumin Globulin Albumin/Globulin Ratio Urine Color Urine Appearance Urine pH Ur Specific [place] Urine Protein Urine Glucose (UA) Urine Ketones Urine Blood Urine Nitrate Urine Bilirubin Urine Urobilinogen Ur Leukocyte Esterase Urine RBC Urine WBC Ur Epithelial Cells Urine Bacteria Urine HCG, Qual Negative Salicylates Urine Opiates Screen Urine Methadone Screen Acetaminophen Ur Barbiturates Screen Ur Phencyclidine Scrn Ur Amphetamines Screen U Benzodiazepines Scrn U Oth Cocaine Metabols U Cannabinoids Screen Alcohol, Quantitative Consultations:: List each consultation separately and include: 1. Reason for request. 2. Findings. 3. Follow-up Consultations: NONE Summary of Hospital Course include:: 1. Description of specific treatment plan utilized for patients during their course of treatmen. 2. Summarize the time- course for resolution of acute symptoms and/or regressed behaviors. 3. Describe issues identified and worked on during hospitalization. 4. Describe medication utilized. 5. Describe medical problems identified and treated. 6. Reassessment of suicide risk Summary of Hospital Course: Pt is a 41 year old female, with long h/o mental illness [dx include schizophrenia, depression, schizoaffective disorder] and substance abuse [UDS + cocaine], multiple psychiatric admissions, most recently at [facility] 08/31/17-09/09/17, chronic noncompliance with f/u appts and medications who brought herself for treatment of auditory and visual hallucinations in context of noncompliance with medications s/p discharge from [facility] last month as well as cocaine use [UDS + cocaine on 09/22/16]. I interviewed patient at bedside today. She is disheveled and disorganized. It is difficult to keep patient focused due to her scattered and flighty thought process. Her responses are inconsistent. Again she reports noncompliance with medications due to side effects, a common complaint of hers during most of her admissions. She requests to be restarted on risperdal though complained of galactorrhea with this medication in 2017. Presently she denies any new discomfort or pain. She doesn't appear to be actively hallucinating but she is impulsive, bizarre, elevated, ferrara and too unpredictable. Her insight and judgement remain poor. PSYCHIATRIC HISTORY MULTIPLE RECENT ADMISSIONS TO [facility] MOST RECENT [08/31-09/09/17 AND 08/20-08/28/17]. On 09/09/17 patient was discharged on Divalproex [Depakote DR(*BID*)] 500 mg PO [facility] #30 tcp Mirtazapine [Remeron Soltab] 45 mg PO HS #14 odt Nicotine 21 mg/24 hr [Nicoderm Cq] 1 patch TD DAILY #14 patch QUEtiapine [SEROquel XR] 300 mg PO AMHS #3 Prior admission [06/29/16-07/06/16], Discharged on Depakote ER DAILY 1,000 mg PO HS , Zyprexa 5mg AM and 10 mg HS, Trazodone 50 mg HS prn MEDICATION TRIALS: remeron, risperdal Patient denies having any history of suicide attempts SOCIAL Born and raised in [place]. She is . Patient has no children. She is currently homeless and living at a halfway. Patient admits to a history of marijuana cocaine and PCP use. Denies alcohol use. UDS +Cocaine. Patient reported smoking about a half pack a day, counseling about the morbidity and mortality risks of continued nicotine use provided. Offered nicotine patch which patient accepted. PROGRESS NOTE #1 10/16/17 I reviewed recent notes and met with patient in the hallway as well as during treatment team meeting. She is oriented to month, year and location though unkempt, blunt and oddly related during my visits. Patient is only superficially oriented to circumstances, her thought process is scattered. Patient reports that she is "doing really well" and generally minimizes her symptoms (consistent with her behavior during prior admissions). She still appears labile and impulsive. Patient is tolerating her medications and denies any new discomfort or pain. Staff notes indicate that patient has been intrusive on the unit. Patient has been loud, demanding and disruptive. Requires a lot of limit setting and she continues to have poor insight and judgment about her behaviors. She is flighty and her short term memory isn't reliable due to her poor focus. Remains unpredictable and requires continued treatment and monitoring. DISCHARGE NOTE 10/17/17 I interviewed patient at bedside to discuss discharge. Patient would benefit from continued treatment as she still remains a little scattered but there has been notable improvement in impulse control and focus. I have no choice to discharge patient AMA on her 48 hour letter today since [facility] screeners didnt feel she met criteria for involuntary commitment. Patient is alert and oriented to month, year and superficially to circumstances. Eye contact is fair. Patient feels improved and denies any suicidal thoughts or thoughts to harm others. Affect is elevated and reactive. She is pleasant, anxious and can be repetitive due to her anxiety. Patient denies hallucinations and is not responding to internal stimuli. Thought process a little tangential but not overtly disorganized. Patient feels comfortable with discharge today and denies any new concerns. Denies acute discomfort or pain. Tolerating medications and denies any issues with them. Delusions and paranoia were not elicited on day of discharge. - Diagnosis (1) Schizophrenia, acute Current Visit: Yes Status: Acute (2) Depression Current Visit: No Status: Acute (3) Hallucinations Current Visit: No Status: Acute (4) Cocaine abuse Current Visit: No Status: Chronic Priority: High - Final Diagnosis (DSM 5) Condition upon Discharge: STABLE DSM 5: Schizoaffective Disorder Polysubstance dependence [UDS +cocaine on 10/14/17] Chronic noncompliance] Disposition: AGAINST MEDICAL ADVICE Follow-up Treatment Plan: Please see SW note for aftercare information Called Karen at [phone] and authorized 14 days + 1 Rf of the following medications at 10 am 10/17/17. Paxil 20 mg HS for depression and anxiety Ativan 0.5/0.5 for anxiety Depakote 500 mg po bid for mood control and impulse control Seroquel XR 200 mg AMHS for disorganization, mood and impulse control. Laboratory Tests 10/14/17 10/14/17 10/14/17 07:45 07:45 07:45 WBC 11.5 H D RBC 3.88 Hgb 12.2 Hct 35.7 L MCV 92.0 MCH 31.4 MCHC 34.2 RDW 13.8 Plt Count 237 MPV 10.6 Gran % 64.8 Lymph % (Auto) 25.9 [place] % (Auto) 7.8 H Eos % (Auto) 1.2 L Baso % (Auto) 0.3 Gran # 7.43 H Lymph # (Auto) 3.0 [place] # (Auto) 0.9 H Eos # (Auto) 0.1 Baso # (Auto) 0.04 Sodium 139 Potassium 3.8 Chloride 107 Carbon Dioxide 22 Anion Gap 14 BUN 20 Creatinine 0.7 Est GFR ( Amer) > 60 Est GFR (Non-Af Amer) > 60 Random Glucose 95 Calcium 8.9 Total Bilirubin 0.4 AST 33 ALT 23 Alkaline Phosphatase 46 Total Protein 7.3 Albumin 4.4 Globulin 2.9 Albumin/Globulin Ratio 1.5 Urine Color Urine Appearance Urine pH Ur Specific [place] Urine Protein Urine Glucose (UA) Urine Ketones Urine Blood Urine Nitrate Urine Bilirubin Urine Urobilinogen Ur Leukocyte Esterase Urine RBC Urine WBC Ur Epithelial Cells Urine Bacteria Urine HCG, Qual Salicylates < 1 L Urine Opiates Screen Urine Methadone Screen Acetaminophen < 10.0 L Ur Barbiturates Screen Ur Phencyclidine Scrn Ur Amphetamines Screen U Benzodiazepines Scrn U Oth Cocaine Metabols U Cannabinoids Screen Alcohol, Quantitative 10/14/17 10/14/17 10/14/17 07:45 11:50 11:50 WBC RBC Hgb Hct MCV MCH MCHC RDW Plt Count MPV Gran % Lymph % (Auto) [place] % (Auto) Eos % (Auto) Baso % (Auto) Gran # Lymph # (Auto) [place] # (Auto) Eos # (Auto) Baso # (Auto) Sodium Potassium Chloride Carbon Dioxide Anion Gap BUN Creatinine Est GFR ( Amer) Est GFR (Non-Af Amer) Random Glucose Calcium Total Bilirubin AST ALT Alkaline Phosphatase Total Protein Albumin Globulin Albumin/Globulin Ratio Urine Color Yellow Urine Appearance Clear Urine pH 6.0 Ur Specific [place] >= 1.030 Urine Protein 100 H Urine Glucose (UA) Negative Urine Ketones Negative Urine Blood Moderate H Urine Nitrate Negative Urine Bilirubin Negative Urine Urobilinogen 0.2 Ur Leukocyte Esterase Negative Urine RBC 15 - 20 Urine WBC 0 - 2 Ur Epithelial Cells 4 - 5 Urine Bacteria Many Urine HCG, Qual Salicylates Urine Opiates Screen Negative Urine Methadone Screen Negative Acetaminophen Ur Barbiturates Screen Negative Ur Phencyclidine Scrn Negative Ur Amphetamines Screen Negative U Benzodiazepines Scrn Negative U Oth Cocaine Metabols Positive H U Cannabinoids Screen Negative Alcohol, Quantitative < 10 10/14/17 11:50 WBC RBC Hgb Hct MCV MCH MCHC RDW Plt Count MPV Gran % Lymph % (Auto) [place] % (Auto) Eos % (Auto) Baso % (Auto) Gran # Lymph # (Auto) [place] # (Auto) Eos # (Auto) Baso # (Auto) Sodium Potassium Chloride Carbon Dioxide Anion Gap BUN Creatinine Est GFR ( Amer) Est GFR (Non-Af Amer) Random Glucose Calcium Total Bilirubin AST ALT Alkaline Phosphatase Total Protein Albumin Globulin Albumin/Globulin Ratio Urine Color Urine Appearance Urine pH Ur Specific [place] Urine Protein Urine Glucose (UA) Urine Ketones Urine Blood Urine Nitrate Urine Bilirubin Urine Urobilinogen Ur Leukocyte Esterase Urine RBC Urine WBC Ur Epithelial Cells Urine Bacteria Urine HCG, Qual Negative Salicylates Urine Opiates Screen Urine Methadone Screen Acetaminophen Ur Barbiturates Screen Ur Phencyclidine Scrn Ur Amphetamines Screen U Benzodiazepines Scrn U Oth Cocaine Metabols U Cannabinoids Screen Alcohol, Quantitative - Smoking Cessation Smoking Cessation Medication prescribed: No Reason for not providing: Patient initially accepted and then refused on the unit.
== END 2017-10-17 13:33 | disposition left against medical advice (07) | DRG 885 ==
LOC: ED 06:47 → ERH 13:02 → PSYC 13:52
PROVIDERS: ADMIT Psychologist; ATTEND Psychologist
DX: F25.9 Schizoaffective disorder, unspecified (principal); F31.64 Bipolar disorder, current episode mixed, severe, with psychotic features; F14.10 Cocaine abuse, uncomplicated; F17.210 Nicotine dependence, cigarettes, uncomplicated; I10 Essential (primary) hypertension; F41.9 Anxiety disorder, unspecified; Z91.19 Patient's noncompliance with other medical treatment and regimen; Z91.14 Patient's other noncompliance with medication regimen; Z59.0 Homelessness

== ENCOUNTER 2017-10-22 07:34 | Emergency (ER) | payer OTHER, MEDICARE ==
[2017-10-22 07:49] VITALS: RESP 18; BMI 28.3
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
[2017-10-22 09:11] LABS: BASO # 0.03 K/mm3 (0.0-2.0); BASO % 0.4 % (0.0-3.0); EOS # 0.2 (0.0-0.7); EOS % 2.5 % (1.5-5.0); GRAN # 3.7 (1.4-6.5); GRAN % 46.2 % (50.0-68.0); LYMPH # 3.5 (1.2-3.4); LYMPH % 43.9 % (22.0-35.0); MEAN CELL VOLUME 91.8 fl (80.0-105.0); MEAN CORPUSCULAR HEMOGLOBIN 31.4 pg (25.0-35.0); MEAN CORPUSCULAR HGB CONC 34.2 g/dl (31.0-37.0); MEAN PLATELET VOLUME 10.7 fl (7.0-11.0); MONO # 0.6 (0.1-0.6); RBC 4.14 10^6/uL (3.5-6.1); RED CELL DISTRIBUTION WIDTH 13.3 % (11.5-14.5)
[2017-10-22 09:15] LABS: ACETAMINOPHEN < 10.0 ug/ml (10.0-20.0); SALICYLATE < 1 mg/dL (2.0-20.0)
[2017-10-22 09:16] LABS: ALB/GLOB RATIO 1.4 (1.1-1.8); ALBUMIN 4.5 g/dL (3.0-4.8); ALT/SGPT 20 U/L (7-56); AST/SGOT 28 U/L (14-36); BLOOD UREA NITROGEN 21 mg/dL (7-21); CALCIUM 9.5 mg/dL (8.4-10.5); GFR AFRICAN-AMERICAN > 60; GFR NON-AFRICAN AMERICAN > 60; LIPASE 630 U/L (23-300)
[2017-10-22 09:20] LABS: URINE BILIRUBIN NEGATIVE (NEGATIVE); URINE BLOOD SMALL (NEGATIVE); URINE GLUCOSE (UA) NEGATIVE (NEGATIVE); URINE LEUKOCYTE ESTERASE NEGATIVE Leu/uL (NEGATIVE); URINE PROTEIN 100 mg/dL (<30 mg/dL); URINE UROBILINOGEN 0.2 E.U./dL (<1 E.U./dL)
[2017-10-22 09:21] LABS: URINE APPEARANCE CLEAR (CLEAR); URINE COLOR YELLOW (YELLOW)
[2017-10-22 09:26] LABS: URINE BACTERIA MANY (NEG); URINE FINE GRANULAR CAST 0 - 2 /hpf (0-2); URINE HYALINE CAST 0 - 2 /hpf; URINE WBC 0 - 2 /hpf (0-6)
[2017-10-22] MEDS ORDERED: Iohexol 350 MG/100 ML VIAL ONE (09:29)
[2017-10-22 09:33] LABS: BARBITURATES, UR NEGATIVE (NEGATIVE); BENZODIAZEPINES, UR NEGATIVE (NEGATIVE); OPIATES, UR NEGATIVE (NEGATIVE); PHENCYCLIDINE, UR NEGATIVE (NEGATIVE)
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
[2017-10-22 11:15] VITALS: O2SAT 96
--- NOTE | 2017-10-22 11:48 | RAD ---
HISTORY: COMPARISON: 10/14/2017. TECHNIQUE: Chest PA and lateral FINDINGS: LINES AND TUBES: None. LUNG AND PLEURA: The lungs are well inflated and clear. No pleural effusion or pneumothorax. HEART AND MEDIASTINUM: The heart is not enlarged. The hilar and mediastinal contours are within normal limits. SKELETAL STRUCTURES: The bony structures are within normal limits for the patient's age. VISUALIZED UPPER ABDOMEN: Normal. OTHER FINDINGS: None. IMPRESSION: No active pulmonary disease.
[2017-10-22 12:55] VITALS: BP 112/59; PULSE 70; TEMP 98.1
== END 2017-10-22 12:30 | disposition home or self-care (01) ==
LOC: ED 07:34
DX: Z04.1 Encounter for examination and observation following transport accident (principal); V49.59XA Passenger injured in collision with other motor vehicles in traffic accident, initial encounter; Y92.410 Unspecified street and highway as the place of occurrence of the external cause
CPT/HCPCS: 70450; 71046; 72125; 74176; 80053; 81001; 81025; 83690; 85025; 99285; G0480

== ENCOUNTER 2017-10-30 06:35 | Emergency (ER) | payer MEDICARE, OTHER ==
[2017-10-30 06:35] VITALS: BMI 28.3
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
[2017-10-30 09:37] LABS: BASO # 0.02 K/mm3 (0.0-2.0); BASO % 0.2 % (0.0-3.0); EOS # 0.1 (0.0-0.7); EOS % 0.6 % (1.5-5.0); GRAN # 5.66 (1.4-6.5); GRAN % 68.5 % (50.0-68.0); HEMOGLOBIN 11.3 g/dL (12.0-16.0); LYMPH # 1.7 (1.2-3.4); LYMPH % 20.1 % (22.0-35.0); MEAN CELL VOLUME 94.1 fl (80.0-105.0); MEAN CORPUSCULAR HEMOGLOBIN 31.7 pg (25.0-35.0); MEAN CORPUSCULAR HGB CONC 33.6 g/dl (31.0-37.0); MEAN PLATELET VOLUME 10.8 fl (7.0-11.0); MONO # 0.9 (0.1-0.6); MONO % 10.6 % (1.0-6.0); RBC 3.57 10^6/uL (3.5-6.1); RED CELL DISTRIBUTION WIDTH 13.9 % (11.5-14.5); WHITE BLOOD COUNT 8.3 10^3/ul (4.5-11.0)
[2017-10-30 09:54] LABS: ALB/GLOB RATIO 1.5 (1.1-1.8); ALBUMIN 4.1 g/dL (3.0-4.8); ALT/SGPT 25 U/L (7-56); AST/SGOT 26 U/L (14-36); BLOOD UREA NITROGEN 10 mg/dL (7-21); CALCIUM 8.6 mg/dL (8.4-10.5); GFR NON-AFRICAN AMERICAN > 60
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
--- NOTE | 2017-10-30 11:03 | CT ---
PROCEDURE: CT Abdomen and Pelvis without Oral or IV contrast. HISTORY: abdominal pain COMPARISON: CT abdomen and pelvis without contrast performed 10/22/17 TECHNIQUE: Contiguous axial images of the abdomen and pelvis. No oral or IV contrast administered. Coronal and Sagittal reformats generated and reviewed. Radiation dose: Total exam DLP = 527.38 mGy-cm. This CT exam was performed using one or more of the following dose reduction techniques: Automated exposure control, adjustment of the mA and/or kV according to patient size, and/or use of iterative reconstruction technique. FINDINGS: There is limited evaluation of the solid organs without the administration of IV contrast. LOWER THORAX: No visible consolidation, pleural effusion, or pneumothorax. LIVER: Unremarkable unenhanced appearance. GALLBLADDER AND BILE DUCTS: Unremarkable unenhanced appearance. PANCREAS: Unremarkable unenhanced appearance. SPLEEN: Unremarkable unenhanced appearance. ADRENALS: Unremarkable unenhanced appearance. KIDNEYS AND URETERS: No hydronephrosis or obstructing renal calculus. BLADDER: The urinary bladder appears unremarkable. REPRODUCTIVE: Lobulated enlarged uterus likely related to fibroids. APPENDIX: The appendix appears within normal limits of caliber. No secondary signs of acute appendicitis. BOWEL: The stomach is nondistended. Lack of oral contrast limits evaluation for bowel pathology. The bowel loops appear within normal limits of caliber without evidence of intestinal obstruction. PERITONEUM: No significant free fluid. No definite free air. LYMPH NODES: No bulky lymphadenopathy identified. VASCULATURE: No aortic aneurysm. BONES: No acute osseous abnormality is detected. OTHER FINDINGS: Pelvic calcifications, likely phleboliths. IMPRESSION: No acute findings identified. Lobulated enlarged uterus likely related to fibroids.
[2017-10-30 15:22] VITALS: BP 122/63; PULSE 77; O2SAT 99
[2017-10-30 15:23] VITALS: RESP 18; TEMP 98.3
--- NOTE | 2017-10-30 16:54 | RAD ---
Date of service: 10/30/2017 HISTORY: fall COMPARISON: Chest radiograph dated 10/02/2017 TECHNIQUE: Chest PA and lateral FINDINGS: LUNGS: No active pulmonary disease. PLEURA: No significant pleural effusion identified. No pneumothorax apparent. CARDIOVASCULAR: Normal. OSSEOUS STRUCTURES: No significant abnormalities. VISUALIZED UPPER ABDOMEN: Normal. OTHER FINDINGS: None. IMPRESSION: No active disease.
== END 2017-10-30 11:55 | disposition home or self-care (01) ==
LOC: ED 06:35
DX: R04.2 Hemoptysis (principal); R10.12 Left upper quadrant pain; R10.32 Left lower quadrant pain; S09.90XA Unspecified injury of head, initial encounter; W01.0XXA Fall on same level from slipping, tripping and stumbling without subsequent striking against object, initial encounter; I10 Essential (primary) hypertension; F17.210 Nicotine dependence, cigarettes, uncomplicated; F20.9 Schizophrenia, unspecified

== ENCOUNTER 2017-10-30 21:52 | Emergency (ER) | payer MEDICARE ==
[2017-10-30 21:53] VITALS: BMI 28.3
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
[2017-10-31 01:16] VITALS: TEMP 98.3
[2017-10-31 03:15] VITALS: O2SAT 100
[2017-10-31 06:47] VITALS: BP 135/68; PULSE 75; RESP 18
--- NOTE | 2017-10-31 09:07 | US ---
Date of service: 10/31/2017 HISTORY: general evaluation COMPARISON: Abdomen and pelvis CT without contrast 10/30/2017. TECHNIQUE: Sonographic evaluation of the abdomen. FINDINGS: LIVER: Measures 16.6 cm. Normal echogenicity of the liver parenchyma. No mass. No intrahepatic bile duct dilatation. GALLBLADDER: Unremarkable. No gallstones. COMMON BILE DUCT: Measures 4.3 mm. No stones. No dilatation. PANCREAS: The tail of the pancreas is obscured by overlying bowel gas with remainder unremarkable. RIGHT KIDNEY: Measures 10.2cm. Normal echogenicity. No calculus, mass, or hydronephrosis. LEFT KIDNEY: Measures 8.9cm. Normal echogenicity. No calculus, mass, or hydronephrosis. SPLEEN: Normal in size and contour. No mass. AORTA: No aneurysmal dilatation. IVC: Unremarkable. OTHER FINDINGS: None. IMPRESSION: Nonfocal abdomen ultrasound exam. Note, partial imaging of the pancreas occurred due to overlying bowel gas. Concordant preliminary report from [facility], 10/31/2017.
== END 2017-10-31 06:30 | disposition home or self-care (01) ==
LOC: ED 21:52
DX: Z00.00 Encounter for general adult medical examination without abnormal findings (principal); F20.9 Schizophrenia, unspecified; I12.9 Hypertensive chronic kidney disease with stage 1 through stage 4 chronic kidney disease, or unspecified chronic kidney disease; N18.9 Chronic kidney disease, unspecified; F17.210 Nicotine dependence, cigarettes, uncomplicated

== ENCOUNTER 2018-01-03 21:53 | Emergency (ER) | payer MEDICARE ==
[2018-01-03 22:29] VITALS: BMI 32.0
[2018-01-03 22:30] VITALS: TEMP 98.2
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
[2018-01-04 00:03] VITALS: BP 125/70; PULSE 63; RESP 18; O2SAT 100
--- NOTE | 2018-01-04 08:34 | RAD ---
Date of service: 01/03/2018 PROCEDURE: Cervical Spine Radiographs. HISTORY: Pain. COMPARISON: None available. FINDINGS: BONES: Alignment maintained. No fracture. Dens Intact. DISC SPACES: Normal. SOFT TISSUES: Normal. No prevertebral soft tissue swelling. OTHER FINDINGS: None. IMPRESSION: Normal cervical spine radiographs
--- NOTE | 2018-01-04 08:45 | RAD ---
Date of service: 01/03/2018 HISTORY: pain COMPARISON: No prior. FINDINGS: BONES: Alignment maintained. No fracture. DISC SPACES: Normal. SOFT TISSUES: Normal. OTHER FINDINGS: None. IMPRESSION: Normal radiographs of the thoracic spine.
--- NOTE | 2018-01-04 08:46 | RAD ---
Date of service: 01/03/2018 PROCEDURE: Radiographs of the Lumbar Spine. HISTORY: pain COMPARISON: No prior. FINDINGS: BONES: Normal alignment. No listhesis. No fracture. DISC SPACES: Unremarkable. OTHER FINDINGS: None. IMPRESSION: Unremarkable radiographs of the lumbar spine.
--- NOTE | 2018-01-04 08:49 | CT ---
Date of service: 01/03/2018 PROCEDURE: CT HEAD WITHOUT CONTRAST. HISTORY: pain COMPARISON: None available. TECHNIQUE: Axial computed tomography images were obtained through the head/brain without intravenous contrast. Radiation dose: Total exam DLP = 1274.18 mGy-cm. This CT exam was performed using one or more of the following dose reduction techniques: Automated exposure control, adjustment of the mA and/or kV according to patient size, and/or use of iterative reconstruction technique. FINDINGS: HEMORRHAGE: No intracranial hemorrhage. BRAIN: No mass effect or edema. No atrophy or chronic microvascular ischemic changes. VENTRICLES: Unremarkable. No hydrocephalus. CALVARIUM: Unremarkable. PARANASAL SINUSES: Unremarkable as visualized. No significant inflammatory changes. MASTOID AIR CELLS: Unremarkable as visualized. No inflammatory changes. OTHER FINDINGS: The report concurs with the preliminary [facility] report IMPRESSION: No acute findings
== END 2018-01-04 00:02 | disposition home or self-care (01) ==
LOC: ED 21:53
DX: M54.2 Cervicalgia (principal); M54.5 Low back pain; V89.2XXA Person injured in unspecified motor-vehicle accident, traffic, initial encounter; F17.210 Nicotine dependence, cigarettes, uncomplicated; F20.9 Schizophrenia, unspecified; I10 Essential (primary) hypertension

== ENCOUNTER 2018-01-11 09:42 | Inpatient (IN) | payer MEDICARE ==
[2018-01-11 09:51] VITALS: BMI 24.5
[2018-01-11] MEDS ORDERED: cefTRIAXone (Rocephin) 250 mg Inj IM STA (10:00)
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
[2018-01-11 10:16] LABS: URINE BILIRUBIN NEGATIVE (NEGATIVE); URINE BLOOD SMALL (NEGATIVE); URINE GLUCOSE (UA) NEGATIVE (NEGATIVE); URINE LEUKOCYTE ESTERASE NEGATIVE Leu/uL (NEGATIVE); URINE PROTEIN 30 mg/dL (<30 mg/dL); URINE UROBILINOGEN 0.2 E.U./dL (<1 E.U./dL)
[2018-01-11 10:23] LABS: URINE APPEARANCE CLEAR (CLEAR)
[2018-01-11 10:24] LABS: URINE COLOR YELLOW (YELLOW)
[2018-01-11 10:25] LABS: HCG,QUALITATIVE URINE NEGATIVE (NEGATIVE)
[2018-01-11 10:29] LABS: BASO # 0.03 K/mm3 (0.0-2.0); BASO % 0.3 % (0.0-3.0); EOS # 0.1 (0.0-0.7); EOS % 0.6 % (1.5-5.0); GRAN # 5.88 (1.4-6.5); GRAN % 65.8 % (50.0-68.0); HEMOGLOBIN 13.7 g/dL (12.0-16.0); LYMPH # 2.4 (1.2-3.4); LYMPH % 26.3 % (22.0-35.0); MEAN CELL VOLUME 93.5 fl (80.0-105.0); MEAN CORPUSCULAR HEMOGLOBIN 31.8 pg (25.0-35.0); MEAN PLATELET VOLUME 10.6 fl (7.0-11.0); MONO # 0.6 (0.1-0.6); RBC 4.31 10^6/uL (3.5-6.1); RED CELL DISTRIBUTION WIDTH 12.8 % (11.5-14.5); WHITE BLOOD COUNT 8.9 10^3/uL (4.5-11.0)
[2018-01-11 10:43] LABS: ALB/GLOB RATIO 1.4 (1.1-1.8); ALBUMIN 4.4 g/dL (3.0-4.8); ALT/SGPT 25 U/L (7-56); AST/SGOT 29 U/L (14-36); BLOOD UREA NITROGEN 8 mg/dL (7-21); CALCIUM 9.3 mg/dL (8.4-10.5); GFR NON-AFRICAN AMERICAN > 60
[2018-01-11 10:44] LABS: BARBITURATES, UR NEGATIVE (NEGATIVE); BENZODIAZEPINES, UR NEGATIVE (NEGATIVE); OPIATES, UR NEGATIVE (NEGATIVE); PHENCYCLIDINE, UR NEGATIVE (NEGATIVE)
[2018-01-11 10:44] LABS: ACETAMINOPHEN < 10.0 ug/ml (10.0-20.0); SALICYLATE < 1 mg/dL (2.0-20.0)
[2018-01-11 10:45] LABS: URINE EPITHELIAL CELLS 0 - 2 /hpf (0-5); URINE WBC 0 - 2 /hpf (0-6)
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
--- NOTE | 2018-01-11 11:33 | RAD ---
Date of service: 01/11/2018 PROCEDURE: CHEST RADIOGRAPH, 1 VIEW HISTORY: medical screening COMPARISON: 10/30/2017 FINDINGS: LUNGS: The lungs are well inflated and clear. PLEURA: No pneumothorax or pleural effusion. CARDIOVASCULAR: The heart is normal in size. No aortic atherosclerotic calcifications present. OSSEOUS STRUCTURES: Within normal limits for the patient's age. VISUALIZED UPPER ABDOMEN: Normal. OTHER FINDINGS: None. IMPRESSION: No active pulmonary disease.
[2018-01-11 14:16] VITALS: O2SAT 98
[2018-01-11] MEDS ORDERED: Alum-Mag Hydrox-Simethicone Susp (30 mL) PO PRN (17:12)
[2018-01-11] MEDS ORDERED: Magnesium Hydroxide Susp 30 ml UD PO PRN (17:12)
--- NOTE | 2018-01-11 17:12 | PCM.BM ---
<TanaterranceTriston - Last Filed: 01/11/18 17:08> Treatment Plan Problems - Problems identified on initial assessmt AUDITORY HALLUCINATIONS Date Initiated: 01/11/18 Time Initiated: 17:09 Assessment reference: HP, NA, Other Status: Active DRUG ABUSE Date Initiated: 01/11/18 (COCAINE POSITIVE) Time Initiated: 17:10 Assessment reference: HP, NA, Other MEDS NON COMPLIANCE Date Initiated: 01/11/18 Time Initiated: 17:11 Assessment reference: HP, NA, Other Status: Active Treatment assets and liabiliti Patient Assests: adapts well, cooperative, ADL independent, negotiates basic ne eds Patient Liabilities: live alone, financial problems, poor support system, relationship conflicts, substance abuse - Milieu Protocol Maintain good personal hygiene: daily Encourage regular showers, daily Remind patient to perform daily oral care, daily Assist patient to perform ADL's Maintain personal safety: daily Educate patient to report safety concerns to staff, daily Monitor environment for contraband/sharps Medication safety: Monitor for expected outcome, potential side effects: daily, Assess barriers to learning: daily, Assess readiness for medication education: daily Discharge/Continuing Care - Education Needs Education Needs: Patient Medication, Patient Diagnosis/Disease Process, Patient Coping Skills, Patient Anger Management skills, Patient Placement options, Patient Community resources, Patient Activities of Daily Living, Patient Health Practices/Safety, Patient Personal Hygiene/Grooming, Patient Aftercare Safety Plan - Discharge Discharge Criteria: Free of Suicidal thoughts, Free of Homicidal thoughts, Free of paranoid thoughts, Ability to care for self <Anca Jordan - Last Filed: 01/12/18 09:12> - Diagnosis (1) Schizoaffective disorder Status: Acute Interventions: 01/12/18 09:13 group, milieu and supportive tx * Restart prior effective medications including: -Depakote DR 500 mg PO AMHS -Seroquel XR 100 mg PO BID ~titrate to prior effective dose of 200 BID -Initiate Paxil 10 mg HS for depression and anxiety ~titrate to prior effe ctive dose of 20 mg HS -Ativan 0.5 mg po AMHS for anxiety and mood control * Nicotine 21 mg/24 hr [Nicoderm Cq] 1 patch TD DAILY for tobacco withdrawal (2) Cocaine abuse Status: Chronic Interventions: 01/12/18 09:13 group, milieu and supportive tx * Restart prior effective medications including: -Depakote DR 500 mg PO AMHS -Seroquel XR 100 mg PO BID ~titrate to prior effective dose of 200 BID -Initiate Paxil 10 mg HS for depression and anxiety ~titrate to prior effective dose of 20 mg HS -Ativan 0.5 mg po AMHS for anxiety and mood control * Nicotine 21 mg/24 hr [Nicoderm Cq] 1 patch TD DAILY for tobacco withdrawal <Gina Castillo - Last Filed: 01/13/18 16:16> Family Contact Family involvement: Famliy/SO not involved <Renee Camargo - Last Filed: 01/16/18 11:16>
--- NOTE | 2018-01-11 20:24 | CARD ---
APPROVED REPORT Date of service: 01/11/2018 EKG Measurement Heart [id number] <Conclusion> Normal sinus rhythm Normal ECG
[2018-01-11] MEDS ORDERED: QUEtiapine 50 mg XR Tab PO SCH (22:00)
[2018-01-12] MEDS: Divalproex 500 mg DR(BID formulation) PO SCH ×2 (09:12→21:41)
[2018-01-12] MEDS: QUEtiapine 50 mg XR Tab PO SCH ×2 (09:12→16:30)
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
[2018-01-12] MEDS ORDERED: Potassium Chloride 10 mEq ER Tab PO ONE (16:06)
[2018-01-13] MEDS: Divalproex 500 mg DR(BID formulation) PO SCH ×2 (09:33→21:09)
[2018-01-13] MEDS: Multivitamin Therapeutic Tab PO SCH (09:34)
[2018-01-13] MEDS: QUEtiapine 50 mg XR Tab PO SCH ×2 (09:34→17:26)
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
--- NOTE | 2018-01-14 03:03 | PN ---
DATE: 01/14/2018 SUBJECTIVE: The patient is a 42-year-old female. Patient was seen and examined at the bedside in her home. Sleepy, arousable, moving all four extremities. No fever, no chills, no headache, no dizziness. Complaining about her ovarian cyst and want to be examined by the [facility]. PHYSICAL EXAMINATION VITAL SIGNS: Temperature 98.6, pulse 62, respiratory rate 18, pulse 70, blood pressure 114/67. HEENT: Head normocephalic and atraumatic. Eyes, PERRLA. Extraocular movements intact. Conjunctivae clear. Nose patent. Mucous membrane moist. NECK: Supple. No carotid bruit. No thyromegaly. CHEST: Bilaterally symmetrical. HEART: S1 and S2 positive. LUNGS: Clear to auscultation. ABDOMEN: Soft. Bowel sounds present. No organomegaly. EXTREMITIES: No edema. No cyanosis. NEUROLOGIC: Patient is awake, alert. Moving all four extremities. No focal deficit. LABORATORY DATA: White blood cells 8.9, hemoglobin 13.7, hematocrit 40.3, platelets 236. Sodium 137, potassium 3.4. BUN 8, creatinine 0.7, glucose 79. ASSESSMENT AND PLAN: Ms. Ash Tran is a 42-year-old lady with hypokalemia, replaced, has multiple psych problems, has history of mental illness, has schizophrenia and depression, schizoaffective disorder, substance abuse, UDS and cocaine. Most of her medical admissions are due to psych, chronic noncompliant with followup appointments with medications. Came with depression and suicidal ideation and medicines abuse, PCP, marijuana, sleeping pill including NyQuil, history of degenerative joint disease. Getting Depakote, Seroquel, Paxil, Ativan, nicotine. History of heavy smoking. Gastrointestinal and deep venous thrombosis prophylaxes. CT scan of maxillofacial region done. History of cataract as per patient, kidney disease as per patient, abuse, substance abuse, history of hepatitis C positive. Psych is on the case. We will follow up. Vira Denton MD [facility]
[2018-01-14] MEDS: QUEtiapine 50 mg XR Tab PO SCH (09:28)
[2018-01-14] MEDS: Divalproex 500 mg DR(BID formulation) PO SCH ×2 (09:28→21:24)
[2018-01-14] MEDS: Multivitamin Therapeutic Tab PO SCH (09:28)
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
[2018-01-14] MEDS: QUEtiapine 200 mg XR Tab PO SCH (18:01)
--- NOTE | 2018-01-15 04:09 | PN ---
DATE: 01/14/2018 SUBJECTIVE: The patient is a 42-year-old female. The patient was seen and examined at the bedside on 01/14/2018. Looking comfortable. No nausea, vomiting, or diarrhea. No hematuria or hematochezia. No swelling of the legs. No chest pain. No palpitation. No headache. No dizziness. The patient is little bit depressed. No fever. No chills. PHYSICAL EXAMINATION VITAL SIGNS: Temperature 97.9, pulse 51, blood pressure 104/50, respiratory rate 20. HEENT: Head: Normocephalic, atraumatic. Eyes: PERRLA. Extraocular muscles intact. Conjunctivae clear. Nose patent. Mucous membrane moist. NECK: Supple. No carotid bruit. No JVD or thyromegaly. CHEST: Bilaterally symmetrical. HEART: S1 and S2 positive. LUNGS: Clear to auscultation. ABDOMEN: Soft. Bowel sounds present. No organomegaly. EXTREMITIES: No edema. No cyanosis. NEUROLOGIC: The patient is awake and alert. Follows simple commands. MEDICATIONS: Ativan, Milk of Magnesia, Nicoderm, Paxil, Seroquel, multivitamins, and Tylenol. LABORATORY DATA: White blood cells 8.9, hemoglobin 13.7, hematocrit 40.3, platelets 236. Sodium 137, potassium 3.4. ASSESSMENT AND PLAN: Ms. Chelsea Aleman is a 42-year-old lady with hypokalemia, replaced; proteinuria; hematuria; drug screen positive for cocaine; Chlamydia trachomatis is negative; gonorrhea RNA is negative; history of hepatitis C, the patient is noncompliant; history of schizophrenia; multiple psych admissions; history of depression; schizoaffective disorder; substance abuse, especially UDS plus cocaine. Chronic noncompliance with followup appointments and her medications. At this time, she took NyQuil, sleeping pills, PCP and alcohol prior to coming to the hospital. Gastrointestinal and deep venous thrombosis prophylaxis given. Appreciate Psych input. Repeat labs. We will follow up. Vira Denton MD [facility]
[2018-01-15 08:20] LABS: IRON 70 ug/dL (45-180)
[2018-01-15 08:34] LABS: % IRON SATURATION 18 % (20-55); TOTAL IRON BINDING CAPACITY 393 ug/dL (265-497)
[2018-01-15 08:38] LABS: ALB/GLOB RATIO 1.2 (1.1-1.8); ALBUMIN 3.8 g/dL (3.0-4.8); BILIRUBIN,DIRECT 0.2 mg/dL (0.0-0.4)
[2018-01-15] MEDS: Multivitamin Therapeutic Tab PO SCH (08:56)
[2018-01-15] MEDS: Divalproex 500 mg DR(BID formulation) PO SCH ×2 (09:01→21:19)
[2018-01-15] MEDS: QUEtiapine 50 mg XR Tab PO SCH (09:02)
[2018-01-15] MEDS: Hydrocortisone 1% Cream (30 GM) TOP SCH ×2 (14:28→17:37)
--- NOTE | 2018-01-15 14:40 | PCM.PYCHPN ---
Psychiatric Progress Note - Psychiatric Progress Note Patient seen today, length of contact: 30 minutes Patient Chief Complaint: "I did not pee on the floor and took a shower, see the shower, it is wet, it means that I took a shower", pt smells bad, it is unlikely pt took a shower. Problems Identified/Issues Discussed: Suicide/ homicide prevention, past psychiatric h/o, current psychiatric symptoms, medical problems, risk/benefits and alternatives of medications, medi cations compliance, coping strategies, substance abuse h/o, relapse prevention, importance of follow up with psychiatrist and therapist, discharge plan. Medical Problems: please see Dr. Denton notes for more detailed information Diagnostic Results: 01/11/18 10:15 01/11/18 10:15 Lab Results 01/11/18 10:15: Alcohol, Quantitative < 10 01/11/18 10:15: Salicylates < 1 L, Acetaminophen < 10.0 L 01/11/18 10:15: Sodium 137, Potassium 3.4 L, Chloride 104, Carbon Dioxide 26, Anion Gap 11, BUN 8, Creatinine 0.7, Est GFR ( Amer) > 60, Est GFR (Non- Af Amer) > 60, Random Glucose 79, Calcium 9.3, Total Bilirubin 0.3, AST 29, ALT 25, Alkaline Phosphatase 55, Total Protein 7.6, Albumin 4.4, Globulin 3.2, Albumin/Globulin Ratio 1.4 01/11/18 10:15: WBC 8.9, RBC 4.31, Hgb 13.7 D, Hct 40.3, MCV 93.5, MCH 31.8, MCHC 34.0, RDW 12.8, Plt Count 236, MPV 10.6, Gran % 65.8, Lymph % (Auto) 26.3, [place] % (Auto) 7.0 H, Eos % (Auto) 0.6 L, Baso % (Auto) 0.3, Gran # 5.88, Lymph # (Auto) 2.4, [place] # (Auto) 0.6, Eos # (Auto) 0.1, Baso # (Auto) 0.03 01/11/18 10:00: Urine Opiates Screen Negative, Urine Methadone Screen Negative, Ur Barbiturates Screen Negative, Ur Phencyclidine Scrn Negative, Ur Amphetamines Screen Negative, U Benzodiazepines Scrn Negative, U Oth Cocaine Metabols Positive H, U Cannabinoids Screen Negative 01/11/18 10:00: Urine Color Yellow, Urine Appearance Clear, Urine pH 7.0, Ur Specific [place] 1.010, Urine Protein 30 H, Urine Glucose (UA) Negative, Urine Ketones Negative, Urine Blood Small H, Urine Nitrate Negative, Urine Bilirubin Negative, Urine Urobilinogen 0.2, Ur Leukocyte Esterase Negative, Urine RBC 1 - 3, Urine WBC 0 - 2, Ur Epithelial Cells 0 - 2, Urine HCG, Qual Negative Vital Signs Temp Pulse Pulse Resp BP Pulse Ox 01/12/18 16:24 62 114/64 01/11/18 15:32 70 18 01/11/18 14:14 98 F 58 L 18 110/72 98 01/11/18 12:41 97.9 F 74 18 108/76 100 01/11/18 09:43 98.4 F 75 18 129/79 100 DSM 5 Symptoms Update: Pt is a 42 year old female with long h/o mental illness [dx include schizophrenia, depression, schizoaffective disorder] and substance abuse [UDS +cocaine], multiple psychiatric admissions, most recently at [facility] [place]17-10/17/17 and 08/31/17-09/09/17, chronic noncompliance with f/u appts and medications who brought herself for treatment of depression and SI indicating that she ingested a "whole bunch of meds" including nyquil, sleeping pills, PCP, MJA and alcohol prior to coming to the ER. Patient also reported that she has been doing "all types of sexual things" with multiple partners and requested treatment for STI. patient was seen and examined today At the treatment team meeting room, patient presented to be disorganized, bizarre, poor hygiene, strong smell of urine from the patient, as per report patient keeps urinating on the floor, and using bed sheets to clean the floor, patient is psychotic, but no aggression or agitation. No meaningful conversation possible, patient is guarded, paranoid, asking ridiculous questions about discharge plan, yesterday was asking how to adopt a child. pt's insight and judgment are poor. patient tolerates medications well, no side effects observed or reported, aims 0, no EPS. Impression: As per history of schizoaffective disorder Polysubstance abuse and dependence Medication Change: Yes (Seroquel was increased 01/14/2018) Medical Record Reviewed: Yes Consults ordered or reviewed: Dr. Denton's consultation appreciated Mental Status Examination - Cognitive Function Orientation: Person, Place, Situation Memory: Impaired Attention: Poor Concentration: Poor Association: Loose Fund of Knowledge: Poor - Mood Mood: Anxious, Euphoric - Affect Affect: Broad (and labile) - Formal Thought Process Formal Thought Process: Delusions, Paranoia, Loosening of associations - Suicidal Ideation Suicidal Ideation: No - Homicidal Ideation Homicidal Ideation: No Goal/Treatment Plan - Goal/Treatment Plan Need for Continued Stay: Remain at risks for inpatient hospitalization, Severe depression anxiety, Discharge may exacerbated symptoms, Severe functional impairment Progress Toward Problem(s) and Goals/Treatment Plan: group, milieu and supportive ananda Petty DR 500 mg PO AMHS for mood stabilization Seroquel XR 100 mg PO a.m. and 200 mg at at bedtime titrate to prior effective dose of 200 BID Paxil 10 mg HS for depression and anxiety ~titrate to prior effective dose of 20 mg HS Ativan 0.5 mg po AMHS for anxiety and mood control Nicotine 21 mg/24 hr [Nicoderm Cq] 1 patch TD DAILY for tobacco withdrawal SW consultation for discharge plan and social issues Family involvement Follow up on labs Will monitor closely Pt was educated about risk/benefits and alternatives of medications, coping strategies (safety plan, suicide prevention), relapse prevention, importance of follow up with psychiatrist and therapist, stay away from drugs/alcohol/smoking Estimated Date of D/C: 01/20/18
[2018-01-15 17:02] LABS: FOLATE 10.5 ng/mL
[2018-01-15] MEDS: QUEtiapine 200 mg XR Tab PO SCH (17:19)
--- NOTE | 2018-01-16 03:59 | PN ---
DATE: 01/15/2018 SUBJECTIVE: The patient is 42 years old female. The patient was seen and examined at the bedside on 01/15/2018, looking comfortable. No nausea, vomiting or diarrhea. No hematuria or hematochezia. No swelling of the legs. No chest pain. No palpitation. No headache. No dizziness. The patient is a poor historian. PHYSICAL EXAMINATION: VITAL SIGNS: Temperature 97.9, pulse 61, respiratory rate 18, blood pressure 124/93. HEENT: Head; normocephalic, atraumatic. Eyes: PERRLA. Extraocular muscles intact. Conjunctivae clear. Nose patent. Mucous membranes moist. NECK: Supple. No carotid bruit. No JVD or thyromegaly. CHEST: Bilaterally symmetrical. HEART: S1 and S2 positive. LUNGS: Clear to auscultation. ABDOMEN: Soft. Bowel sounds positive. No organomegaly. EXTREMITIES: No edema. No cyanosis. NEUROLOGIC: Patient is awake and alert. Moving all four extremities. No focal deficit. MEDICATIONS: Ativan, Depakote, Maalox, Milk of Magnesia, Nicoderm patch, Paxil,Seroquel, and Tylenol. LABORATORY DATA: We do not have recent labs today, but I reviewed old labs. ASSESSMENT AND PLAN: Ms. Chelsea Aleman is a 42 years old lady with history of hypokalemia, iron saturation less, hypercholesterolemia, cocaine abuse, trichomonas and gonorrhea negative. Gastrointestinal and deep venous thrombosis prophylaxis. Repeat labs. The patient is under the care of Dr. Garduno. The patient has history of hepatitis C and joint pains, but very noncompliant, urged to be compliant. We will follow up. Vira Denton MD [id number]
[2018-01-16] MEDS: Hydrocortisone 1% Cream (30 GM) TOP SCH ×2 (08:31→17:10)
[2018-01-16] MEDS: QUEtiapine 50 mg XR Tab PO SCH (08:32)
[2018-01-16] MEDS: Multivitamin Therapeutic Tab PO SCH (08:33)
[2018-01-16 08:39] LABS: BLOOD UREA NITROGEN 19 mg/dL (7-21); CALCIUM 8.7 mg/dL (8.4-10.5); GFR NON-AFRICAN AMERICAN > 60
[2018-01-16] MEDS: Divalproex 500 mg DR(BID formulation) PO SCH ×2 (09:57→21:08)
--- NOTE | 2018-01-16 14:07 | PCM.PYCHPN ---
Psychiatric Progress Note - Psychiatric Progress Note Patient seen today, length of contact: 30 minutes Patient Chief Complaint: "I did not pee on the floor and took a shower, see the shower, it is wet, it means that I took a shower", pt smells bad, it is unlikely pt took a shower. Problems Identified/Issues Discussed: Suicide/ homicide prevention, past psychiatric h/o, current psychiatric symptoms, medical problems, risk/benefits and alternatives of medications, medi cations compliance, coping strategies, substance abuse h/o, relapse prevention, importance of follow up with psychiatrist and therapist, discharge plan. Medical Problems: please see Dr. Denton notes for more detailed information Diagnostic Results: 01/11/18 10:15 01/11/18 10:15 Lab Results 01/11/18 10:15: Alcohol, Quantitative < 10 01/11/18 10:15: Salicylates < 1 L, Acetaminophen < 10.0 L 01/11/18 10:15: Sodium 137, Potassium 3.4 L, Chloride 104, Carbon Dioxide 26, Anion Gap 11, BUN 8, Creatinine 0.7, Est GFR ( Amer) > 60, Est GFR (Non- Af Amer) > 60, Random Glucose 79, Calcium 9.3, Total Bilirubin 0.3, AST 29, ALT 25, Alkaline Phosphatase 55, Total Protein 7.6, Albumin 4.4, Globulin 3.2, Albumin/Globulin Ratio 1.4 01/11/18 10:15: WBC 8.9, RBC 4.31, Hgb 13.7 D, Hct 40.3, MCV 93.5, MCH 31.8, MCHC 34.0, RDW 12.8, Plt Count 236, MPV 10.6, Gran % 65.8, Lymph % (Auto) 26.3, [place] % (Auto) 7.0 H, Eos % (Auto) 0.6 L, Baso % (Auto) 0.3, Gran # 5.88, Lymph # (Auto) 2.4, [place] # (Auto) 0.6, Eos # (Auto) 0.1, Baso # (Auto) 0.03 01/11/18 10:00: Urine Opiates Screen Negative, Urine Methadone Screen Negative, Ur Barbiturates Screen Negative, Ur Phencyclidine Scrn Negative, Ur Amphetamines Screen Negative, U Benzodiazepines Scrn Negative, U Oth Cocaine Metabols Positive H, U Cannabinoids Screen Negative 01/11/18 10:00: Urine Color Yellow, Urine Appearance Clear, Urine pH 7.0, Ur Specific [place] 1.010, Urine Protein 30 H, Urine Glucose (UA) Negative, Urine Ketones Negative, Urine Blood Small H, Urine Nitrate Negative, Urine Bilirubin Negative, Urine Urobilinogen 0.2, Ur Leukocyte Esterase Negative, Urine RBC 1 - 3, Urine WBC 0 - 2, Ur Epithelial Cells 0 - 2, Urine HCG, Qual Negative Vital Signs Temp Pulse Pulse Resp BP Pulse Ox 01/12/18 16:24 62 114/64 01/11/18 15:32 70 18 01/11/18 14:14 98 F 58 L 18 110/72 98 01/11/18 12:41 97.9 F 74 18 108/76 100 01/11/18 09:43 98.4 F 75 18 129/79 100 DSM 5 Symptoms Update: Pt is a 42 year old female with long h/o mental illness [dx include schizophrenia, depression, schizoaffective disorder] and substance abuse [UDS +cocaine], multiple psychiatric admissions, most recently at [facility] 10/14/17-10/17/17 and 08/31/17-09/09/17, chronic noncompliance with f/u appts and medications who brought herself for treatment of depression and SI indicating that she ingested a "whole bunch of meds" including nyquil, sleeping pills, PCP, MJA and alcohol prior to coming to the ER. Patient also reported that she has been doing "all types of sexual things" with multiple partners and requested treatment for STI. patient was seen and examined today in her room with medical sales specialist, patient presented to be disorganized, bizarre, patient was not willing to participate in interview, was disengaged, laying with blanket covering her face, pt is rambling, preoccupied, insight and judgment are limited, impulses unpredictable. discussed with medical team, input appreciated 01/16/18, no need abx for uti or std? pt's insight and judgment are poor. patient tolerates medications well, no side effects observed or reported, aims 0, no EPS. Impression: As per history of schizoaffective disorder Polysubstance abuse and dependence Medication Change: Yes (Seroquel was increased 01/14/2018) Medical Record Reviewed: Yes Mental Status Examination - Cognitive Function Orientation: Person, Place, Situation Memory: Impaired Attention: Poor Concentration: Poor Association: Loose Fund of Knowledge: Poor - Mood Mood: Anxious, Euphoric - Affect Affect: Broad (and labile) - Formal Thought Process Formal Thought Process: Delusions, Paranoia, Loosening of associations - Suicidal Ideation Suicidal Ideation: No - Homicidal Ideation Homicidal Ideation: No Goal/Treatment Plan - Goal/Treatment Plan Need for Continued Stay: Remain at risks for inpatient hospitalization, Severe depression anxiety, Discharge may exacerbated symptoms, Severe functional impairment Progress Toward Problem(s) and Goals/Treatment Plan: group, milieu and supportive tx Depagapito DR 500 mg PO AMHS for mood stabilization Seroquel 200 mg PO a.m. and 200 mg at at bedtime titrate to prior effective dose of 200 BID Paxil 10 mg HS for depression and anxiety ~titrate to prior effective dose of 20 mg HS Ativan 0.5 mg po AMHS for anxiety and mood control Nicotine 21 mg/24 hr [Nicoderm Cq] 1 patch TD DAILY for tobacco withdrawal SW consultation for discharge plan and social issues Family involvement Follow up on labs Will monitor closely Pt was educated about risk/benefits and alternatives of medications, coping strategies (safety plan, suicide prevention), relapse prevention, importance of follow up with psychiatrist and therapist, stay away from drugs/alcohol/smoking Estimated Date of D/C: 01/20/18
[2018-01-16] MEDS: QUEtiapine 200 mg XR Tab PO SCH (17:05)
--- NOTE | 2018-01-17 01:57 | PN ---
DATE: 01/16/2018 SUBJECTIVE: Patient is a 42-year-old female. Patient was seen and examined at the bedside on 01/16/2018, looking comfortable. Hygiene is not good. Discussion done with Laureen Acosta. Patient is complaining more pain in the feet. Podiatry consult for getting psych medications. PHYSICAL EXAMINATION VITAL SIGNS: Temperature 37.9, pulse 61, blood pressure 125/93, respiratory rate 18. HEENT: Head: Normocephalic, atraumatic. Eyes: PERRLA. Extraocular muscles are intact. Conjunctivae clear. Nose patent. Mucous membranes moist. NECK: Supple. No carotid bruit. No thyromegaly. CHEST: Bilaterally symmetrical. HEART: S1 and S2 positive. LUNGS: Clear to auscultation. ABDOMEN: Soft. Bowel sounds present. No organomegaly. EXTREMITIES: No edema. No cyanosis. NEUROLOGIC: Patient is awake, alert. Moving all 4 extremities. No focal deficit. MEDICATIONS: Ativan, Maalox, magnesium oxide, Nicoderm, Paxil, Seroquel, acetaminophen. LABORATORY DATA: Sodium 138, potassium 4.7, BUN 19, creatinine 0.8. ASSESSMENT AND PLAN: Chelsea Moctezuma, 42-year-old female, with hypokalemia, improved; iron deficiency; proteinuria; hematuria. Patient is menstruating as per patient. Cocaine metabolite positive, C. trachomatis and Neisseria gonorrheae are not detected. History of hepatitis C positive. Very noncompliant. Long history of mental illness including schizophrenia, depression, schizoaffective disorder, substance abuse, especially UDS plus cocaine. Had multiple psych admissions. She took couple of medications plus alcohol before she had to come to the hospital. History of degenerative joint disease, chronic pain syndrome. Discussion done with Laureen Acosta. Gastrointestinal, deep venous thrombosis prophylaxis given. Repeat labs. We will follow up. Vira Denton MD
[2018-01-17] MEDS: Hydrocortisone 1% Cream (30 GM) TOP SCH ×2 (07:45→16:13)
[2018-01-17] MEDS: QUEtiapine 200 mg XR Tab PO SCH ×2 (07:45→16:25)
[2018-01-17] MEDS: Multivitamin Therapeutic Tab PO SCH (07:45)
[2018-01-17] MEDS: Divalproex 500 mg DR(BID formulation) PO SCH ×2 (09:30→21:56)
--- NOTE | 2018-01-17 11:26 | CP.PCM.CON ---
<Devin Mondragonson - Last Filed: 01/17/18 11:23> History of Present Illness - History of Present Illness History of Present Illness: Podiatry consult note for Dr. Fischer 42 yo female with pmhx of mental illness [dx include schizophrenia, depression, schizoaffective disorder] and substance abuse [UDS +cocaine] seen and evaluated at bedside with Dr. Fischer for pain in feet. States that she has pain when she walks and it is constant. States nothing helps with the pain including over the counter pain medication and rest. States that she wants oral pain medication to help with the pain. States it gets worse when she is walking for a while. She states that she had right big toe surgery but does not recall the surgeon. She denies N/V/F/C/SOB today and has no other pedal complaints. PMHx - mental illness [dx include schizophrenia, depression, schizoaffective disorder] and substance abuse [UDS +cocaine] PSHx - right HAV surgery All - shellfish Past Patient History - Infectious Disease Hx of Infectious Diseases: None - Past Social History Drugs: Cannabis, Cocaine, Other (reportedly took PCP) - CARDIAC Hx Cardiac Disorders: No Hx Hypertension: Yes - PULMONARY Hx Respiratory Disorders: No Hx Tuberculosis: No - NEUROLOGICAL HX Cerebrovascular Accident: No Hx Seizures: No - HEENT Hx HEENT Problems: Yes Hx Cataracts: Yes - RENAL Hx Chronic Kidney Disease: Yes Other/Comment: Kidney disease - ENDOCRINE/METABOLIC Hx Endocrine Disorders: No - HEMATOLOGICAL/ONCOLOGICAL Hx Blood Disorders: No - INTEGUMENTARY Hx Dermatological Problems: No - MUSCULOSKELETAL/RHEUMATOLOGICAL Hx Arthritis: Yes - GASTROINTESTINAL Hx Gastrointestinal Disorders: No - GENITOURINARY/GYNECOLOGICAL Hx Genitourinary Disorders: No - PSYCHIATRIC Hx Substance Use: Yes - SURGICAL HISTORY Other/Comment: Laparoscopy ovarian cyst - ANESTHESIA Hx Anesthesia: Yes Hx Anesthesia Reactions: No Hx Malignant Hyperthermia: No Meds Allergies/Adverse Reactions: Allergies Allergy/AdvReac Type Severity Reaction Status Date / Time shellfish derived Allergy .unknown Verified 01/12/18 00:38 - Medications Medications: Current Medications Acetaminophen (Tylenol 325mg Tab) 650 mg PO Q4 PRN PRN Reason: Pain, moderate (4-7) Al Hydrox/Mg Hydrox/Simethicone (Maalox Plus 30 Ml) 30 ml PO DAILY PRN PRN Reason: Upset Stomach Divalproex Sodium (Depakote Dr(*Bid*)) 500 mg PO AMHS [facility]; Protocol Last Admin: 01/17/18 09:30 Dose: 500 mg Hydrocortisone (Cortizone 1% Cream) 1 gm TOP BID [facility] Last Admin: 01/17/18 07:45 Dose: 1 cre Lorazepam (Ativan) 0.5 mg PO AMHS [facility]; Protocol Last Admin: 01/17/18 09:29 Dose: 0.5 mg Magnesium Hydroxide (Milk Of Magnesia) 30 ml PO DAILY PRN PRN Reason: Constipation Multivitamins (Thera Tab) 1 tab PO DAILY [facility] Last Admin: 01/17/18 07:45 Dose: 1 tab Nicotine (Nicoderm Cq) 1 patch TD DAILY [facility] Last Admin: 01/17/18 07:45 Dose: 1 patch Paroxetine HCl (Paxil) 10 mg PO HS [facility] Last Admin: 01/16/18 21:08 Dose: 10 mg Quetiapine Fumarate (Seroquel Xr) 200 mg PO 1700 [facility]; Protocol Last Admin: 01/16/18 17:05 Dose: 200 mg Quetiapine Fumarate (Seroquel Xr) 200 mg PO DAILY [facility]; Protocol Last Admin: 01/17/18 07:45 Dose: 200 mg Physical Exam - Constitutional Appears: Well, Non-toxic, No Acute Distress - Head Exam Head Exam: ATRAUMATIC, NORMOCEPHALIC - Extremities Exam Additional comments: Vasc: DP and PT pulses palpable; cap refill <3 seconds to all digits; no edema noted; temp gradient warm to cool from proximal to distal Derm: no open lesions or wounds appreciated; scar formation at the right first MPJ, evidence of prior surgical intervention; no other pathology noted Neuro: gross and protective sensation intact b/l Ortho: no pain on palpation of b/l feet or ankle, no pain on ROM of ankles or first MPJ b/l - Neurological Exam Neurological exam: Alert, Oriented x3 - Psychiatric Exam Psychiatric exam: Normal Affect, Normal Mood Results - Vital Signs Recent Vital Signs: Last Vital Signs Temp 97.8 F 01/17/18 07:19 Pulse 68 01/17/18 07:19 Resp 20 01/17/18 07:19 BP 112/71 01/17/18 07:19 Pulse Ox 98 01/11/18 14:14 - Labs Result Diagrams: 01/11/18 10:15 01/16/18 08:05 Assessment & Plan - Assessment and Plan (Free Text) Assessment: 42 yo female with pain in b/l feet secondary to neuropathy Plan: Patient seen and evaluated with Dr. Fischer Charts and labs reviewed - afebrile, absent leukocytosis Patient requesting oral pain medication as soon as exam finished Discussed symptoms of neuropathy and effect of alcohol use Eucerin cream ordered for xerosis of feet b/l No other podiatric complaints Podiatry to sign off on patient Thank you for the consult Please reconsult if other acute pedal complaints present - Date & Time Date: 01/17/18 Time: 11:54 <De Fischer - Last Filed: 01/17/18 19:04> Meds - Medications Medications: Current Medications Acetaminophen (Tylenol 325mg Tab) 650 mg PO Q4 PRN PRN Reason: Pain, moderate (4-7) Al Hydrox/Mg Hydrox/Simethicone (Maalox Plus 30 Ml) 30 ml PO DAILY PRN PRN Reason: Upset Stomach Divalproex Sodium (Depakote Dr(*Bid*)) 500 mg PO [facility]; Protocol Last Admin: 01/17/18 09:30 Dose: 500 mg Hydrocortisone (Cortizone 1% Cream) 1 gm TOP BID [facility] Last Admin: 01/17/18 16:13 Dose: 1 cre Lorazepam (Ativan) 0.5 mg PO [facility]; Protocol Last Admin: 01/17/18 09:29 Dose: 0.5 mg Magnesium Hydroxide (Milk Of Magnesia) 30 ml PO DAILY PRN PRN Reason: Constipation Multi-Ingredient Cream (Hydrocerin Cream) 0 ea TOP BID [facility] Last Admin: 01/17/18 16:16 Dose: 1 unit Multivitamins (Thera Tab) 1 tab PO DAILY [facility] Last Admin: 01/17/18 07:45 Dose: 1 tab Nicotine (Nicoderm Cq) 1 patch TD DAILY [facility] Last Admin: 01/17/18 07:45 Dose: 1 patch Paroxetine HCl (Paxil) 10 mg PO HS [facility] Last Admin: 01/16/18 21:08 Dose: 10 mg Quetiapine Fumarate (Seroquel Xr) 200 mg PO 1700 [facility]ARGAS; Protocol Last Admin: 01/17/18 16:25 Dose: 200 mg Quetiapine Fumarate (Seroquel Xr) 200 mg PO DAILY [facility]; Protocol Last Admin: 01/17/18 07:45 Dose: 200 mg Results - Vital Signs Recent Vital Signs: Last Vital Signs Temp 97.8 F 01/17/18 07:19 Pulse 68 01/17/18 07:19 Resp 20 01/17/18 07:19 BP 112/71 01/17/18 07:19 Pulse Ox 98 01/11/18 14:14 - Labs Result Diagrams: 01/11/18 10:15 01/16/18 08:05 Attending/Attestation - Attestation I have personally seen and examined this patient.: Yes I have fully participated in the care of the patient.: Yes I have reviewed all pertinent clinical information: Yes
--- NOTE | 2018-01-17 13:53 | PCM.PYCHPN ---
Psychiatric Progress Note - Psychiatric Progress Note Patient seen today, length of contact: 30 minutes Patient Chief Complaint: "I am happy to go to rehab" Problems Identified/Issues Discussed: Suicide/ homicide prevention, past psychiatric h/o, current psychiatric symptom s, medical problems, risk/benefits and alternatives of medications, medications compliance, coping strategies, substance abuse h/o, relapse prevention, importance of follow up with psychiatrist and therapist, discharge plan. Medical Problems: please see Dr. Denton notes for more detailed information Diagnostic Results: 01/11/18 10:15 01/11/18 10:15 Lab Results 01/11/18 10:15: Alcohol, Quantitative < 10 01/11/18 10:15: Salicylates < 1 L, Acetaminophen < 10.0 L 01/11/18 10:15: Sodium 137, Potassium 3.4 L, Chloride 104, Carbon Dioxide 26, Anion Gap 11, BUN 8, Creatinine 0.7, Est GFR ( Amer) > 60, Est GFR (Non- Af Amer) > 60, Random Glucose 79, Calcium 9.3, Total Bilirubin 0.3, AST 29, ALT 25, Alkaline Phosphatase 55, Total Protein 7.6, Albumin 4.4, Globulin 3.2, Albumin/Globulin Ratio 1.4 01/11/18 10:15: WBC 8.9, RBC 4.31, Hgb 13.7 D, Hct 40.3, MCV 93.5, MCH 31.8, MCHC 34.0, RDW 12.8, Plt Count 236, MPV 10.6, Gran % 65.8, Lymph % (Auto) 26.3, [place] % (Auto) 7.0 H, Eos % (Auto) 0.6 L, Baso % (Auto) 0.3, Gran # 5.88, Lymph # (Auto) 2.4, [place] # (Auto) 0.6, Eos # (Auto) 0.1, Baso # (Auto) 0.03 01/11/18 10:00: Urine Opiates Screen Negative, Urine Methadone Screen Negative, Ur Barbiturates Screen Negative, Ur Phencyclidine Scrn Negative, Ur Amphetamines Screen Negative, U Benzodiazepines Scrn Negative, U Oth Cocaine Metabols Positive H, U Cannabinoids Screen Negative 01/11/18 10:00: Urine Color Yellow, Urine Appearance Clear, Urine pH 7.0, Ur Specific [place] 1.010, Urine Protein 30 H, Urine Glucose (UA) Negative, Urine Ketones Negative, Urine Blood Small H, Urine Nitrate Negative, Urine Bilirubin Negative, Urine Urobilinogen 0.2, Ur Leukocyte Esterase Negative, Urine RBC 1 - 3, Urine WBC 0 - 2, Ur Epithelial Cells 0 - 2, Urine HCG, Qual Negative Vital Signs Temp Pulse Pulse Resp BP Pulse Ox 01/12/18 16:24 62 114/64 01/11/18 15:32 70 18 01/11/18 14:14 98 F 58 L 18 110/72 98 01/11/18 12:41 97.9 F 74 18 108/76 100 01/11/18 09:43 98.4 F 75 18 129/79 100 DSM 5 Symptoms Update: Pt is a 42 year old female with long h/o mental illness [dx include schizophrenia, depression, schizoaffective disorder] and substance abuse [UDS +cocaine], multiple psychiatric admissions, most recently at [facility] [place] [facility] 10/14/17-10/17/17 and 08/31/17-09/09/17, chronic noncompliance with f/u appts and medications who brought herself for treatment of depression and SI indicating that she ingested a "whole bunch of meds" including nyquil, sleeping pills, PCP, MJA and alcohol prior to coming to the ER. Patient also reported that she has been doing "all types of sexual things" with multiple partners and requested treatment for STI. patient was seen and examined today in her room with emergency medical technician basic, patient presented to be disorganized, but with some improvement with her presentation, pt said that she is "happy to go to rehab", at the same time it is not finalized yet. pt is rambling, preoccupied, insight and judgment are limited, impulses unpredictable. discussed with medical team, input appreciated 01/16/18, no need abx for uti or std? pt's insight and judgment are poor. patient tolerates medications well, no side effects observed or reported, aims 0, no EPS. Impression: As per history of schizoaffective disorder Polysubstance abuse and dependence Medication Change: No ( ) Medical Record Reviewed: Yes Mental Status Examination - Cognitive Function Orientation: Person, Place, Situation Memory: Impaired Attention: Poor Concentration: Poor Association: Loose Fund of Knowledge: Poor - Mood Mood: Anxious, Euphoric - Affect Affect: Broad (and labile) - Formal Thought Process Formal Thought Process: Delusions (deneid), Paranoia (denied), Loosening of associations Psychotic Thoughts and Behaviors: pt denied but presented to be psychotic - Suicidal Ideation Suicidal Ideation: No - Homicidal Ideation Homicidal Ideation: No Goal/Treatment Plan - Goal/Treatment Plan Need for Continued Stay: Remain at risks for inpatient hospitalization, Severe depression anxiety, Discharge may exacerbated symptoms, Severe functional impairment Progress Toward Problem(s) and Goals/Treatment Plan: group, milieu and supportive tx Depagapito DR 500 mg PO AMHS for mood stabilization Seroquel 200 mg PO a.m. and 200 mg at at bedtime titrate to prior effective dose of 200 BID Paxil 10 mg HS for depression and anxiety ~titrate to prior effective dose of 20 mg HS Ativan 0.5 mg po AMHS for anxiety and mood control Nicotine 21 mg/24 hr [Nicoderm Cq] 1 patch TD DAILY for tobacco withdrawal SW consultation for discharge plan and social issues Family involvement Follow up on labs Will monitor closely Pt was educated about risk/benefits and alternatives of medications, coping strategies (safety plan, suicide prevention), relapse prevention, importance of follow up with psychiatrist and therapist, stay away from drugs/alcohol/smoking Estimated Date of D/C: 01/20/18
[2018-01-17] MEDS ORDERED: Hydrocerin(120 gm) TOP SCH (16:00)
[2018-01-17] MEDS: Hydrocerin(120 gm) TOP SCH (16:16)
[2018-01-18] MEDS: Multivitamin Therapeutic Tab PO SCH (08:57)
[2018-01-18] MEDS: QUEtiapine 200 mg XR Tab PO SCH ×2 (08:58→19:10)
[2018-01-18] MEDS: Divalproex 500 mg DR(BID formulation) PO SCH (09:08)
[2018-01-18] MEDS: Hydrocortisone 1% Cream (30 GM) TOP SCH ×2 (09:12→16:08)
[2018-01-18] MEDS: Hydrocerin(120 gm) TOP SCH ×2 (09:13→15:42)
--- NOTE | 2018-01-18 09:26 | PCM.PYCHPN ---
Psychiatric Progress Note - Psychiatric Progress Note Patient seen today, length of contact: 30 minutes Problems Identified/Issues Discussed: I reviewed recent notes and met with patient in the dayroom. She is remains oriented to month, year and location. Grooming is a unkempt and affect is anx ious and labile. Patient is only superficially oriented to circumstances. Her thought process is sometimes tangential and overinclusive to the point of being illogical though her focus is improved since admission. Patient reports that "everything is good, I am not hallucinating, I am taking my medications" She denies having any new psychiatric concerns but she does have a tendency to minimize her symptoms. Patient is tolerating her medications and denies any new discomfort or pain. I agree with staff, patient is ferrara and thought process remains scattered. She doesn't communicate with other patients or staff unless she needs something. Patient remains intrusive and demanding in this respect. Preoccupied with food. She still requires redirection and repeated limit setting. There were no major behavioral issues overnight Diagnostic Results: Schizoaffective Disorder Polysubstance dependence UDS +cocaine on 01/11/18 Chronic noncompliance Medication Change: No ( ) Medical Record Reviewed: Yes Mental Status Examination - Cognitive Function Orientation: Person, Place, Situation Memory: Impaired Attention: Poor Concentration: Poor Association: Loose Fund of Knowledge: Poor - Mood Mood: Anxious, Euphoric - Affect Affect: Broad (and labile) - Formal Thought Process Formal Thought Process: Delusions (deneid), Paranoia (denied), Loosening of associations - Suicidal Ideation Suicidal Ideation: No - Homicidal Ideation Homicidal Ideation: No Goal/Treatment Plan - Goal/Treatment Plan Need for Continued Stay: Remain at risks for inpatient hospitalization, Severe depression anxiety, Discharge may exacerbated symptoms, Severe functional impairment Progress Toward Problem(s) and Goals/Treatment Plan: * group, milieu and supportive tx * Continue medications: -Depakote DR 500 mg PO AMHS -Seroquel XR 200 mg PO BID -Paxil 10 mg HS for depression and anxiety -Ativan 0.5 mg po AMHS for anxiety and mood control * Nicotine 21 mg/24 hr [Nicoderm Cq] 1 patch TD DAILY for tobacco withdrawal * Vitals reviewed and noted below: Selected Entries 01/17/18 07:19 Temperature 97.8 F Pulse Rate 68 Respiratory 20 Rate Blood Pressure 112/71 ER LABS AND STUDIES BELOW: Please refer to Dr. Owens's ER record 01/11/18 for full results of physical exam and ROS Laboratory Results - last 24 hr 01/11/18 01/11/18 01/11/18 10:00 10:00 10:15 WBC 8.9 RBC 4.31 Hgb 13.7 D Hct 40.3 MCV 93.5 MCH 31.8 MCHC 34.0 RDW 12.8 Plt Count 236 MPV 10.6 Gran % 65.8 Lymph % (Auto) 26.3 [place] % (Auto) 7.0 H Eos % (Auto) 0.6 L Baso % (Auto) 0.3 Gran # 5.88 Lymph # (Auto) 2.4 [place] # (Auto) 0.6 Eos # (Auto) 0.1 Baso # (Auto) 0.03 Sodium Potassium Chloride Carbon Dioxide Anion Gap BUN Creatinine Est GFR ( Amer) Est GFR (Non-Af Amer) Random Glucose Calcium Total Bilirubin AST ALT Alkaline Phosphatase Total Protein Albumin Globulin Albumin/Globulin Ratio Urine Color Yellow Urine Appearance Clear Urine pH 7.0 Ur Specific [place] 1.010 Urine Protein 30 H Urine Glucose (UA) Negative Urine Ketones Negative Urine Blood Small H Urine Nitrate Negative Urine Bilirubin Negative Urine Urobilinogen 0.2 Ur Leukocyte Esterase Negative Urine RBC 1 - 3 Urine WBC 0 - 2 Ur Epithelial Cells 0 - 2 Urine HCG, Qual Negative Salicylates Urine Opiates Screen Negative Urine Methadone Screen Negative Acetaminophen Ur Barbiturates Screen Negative Ur Phencyclidine Scrn Negative Ur Amphetamines Screen Negative U Benzodiazepines Scrn Negative U Oth Cocaine Metabols Positive H U Cannabinoids Screen Negative Alcohol, Quantitative 01/11/18 01/11/18 01/11/18 10:15 10:15 10:15 WBC RBC Hgb Hct MCV MCH MCHC RDW Plt Count MPV Gran % Lymph % (Auto) [place] % (Auto) Eos % (Auto) Baso % (Auto) Gran # Lymph # (Auto) [place] # (Auto) Eos # (Auto) Baso # (Auto) Sodium 137 Potassium 3.4 L Chloride 104 Carbon Dioxide 26 Anion Gap 11 BUN 8 Creatinine 0.7 Est GFR ( Amer) > 60 Est GFR (Non-Af Amer) > 60 Random Glucose 79 Calcium 9.3 Total Bilirubin 0.3 AST 29 ALT 25 Alkaline Phosphatase 55 Total Protein 7.6 Albumin 4.4 Globulin 3.2 Albumin/Globulin Ratio 1.4 Urine Color Urine Appearance Urine pH Ur Specific [place] Urine Protein Urine Glucose (UA) Urine Ketones Urine Blood Urine Nitrate Urine Bilirubin Urine Urobilinogen Ur Leukocyte Esterase Urine RBC Urine WBC Ur Epithelial Cells Urine HCG, Qual Salicylates < 1 L Urine Opiates Screen Urine Methadone Screen Acetaminophen < 10.0 L Ur Barbiturates Screen Ur Phencyclidine Scrn Ur Amphetamines Screen U Benzodiazepines Scrn U Oth Cocaine Metabols U Cannabinoids Screen Alcohol, Quantitative < 10 Report Dates : 01/11/2018 PROCEDURE: CT MAXILLOFACIAL BONES WITHOUT CONTRAST Dictator : Dolly Negron MD IMPRESSION: No acute nasal bone, orbital or maxillofacial fracture. Incompletely imaged and characterized is a cystic nodule in the visualized right thyroid lobe. A dedicated thyroid ultrasound on a nonemergent basis is recommended for further evaluation of the thyroid gland. PROCEDURE: CT HEAD WITHOUT CONTRAST. Dictator : Dolly Negron MD IMPRESSION: No acute intracranial abnormality. EXAM: Chest X-ray Dictator : Dolly Negron MD IMPRESSION: No active pulmonary disease. 01/11/18 10:25 1007: nsr at 71 bpm, nml qrs, nml axis, no acute sttw abn Interpreted by ED Physician: Yes Type: 12 lead EKG Estimated Date of D/C: 01/20/18
--- NOTE | 2018-01-19 00:45 | PN ---
DATE: 01/18/2018 SUBJECTIVE: The patient is 42 years old female. The patient was seen and examined at the bedside on 01/18/2018, looking comfortable. No fever. No chills. No headache. No dizziness. No hematuria. No hematochezia. Sleep is appropriate as per the patient. PHYSICAL EXAMINATION VITAL SIGNS: Temperature 98.6, pulse 74, blood pressure 120/69, and respiratory rate 18 HEENT: Head; normocephalic, atraumatic. Eyes PERRLA. Extraocular muscles intact. Conjunctivae clear. Nose patent. Mucous membrane moist. NECK: Supple. No carotid bruit. No JVD or thyromegaly. CHEST: Bilaterally symmetrical. HEART: S1 and S2 positive. LUNGS: Clear to auscultation. ABDOMEN: Soft. Bowel sounds positive. No organomegaly. EXTREMITIES: No edema. No cyanosis. NEUROLOGICAL: The patient is awake and alert, moving all 4 extremities. No focal deficits. MEDICATIONS: Ativan, Depakote, hydrocortisone, Maalox, Milk of Magnesia, Nicoderm, Paxil, Seroquel, and Tylenol. LABORATORY DATA: We do not have recent labs today, but I reviewed old labs. ASSESSMENT AND PLAN: Ms. Chelsea Aleman is a 42 years old lady with iron deficiency anemia, hypercholesterolemia, proteinuria, hematuria, drug abuse, toxicology positive for cocaine metabolites, trichomonas and gonorrhea negative, history of hepatitis C positive, history of schizoaffective disorder, polysubstance abuse, UDS plus cocaine, chronic noncompliance. Seen by Podiatry, Dr. De Fischer. Psychiatrist is on the case. Gastrointestinal and deep venous thrombosis prophylaxis. Repeat labs. We will follow up. Vira Denton MD MTDWaqar
[2018-01-19] MEDS: Divalproex 500 mg DR(BID formulation) PO SCH ×3 (02:52→21:06)
--- NOTE | 2018-01-19 04:33 | PN ---
DATE: 01/17/2018 SUBJECTIVE: The patient is a 42-year-old female. The patient was seen and examined at the bedside on 01/17/2018, looking comfortable. No fever. No chills. No nausea, vomiting, or diarrhea. No hematuria. No hematochezia. No swelling of the legs. No chest pain. No palpitation. PHYSICAL EXAMINATION: VITAL SIGNS: Temperature 97.8, pulse 68, blood pressure 112/71, and respiratory rate 20. HEENT: Head; normocephalic, atraumatic. Eyes PERRLA. Extraocular muscles intact. Conjunctivae clear. Nose patent. Mucous membrane moist. NECK: Supple. No carotid bruit. No thyromegaly. CHEST: Bilaterally symmetrical. HEART: S1 and S2 positive. LUNGS: Clear to auscultation. ABDOMEN: Soft. Bowel sounds positive. No organomegaly. EXTREMITIES: No edema. No cyanosis. NEUROLOGICAL: The patient is awake and alert, moving all 4 extremities. No focal deficits. MEDICATIONS: Ativan, hydrocortisone, Depakote, Maalox, Milk of Magnesia, Nicoderm patch, Protonix, Seroquel, multivitamins, and Tylenol. LABORATORY DATA: We do not have recent labs today, but I reviewed old labs. ASSESSMENT AND PLAN: Ms. Chelsea Aleman is a 42-year-old female with history of hypokalemia, improved; iron deficiency anemia, hypercholesterolemia, proteinuria, hematuria, drug screening positive for cocaine metabolites, history of hepatitis C positive, hypertension. was seen by the psychiatrist. The patient has mental illness including schizophrenia, depression, schizoaffective disorder. The patient is on psychiatric care, continue present treatment. Gastrointestinal and deep venous thrombosis prophylaxis. Repeat labs. We will follow up. Vira Denton MD Y[facility]IRA
--- NOTE | 2018-01-19 09:05 | PCM.PYCHPN ---
Psychiatric Progress Note - Psychiatric Progress Note Patient seen today, length of contact: 30 minutes Problems Identified/Issues Discussed: I reviewed recent notes and met with patient at bedside. She is remains oriented to month, year and location. Grooming is unkempt and affect is anxious and labile. Patient is only superficially oriented to circumstances. Her thought process remains overinclusive and rambling at times though focus has improved since admission. Patient continues to report that "everything is good, I am not hallucinating, I am taking my medications" She denies having any new psychiatric concerns but she does have a tendency to minimize her symptoms. Patient is tolerating her medications and denies any new discomfort or pain. I agree with staff, patient is ferrara and thought process remains scattered. She doesn't communicate with other patients or staff unless she needs something. Patient remains intrusive and demanding in this respect. Preoccupied with food. She still requires redirection and repeated limit setting. Patient refused her HS medications (depakote and ativan) two nights in a row over the weekend despite encouragement by staff. Diagnostic Results: Schizoaffective Disorder Polysubstance dependence UDS +cocaine on 01/11/18 Chronic noncompliance Medication Change: No ( ) Medical Record Reviewed: Yes Mental Status Examination - Cognitive Function Orientation: Person, Place, Situation Memory: Impaired Attention: Poor Concentration: Poor (improving a little) Association: Loose Fund of Knowledge: Poor - Mood Mood: Anxious, Euphoric - Affect Affect: Broad (and labile) - Formal Thought Process Formal Thought Process: Delusions (deneid), Paranoia (denied), Loosening of associations - Suicidal Ideation Suicidal Ideation: No - Homicidal Ideation Homicidal Ideation: No Goal/Treatment Plan - Goal/Treatment Plan Need for Continued Stay: Remain at risks for inpatient hospitalization, Severe depression anxiety, Discharge may exacerbated symptoms, Severe functional impairment Progress Toward Problem(s) and Goals/Treatment Plan: * group, milieu and supportive tx * Appreciate f/u by Dr. Denton on 01/18/18~no new recommendations, repeat labs * Continue medications: -Depakote DR 500 mg PO AMHS *encourage compliance with meds -Ativan 0.5 mg AMHS for anxiety & mood control *encourage compliance with meds -Seroquel XR 200 mg PO BID -Paxil 10 mg HS for depression and anxiety * Nicotine 21 mg/24 hr [Nicoderm Cq] 1 patch TD DAILY for tobacco withdrawal * Vitals reviewed and noted below: Selected Entries 01/18/18 01/18/18 06:42 15:34 Temperature 98.6 F Pulse Rate 69 74 Respiratory 16 Rate Blood Pressure 131/85 115/69 ER LABS AND STUDIES BELOW: Please refer to Dr. Owens's ER record 01/11/18 for full results of physical exam and ROS Laboratory Results - last 24 hr 01/11/18 01/11/18 01/11/18 10:00 10:00 10:15 WBC 8.9 RBC 4.31 Hgb 13.7 D Hct 40.3 MCV 93.5 MCH 31.8 MCHC 34.0 RDW 12.8 Plt Count 236 MPV 10.6 Gran % 65.8 Lymph % (Auto) 26.3 [place] % (Auto) 7.0 H Eos % (Auto) 0.6 L Baso % (Auto) 0.3 Gran # 5.88 Lymph # (Auto) 2.4 [place] # (Auto) 0.6 Eos # (Auto) 0.1 Baso # (Auto) 0.03 Sodium Potassium Chloride Carbon Dioxide Anion Gap BUN Creatinine Est GFR ( Amer) Est GFR (Non-Af Amer) Random Glucose Calcium Total Bilirubin AST ALT Alkaline Phosphatase Total Protein Albumin Globulin Albumin/Globulin Ratio Urine Color Yellow Urine Appearance Clear Urine pH 7.0 Ur Specific [place] 1.010 Urine Protein 30 H Urine Glucose (UA) Negative Urine Ketones Negative Urine Blood Small H Urine Nitrate Negative Urine Bilirubin Negative Urine Urobilinogen 0.2 Ur Leukocyte Esterase Negative Urine RBC 1 - 3 Urine WBC 0 - 2 Ur Epithelial Cells 0 - 2 Urine HCG, Qual Negative Salicylates Urine Opiates Screen Negative Urine Methadone Screen Negative Acetaminophen Ur Barbiturates Screen Negative Ur Phencyclidine Scrn Negative Ur Amphetamines Screen Negative U Benzodiazepines Scrn Negative U Oth Cocaine Metabols Positive H U Cannabinoids Screen Negative Alcohol, Quantitative 01/11/18 01/11/18 01/11/18 10:15 10:15 10:15 WBC RBC Hgb Hct MCV MCH MCHC RDW Plt Count MPV Gran % Lymph % (Auto) [place] % (Auto) Eos % (Auto) Baso % (Auto) Gran # Lymph # (Auto) [place] # (Auto) Eos # (Auto) Baso # (Auto) Sodium 137 Potassium 3.4 L Chloride 104 Carbon Dioxide 26 Anion Gap 11 BUN 8 Creatinine 0.7 Est GFR ( Amer) > 60 Est GFR (Non-Af Amer) > 60 Random Glucose 79 Calcium 9.3 Total Bilirubin 0.3 AST 29 ALT 25 Alkaline Phosphatase 55 Total Protein 7.6 Albumin 4.4 Globulin 3.2 Albumin/Globulin Ratio 1.4 Urine Color Urine Appearance Urine pH Ur Specific [place] Urine Protein Urine Glucose (UA) Urine Ketones Urine Blood Urine Nitrate Urine Bilirubin Urine Urobilinogen Ur Leukocyte Esterase Urine RBC Urine WBC Ur Epithelial Cells Urine HCG, Qual Salicylates < 1 L Urine Opiates Screen Urine Methadone Screen Acetaminophen < 10.0 L Ur Barbiturates Screen Ur Phencyclidine Scrn Ur Amphetamines Screen U Benzodiazepines Scrn U Oth Cocaine Metabols U Cannabinoids Screen Alcohol, Quantitative < 10 Report Dates : 01/11/2018 PROCEDURE: CT MAXILLOFACIAL BONES WITHOUT CONTRAST Dictator : Dolly Negron MD IMPRESSION: No acute nasal bone, orbital or maxillofacial fracture. Incompletely imaged and characterized is a cystic nodule in the visualized right thyroid lobe. A dedicated thyroid ultrasound on a nonemergent basis is recommended for further evaluation of the thyroid gland. PROCEDURE: CT HEAD WITHOUT CONTRAST. Dictator : Dolly Negron MD IMPRESSION: No acute intracranial abnormality. EXAM: Chest X-ray Dictator : Dolly Negron MD IMPRESSION: No active pulmonary disease. 01/11/18 10:25 1007: nsr at 71 bpm, nml qrs, nml axis, no acute sttw abn Interpreted by ED Physician: Yes Type: 12 lead EKG Estimated Date of D/C: 01/20/18
[2018-01-19] MEDS: Multivitamin Therapeutic Tab PO SCH (09:13)
[2018-01-19] MEDS: QUEtiapine 200 mg XR Tab PO SCH ×2 (09:13→17:46)
[2018-01-19] MEDS: Hydrocerin(120 gm) TOP SCH ×2 (09:16→17:43)
[2018-01-19] MEDS: Hydrocortisone 1% Cream (30 GM) TOP SCH ×2 (09:16→17:43)
--- NOTE | 2018-01-19 21:43 | PN ---
DATE: 01/19/2018 SUBJECTIVE: The patient is a 42-year-old female. The patient was seen and examined at the bedside on 01/19/2018. The patient was resting, Feeling better. Number of complaints are decreasing. No fever. No chills. No hematuria or hematochezia. No swelling of the legs. No chest pain. No palpitation. No headache. No dizziness. PHYSICAL EXAMINATION: VITAL SIGNS: Temperature 98.6, pulse 69, respiratory rate 16 and blood pressure 130/85. HEENT: Head; normocephalic and atraumatic. Eyes; PERRLA. Extraocular muscles intact. Conjunctivae clear. Nose patent. Mucous membrane moist. NECK: Supple. No carotid bruit. No JVD or thyromegaly. CHEST: Bilaterally symmetrical. HEART: S1 and S2 positive. LUNGS: Clear to auscultation. ABDOMEN: Soft. Bowel sounds present. No organomegaly. EXTREMITIES: No edema. No cyanosis. NEUROLOGICAL: The patient is awake and alert, moving all 4 extremities. No focal deficits. MEDICATIONS: Ativan, hydrocortisone, Maalox, Milk of Magnesia, Nicoderm patch, paroxetine, Seroquel, and Tylenol. LABORATORY DATA: We do not have recent labs today, but I reviewed old labs. ASSESSMENT AND PLAN: Ms. Chelsea Aleman is a 42-year-old lady with history of hypokalemia, replaced; iron deficiency; hypercholesterolemia; history of drug abuse; cocaine positive; RPR negative; had multiple admission in the Psych, has schizoaffective disorder, polysubstance dependency especially urine drug screen plus cocaine; chronic noncompliant; history of hepatitis C positive; degenerative joint disease; and chronic pain syndrome. The patient is under the care of psychiatrist, was complaining about feet pain. School Nurse is on the case. Repeat labs. We will follow up. Vira Denton MD MTDWaqar
[2018-01-20] MEDS: QUEtiapine 200 mg XR Tab PO SCH (09:20)
[2018-01-20] MEDS: Multivitamin Therapeutic Tab PO SCH (09:21)
[2018-01-20] MEDS: Divalproex 500 mg DR(BID formulation) PO SCH ×2 (10:06→21:18)
[2018-01-20] MEDS: Hydrocerin(120 gm) TOP SCH ×2 (10:14→17:17)
[2018-01-20] MEDS: Hydrocortisone 1% Cream (30 GM) TOP SCH ×2 (10:15→17:17)
[2018-01-20] MEDS ORDERED: QUEtiapine 300 mg XR Tab PO SCH (12:06)
--- NOTE | 2018-01-20 13:49 | PCM.BM ---
<Gina Castillo Y - Last Filed: 01/20/18 13:49> Treatment Plan Problems - Problems identified on initial assessmt AUDITORY HALLUCINATIONS Date Initiated: 01/11/18 Time Initiated: 17:09 Assessment reference: HP, NA, Other Status: Active DRUG ABUSE Date Initiated: 01/11/18 (COCAINE POSITIVE) Time Initiated: 17:10 Assessment reference: HP, NA, Other MEDS NON COMPLIANCE Date Initiated: 01/11/18 Time Initiated: 17:11 Assessment reference: HP, NA, Other Status: Active Treatment assets and liabiliti Patient Assests: adapts well, cooperative, ADL independent, negotiates basic nee ds Patient Liabilities: live alone, financial problems, poor support system, relationship conflicts, substance abuse - Milieu Protocol Maintain good personal hygiene: daily Encourage regular showers, daily Remind patient to perform daily oral care, daily Assist patient to perform ADL's Maintain personal safety: daily Educate patient to report safety concerns to staff, daily Monitor environment for contraband/sharps Medication safety: Monitor for expected outcome, potential side effects: daily, Assess barriers to learning: daily, Assess readiness for medication education: daily Milieu Narrative: * group, milieu and supportive tx * Appreciate f/u by Dr. Denton on 01/18/18~no new recommendations, repeat labs * Continue medications: -Depakote DR 500 mg PO AMHS *encourage compliance with meds -Ativan 0.5 mg AMHS for anxiety & mood control *encourage compliance with meds -Seroquel XR 200 mg PO BID -Paxil 10 mg HS for depression and anxiety * Nicotine 21 mg/24 hr [Nicoderm Cq] 1 patch TD DAILY for tobacco withdrawal * Vitals reviewed and noted below: Selected Entries 01/18/18 01/18/18 06:42 15:34 Temperature 98.6 F Pulse Rate 69 74 Respiratory 16 Rate Blood Pressure 131/85 115/69 ER LABS AND STUDIES BELOW: Please refer to Dr. Owens's ER record 01/11/18 for full results of physical exam and ROS Laboratory Results - last 24 hr 01/11/18 01/11/18 01/11/18 10:00 10:00 10:15 WBC 8.9 RBC 4.31 Hgb 13.7 D Hct 40.3 MCV 93.5 MCH 31.8 MCHC 34.0 RDW 12.8 Plt Count 236 MPV 10.6 Gran % 65.8 Lymph % (Auto) 26.3 [place] % (Auto) 7.0 H Eos % (Auto) 0.6 L Baso % (Auto) 0.3 Gran # 5.88 Lymph # (Auto) 2.4 [place] # (Auto) 0.6 Eos # (Auto) 0.1 Baso # (Auto) 0.03 Sodium Potassium Chloride Carbon Dioxide Anion Gap BUN Creatinine Est GFR ( Amer) Est GFR (Non-Af Amer) Random Glucose Calcium Total Bilirubin AST ALT Alkaline Phosphatase Total Protein Albumin Globulin Albumin/Globulin Ratio Urine Color Yellow Urine Appearance Clear Urine pH 7.0 Ur Specific [place] 1.010 Urine Protein 30 H Urine Glucose (UA) Negative Urine Ketones Negative Urine Blood Small H Urine Nitrate Negative Urine Bilirubin Negative Urine Urobilinogen 0.2 Ur Leukocyte Esterase Negative Urine RBC 1 - 3 Urine WBC 0 - 2 Ur Epithelial Cells 0 - 2 Urine HCG, Qual Negative Salicylates Urine Opiates Screen Negative Urine Methadone Screen Negative Acetaminophen Ur Barbiturates Screen Negative Ur Phencyclidine Scrn Negative Ur Amphetamines Screen Negative U Benzodiazepines Scrn Negative U Oth Cocaine Metabols Positive H U Cannabinoids Screen Negative Alcohol, Quantitative 01/11/18 01/11/18 01/11/18 10:15 10:15 10:15 WBC RBC Hgb Hct MCV MCH MCHC RDW Plt Count MPV Gran % Lymph % (Auto) [place] % (Auto) Eos % (Auto) Baso % (Auto) Gran # Lymph # (Auto) [place] # (Auto) Eos # (Auto) Baso # (Auto) Sodium 137 Potassium 3.4 L Chloride 104 Carbon Dioxide 26 Anion Gap 11 BUN 8 Creatinine 0.7 Est GFR ( Amer) > 60 Est GFR (Non-Af Amer) > 60 Random Glucose 79 Calcium 9.3 Total Bilirubin 0.3 AST 29 ALT 25 Alkaline Phosphatase 55 Total Protein 7.6 Albumin 4.4 Globulin 3.2 Albumin/Globulin Ratio 1.4 Urine Color Urine Appearance Urine pH Ur Specific [place] Urine Protein Urine Glucose (UA) Urine Ketones Urine Blood Urine Nitrate Urine Bilirubin Urine Urobilinogen Ur Leukocyte Esterase Urine RBC Urine WBC Ur Epithelial Cells Urine HCG, Qual Salicylates < 1 L Urine Opiates Screen Urine Methadone Screen Acetaminophen < 10.0 L Ur Barbiturates Screen Ur Phencyclidine Scrn Ur Amphetamines Screen U Benzodiazepines Scrn U Oth Cocaine Metabols U Cannabinoids Screen Alcohol, Quantitative < 10 Report Dates : 01/11/2018 PROCEDURE: CT MAXILLOFACIAL BONES WITHOUT CONTRAST Dictator : Dolly Negron MD IMPRESSION: No acute nasal bone, orbital or maxillofacial fracture. Incompletely imaged and characterized is a cystic nodule in the visualized right thyroid lobe. A dedicated thyroid ultrasound on a nonemergent basis is recommended for further evaluation of the thyroid gland. PROCEDURE: CT HEAD WITHOUT CONTRAST. Dictator : Dolly Negron MD IMPRESSION: No acute intracranial abnormality. EXAM: Chest X-ray Dictator : Dolly Negron MD IMPRESSION: No active pulmonary disease. 01/11/18 10:25 1007: nsr at 71 bpm, nml qrs, nml axis, no acute sttw abn Interpreted by ED Physician: Yes Type: 12 lead EKG Family Contact Family involvement: Famliy/SO not involved - Goals for Treatment Patient goals for treatment: "I want to go to rehab." Discharge/Continuing Care - Education Needs Education Needs: Patient Medication, Patient Diagnosis/Disease Process, Patient Coping Skills, Patient Anger Management skills, Patient Placement options, Patient Community resources, Patient Activities of Daily Living, Patient Health Practices/Safety, Patient Personal Hygiene/Grooming, Patient Aftercare Safety Plan - Discharge Discharge Criteria: Free of Suicidal thoughts, Free of Homicidal thoughts, Free of paranoid thoughts, Ability to care for self - Treatment Team Participation Patient/Family/SO Statement: * group, milieu and supportive tx * Appreciate f/u by Dr. Denton on 01/18/18~no new recommendations, repeat labs * Continue medications: -Depakote DR 500 mg PO AMHS *encourage compliance with meds -Ativan 0.5 mg AMHS for anxiety & mood control *encourage compliance with meds -Seroquel XR 200 mg PO BID -Paxil 10 mg HS for depression and anxiety * Nicotine 21 mg/24 hr [Nicoderm Cq] 1 patch TD DAILY for tobacco withdrawal * Vitals reviewed and noted below: Selected Entries 01/18/18 01/18/18 06:42 15:34 Temperature 98.6 F Pulse Rate 69 74 Respiratory 16 Rate Blood Pressure 131/85 115/69 ER LABS AND STUDIES BELOW: Please refer to Dr. Owens's ER record 01/11/18 for full results of physical exam and ROS Laboratory Results - last 24 hr 01/11/18 01/11/18 01/11/18 10:00 10:00 10:15 WBC 8.9 RBC 4.31 Hgb 13.7 D Hct 40.3 MCV 93.5 MCH 31.8 MCHC 34.0 RDW 12.8 Plt Count 236 MPV 10.6 Gran % 65.8 Lymph % (Auto) 26.3 [place] % (Auto) 7.0 H Eos % (Auto) 0.6 L Baso % (Auto) 0.3 Gran # 5.88 Lymph # (Auto) 2.4 [place] # (Auto) 0.6 Eos # (Auto) 0.1 Baso # (Auto) 0.03 Sodium Potassium Chloride Carbon Dioxide Anion Gap BUN Creatinine Est GFR ( Amer) Est GFR (Non-Af Amer) Random Glucose Calcium Total Bilirubin AST ALT Alkaline Phosphatase Total Protein Albumin Globulin Albumin/Globulin Ratio Urine Color Yellow Urine Appearance Clear Urine pH 7.0 Ur Specific [place] 1.010 Urine Protein 30 H Urine Glucose (UA) Negative Urine Ketones Negative Urine Blood Small H Urine Nitrate Negative Urine Bilirubin Negative Urine Urobilinogen 0.2 Ur Leukocyte Esterase Negative Urine RBC 1 - 3 Urine WBC 0 - 2 Ur Epithelial Cells 0 - 2 Urine HCG, Qual Negative Salicylates Urine Opiates Screen Negative Urine Methadone Screen Negative Acetaminophen Ur Barbiturates Screen Negative Ur Phencyclidine Scrn Negative Ur Amphetamines Screen Negative U Benzodiazepines Scrn Negative U Oth Cocaine Metabols Positive H U Cannabinoids Screen Negative Alcohol, Quantitative 01/11/18 01/11/18 01/11/18 10:15 10:15 10:15 WBC RBC Hgb Hct MCV MCH MCHC RDW Plt Count MPV Gran % Lymph % (Auto) [place] % (Auto) Eos % (Auto) Baso % (Auto) Gran # Lymph # (Auto) [place] # (Auto) Eos # (Auto) Baso # (Auto) Sodium 137 Potassium 3.4 L Chloride 104 Carbon Dioxide 26 Anion Gap 11 BUN 8 Creatinine 0.7 Est GFR ( Amer) > 60 Est GFR (Non-Af Amer) > 60 Random Glucose 79 Calcium 9.3 Total Bilirubin 0.3 AST 29 ALT 25 Alkaline Phosphatase 55 Total Protein 7.6 Albumin 4.4 Globulin 3.2 Albumin/Globulin Ratio 1.4 Urine Color Urine Appearance Urine pH Ur Specific [place] Urine Protein Urine Glucose (UA) Urine Ketones Urine Blood Urine Nitrate Urine Bilirubin Urine Urobilinogen Ur Leukocyte Esterase Urine RBC Urine WBC Ur Epithelial Cells Urine HCG, Qual Salicylates < 1 L Urine Opiates Screen Urine Methadone Screen Acetaminophen < 10.0 L Ur Barbiturates Screen Ur Phencyclidine Scrn Ur Amphetamines Screen U Benzodiazepines Scrn U Oth Cocaine Metabols U Cannabinoids Screen Alcohol, Quantitative < 10 Report Dates : 01/11/2018 PROCEDURE: CT MAXILLOFACIAL BONES WITHOUT CONTRAST Dictator : Dolly Negron MD IMPRESSION: No acute nasal bone, orbital or maxillofacial fracture. Incompletely imaged and characterized is a cystic nodule in the visualized right thyroid lobe. A dedicated thyroid ultrasound on a nonemergent basis is recommended for further evaluation of the thyroid gland. PROCEDURE: CT HEAD WITHOUT CONTRAST. Dictator : Dolly Negron MD IMPRESSION: No acute intracranial abnormality. EXAM: Chest X-ray Dictator : Dolly Negron MD IMPRESSION: No active pulmonary disease. 01/11/18 10:25 1007: nsr at 71 bpm, nml qrs, nml axis, no acute sttw abn Interpreted by ED Physician: Yes Type: 12 lead EKG Treatment Plan Review - Problem AUDITORY HALLUCINATIONS Time Initiated: 17:09 DRUG ABUSE Time Initiated: 17:10 MEDS NON COMPLIANCE Time Initiated: 17:11 <Laureen Fajardo - Last Filed: 01/21/18 13:51> - Diagnosis (1) Schizoaffective disorder Status: Acute Interventions: group, milieu and supportive tx Depakote We'll check Depakote level Seroquel Paxil Ativan Nicotine 21 mg/24 hr [Nicoderm Cq] patient still disorganized, but not agitated or aggressive tolerates medications well, no side effects observed or reported Patient denied thoughts of harming herself or others 01/20/18 15:42 (2) Substance abuse Status: Chronic Interventions: 01/20/18 15:42 patient is willing to go to inpatient rehabilitation but pt got rejected pt will be followed up by dual diagnosis program
--- NOTE | 2018-01-20 15:48 | PCM.PYCHPN ---
Psychiatric Progress Note - Psychiatric Progress Note Patient seen today, length of contact: 30 minutes Patient Chief Complaint: "Dr. Garduno, please discharge me on multivitamins because I feel much better..." Problems Identified/Issues Discussed: Suicide/ homicide prevention, past psychiatric h/o, current psychiatric symptoms, medical problems, risk/benefits and alternatives of medications, medications compliance, coping strategies, substance abuse h/o, relapse prevention, importance of follow up with psychiatrist and therapist, discharge plan. Medical Problems: please see Dr. Denton notes for more detailed information Diagnostic Results: 01/11/18 10:15 01/11/18 10:15 Lab Results 01/11/18 10:15: Alcohol, Quantitative < 10 01/11/18 10:15: Salicylates < 1 L, Acetaminophen < 10.0 L 01/11/18 10:15: Sodium 137, Potassium 3.4 L, Chloride 104, Carbon Dioxide 26, Anion Gap 11, BUN 8, Creatinine 0.7, Est GFR ( Amer) > 60, Est GFR (Non- Af Amer) > 60, Random Glucose 79, Calcium 9.3, Total Bilirubin 0.3, AST 29, ALT 25, Alkaline Phosphatase 55, Total Protein 7.6, Albumin 4.4, Globulin 3.2, Albumin/Globulin Ratio 1.4 01/11/18 10:15: WBC 8.9, RBC 4.31, Hgb 13.7 D, Hct 40.3, MCV 93.5, MCH 31.8, MCHC 34.0, RDW 12.8, Plt Count 236, MPV 10.6, Gran % 65.8, Lymph % (Auto) 26.3, [place] % (Auto) 7.0 H, Eos % (Auto) 0.6 L, Baso % (Auto) 0.3, Gran # 5.88, Lymph # (Auto) 2.4, [place] # (Auto) 0.6, Eos # (Auto) 0.1, Baso # (Auto) 0.03 01/11/18 10:00: Urine Opiates Screen Negative, Urine Methadone Screen Negative, Ur Barbiturates Screen Negative, Ur Phencyclidine Scrn Negative, Ur Amphetamines Screen Negative, U Benzodiazepines Scrn Negative, U Oth Cocaine Metabols Positive H, U Cannabinoids Screen Negative 01/11/18 10:00: Urine Color Yellow, Urine Appearance Clear, Urine pH 7.0, Ur Specific [place] 1.010, Urine Protein 30 H, Urine Glucose (UA) Negative, Urine Ketones Negative, Urine Blood Small H, Urine Nitrate Negative, Urine Bilirubin Negative, Urine Urobilinogen 0.2, Ur Leukocyte Esterase Negative, Urine RBC 1 - 3, Urine WBC 0 - 2, Ur Epithelial Cells 0 - 2, Urine HCG, Qual Negative Vital Signs Temp Pulse Pulse Resp BP Pulse Ox 01/12/18 16:24 62 114/64 01/11/18 15:32 70 18 01/11/18 14:14 98 F 58 L 18 110/72 98 01/11/18 12:41 97.9 F 74 18 108/76 100 01/11/18 09:43 98.4 F 75 18 129/79 100 Temp Pulse Resp BP Pulse Ox 98.6 F 74 16 115/69 98 01/18/18 06:42 01/18/18 15:34 01/18/18 06:42 01/18/18 15:34 01/11/18 14:14 DSM 5 Symptoms Update: Pt is a 42 year old female with long h/o mental illness [dx include schizophrenia, depression, schizoaffective disorder] and substance abuse [UDS +cocaine], multiple psychiatric admissions, most recently at [facility] [place] 10/14/17-10/17/17 and 08/31/17-09/09/17, chronic noncompliance with f/u appts and medications who brought herself for treatment of depression and SI indicating that she ingested a "whole bunch of meds" including nyquil, sleeping pills, PCP, MJA and alcohol prior to coming to the ER. Patient also reported that she has been doing "all types of sexual things" with multiple partners and requested treatment for STI. patient was seen and examined today at the treatment team meeting, patient presented to be Less disorganized, personal hygiene is fall from being ideal, patient was keep asking to discharge her on multivitamins, "because I was feeling weak, now I feel better". keep asking the same question all over and over again. but patient is not agitated, not aggressive. Patient still wants to be transferred to inpatient rehabilitation. discussed with medical team, input appreciated 01/16/18, no need abx for uti or std? pt's insight and judgment are slowly improving. patient tolerates medications well, no side effects observed or reported, aims 0, no EPS. Impression: As per history of schizoaffective disorder Polysubstance abuse and dependence Medication Change: Yes (Seroquel increase, Paxil discontinued) Medical Record Reviewed: Yes Consults ordered or reviewed: Dr. Denton's consultation appreciated Mental Status Examination - Cognitive Function Orientation: Person, Place, Situation Memory: Impaired Attention: Poor (some improvement) Concentration: Poor (improving a little) Association: Loose Fund of Knowledge: Poor - Mood Mood: Anxious, Euphoric - Affect Affect: Broad (and labile) - Formal Thought Process Formal Thought Process: Delusions (deneid), Paranoia (denied), Loosening of associations - Suicidal Ideation Suicidal Ideation: No - Homicidal Ideation Homicidal Ideation: No Goal/Treatment Plan - Goal/Treatment Plan Need for Continued Stay: Remain at risks for inpatient hospitalization, Severe depression anxiety, Discharge may exacerbated symptoms, Severe functional impairment Progress Toward Problem(s) and Goals/Treatment Plan: group, milieu and supportive ananda Petty DR 500 mg PO AMHS for mood stabilization Seroquel 200 mg PO a.m. and 300 mg at at bedtime Paxil discontinued because patient does not present to be depressed Ativan 0.5 mg po AMHS for anxiety and mood control Nicotine 21 mg/24 hr [Nicoderm Cq] 1 patch TD DAILY for tobacco withdrawal SW consultation for discharge plan and social issues Family involvement Follow up on labs Will monitor closely Pt was educated about risk/benefits and alternatives of medications, coping strategies (safety plan, suicide prevention), relapse prevention, importance of follow up with psychiatrist and therapist, stay away from drugs/alcohol/smoking Estimated Date of D/C: 01/22/18
--- NOTE | 2018-01-21 04:35 | PN ---
DATE: 01/20/2018 SUBJECTIVE: The patient seen and examined at bedside on 01/20/2018, looking comfortable, more awake and alert, walking around while seen in her activity room. PHYSICAL EXAMINATION: VITAL SIGNS: Reviewed by me. Stable. HEENT: Head; normocephalic and atraumatic. Eyes; PERRLA. Extraocular muscles intact. Conjunctivae clear. Nose patent. Mucous membrane moist. NECK: Supple. No carotid bruit, JVD or thyromegaly. CHEST: Bilaterally symmetrical. HEART: S1 and S2 positive. LUNGS: Clear to auscultation. ABDOMEN: Soft. Bowel sounds positive. No organomegaly. EXTREMITIES: No edema. No cyanosis. NEUROLOGIC: The patient is awake and alert, moving all 4 extremities. No focal deficits. LABORATORY DATA: White blood cells 8.9, hemoglobin 13.7, hematocrit 40.3 and platelets 236,000. Sodium 137, potassium 3.4, BUN 8, creatinine 0.7 and glucose 79. MEDICATIONS: Reviewed by me. ASSESSMENT AND PLAN: Ms. Chelsea Aleman 42 years old lady with history of hypokalemia, history of chronic pain syndrome, gastroesophageal reflux disease, dyspepsia, substance abuse, schizophrenia, depression, schizoaffective disorder, chronic noncompliant, has been having multiple complaints, has multiple admissions for suicidal and homicidal ideas and plans. The patient tolerated medicines very well. The patient has schizoaffective disorders. Gastrointestinal and deep venous thrombosis prophylaxes. Repeat labs. We will follow up. Vira Denton MD
[2018-01-21] MEDS: Divalproex 500 mg DR(BID formulation) PO SCH ×3 (08:42→21:16)
[2018-01-21] MEDS: QUEtiapine 200 mg XR Tab PO SCH (08:42)
[2018-01-21] MEDS: Multivitamin Therapeutic Tab PO SCH (08:42)
[2018-01-21] MEDS: Hydrocerin(120 gm) TOP SCH ×2 (08:44→17:25)
[2018-01-21] MEDS: Hydrocortisone 1% Cream (30 GM) TOP SCH ×2 (09:01→17:25)
[2018-01-21] MEDS ORDERED: QUEtiapine 200 mg XR Tab PO SCH (13:54)
--- NOTE | 2018-01-21 13:58 | PCM.PYCHPN ---
Psychiatric Progress Note - Psychiatric Progress Note Patient seen today, length of contact: 30 minutes Patient Chief Complaint: "I want to help her to cook...." Problems Identified/Issues Discussed: Suicide/ homicide prevention, past psychiatric h/o, current psychiatric sy mptoms, medical problems, risk/benefits and alternatives of medications, medications compliance, coping strategies, substance abuse h/o, relapse prevention, importance of follow up with psychiatrist and therapist, discharge plan. Medical Problems: please see Dr. Denton notes for more detailed information Diagnostic Results: 01/11/18 10:15 01/11/18 10:15 Lab Results 01/11/18 10:15: Alcohol, Quantitative < 10 01/11/18 10:15: Salicylates < 1 L, Acetaminophen < 10.0 L 01/11/18 10:15: Sodium 137, Potassium 3.4 L, Chloride 104, Carbon Dioxide 26, Anion Gap 11, BUN 8, Creatinine 0.7, Est GFR ( Amer) > 60, Est GFR (Non- Af Amer) > 60, Random Glucose 79, Calcium 9.3, Total Bilirubin 0.3, AST 29, ALT 25, Alkaline Phosphatase 55, Total Protein 7.6, Albumin 4.4, Globulin 3.2, Albumin/Globulin Ratio 1.4 01/11/18 10:15: WBC 8.9, RBC 4.31, Hgb 13.7 D, Hct 40.3, MCV 93.5, MCH 31.8, MCHC 34.0, RDW 12.8, Plt Count 236, MPV 10.6, Gran % 65.8, Lymph % (Auto) 26.3, [place] % (Auto) 7.0 H, Eos % (Auto) 0.6 L, Baso % (Auto) 0.3, Gran # 5.88, Lymph # (Auto) 2.4, [place] # (Auto) 0.6, Eos # (Auto) 0.1, Baso # (Auto) 0.03 01/11/18 10:00: Urine Opiates Screen Negative, Urine Methadone Screen Negative, Ur Barbiturates Screen Negative, Ur Phencyclidine Scrn Negative, Ur Amphetamines Screen Negative, U Benzodiazepines Scrn Negative, U Oth Cocaine Metabols Positive H, U Cannabinoids Screen Negative 01/11/18 10:00: Urine Color Yellow, Urine Appearance Clear, Urine pH 7.0, Ur Specific [place] 1.010, Urine Protein 30 H, Urine Glucose (UA) Negative, Urine Ketones Negative, Urine Blood Small H, Urine Nitrate Negative, Urine Bilirubin Negative, Urine Urobilinogen 0.2, Ur Leukocyte Esterase Negative, Urine RBC 1 - 3, Urine WBC 0 - 2, Ur Epithelial Cells 0 - 2, Urine HCG, Qual Negative Vital Signs Temp Pulse Pulse Resp BP Pulse Ox 01/12/18 16:24 62 114/64 01/11/18 15:32 70 18 01/11/18 14:14 98 F 58 L 18 110/72 98 01/11/18 12:41 97.9 F 74 18 108/76 100 01/11/18 09:43 98.4 F 75 18 129/79 100 Temp Pulse Resp BP Pulse Ox 98.6 F 74 16 115/69 98 01/18/18 06:42 01/18/18 15:34 01/18/18 06:42 01/18/18 15:34 01/11/18 14:14 Laboratory Results - last 72 hr 01/20/18 10:00 Valproic Acid 30 L DSM 5 Symptoms Update: Pt is a 42 year old female with long h/o mental illness [dx include schizophrenia, depression, schizoaffective disorder] and substance abuse [UDS +cocaine], multiple psychiatric admissions, most recently at [facility] [place] 10/14/17-10/17/17 and 08/31/17-09/09/17, chronic noncompliance with f/u appts and medications who brought herself for treatment of depression and SI indicating that she ingested a "whole bunch of meds" including nyquil, sleeping pills, PCP, MJA and alcohol prior to coming to the ER. Patient also reported that she has been doing "all types of sexual things" with multiple partners and requested treatment for STI. patient was seen and examined today in her room, pt presented to be disheveled, malodorous, staying in bed all day long. pt was not accepted to the rehab, pt wants to be discharged because "I wan to help cooking to her", when was asked who is "her", pt had no answer. overall pt presented to be Less disorganized but irrational, impulses are unpredictable. discussed with medical team, input appreciated 01/16/18, no need abx for uti or std? pt's insight and judgment are slowly improving. patient tolerates medications well, no side effects observed or reported, aims 0, no EPS. Impression: As per history of schizoaffective disorder Polysubstance abuse and dependence Medication Change: Yes (Seroquel increase, Paxil discontinued) Medical Record Reviewed: Yes Consults ordered or reviewed: Dr. Denton's consultation appreciated Mental Status Examination - Cognitive Function Orientation: Person, Place, Situation Memory: Impaired Attention: Poor (some improvement) Concentration: Poor (improving a little) Association: Loose Fund of Knowledge: Poor - Mood Mood: Anxious, Euphoric - Affect Affect: Broad (and labile) - Formal Thought Process Formal Thought Process: Delusions (deneid), Paranoia (denied), Loosening of associations, Circumstantial - Suicidal Ideation Suicidal Ideation: No - Homicidal Ideation Homicidal Ideation: No Goal/Treatment Plan - Goal/Treatment Plan Need for Continued Stay: Remain at risks for inpatient hospitalization, Severe depression anxiety, Discharge may exacerbated symptoms, Severe functional impairment Progress Toward Problem(s) and Goals/Treatment Plan: group, milieu and supportive ananda Petty DR 500 mg PO AMHS for mood stabilization valproic acid was 30 01/21/18 Seroquel 300 mg PO a.m. and 300 mg at at bedtime Paxil discontinued because patient does not present to be depressed Ativan 0.5 mg po AMHS for anxiety and mood control Nicotine 21 mg/24 hr [Nicoderm Cq] 1 patch TD DAILY for tobacco withdrawal SW consultation for discharge plan and social issues Family involvement Follow up on labs Will monitor closely Pt was educated about risk/benefits and alternatives of medications, coping strategies (safety plan, suicide prevention), relapse prevention, importance of follow up with psychiatrist and therapist, stay away from drugs/alcohol/smoking Estimated Date of D/C: 01/24/18
[2018-01-21] MEDS ORDERED: QUEtiapine 200 mg XR Tab PO ONE (14:15)
[2018-01-21] MEDS ORDERED: QUEtiapine 50 mg XR Tab PO ONE (14:15)
[2018-01-21] MEDS: QUEtiapine 300 mg XR Tab PO SCH (17:24)
--- NOTE | 2018-01-22 00:37 | PN ---
DATE: 01/21/2018 SUBJECTIVE: The patient is a 42-year-old female. The patient was seen and examined at the bedside, looking comfortable, little bit better. No fever. No chills. No nausea, vomiting, or diarrhea. No hematuria. No hematochezia. No swelling of the legs. No chest pain or palpitation. No headache. No dizziness. PHYSICAL EXAMINATION: VITAL SIGNS: Temperature 98.6, pulse 85, blood pressure 120/75, and respiratory rate 18 . HEENT: Head; normocephalic and atraumatic. Eyes; PERRLA. Extraocular muscles intact. Conjunctivae clear. Nose patent. Mucous membrane moist. NECK: Supple. No carotid bruit, JVD or thyromegaly. CHEST: Bilaterally symmetrical. HEART: S1 and S2 positive. LUNGS: Clear to auscultation. ABDOMEN: Soft. Bowel sounds present. No organomegaly. EXTREMITIES: No edema. No cyanosis. NEUROLOGIC: The patient is awake and alert, moving all 4 extremities. No focal deficits. MEDICATIONS: Ativan, hydrocortisone cream, Depakote, Maalox, Milk of Magnesia, Nicoderm patch, Seroquel, Tylenol. LABORATORY DATA: Actually, I ordered the labs yesterday, but we will do basic metabolic and CBC and RPR tomorrow. ASSESSMENT AND PLAN: The patient has multiple psych problems, history of bipolar, multiple psych admission, cocaine abuse, and cocaine metabolites are in her drug screening. The patient has schizoaffective disorder, polysubstance abuse and dependency. The patient is on Seroquel and Paxil discontinued. History of gastroesophageal reflux disease, dyspepsia. Gastrointestinal and deep venous thrombosis prophylaxes. Repeat labs. We will follow up Vira Denton MD YADIR[facility]
[2018-01-22 07:48] LABS: HEMOGLOBIN 12.3 g/dL (12.0-16.0); MEAN CELL VOLUME 93.7 fl (80.0-105.0); MEAN CORPUSCULAR HEMOGLOBIN 30.8 pg (25.0-35.0); MEAN CORPUSCULAR HGB CONC 32.9 g/dl (31.0-37.0); MEAN PLATELET VOLUME 11.2 fl (7.0-11.0); RBC 3.99 10^6/uL (3.5-6.1); RED CELL DISTRIBUTION WIDTH 12.7 % (11.5-14.5); WHITE BLOOD COUNT 6.2 10^3/uL (4.5-11.0)
[2018-01-22] MEDS ORDERED: QUEtiapine 50 mg XR Tab PO SCH (08:00)
[2018-01-22] MEDS ORDERED: QUEtiapine 200 mg XR Tab PO SCH (08:00)
[2018-01-22 08:02] LABS: BLOOD UREA NITROGEN 16 mg/dL (7-21); GFR NON-AFRICAN AMERICAN > 60
[2018-01-22] MEDS: Divalproex 500 mg DR(BID formulation) PO SCH ×2 (09:44→22:23)
[2018-01-22] MEDS: Multivitamin Therapeutic Tab PO SCH (09:44)
[2018-01-22] MEDS: QUEtiapine 300 mg XR Tab PO SCH ×2 (09:44→16:04)
[2018-01-22] MEDS: Hydrocortisone 1% Cream (30 GM) TOP SCH ×2 (09:45→15:59)
[2018-01-22] MEDS: Hydrocerin(120 gm) TOP SCH ×2 (09:46→15:58)
--- NOTE | 2018-01-22 10:12 | PCM.PYCHPN ---
Psychiatric Progress Note - Psychiatric Progress Note Patient seen today, length of contact: 30 minutes Problems Identified/Issues Discussed: I reviewed recent notes and met with patient at bedside. She is remains oriented to month, year and location. Patient appears to be paying more attention to her hygiene and grooming on the unit. Affect still remains anxious and labile though focus and organization are improving. Patient continues to report that "everything is good, I am not hallucinating, I am taking my medications". She denies having any new psychiatric concerns but she does have a tendency to minimize her symptoms. Appears less elevated and less scattered but still impulsive and repetitive during 1:1. Still requires redirection and repeated limit setting. Patient is tolerating her medications and denies any new discomfort or pain. Staff indicate that patient seems to be improving, more organized and can tolerate being around others patients without much disturbance. Diagnostic Results: Schizoaffective Disorder Polysubstance dependence UDS +cocaine on 01/11/18 Chronic noncompliance Medication Change: Yes (Seroquel increase, Paxil discontinued) Medical Record Reviewed: Yes Mental Status Examination - Cognitive Function Orientation: Person, Place, Situation Memory: Impaired Attention: Poor (some improvement) Concentration: Poor (improving a little) Association: Loose Fund of Knowledge: Poor - Mood Mood: Anxious, Euphoric - Affect Affect: Broad (and labile, +impulsivity) - Speech Speech: Appropriate - Formal Thought Process Formal Thought Process: Delusions (deneid), Paranoia (denied), Loosening of associations (more organized), Circumstantial - Suicidal Ideation Suicidal Ideation: No - Homicidal Ideation Homicidal Ideation: No Goal/Treatment Plan - Goal/Treatment Plan Need for Continued Stay: Remain at risks for inpatient hospitalization, Severe depression anxiety, Discharge may exacerbated symptoms, Severe functional impairment Progress Toward Problem(s) and Goals/Treatment Plan: * group, milieu and supportive tx * Appreciate f/u by Dr. Denton on 01/21/18 * Continue medications: -Depakote DR 500 mg PO AMHS, 01/20/18 VPA=30 -Ativan 0.5 mg AMHS for anxiety & mood control -Seroquel XR 300 mg PO BID * Nicotine 21 mg/24 hr [Nicoderm Cq] 1 patch TD DAILY for tobacco withdrawal * Vitals reviewed and noted below: Selected Entries 11/17/18 11/17/18 11/20/18 06:42 15:34 16:00 Temperature 98.6 F Pulse Rate 69 74 84 Respiratory 16 Rate Blood Pressure 131/85 115/69 120/75 RECENT FLOOR LABS NOTED BELOW: Laboratory Results - last 24 hr 01/22/18 01/22/18 07:30 07:30 WBC 6.2 D RBC 3.99 Hgb 12.3 Hct 37.4 MCV 93.7 MCH 30.8 MCHC 32.9 RDW 12.7 Plt Count 159 MPV 11.2 H Sodium 138 Potassium 4.0 Chloride 105 Carbon Dioxide 28 Anion Gap 8 L BUN 16 Creatinine 0.8 Est GFR ( Amer) > 60 Est GFR (Non-Af Amer) > 60 Random Glucose 79 Calcium 9.0 ER LABS AND STUDIES BELOW: Please refer to Dr. Owens's ER record 01/11/18 for full results of physical exam and ROS Laboratory Results - last 24 hr 01/11/18 01/11/18 01/11/18 10:00 10:00 10:15 WBC 8.9 RBC 4.31 Hgb 13.7 D Hct 40.3 MCV 93.5 MCH 31.8 MCHC 34.0 RDW 12.8 Plt Count 236 MPV 10.6 Gran % 65.8 Lymph % (Auto) 26.3 [place] % (Auto) 7.0 H Eos % (Auto) 0.6 L Baso % (Auto) 0.3 Gran # 5.88 Lymph # (Auto) 2.4 [place] # (Auto) 0.6 Eos # (Auto) 0.1 Baso # (Auto) 0.03 Sodium Potassium Chloride Carbon Dioxide Anion Gap BUN Creatinine Est GFR ( Amer) Est GFR (Non-Af Amer) Random Glucose Calcium Total Bilirubin AST ALT Alkaline Phosphatase Total Protein Albumin Globulin Albumin/Globulin Ratio Urine Color Yellow Urine Appearance Clear Urine pH 7.0 Ur Specific [place] 1.010 Urine Protein 30 H Urine Glucose (UA) Negative Urine Ketones Negative Urine Blood Small H Urine Nitrate Negative Urine Bilirubin Negative Urine Urobilinogen 0.2 Ur Leukocyte Esterase Negative Urine RBC 1 - 3 Urine WBC 0 - 2 Ur Epithelial Cells 0 - 2 Urine HCG, Qual Negative Salicylates Urine Opiates Screen Negative Urine Methadone Screen Negative Acetaminophen Ur Barbiturates Screen Negative Ur Phencyclidine Scrn Negative Ur Amphetamines Screen Negative U Benzodiazepines Scrn Negative U Oth Cocaine Metabols Positive H U Cannabinoids Screen Negative Alcohol, Quantitative 01/11/18 01/11/18 01/11/18 10:15 10:15 10:15 WBC RBC Hgb Hct MCV MCH MCHC RDW Plt Count MPV Gran % Lymph % (Auto) [place] % (Auto) Eos % (Auto) Baso % (Auto) Gran # Lymph # (Auto) [place] # (Auto) Eos # (Auto) Baso # (Auto) Sodium 137 Potassium 3.4 L Chloride 104 Carbon Dioxide 26 Anion Gap 11 BUN 8 Creatinine 0.7 Est GFR ( Amer) > 60 Est GFR (Non-Af Amer) > 60 Random Glucose 79 Calcium 9.3 Total Bilirubin 0.3 AST 29 ALT 25 Alkaline Phosphatase 55 Total Protein 7.6 Albumin 4.4 Globulin 3.2 Albumin/Globulin Ratio 1.4 Urine Color Urine Appearance Urine pH Ur Specific [place] Urine Protein Urine Glucose (UA) Urine Ketones Urine Blood Urine Nitrate Urine Bilirubin Urine Urobilinogen Ur Leukocyte Esterase Urine RBC Urine WBC Ur Epithelial Cells Urine HCG, Qual Salicylates < 1 L Urine Opiates Screen Urine Methadone Screen Acetaminophen < 10.0 L Ur Barbiturates Screen Ur Phencyclidine Scrn Ur Amphetamines Screen U Benzodiazepines Scrn U Oth Cocaine Metabols U Cannabinoids Screen Alcohol, Quantitative < 10 Report Dates : 01/11/2018 PROCEDURE: CT MAXILLOFACIAL BONES WITHOUT CONTRAST Dictator : Dolly Negron MD IMPRESSION: No acute nasal bone, orbital or maxillofacial fracture. Incompletely imaged and characterized is a cystic nodule in the visualized right thyroid lobe. A dedicated thyroid ultrasound on a nonemergent basis is recommended for further evaluation of the thyroid gland. PROCEDURE: CT HEAD WITHOUT CONTRAST. Dictator : Dolly Negron MD IMPRESSION: No acute intracranial abnormality. EXAM: Chest X-ray Dictator : Dolly Negron MD IMPRESSION: No active pulmonary disease. 01/11/18 10:25 1007: nsr at 71 bpm, nml qrs, nml axis, no acute sttw abn Interpreted by ED Physician: Yes Type: 12 lead EKG Estimated Date of D/C: 01/24/18
--- NOTE | 2018-01-23 04:22 | PN ---
DATE: 01/22/2018 SUBJECTIVE: The patient was seen and examined at bedside on 01/22/2018, looking comfortable. No nausea, vomiting, diarrhea. No hematuria or hematochezia. No swelling of the legs. No chest pain. No palpitation. No headache. No dizziness. PHYSICAL EXAMINATION: VITAL SIGNS: Temperature 98.6, pulse 84, respiratory rate 26, and blood pressure 120/75. HEENT: Head; normocephalic and atraumatic. Eyes; PERRLA. Extraocular muscles intact. Conjunctivae clear. Nose patent. Mucous membrane moist. NECK: Supple. No carotid bruit. No JVD or thyromegaly. CHEST: Bilaterally symmetrical. HEART: S1 and S2 positive. LUNGS: Clear to auscultation. ABDOMEN: Soft. Bowel sounds positive. No organomegaly. EXTREMITIES: No edema. No cyanosis. NEUROLOGIC: The patient is awake and alert. Moving all four extremities. No focal deficits. MEDICATIONS: Ativan, Depakote, hydrocortisone cream, Maalox, milk of magnesia, Nicoderm patch, and Tylenol. LABORATORY DATA: White blood cells 6.1, hemoglobin 12.3, hematocrit 37.1, and platelets 159,000. Sodium 138, potassium 4.0, BUN 15, and creatinine 0.8. Hemoglobin A1c 5.3. Iron saturation , proteinuria, hematuria, drug screen positive for cocaine. Trichomonas and gonorrhea is negative. Seen by Dr. Anca Jordan. ASSESSMENT AND PLAN: Schizoaffective disorder, polysubstance abuse, urine drug screen and cocaine, chronic noncompliant, gastroesophageal reflux disease, dyspepsia. Getting Depakote, Ativan, and Seroquel. Has history of smoking, getting nicotine patch. Gastrointestinal and deep venous thrombosis prophylaxes. Repeat labs. We will followup. Vira Denton MD Y[facility]
--- NOTE | 2018-01-23 09:05 | PCM.PYCHPN ---
Psychiatric Progress Note - Psychiatric Progress Note Patient seen today, length of contact: 30 minutes Problems Identified/Issues Discussed: I reviewed recent notes and met with patient at bedside. She is remains oriented to month, year and location. Patient appears to be paying a little more attention to her hygiene and grooming on the unit. Appearance is neater than at admission (though nursing notes that room smells like urine--not obvious during my visit this morning). Affect still remains anxious and labile though focus and organization are improving. Patient continues to report that "everything is real good". She denies having any new psychiatric concerns but she does have a tendency to minimize her symptoms. Appears less elevated and less scattered but still impulsive, tangential and repetitive during 1:1. Speech is rapid at times but not pressured. She still requires redirection and limit setting. Patient is tolerating her medications and denies any new discomfort or pain. Staff indicate that patient seems to be improving, more organized and can tolerate being around others patients without much disturbance. Diagnostic Results: Schizoaffective Disorder Polysubstance dependence UDS +cocaine on 01/11/18 Chronic noncompliance Medication Change: Yes (Seroquel increase, Paxil discontinued) Medical Record Reviewed: Yes Mental Status Examination - Cognitive Function Orientation: Person, Place, Situation Memory: Impaired Attention: Poor (some improvement) Concentration: Poor (improving a little) Association: Loose Fund of Knowledge: Poor - Mood Mood: Anxious - Affect Affect: Broad (and labile, +impulsivity, improving) - Speech Speech: Appropriate - Formal Thought Process Formal Thought Process: Delusions (not elicited), Paranoia (denied, much improved since admission), Loosening of associations (more organized, still tangential), Circumstantial - Suicidal Ideation Suicidal Ideation: No - Homicidal Ideation Homicidal Ideation: No Goal/Treatment Plan - Goal/Treatment Plan Need for Continued Stay: Remain at risks for inpatient hospitalization, Severe depression anxiety, Discharge may exacerbated symptoms, Severe functional impairment Progress Toward Problem(s) and Goals/Treatment Plan: * group, milieu and supportive tx * Appreciate f/u by Dr. Denton on 01/22/18~repeat labs, to f/u * Continue medications: -Depakote DR 500 mg PO AMHS, 01/20/18 VPA=30 -Ativan 0.5 mg AMHS for anxiety & mood control -Seroquel XR 300 mg PO BID * Nicotine 21 mg/24 hr [Nicoderm Cq] 1 patch TD DAILY for tobacco withdrawal * Vitals reviewed and noted below: Selected Entries 01/18/18 01/18/18 01/21/18 06:42 15:34 16:00 Temperature 98.6 F Pulse Rate 69 74 84 Respiratory 16 Rate Blood Pressure 131/85 115/69 120/75 RECENT FLOOR LABS NOTED BELOW: Laboratory Results - last 24 hr 01/22/18 01/22/18 07:30 07:30 WBC 6.2 D RBC 3.99 Hgb 12.3 Hct 37.4 MCV 93.7 MCH 30.8 MCHC 32.9 RDW 12.7 Plt Count 159 MPV 11.2 H Sodium 138 Potassium 4.0 Chloride 105 Carbon Dioxide 28 Anion Gap 8 L BUN 16 Creatinine 0.8 Est GFR ( Amer) > 60 Est GFR (Non-Af Amer) > 60 Random Glucose 79 Calcium 9.0 ER LABS AND STUDIES BELOW: Please refer to Dr. Owens's ER record 01/11/18 for full results of physical exam and ROS Laboratory Results - last 24 hr 01/11/18 01/11/18 01/11/18 10:00 10:00 10:15 WBC 8.9 RBC 4.31 Hgb 13.7 D Hct 40.3 MCV 93.5 MCH 31.8 MCHC 34.0 RDW 12.8 Plt Count 236 MPV 10.6 Gran % 65.8 Lymph % (Auto) 26.3 [place] % (Auto) 7.0 H Eos % (Auto) 0.6 L Baso % (Auto) 0.3 Gran # 5.88 Lymph # (Auto) 2.4 [place] # (Auto) 0.6 Eos # (Auto) 0.1 Baso # (Auto) 0.03 Sodium Potassium Chloride Carbon Dioxide Anion Gap BUN Creatinine Est GFR ( Amer) Est GFR (Non-Af Amer) Random Glucose Calcium Total Bilirubin AST ALT Alkaline Phosphatase Total Protein Albumin Globulin Albumin/Globulin Ratio Urine Color Yellow Urine Appearance Clear Urine pH 7.0 Ur Specific [place] 1.010 Urine Protein 30 H Urine Glucose (UA) Negative Urine Ketones Negative Urine Blood Small H Urine Nitrate Negative Urine Bilirubin Negative Urine Urobilinogen 0.2 Ur Leukocyte Esterase Negative Urine RBC 1 - 3 Urine WBC 0 - 2 Ur Epithelial Cells 0 - 2 Urine HCG, Qual Negative Salicylates Urine Opiates Screen Negative Urine Methadone Screen Negative Acetaminophen Ur Barbiturates Screen Negative Ur Phencyclidine Scrn Negative Ur Amphetamines Screen Negative U Benzodiazepines Scrn Negative U Oth Cocaine Metabols Positive H U Cannabinoids Screen Negative Alcohol, Quantitative 01/11/18 01/11/18 01/11/18 10:15 10:15 10:15 WBC RBC Hgb Hct MCV MCH MCHC RDW Plt Count MPV Gran % Lymph % (Auto) [place] % (Auto) Eos % (Auto) Baso % (Auto) Gran # Lymph # (Auto) [place] # (Auto) Eos # (Auto) Baso # (Auto) Sodium 137 Potassium 3.4 L Chloride 104 Carbon Dioxide 26 Anion Gap 11 BUN 8 Creatinine 0.7 Est GFR ( Amer) > 60 Est GFR (Non-Af Amer) > 60 Random Glucose 79 Calcium 9.3 Total Bilirubin 0.3 AST 29 ALT 25 Alkaline Phosphatase 55 Total Protein 7.6 Albumin 4.4 Globulin 3.2 Albumin/Globulin Ratio 1.4 Urine Color Urine Appearance Urine pH Ur Specific [place] Urine Protein Urine Glucose (UA) Urine Ketones Urine Blood Urine Nitrate Urine Bilirubin Urine Urobilinogen Ur Leukocyte Esterase Urine RBC Urine WBC Ur Epithelial Cells Urine HCG, Qual Salicylates < 1 L Urine Opiates Screen Urine Methadone Screen Acetaminophen < 10.0 L Ur Barbiturates Screen Ur Phencyclidine Scrn Ur Amphetamines Screen U Benzodiazepines Scrn U Oth Cocaine Metabols U Cannabinoids Screen Alcohol, Quantitative < 10 Report Dates : 01/11/2018 PROCEDURE: CT MAXILLOFACIAL BONES WITHOUT CONTRAST Dictator : Dolly Negron MD IMPRESSION: No acute nasal bone, orbital or maxillofacial fracture. Incompletely imaged and characterized is a cystic nodule in the visualized right thyroid lobe. A dedicated thyroid ultrasound on a nonemergent basis is recommended for further evaluation of the thyroid gland. PROCEDURE: CT HEAD WITHOUT CONTRAST. Dictator : Dolly Negron MD IMPRESSION: No acute intracranial abnormality. EXAM: Chest X-ray Dictator : Dolly Negron MD IMPRESSION: No active pulmonary disease. 01/11/18 10:25 1007: nsr at 71 bpm, nml qrs, nml axis, no acute sttw abn Interpreted by ED Physician: Yes Type: 12 lead EKG Estimated Date of D/C: 01/24/18
[2018-01-23] MEDS: Multivitamin Therapeutic Tab PO SCH (09:25)
[2018-01-23] MEDS: Hydrocerin(120 gm) TOP SCH ×2 (09:25→16:38)
[2018-01-23] MEDS: Hydrocortisone 1% Cream (30 GM) TOP SCH ×2 (09:25→16:40)
[2018-01-23] MEDS: QUEtiapine 300 mg XR Tab PO SCH ×2 (09:25→16:39)
[2018-01-23] MEDS: Divalproex 500 mg DR(BID formulation) PO SCH ×2 (10:28→22:06)
--- NOTE | 2018-01-23 13:27 | PN ---
DATE: 01/23/2018 SUBJECTIVE: The patient was seen and examined on 01/23/2018. Looking comfortable. Feeling a little bit better. Does not look like in distress. No headache, no dizziness. No chest pain, no palpitation. No fever, no chills. She is sleepy, but arousable. PHYSICAL EXAMINATION VITAL SIGNS: Temperature 98.6, pulse 69, respiratory rate 20, blood pressure 130/85. HEENT: Head normocephalic, atraumatic. Eyes PERRLA. Extraocular muscles intact. Conjunctivae clear. Nose patent. Mucous membrane moist. NECK: Supple. No carotid bruit, JVD, thyromegaly. CHEST: Bilaterally symmetrical. HEART: S1, S2 positive. LUNGS: Clear to auscultation. ABDOMEN: Soft. Bowel sounds present. No organomegaly. EXTREMITIES: No edema, no cyanosis. NEUROLOGIC: The patient is sleepy, but arousable. LABORATORY DATA: We do not have recent labs today, but I reviewed old labs. MEDICATIONS: Ativan, hydrocortisone, Depakote, Maalox, milk of magnesia, NicoDerm, multivitamins, Tylenol. ASSESSMENT AND PLAN: Ms. Chelsea Aleman is a 42-year-old female with schizophrenia, history of substance abuse, noncompliant, gastroesophageal reflux disease, dyspepsia, history of hepatitis C as per the patient, history of possible sleep problem, hypercholesterolemia. Chlamydia trachomatis is negative, proteinuria, hematuria. Continue present treatment. Repeat labs. We will follow up. Vira Denton MD [facility]
[2018-01-24] MEDS: QUEtiapine 300 mg XR Tab PO SCH (08:47)
[2018-01-24] MEDS: Hydrocortisone 1% Cream (30 GM) TOP SCH (08:47)
[2018-01-24] MEDS: Hydrocerin(120 gm) TOP SCH (08:47)
[2018-01-24] MEDS: Multivitamin Therapeutic Tab PO SCH (08:48)
[2018-01-24 09:21] VITALS: BP 120/70; PULSE 80; RESP 18; TEMP 98
--- NOTE | 2018-01-24 11:02 | PCM.PYCHDC ---
Mental Status Examination - Mental Status Examination Orientation: Person, Place, Situation Memory: Intact Mood: Anxious Affect: Constricted Speech: Appropriate Attention: WNL Concentration: WNL Association: WNL Fund of Knowledge: Poor Formal Thought Process: No Impairment Description of patient's judgement and insight: Improved I/J, fair Psychotic Thoughts and Behaviors: Patient denies paranoia or hallucinations. No delusions elicited on day of discharge Suicidal Ideation: No Current Homicidal Ideation?: No Discharge Summary - Discharge Note Reason for Hospitalization: Pt is a 42 year old female with long h/o mental illness [dx include schizophrenia, depression, schizoaffective disorder] and substance abuse [UDS +cocaine], multiple psychiatric admissions, most recently at [facility] [place] and 08/31/17-09/09/17, chronic noncompliance with f/u appts and medications who brought herself for treatment of depression and SI indicating that she ingested a "whole bunch of meds" including nyquil, sleeping pills, PCP, MJA and alcohol prior to coming to the ER. Patient also reported that she has been doing "all types of sexual things" with multiple partners and requested treatment for STI. Psychiatric History (includes Medical, Family, Personal Hx): See hpi Laboratory Data: Laboratory Tests 01/11/18 01/11/18 01/11/18 10:00 10:00 10:15 WBC 8.9 RBC 4.31 Hgb 13.7 D Hct 40.3 MCV 93.5 MCH 31.8 MCHC 34.0 RDW 12.8 Plt Count 236 MPV 10.6 Gran % 65.8 Lymph % (Auto) 26.3 [place] % (Auto) 7.0 H Eos % (Auto) 0.6 L Baso % (Auto) 0.3 Gran # 5.88 Lymph # (Auto) 2.4 [place] # (Auto) 0.6 Eos # (Auto) 0.1 Baso # (Auto) 0.03 Sodium Potassium Chloride Carbon Dioxide Anion Gap BUN Creatinine Est GFR ( Amer) Est GFR (Non-Af Amer) Random Glucose Hemoglobin A1c Calcium Iron TIBC % Saturation Total Bilirubin Direct Bilirubin AST ALT Alkaline Phosphatase Total Protein Albumin Globulin Albumin/Globulin Ratio Triglycerides Cholesterol LDL Cholesterol Direct HDL Cholesterol Vitamin B12 Folate TSH 3rd Generation Urine Color Yellow Urine Appearance Clear Urine pH 7.0 Ur Specific Brooks 1.010 Urine Protein 30 H Urine Glucose (UA) Negative Urine Ketones Negative Urine Blood Small H Urine Nitrate Negative Urine Bilirubin Negative Urine Urobilinogen 0.2 Ur Leukocyte Esterase Negative Urine RBC 1 - 3 Urine WBC 0 - 2 Ur Epithelial Cells 0 - 2 Urine HCG, Qual Negative Salicylates Urine Opiates Screen Negative Urine Methadone Screen Negative Acetaminophen Ur Barbiturates Screen Negative Valproic Acid Ur Phencyclidine Scrn Negative Ur Amphetamines Screen Negative U Benzodiazepines Scrn Negative U Oth Cocaine Metabols Positive H U Cannabinoids Screen Negative Alcohol, Quantitative C.trachomatis RNA (TMA) N.gonorrhoeae RNA (TMA) 01/11/18 01/11/18 01/11/18 10:15 10:15 10:15 WBC RBC Hgb Hct MCV MCH MCHC RDW Plt Count MPV Gran % Lymph % (Auto) [place] % (Auto) Eos % (Auto) Baso % (Auto) Gran # Lymph # (Auto) [place] # (Auto) Eos # (Auto) Baso # (Auto) Sodium 137 Potassium 3.4 L Chloride 104 Carbon Dioxide 26 Anion Gap 11 BUN 8 Creatinine 0.7 Est GFR ( Amer) > 60 Est GFR (Non-Af Amer) > 60 Random Glucose 79 Hemoglobin A1c Calcium 9.3 Iron TIBC % Saturation Total Bilirubin 0.3 Direct Bilirubin AST 29 ALT 25 Alkaline Phosphatase 55 Total Protein 7.6 Albumin 4.4 Globulin 3.2 Albumin/Globulin Ratio 1.4 Triglycerides Cholesterol LDL Cholesterol Direct HDL Cholesterol Vitamin B12 Folate TSH 3rd Generation Urine Color Urine Appearance Urine pH Ur Specific Brooks Urine Protein Urine Glucose (UA) Urine Ketones Urine Blood Urine Nitrate Urine Bilirubin Urine Urobilinogen Ur Leukocyte Esterase Urine RBC Urine WBC Ur Epithelial Cells Urine HCG, Qual Salicylates < 1 L Urine Opiates Screen Urine Methadone Screen Acetaminophen < 10.0 L Ur Barbiturates Screen Valproic Acid Ur Phencyclidine Scrn Ur Amphetamines Screen U Benzodiazepines Scrn U Oth Cocaine Metabols U Cannabinoids Screen Alcohol, Quantitative < 10 C.trachomatis RNA (TMA) N.gonorrhoeae RNA (TMA) 01/11/18 01/15/18 01/15/18 10:25 07:55 07:55 WBC RBC Hgb Hct MCV MCH MCHC RDW Plt Count MPV Gran % Lymph % (Auto) [place] % (Auto) Eos % (Auto) Baso % (Auto) Gran # Lymph # (Auto) [place] # (Auto) Eos # (Auto) Baso # (Auto) Sodium Potassium Chloride Carbon Dioxide Anion Gap BUN Creatinine Est GFR ( Amer) Est GFR (Non-Af Amer) Random Glucose Hemoglobin A1c Calcium Iron 70 TIBC 393 % Saturation 18 L Total Bilirubin 0.2 Direct Bilirubin 0.2 AST 20 ALT 24 Alkaline Phosphatase 46 Total Protein 6.9 Albumin 3.8 Globulin 3.1 Albumin/Globulin Ratio 1.2 Triglycerides 90 Cholesterol 210 H LDL Cholesterol Direct 93 HDL Cholesterol 89 H Vitamin B12 340 Folate 10.5 TSH 3rd Generation Urine Color Urine Appearance Urine pH Ur Specific Brooks Urine Protein Urine Glucose (UA) Urine Ketones Urine Blood Urine Nitrate Urine Bilirubin Urine Urobilinogen Ur Leukocyte Esterase Urine RBC Urine WBC Ur Epithelial Cells Urine HCG, Qual Salicylates Urine Opiates Screen Urine Methadone Screen Acetaminophen Ur Barbiturates Screen Valproic Acid Ur Phencyclidine Scrn Ur Amphetamines Screen U Benzodiazepines Scrn U Oth Cocaine Metabols U Cannabinoids Screen Alcohol, Quantitative C.trachomatis RNA (TMA) Not detected N.gonorrhoeae RNA (TMA) Not detected 01/15/18 01/16/18 01/16/18 07:55 08:05 08:05 WBC RBC Hgb Hct MCV MCH MCHC RDW Plt Count MPV Gran % Lymph % (Auto) [place] % (Auto) Eos % (Auto) Baso % (Auto) Gran # Lymph # (Auto) [place] # (Auto) Eos # (Auto) Baso # (Auto) Sodium 138 Potassium 4.6 Chloride 106 Carbon Dioxide 28 Anion Gap 9 L BUN 19 Creatinine 0.8 Est GFR ( Amer) > 60 Est GFR (Non-Af Amer) > 60 Random Glucose 88 Hemoglobin A1c 5.3 Calcium 8.7 Iron TIBC % Saturation Total Bilirubin Direct Bilirubin AST ALT Alkaline Phosphatase Total Protein Albumin Globulin Albumin/Globulin Ratio Triglycerides Cholesterol LDL Cholesterol Direct HDL Cholesterol Vitamin B12 Folate TSH 3rd Generation 0.83 Urine Color Urine Appearance Urine pH Ur Specific Brooks Urine Protein Urine Glucose (UA) Urine Ketones Urine Blood Urine Nitrate Urine Bilirubin Urine Urobilinogen Ur Leukocyte Esterase Urine RBC Urine WBC Ur Epithelial Cells Urine HCG, Qual Salicylates Urine Opiates Screen Urine Methadone Screen Acetaminophen Ur Barbiturates Screen Valproic Acid Ur Phencyclidine Scrn Ur Amphetamines Screen U Benzodiazepines Scrn U Oth Cocaine Metabols U Cannabinoids Screen Alcohol, Quantitative C.trachomatis RNA (TMA) N.gonorrhoeae RNA (TMA) 01/20/18 01/22/18 01/22/18 10:00 07:30 07:30 WBC 6.2 D RBC 3.99 Hgb 12.3 Hct 37.4 MCV 93.7 MCH 30.8 MCHC 32.9 RDW 12.7 Plt Count 159 MPV 11.2 H Gran % Lymph % (Auto) [place] % (Auto) Eos % (Auto) Baso % (Auto) Gran # Lymph # (Auto) [place] # (Auto) Eos # (Auto) Baso # (Auto) Sodium 138 Potassium 4.0 Chloride 105 Carbon Dioxide 28 Anion Gap 8 L BUN 16 Creatinine 0.8 Est GFR ( Amer) > 60 Est GFR (Non-Af Amer) > 60 Random Glucose 79 Hemoglobin A1c Calcium 9.0 Iron TIBC % Saturation Total Bilirubin Direct Bilirubin AST ALT Alkaline Phosphatase Total Protein Albumin Globulin Albumin/Globulin Ratio Triglycerides Cholesterol LDL Cholesterol Direct HDL Cholesterol Vitamin B12 Folate TSH 3rd Generation Urine Color Urine Appearance Urine pH Ur Specific [place] Urine Protein Urine Glucose (UA) Urine Ketones Urine Blood Urine Nitrate Urine Bilirubin Urine Urobilinogen Ur Leukocyte Esterase Urine RBC Urine WBC Ur Epithelial Cells Urine HCG, Qual Salicylates Urine Opiates Screen Urine Methadone Screen Acetaminophen Ur Barbiturates Screen Valproic Acid 30 L Ur Phencyclidine Scrn Ur Amphetamines Screen U Benzodiazepines Scrn U Oth Cocaine Metabols U Cannabinoids Screen Alcohol, Quantitative C.trachomatis RNA (TMA) N.gonorrhoeae RNA (TMA) Consultations:: List each consultation separately and include: 1. Reason for request. 2. Findings. 3. Follow-up Consultations: DR. AUGUST CONSULTED WITH PATIENT 01/12/18-01/23/[address] BARRIOS'S PROGRESS NOTE 01/21/18 "discussed with medical team, input appreciated 01/16/18, no need abx for uti or std" Summary of Hospital Course include:: 1. Description of specific treatment plan utilized for patients during their course of treatmen. 2. Summarize the time- course for resolution of acute symptoms and/or regressed behaviors. 3. Describe issues identified and worked on during hospitalization. 4. Describe medication utilized. 5. Describe medical problems identified and treated. 6. Reassessment of suicide risk Summary of Hospital Course: HPI Pt is a 42 year old female with long h/o mental illness [dx include schizophrenia, depression, schizoaffective disorder] and substance abuse [UDS +cocaine], multiple psychiatric admissions, most recently at [facility] [place]17-10/17/17 and 08/31/17-09/09/17, chronic noncompliance with f/u appts and medications who brought herself for treatment of depression and SI indicating that she ingested a "whole bunch of meds" including nyquil, sleeping pills, PCP, MJA and alcohol prior to coming to the ER. Patient also reported that she has been doing "all types of sexual things" with multiple partners and requested treatment for STI. I interviewed patient at bedside today. She is disheveled and disorganized. It is difficult to keep patient focused due to her scattered and flighty thought process however she is presenting calmer than she did during her prior admission. Her responses are superficial and sometimes inconsistent. Patient admits to using cocaine and sexual activity with multiple partners prior to admission. Presently she denies any new discomfort or pain. She doesn't appear to be actively hallucinating but she is impulsive, elevated, ferrara and unpredictable. She denies SI and wants social work to help get her "insurance back". She expresses interest in being discharged to rehab once psychiatrically stabilized. Her insight and judgement are poor. PSYCHIATRIC HISTORY NUMEROUS ADMISSIONS TO [facility]. MOST RECENT THREE ADMISSIONS INCLUDE: 10/14/17- 10/17/17, 08/31-09/09/17 AND 08/20-08/28/17. On 10/17/17 patient was discharged on: Paxil 20 mg HS for depression and anxiety Ativan 0.5/0.5 for anxiety Depakote 500 mg po bid for mood control and impulse control Seroquel XR 200 mg AMHS for disorganization, mood and impulse control. On 09/09/17 patient was discharged on: Depakote DR 500 mg PO AMHS Remeron 45 mg PO HS Nicotine 21 mg/24 hr [Nicoderm Cq] 1 patch TD DAILY SEROquel XR 300 mg PO AMHS Prior admission [06/29/16-07/06/16], Discharged on Depakote ER DAILY 1,000 mg PO HS, Zyprexa 5mg AM and 10 mg HS, Trazodone 50 mg HS prn MEDICATION TRIALS: remeron, risperdal (caused galactorrhea) Patient denies having any history of suicide attempts SOCIAL Born and raised in [place]. She is . Patient has no children. She is currently homeless and living at [facility]. Patient admits to a history of marijuana cocaine and PCP use. Denies alcohol use. UDS +Cocaine again on 01/11/18. Patient reported smoking about a half pack to pack daily of cigarettes, counseling about the morbidity and mortality risks of continued nicotine use provided. Offered nicotine patch which patient accepted. DR. BARRIOS'S PROGRESS NOTE 01/21/18 Pt is a 42 year old female with long h/o mental illness [dx include schizophrenia, depression, schizoaffective disorder] and substance abuse [UDS +cocaine], multiple psychiatric admissions, most recently at [facility] 10/14[place]17-10/17/17 and 08/31/17-09/09/17, chronic noncompliance with f/u appts and medications who brought herself for treatment of depression and SI indicating that she ingested a "whole bunch of meds" including nyquil, sleeping pills, PCP, MJA and alcohol prior to coming to the ER. Patient also reported that she has been doing "all types of sexual things" with multiple partners and requested treatment for STI. patient was seen and examined today in her room, pt presented to be disheveled, malodorous, staying in bed all day long. pt was not accepted to the rehab, pt wants to be discharged because "I wan to help cooking to her", when was asked who is "her", pt had no answer. overall pt presented to be Less disorganized but irrational, impulses are unpredictable. discussed with medical team, input appreciated 01/16/18, no need abx for uti or std? pt's insight and judgment are slowly improving. patient tolerates medications well, no side effects observed or reported, aims 0, no EPS. DR. WATTS'S PROGRESS NOTE 01/23/18 I reviewed recent notes and met with patient at bedside. She is remains oriented to month, year and location. Patient appears to be paying a little more attention to her hygiene and grooming on the unit. Appearance is neater than at admission (though nursing notes that room smells like urine--not obvious during my visit this morning). Affect still remains anxious and labile though focus and organization are improving. Patient continues to report that "everything is real good". She denies having any new psychiatric concerns but she does have a tendency to minimize her symptoms. Appears less elevated and less scattered but still impulsive, tangential and repetitive during 1:1. Speech is rapid at times but not pressured. She still requires redirection and limit setting. Patient is tolerating her medications and denies any new discomfort or pain. Staff indicate that patient seems to be improving, more organized and can tolerate being around others patients without much disturbance. DR. WATTS'S DISCHARGE NOTE 01/24/18 I interviewed patient at bedside to assess continued stability for discharge. Patient is alert and well-oriented to month, year and circumstances. Eye contact is good. Patient feels improved and denies any suicidal thoughts or thoughts to harm others. Affect is anxious and thought process is overinclusive at times but not overtly disorganized. She is appropriately reactive. Patient denies hallucinations and is not responding to internal stimuli. Patient feels comfortable with discharge today and denies any new concerns. Denies acute discomfort or pain. Tolerating medications and denies any issues wi th them. Delusions and paranoia were not elicited on day of discharge. - Diagnosis (1) Schizoaffective disorder Current Visit: Yes Status: Acute (2) Cocaine abuse Current Visit: No Status: Chronic Priority: High - Final Diagnosis (DSM 5) Condition upon Discharge: FAIR DSM 5: As per history of schizoaffective disorder Polysubstance abuse and dependence Disposition: HOME/ ROUTINE Follow-up Treatment Plan: PLEASE SEE SW NOTE FOR DISPOSITION INFORMATION THE FOLLOWING MEDICATIONS WERE CALLED INTO [facility] ON 01/24/18, , 14 days + 1RF -Depakote DR 500 mg PO AMHS, -Ativan 0.5 mg AMHS for anxiety & mood control -Seroquel XR 300 mg PO BID * Nicotine 21 mg/24 hr [Nicoderm Cq] 1 patch TD DAILY for tobacco withdrawal RECENT FLOOR LABS NOTED BELOW: Laboratory Results - last 24 hr 01/22/18 01/22/18 07:30 07:30 WBC 6.2 D RBC 3.99 Hgb 12.3 Hct 37.4 MCV 93.7 MCH 30.8 MCHC 32.9 RDW 12.7 Plt Count 159 MPV 11.2 H Sodium 138 Potassium 4.0 Chloride 105 Carbon Dioxide 28 Anion Gap 8 L BUN 16 Creatinine 0.8 Est GFR ( Amer) > 60 Est GFR (Non-Af Amer) > 60 Random Glucose 79 Calcium 9.0 ER LABS AND STUDIES BELOW: Please refer to Dr. Owens's ER record 01/11/18 for full results of physical exam and ROS Laboratory Results - last 24 hr 01/11/18 01/11/18 01/11/18 10:00 10:00 10:15 WBC 8.9 RBC 4.31 Hgb 13.7 D Hct 40.3 MCV 93.5 MCH 31.8 MCHC 34.0 RDW 12.8 Plt Count 236 MPV 10.6 Gran % 65.8 Lymph % (Auto) 26.3 [place] % (Auto) 7.0 H Eos % (Auto) 0.6 L Baso % (Auto) 0.3 Gran # 5.88 Lymph # (Auto) 2.4 [place] # (Auto) 0.6 Eos # (Auto) 0.1 Baso # (Auto) 0.03 Sodium Potassium Chloride Carbon Dioxide Anion Gap BUN Creatinine Est GFR ( Amer) Est GFR (Non-Af Amer) Random Glucose Calcium Total Bilirubin AST ALT Alkaline Phosphatase Total Protein Albumin Globulin Albumin/Globulin Ratio Urine Color Yellow Urine Appearance Clear Urine pH 7.0 Ur Specific [place] 1.010 Urine Protein 30 H Urine Glucose (UA) Negative Urine Ketones Negative Urine Blood Small H Urine Nitrate Negative Urine Bilirubin Negative Urine Urobilinogen 0.2 Ur Leukocyte Esterase Negative Urine RBC 1 - 3 Urine WBC 0 - 2 Ur Epithelial Cells 0 - 2 Urine HCG, Qual Negative Salicylates Urine Opiates Screen Negative Urine Methadone Screen Negative Acetaminophen Ur Barbiturates Screen Negative Ur Phencyclidine Scrn Negative Ur Amphetamines Screen Negative U Benzodiazepines Scrn Negative U Oth Cocaine Metabols Positive H U Cannabinoids Screen Negative Alcohol, Quantitative 01/11/18 01/11/18 01/11/18 10:15 10:15 10:15 WBC RBC Hgb Hct MCV MCH MCHC RDW Plt Count MPV Gran % Lymph % (Auto) [place] % (Auto) Eos % (Auto) Baso % (Auto) Gran # Lymph # (Auto) [place] # (Auto) Eos # (Auto) Baso # (Auto) Sodium 137 Potassium 3.4 L Chloride 104 Carbon Dioxide 26 Anion Gap 11 BUN 8 Creatinine 0.7 Est GFR ( Amer) > 60 Est GFR (Non-Af Amer) > 60 Random Glucose 79 Calcium 9.3 Total Bilirubin 0.3 AST 29 ALT 25 Alkaline Phosphatase 55 Total Protein 7.6 Albumin 4.4 Globulin 3.2 Albumin/Globulin Ratio 1.4 Urine Color Urine Appearance Urine pH Ur Specific [place] Urine Protein Urine Glucose (UA) Urine Ketones Urine Blood Urine Nitrate Urine Bilirubin Urine Urobilinogen Ur Leukocyte Esterase Urine RBC Urine WBC Ur Epithelial Cells Urine HCG, Qual Salicylates < 1 L Urine Opiates Screen Urine Methadone Screen Acetaminophen < 10.0 L Ur Barbiturates Screen Ur Phencyclidine Scrn Ur Amphetamines Screen U Benzodiazepines Scrn U Oth Cocaine Metabols U Cannabinoids Screen Alcohol, Quantitative < 10 Report Dates : 01/11/2018 PROCEDURE: CT MAXILLOFACIAL BONES WITHOUT CONTRAST Dictator : Dolly Negron MD IMPRESSION: No acute nasal bone, orbital or maxillofacial fracture. Incompletely imaged and characterized is a cystic nodule in the visualized right thyroid lobe. A dedicated thyroid ultrasound on a nonemergent basis is recommended for further evaluation of the thyroid gland. PROCEDURE: CT HEAD WITHOUT CONTRAST. Dictator : Dolly Negron MD IMPRESSION: No acute intracranial abnormality. EXAM: Chest X-ray Dictator : Dolly Negron MD IMPRESSION: No active pulmonary disease. 01/11/18 10:25 1007: nsr at 71 bpm, nml qrs, nml axis, no acute sttw abn Interpreted by ED Physician: Yes Type: 12 lead EKG - Smoking Cessation Smoking Cessation Medication prescribed: Yes
--- NOTE | 2018-01-24 15:44 | PN ---
DATE: 01/24/2018 SUBJECTIVE: The patient is a 42-year-old female. The patient was seen and examined on the bedside on 01/24/2018 early in the morning. The patient is looking comfortable. Happy to go home. No headache. No dizziness. No chest pain. No palpitation. No fever. No chills. PHYSICAL EXAMINATION: VITAL SIGNS: Temperature 98, heart rate 80, respiratory rate 18, blood pressure 120/70. HEENT: Head normocephalic, atraumatic. Eyes PERRLA. Extraocular muscles intact. Conjunctivae clear. Nose patent. Mucous membrane moist. NECK: Supple. No carotid bruit. No JVD or thyromegaly. CHEST: Bilaterally symmetrical. HEART: S1 and S2 positive. LUNGS: Clear to auscultation. ABDOMEN: Soft. Bowel sounds positive. No organomegaly. EXTREMITIES: No edema. No cyanosis. NEUROLOGICAL: The patient is awake, alert. Moving all 4 extremities. No focal deficits. MEDICATIONS: Ativan, Depakote, Maalox, milk of magnesia, Nicoderm, Seroquel, and vitamin tablets. LABORATORY DATA: White blood cells 6.2, hemoglobin 12.3, hematocrit 37.4, platelets 169. Sodium 130, potassium 4, BUN 16, creatinine 0.8. ASSESSMENT AND PLAN: Ms. Chelsea Aleman is a 42-year-old female with iron deficiency, hypercholesterolemia, proteinuria, hematuria, cocaine positive in the system, History of hepatitis C positive. Do not want to know her human immunodeficiency virus status. History of schizoaffective disorder; schizophrenia; depression; substance abuse, especially cocaine. Multiple psychiatric admission. Noncompliant with medications, with office visits. Gastric, deep venous thrombosis prophylaxis. Repeat labs. We will follow up. Vira Denton MD YADIRA
== END 2018-01-24 09:33 | disposition home or self-care (01) | DRG 885 ==
LOC: ED 09:42 → ERH 14:31 → PSYC 15:16
PROVIDERS: ADMIT Psychiatry & Neurology Psychiatry; ATTEND Psychiatry & Neurology Psychiatry
DX: F25.9 Schizoaffective disorder, unspecified (principal); F14.20 Cocaine dependence, uncomplicated; F17.213 Nicotine dependence, cigarettes, with withdrawal; R45.851 Suicidal ideations; D50.9 Iron deficiency anemia, unspecified; E87.6 Hypokalemia; F31.9 Bipolar disorder, unspecified; F41.9 Anxiety disorder, unspecified; G62.9 Polyneuropathy, unspecified; G89.4 Chronic pain syndrome; I12.9 Hypertensive chronic kidney disease with stage 1 through stage 4 chronic kidney disease, or unspecified chronic kidney disease; N18.9 Chronic kidney disease, unspecified; E78.00 Pure hypercholesterolemia, unspecified; F17.210 Nicotine dependence, cigarettes, uncomplicated; K21.9 Gastro-esophageal reflux disease without esophagitis; Z91.14 Patient's other noncompliance with medication regimen; Z59.0 Homelessness; Z91.19 Patient's noncompliance with other medical treatment and regimen; Z91.5 Personal history of self-harm; Z86.19 Personal history of other infectious and parasitic diseases

== ENCOUNTER 2018-02-14 14:03 | Emergency (ER) | payer MEDICARE ==
[2018-02-14 14:04] VITALS: BMI 24.5
[2018-02-14 14:12] VITALS: RESP 18; TEMP 98.2
[2018-02-14] MEDS ORDERED: TDAP Vaccine 0.5 mL Syr IM ONE (14:36)
[2018-02-14 15:01] LABS: PH,URINE 6.5 (4.7-8.0); URINE BILIRUBIN NEGATIVE (NEGATIVE); URINE BLOOD SMALL (NEGATIVE); URINE GLUCOSE (UA) NEGATIVE (NEGATIVE); URINE LEUKOCYTE ESTERASE NEGATIVE Leu/uL (NEGATIVE); URINE PROTEIN 100 mg/dL (<30 mg/dL); URINE UROBILINOGEN 0.2 E.U./dL (<1 E.U./dL)
[2018-02-14 15:02] LABS: URINE APPEARANCE CLEAR (CLEAR); URINE COLOR YELLOW (YELLOW)
[2018-02-14 15:09] LABS: URINE BACTERIA NEG (NEG); URINE EPITHELIAL CELLS 0 - 2 /hpf (0-5); URINE RBC 0 - 2 /hpf (0-2); URINE WBC 0 - 2 /hpf (0-6)
--- NOTE | 2018-02-14 15:13 | CT ---
Date of service: 02/14/2018 PROCEDURE: CT HEAD WITHOUT CONTRAST. HISTORY: fall COMPARISON: Comparison is made with 01/11/2018 TECHNIQUE: Axial computed tomography images were obtained through the head/brain without intravenous contrast. Radiation dose: Total exam DLP = 912.56 mGy-cm. This CT exam was performed using one or more of the following dose reduction techniques: Automated exposure control, adjustment of the mA and/or kV according to patient size, and/or use of iterative reconstruction technique. FINDINGS: HEMORRHAGE: No intracranial hemorrhage. BRAIN: No mass effect or edema. No atrophy or chronic microvascular ischemic changes. VENTRICLES: Unremarkable. No hydrocephalus. CALVARIUM: Unremarkable. PARANASAL SINUSES: Unremarkable as visualized. No significant inflammatory changes. MASTOID AIR CELLS: Unremarkable as visualized. No inflammatory changes. OTHER FINDINGS: None. IMPRESSION: No evidence of acute intracranial hemorrhage intracranial collection mass effect or midline shift.
--- NOTE | 2018-02-14 15:28 | RAD ---
HISTORY: cough COMPARISON: Chest x-ray performed 01/11/18 TECHNIQUE: Chest PA and lateral FINDINGS: LUNGS: No focal consolidation. Please note that chest x-ray has limited sensitivity for the detection of pulmonary masses. PLEURA: No significant pleural effusion identified. No definite pneumothorax . CARDIOVASCULAR: Heart size appears within normal limits. No atherosclerotic calcification present. OSSEOUS STRUCTURES: No acute osseous abnormality identified. VISUALIZED UPPER ABDOMEN: Unremarkable. OTHER FINDINGS: None. IMPRESSION: No focal consolidation identified.
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
[2018-02-14 16:36] VITALS: BP 125/78; PULSE 78; O2SAT 98
--- NOTE | 2018-02-14 16:44 | RAD ---
Date of service: 02/14/2018 PROCEDURE: Left Knee Radiographs. HISTORY: Pain. No history of recent/ related trauma provided COMPARISON: None. FINDINGS: BONES: Normal. No fracture. JOINTS: Normal. No osteoarthritis. JOINT EFFUSION: None. OTHER FINDINGS: None. IMPRESSION: Unremarkable radiographs of the left knee.
== END 2018-02-14 16:35 | disposition home or self-care (01) ==
LOC: ED 14:03
DX: M25.562 Pain in left knee (principal); R05 Cough; F17.210 Nicotine dependence, cigarettes, uncomplicated; F20.9 Schizophrenia, unspecified; I10 Essential (primary) hypertension; Z23 Encounter for immunization

== ENCOUNTER 2018-02-19 13:46 | Emergency (ER) | payer MEDICARE ==
[2018-02-19 13:58] VITALS: BMI 30.2
[2018-02-19 14:05] VITALS: RESP 18
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
--- NOTE | 2018-02-19 15:27 | RAD ---
Date of service: 02/19/2018 HISTORY: cough COMPARISON: 02/14/2018 TECHNIQUE: Chest PA and lateral FINDINGS: LUNGS: No active pulmonary disease. PLEURA: No significant pleural effusion identified. No pneumothorax apparent. CARDIOVASCULAR: No aortic atherosclerotic calcification present. Normal cardiac size. No pulmonary vascular congestion. OSSEOUS STRUCTURES: No significant abnormalities. VISUALIZED UPPER ABDOMEN: Normal. OTHER FINDINGS: None. IMPRESSION: No active disease.
[2018-02-19 16:11] VITALS: BP 124/68; PULSE 68; TEMP 98; O2SAT 100
== END 2018-02-19 16:10 | disposition home or self-care (01) ==
LOC: ED 13:46
DX: S09.90XA Unspecified injury of head, initial encounter (principal); X58.XXXA Exposure to other specified factors, initial encounter; R05 Cough; F17.210 Nicotine dependence, cigarettes, uncomplicated; F20.9 Schizophrenia, unspecified; I10 Essential (primary) hypertension

== ENCOUNTER 2018-03-08 09:04 | Inpatient (IN) | payer MEDICARE ==
[2018-03-08 09:04] VITALS: BMI 30.2
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
[2018-03-08 11:02] LABS: URINE BILIRUBIN NEGATIVE (NEGATIVE); URINE BLOOD MODERATE (NEGATIVE); URINE GLUCOSE (UA) NEGATIVE (NEGATIVE); URINE LEUKOCYTE ESTERASE NEGATIVE Leu/uL (NEGATIVE); URINE PROTEIN 100 mg/dL (<30 mg/dL); URINE UROBILINOGEN 0.2 E.U./dL (<1 E.U./dL)
[2018-03-08 11:03] LABS: URINE APPEARANCE CLEAR (CLEAR); URINE COLOR YELLOW (YELLOW)
[2018-03-08 11:04] LABS: BASO # 0.02 K/mm3 (0.0-2.0); BASO % 0.3 % (0.0-3.0); EOS # 0.1 (0.0-0.7); EOS % 1.7 % (1.5-5.0); GRAN # 4.48 (1.4-6.5); GRAN % 61.8 % (50.0-68.0); HEMOGLOBIN 13.2 g/dL (12.0-16.0); LYMPH # 2.1 (1.2-3.4); LYMPH % 29.6 % (22.0-35.0); MEAN CELL VOLUME 93.3 fl (80.0-105.0); MEAN CORPUSCULAR HEMOGLOBIN 31.6 pg (25.0-35.0); MEAN CORPUSCULAR HGB CONC 33.8 g/dl (31.0-37.0); MEAN PLATELET VOLUME 10.2 fl (7.0-11.0); MONO # 0.5 (0.1-0.6); MONO % 6.6 % (1.0-6.0); RBC 4.18 10^6/uL (3.5-6.1); RED CELL DISTRIBUTION WIDTH 13.4 % (11.5-14.5); WHITE BLOOD COUNT 7.2 10^3/uL (4.5-11.0)
[2018-03-08 11:11] LABS: INR 0.96; PARTIAL THROMBOPLASTIN TIME 34.7 Seconds (25.1-36.5)
[2018-03-08 11:12] LABS: BLOOD UREA NITROGEN 15 mg/dL (7-21); GFR NON-AFRICAN AMERICAN > 60
[2018-03-08 11:13] LABS: ACETAMINOPHEN < 10.0 ug/ml (10.0-20.0); ALB/GLOB RATIO 1.3 (1.1-1.8); ALBUMIN 4.2 g/dL (3.0-4.8); ALT/SGPT 27 U/L (7-56); AST/SGOT 31 U/L (14-36); CALCIUM 8.8 mg/dL (8.4-10.5); LIPASE 68 U/L (23-300); SALICYLATE < 1 mg/dL (2.0-20.0)
[2018-03-08 11:21] LABS: URINE WBC NEGATIVE /hpf (0-6)
[2018-03-08 11:42] LABS: BARBITURATES, UR NEGATIVE (NEGATIVE); PHENCYCLIDINE, UR NEGATIVE (NEGATIVE)
[2018-03-08 11:44] LABS: BENZODIAZEPINES, UR NEGATIVE (NEGATIVE); OPIATES, UR NEGATIVE (NEGATIVE)
[2018-03-08] MEDS ORDERED: Iohexol 350 MG/100 ML VIAL ONE (12:25)
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
--- NOTE | 2018-03-08 16:04 | CARD ---
APPROVED REPORT Date of service: 03/08/2018 EKG Measurement Heart [id number] IN 150P-5 [id number] <Conclusion> Poor data quality, interpretation may be adversely affected Normal sinus rhythm Prolonged QT Abnormal ECG
[2018-03-08] MEDS ORDERED: Magnesium Hydroxide Susp 30 ml UD PO PRN (16:59)
[2018-03-08] MEDS ORDERED: Alum-Mag Hydrox-Simethicone Susp (30 mL) PO PRN (16:59)
[2018-03-08] MEDS ORDERED: Divalproex 500 mg DR(BID formulation) PO SCH (22:00)
--- NOTE | 2018-03-09 06:27 | PCM.BM ---
<Rickey Sheikh O - Last Filed: 03/09/18 06:23> Treatment Plan Problems - Problems identified on initial assessmt Auditory halluciantions Date Initiated: 03/08/18 Time Initiated: 21:45 Assessment reference: NA Status: Active Substance abuse Date Initiated: 03/08/18 Time Initiated: 21:45 Assessment reference: NA Status: Active Treatment assets and liabiliti Patient Assests: ADL independent, good past tx response Patient Liabilities: poor support system, substance abuse - Milieu Protocol Maintain good personal hygiene: daily Encourage regular showers, daily Remind patient to perform daily oral care, daily Assist patient to perform ADL's Maintain personal safety: daily Educate patient to report safety concerns to staff, daily Monitor environment for contraband/sharps Medication safety: Monitor for expected outcome, potential side effects: daily, Assess barriers to learning: daily, Assess readiness for medication education: daily Milieu Narrative: * group, milieu and supportive tx * Restart prior effective medications including: -Depakote DR 500 mg PO AMHS -Seroquel XR 100 mg PO BID ~titrate to prior effective dose of 300 BID -Ativan 0.5 mg po AMHS for anxiety and mood control Nicotine 21 mg/24 hr [Nicoderm Cq] 1 patch TD DAILY for tobacco withdrawal * Vitals reviewed and noted below: * consultation for discharge plan and social issues ER labs and studies Please refer to patient's physical exam and ROS findings from [facility] [place] report dated 03/08/18 03/08/18 10:30 EKG: Ordered, reviewed, and independently interpreted the EKG. Rate : 75 BPM Rhythm : NSR Interpretation : QTC 475 milliseconds, No ST-T wave changes. 03/08/18 11:16 Patient's rectal exam results show guaiac is negative. 03/08/18 14:12 Procedure: CT of Head without contrast Dictator: Mitesh Zamudio Impression: No acute intracranial findings. Procedure: Chest X-ray Dictator: Mitesh Zamudio Impression: No active disease. 03/08/18 15:06 Procedure: CT of Abdomen and Pelvis Dictator: Mitesh Zamudio Impression: No acute intra-abdominal findings. No CHF, sinus rhythm, Hb baseline, no dyspnea, no hypotension. No GI bleeding. PES evaluated patient, will admit to Dr. Fajardo for schizophrenia. Please refer to patient's physical exam and ROS findings from [facility] report dated 03/08/18 Family Contact Family involvement: Patient does not wish Family/SO involvement - Goals for Treatment Patient goals for treatment: I want a place to stay. Discharge/Continuing Care - Education Needs Education Needs: Patient Medication, Patient Coping Skills, Patient Anger Management skills - Discharge Discharge Criteria: Free of Homicidal thoughts, Free of agitation - Treatment Team Participation Patient/Family/SO Statement: * group, milieu and supportive tx * Restart prior effective medications including: -Depakote DR 500 mg PO AMHS -Seroquel XR 100 mg PO BID ~titrate to prior effective dose of 300 BID -Ativan 0.5 mg po AMHS for anxiety and mood control Nicotine 21 mg/24 hr [Nicoderm Cq] 1 patch TD DAILY for tobacco withdrawal * Vitals reviewed and noted below: * consultation for discharge plan and social issues ER labs and studies Please refer to patient's physical exam and ROS findings from [facility] report dated 03/08/18 03/08/18 10:30 EKG: Ordered, reviewed, and independently interpreted the EKG. Rate : 75 BPM Rhythm : NSR Interpretation : QTC 475 milliseconds, No ST-T wave changes. 03/08/18 11:16 Patient's rectal exam results show guaiac is negative. 03/08/18 14:12 Procedure: CT of Head without contrast Dictator: Mitesh Zamudio Impression: No acute intracranial findings. Procedure: Chest X-ray Dictator: Mitesh Zamudio Impression: No active disease. 03/08/18 15:06 Procedure: CT of Abdomen and Pelvis Dictator: Mitesh Zamudio Impression: No acute intra-abdominal findings. No CHF, sinus rhythm, Hb baseline, no dyspnea, no hypotension. No GI bleeding. PES evaluated patient, will admit to Dr. Fajardo for schizophrenia. Please refer to patient's physical exam and ROS findings from [facility] report dated 03/08/18 <Anca Jordan - Last Filed: 03/09/18 08:57> - Diagnosis (1) Schizophrenia Status: Chronic Interventions: 03/09/18 08:58 group, milieu and supportive tx * Restart prior effective medications including: -Depakote DR 500 mg PO AMHS -Seroquel XR 100 mg PO BID ~titrate to prior effective dose of 300 BID -Ativan 0.5 mg po AMHS for anxiety and mood control Nicotine 14 mg/24 hr [Nicoderm Cq] 1 patch TD DAILY for tobacco withdrawal (2) Hallucinations Status: Acute Interventions: 03/09/18 08:58 group, milieu and supportive tx * Restart prior effective medications including: -Depakote DR 500 mg PO AMHS -Seroquel XR 100 mg PO BID ~titrate to prior effective dose of 300 BID -Ativan 0.5 mg po AMHS for anxiety and mood control Nicotine 14 mg/24 hr [Nicoderm Cq] 1 patch TD DAILY for tobacco withdrawal (3) Cocaine abuse Status: Chronic Interventions: 03/09/18 08:58 group, milieu and supportive tx * Restart prior effective medications including: -Depakote DR 500 mg PO AMHS -Seroquel XR 100 mg PO BID ~titrate to prior effective dose of 300 BID -Ativan 0.5 mg po AMHS for anxiety and mood control Nicotine 14 mg/24 hr [Nicoderm Cq] 1 patch TD DAILY for tobacco withdrawal <Gina Castillo Y - Last Filed: 03/10/18 11:48> Family Contact Family involvement: Famliy/SO not involved
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
[2018-03-09] MEDS: Divalproex 500 mg DR(BID formulation) PO SCH ×2 (15:38→22:46)
[2018-03-09 19:07] VITALS: O2SAT 91
[2018-03-10] MEDS: Divalproex 500 mg DR(BID formulation) PO SCH ×2 (09:09→21:09)
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
[2018-03-11] MEDS: Divalproex 500 mg DR(BID formulation) PO SCH ×2 (10:00→21:56)
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
--- NOTE | 2018-03-12 08:09 | PN ---
DATE: 03/11/2018 SUBJECTIVE: A 43-year-old female. The patient was seen and examined at the bedside on 03/11/2018, sleepy, arousable. According to her, she is doing fine. "I am doing just fine. I am fine. I am sleepy, let me sleep." Has trace of swelling of the legs. No fever. No chills. No hematuria or hematochezia. No headache. No dizziness. No chest pain. No palpitation. PHYSICAL EXAMINATION: VITAL SIGNS: Temperature 97.2, pulse 81, blood pressure 117/80, respiratory rate 17. HEENT: Head: Normocephalic, atraumatic. Eyes: PERRLA. Extraocular muscles are intact. Conjunctivae clear. Nose patent. Mucous membranes moist. NECK: Supple. No carotid bruit. No JVD or thyromegaly. CHEST: Bilaterally symmetrical. HEART: S1 and S2, positive. LUNGS: Clear to auscultation. ABDOMEN: Soft. Bowel sounds present. No organomegaly. EXTREMITIES: Have trace edema. No cyanosis. NEUROLOGICAL: The patient is sleepy, arousable, moving all 4 extremities. MEDICATIONS: Ativan, Depakote, Maalox, Milk of Magnesia, Seroquel, Sonata, acetaminophen. LABORATORY DATA: We do not have recent labs today, but I reviewed old labs. ASSESSMENT AND PLAN: Ms. Brenna Aleman is a 43-year-old lady with history of hypomagnesemia, proteinuria, ketonuria, hematuria. Drug screen is positive for cocaine metabolites. History of hepatitis C, history of hypertension, schizophrenia, bipolar, had multiple admissions. We will call Cardiology consult. For swelling of the legs, we will order some Lasix. Gastrointestinal and deep venous thrombosis prophylaxis given. CAT scan of the abdomen and pelvis shows no acute intra-abdominal findings. No dyspnea. No hypotension. No gastrointestinal bleeding. History of schizoaffective disorder, substance abuse, multiple psychiatric admissions. We will do blood workup, especially BNP. We will follow up. Vira Denton MD
[2018-03-12] MEDS: Divalproex 500 mg DR(BID formulation) PO SCH ×2 (08:28→22:51)
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
--- NOTE | 2018-03-12 16:08 | US ---
HISTORY: Leg pain and swelling. Evaluate for DVT PHYSICIAN(S): Esteban Mosley MD. TECHNIQUE: Duplex sonography and color-flow Doppler with graded compression were used to evaluate the deep venous systems of both lower extremities. FINDINGS: The visualized deep venous systems of both lower extremities are sonographically normal and compressible. Normal wave forms and augmentation are seen. There is no sonographic evidence for deep venous thrombosis in the visualized segments of both lower extremities. IMPRESSION: No sonographic evidence for deep venous thrombosis in the visualized segments of both lower extremities.
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
--- NOTE | 2018-03-12 18:40 | CARD ---
APPROVED REPORT Date of service: 03/12/2018 EXAM: Two-dimensional and M-mode echocardiogram with Doppler and color Doppler. INDICATION LVFX/RVFX/LEG EDEMA 2D DIMENSIONS Left Atrium (2D)4.4 (1.6-4.0cm)IVSd0.9 (0.7-1.1cm) LVDd3.9 (3.9-5.9cm)PWd1.0 (0.7-1.1cm) LVDs2.6 (2.5-4.0cm)FS (%) 34.3 % LVEF (%)64.0 (>50%) M-Mode DIMENSIONS Aortic Root2.60 (2.2-3.7cm)Aortic Cusp Exc.1.80 (1.5-2.0cm) Aortic Valve AoV Peak Gdozmrfa569.0cm/Momo Peak GR.11mmHg Mitral Valve MV E Afbczihh50.2cm/sMV A Ucrllppl57.0cm/sE/A ratio1.3 TDI E/Lateral E'0.0E/Medial E'0.0 Pulmonary Valve PV Peak Orsnttwu90.4cm/sPV Peak Grad.3mmHg Tricuspid Valve TR Peak Yqyzfimq297wk/sRAP [id number] Peak Gr.18mmHg [id number] LEFT VENTRICLE The left ventricle is normal size. The left ventricular function is normal. The left ventricular ejection fraction is within the normal range. 65%. RIGHT VENTRICLE The right ventricle is normal size. The right ventricular systolic function is normal. ATRIA The left atrium size is normal. The right atrium size is normal. AORTIC VALVE The aortic valve is normal in structure. TRICUSPID VALVE The tricuspid valve is normal in structure. There is trace tricuspid regurgitation. PERICARDIAL EFFUSION There is no pericardial effusion. <Conclusion> The left ventricular function is normal. The left ventricular ejection fraction is within the normal range. 65%. The right ventricle is normal size. The right ventricular systolic function is normal. The left atrium size is normal. The right atrium size is normal. The Mitral Valve is Normal in Structure. The aortic valve is normal in structure. The tricuspid valve is normal in structure. There is trace tricuspid regurgitation. There is no pericardial effusion.
[2018-03-13 08:25] LABS: HDL CHOLESTEROL 90 mg/dL (29-60)
[2018-03-13 08:36] LABS: LDL CHOLESTEROL 100 mg/dL (0-129)
--- NOTE | 2018-03-13 08:45 | PN ---
DATE: 03/12/2018 SUBJECTIVE: The patient is a 43-year-old female. The patient was seen and examined at the bedside on 03/12/2018, looking comfortable, walking around. Swelling of leg is better. No fever, no chills. No hematuria or hematochezia. No headache, no dizziness. PHYSICAL EXAMINATION: VITAL SIGNS: Temperature 98.6, blood pressure 117/80, respiratory rate 18, and pulse 80. HEENT: Head, normocephalic, atraumatic. Eyes, PERRLA. Extraocular muscles intact. Conjunctivae clear. Nose patent. Mucous membrane moist. NECK: Supple. No carotid bruit. No JVD or thyromegaly. CHEST: Bilaterally symmetrical. HEART: S1 and S2 positive. LUNGS: Clear to auscultation. ABDOMEN: Soft. Bowel sounds present. No organomegaly. EXTREMITIES: No edema. No cyanosis. NEUROLOGIC: The patient is awake, alert. Moving all four extremities. No focal deficits. LABORATORY DATA: White blood cell 7.2, hemoglobin 13.2, hematocrit 39, platelets 294. Sodium 136, potassium 3.9, BUN 19, creatinine 0.7. AST and ALT within normal limits. Total protein and albumin within normal limits. MEDICATIONS: Reviewed by me. There is no change in the medications. ASSESSMENT AND PLAN: The patient is a 43-year-old female with history of depression, anxiety, bipolar, schizophrenia, hypertension, arthritis, substance abuse, especially urine is positive for cocaine. Has swelling of the legs. Venous Doppler studies done lower extremities, reviewed by me is negative for deep venous thrombosis. Echocardiogram was done, results are pending, and according to Dr. Worley, the patient will go for Lexiscan stress test. Meanwhile, continue the present treatment. Repeat laboratories. We will follow up. Appreciated Dr. Laureen Fajardo's input and Dr. Worley's input. Vira Denton MD
[2018-03-13] MEDS: Divalproex 500 mg DR(BID formulation) PO SCH ×2 (09:56→22:15)
--- NOTE | 2018-03-13 12:07 | PN ---
DATE: 03/13/2018 REASON FOR CONSULTATION: Atypical chest pain, cardiac evaluation. The patient denies any chest pain, shortness of breath, or any palpitation. Wants to go home. PHYSICAL EXAMINATION VITAL SIGNS: Temperature is afebrile, heart rate 80, blood pressure 117/80. HEENT: PERRLA. Extraocular muscle intact. NECK: Supple. No carotid bruits. No thyromegaly. CHEST: Clear to auscultation. HEART: S1, S2 regular. ABDOMEN: Soft. EXTREMITIES: Clubbing, cyanosis negative. LABORATORY DATA: Blood workup WBC 7.8, hemoglobin 13, hematocrit 39.0, platelet count 294 as of 03/08/2018. Sodium 130, potassium 3.9, chloride 104, carbon dioxide 25, anion gap of 12, BUN , creatinine 0.7. TSH 3.04, triglycerides 68, cholesterol 218, LDL 100, HDL 90. The patient had echocardiography done yesterday that revealed left ventricular functions normal, ejection fraction 65%, normal LA and RA. Trace tricuspid regurgitation, RV systolic pressure 28. IMPRESSION: A 43-year-old female with past medical significant for depression, anxiety disorder, schizophrenia, hypertension, arthritis, and laparotomy for ovarian cyst. Admitted to the psych floor comes in with vague abdominal pain, so far no evidence of acute AK. Echo shows preserved left ventricular function. The patient is also scheduled for further recommendation, after the stress we will follow with you. Thank you Dr. Fajardo for providing us the opportunity in taking care of the patient, Ash Tran. We will follow with you. Aracelis Chong MD
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
--- NOTE | 2018-03-14 04:50 | PN ---
DATE: 03/13/2018 SUBJECTIVE: The patient is a 42-year-old female. The patient was seen and examined at the bedside on 03/13/2018, sleeping. No events happened overnight. No chest pain. No headache. No dizziness. No fever. No chills. PHYSICAL EXAMINATION: VITAL SIGNS: Temperature 98.6, heart rate 80, blood pressure 120/80, respiratory rate 18. HEENT: Head: Normocephalic and atraumatic. Eyes: PERRLA. Extraocular muscles intact. Conjunctivae clear. Nose patent. Mucous membrane moist. NECK: Supple. No carotid bruit. No JVD or thyromegaly. CHEST: Bilaterally symmetrical. HEART: S1 and S2 positive. LUNGS: Clear to auscultation. ABDOMEN: Soft. Bowel sounds present. No organomegaly. EXTREMITIES: No edema. No cyanosis. NEUROLOGIC: The patient is awake and alert. Moving all four extremities. No focal deficits. LABORATORY DATA: White blood cells 7.8, hemoglobin 13, hematocrit 39, platelets 294. Sodium 130, potassium 3.9, and creatinine 0.7. TSH 3.04. ASSESSMENT AND PLAN: Ms. Chelsea Aleman is a 42-year-old female with hypercholesterolemia, depression, anxiety, schizophrenia, hypertension, arthritis, laparotomy for ovarian cyst, history of multiple psychiatric admissions and so far no evidence of acute myocardial infarction as per Cardiology. Echocardiogram shows preserved left ventricular hypertrophy. Gastrointestinal and deep vein thrombosis prophylaxis. . We will follow up. Vira Denton MD
[2018-03-14 07:18] VITALS: BP 116/65; PULSE 73; RESP 20; TEMP 98.4
[2018-03-14] MEDS: Divalproex 500 mg DR(BID formulation) PO SCH (09:24)
--- NOTE | 2018-03-14 11:24 | PN ---
DATE: 03/14/2018 REASON FOR CONSULTATION: Atypical chest pain, cardiac evaluation, refused stress test. SUBJECTIVE: The patient denied any chest pain, shortness of breath, or any palpitation and wants to go home, refused the stress test again this morning. I talked to the patient, said that we will get the blood workup but no stress test PHYSICAL EXAMINATION: GENERAL: Not in apparent distress. VITAL SIGNS: Temperature afebrile, heart rate 73, blood pressure 106/65. HEENT: PERRLA intact. Extraocular muscles are intact. NECK: Supple. No carotid bruits or thyromegaly. CHEST: Clear to auscultation. HEART: S1 and S2, regular. ABDOMEN: Soft. EXTREMITIES: Clubbing and cyanosis is negative. LABORATORY DATA: Blood workup as follows: WBC 7.8, hemoglobin 13.2, hematocrit 39, and platelet count 294. Chemistry showed sodium 130, potassium 3.9, chloride 104, carbon dioxide 25, anion gap of 12, BUN 15, creatinine 0.7. Total cholesterol 218, LDL 100, HDL 90, TSH 3.04. IMPRESSION: A 43-year-old female with a past medical history significant for depression, anxiety, schizophrenia, hypertension, arthritis, laparotomy for ovarian cyst, admitted to the psych floor with vague abdominal pain. No evidence of acute myocardial infarction. Echo showed preserved left ventricular function. The patient is scheduled for a stress test yesterday. The patient refused this morning. I had a lengthy discussion and the patient does not want a stress test, but we will get the blood workup. So far, the patient is asymptomatic. Continue current treatment. We will sign off and would like to followup p.r.n. Thank you Dr. Fajardo, for providing us the opportunity in taking care of your patient, Chelsea Aleman. Aracelis Chong MD
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
--- NOTE | 2018-03-16 02:57 | PN ---
DATE: 03/14/2018 SUBJECTIVE: The patient is a 43-year-old female. The patient was seen and examined on bedside, 03/14/2018. Looking comfortable. I saw the patient in the morning. Very happy to go home. No fever. No chills. No hematuria. No hematochezia. No headache. No dizziness. No chest pain or palpitation at that moment. PHYSICAL EXAMINATION: VITAL SIGNS: Temperature 98.6, heart rate 76, blood pressure 110/50, and respiratory rate 18. HEENT: Head: Normocephalic and atraumatic. Eyes: PERRLA. Extraocular muscles intact. Conjunctivae pale. Nose is patent. Mucous membranes moist. NECK: Supple. No carotid bruits. No JVD. No thyromegaly. CHEST: Bilaterally symmetrical. HEART: S1 and S2 positive. LUNGS: Clear to auscultation. ABDOMEN: Soft. Bowel sounds present. No organomegaly. EXTREMITIES: No edema. No cyanosis. NEUROLOGIC: The patient is awake and alert. Moving all four extremities. No focal deficits. LABORATORY DATA: White blood cell 7.8, hemoglobin 13.2, hematocrit 39, and platelets 294. Sodium 130, potassium 3.9. The patient's serum creatinine of 0.7 . ASSESSMENT AND PLAN: The patient is a 43-year-old lady with hypercholesterolemia, has history of depression, anxiety, schizophrenia, hypertension, arthritis, laparotomy for ovarian cyst, history of hepatitis C. The patient was scheduled for stress test, but the patient refused. had length of time discussion done with the patient, but still the patient refused, noncompliant. The patient was discharged by Dr. Laureen Fajardo. We will follow up again. Vira Denton MD
== END 2018-03-14 15:20 | disposition home or self-care (01) | DRG 885 ==
LOC: ED 09:04 → ERH 15:01 → PSYC 16:49
PROVIDERS: ADMIT Psychiatry & Neurology Psychiatry; ATTEND Psychiatry & Neurology Psychiatry
DX: F25.9 Schizoaffective disorder, unspecified (principal); F17.213 Nicotine dependence, cigarettes, with withdrawal; F14.10 Cocaine abuse, uncomplicated; F12.10 Cannabis abuse, uncomplicated; F31.9 Bipolar disorder, unspecified; F41.9 Anxiety disorder, unspecified; I10 Essential (primary) hypertension; E78.00 Pure hypercholesterolemia, unspecified; M19.90 Unspecified osteoarthritis, unspecified site; R07.89 Other chest pain; M79.662 Pain in left lower leg; M79.661 Pain in right lower leg; R10.9 Unspecified abdominal pain; M79.89 Other specified soft tissue disorders; Z86.19 Personal history of other infectious and parasitic diseases; Z91.19 Patient's noncompliance with other medical treatment and regimen

== ENCOUNTER 2018-03-16 08:11 | Emergency (ER) | payer MEDICARE ==
[2018-03-16 08:12] VITALS: BMI 30.2
[2018-03-16 08:38] VITALS: BP 111/57; PULSE 100; RESP 18; TEMP 98.9; O2SAT 97
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
[2018-03-16] MEDS ORDERED: Bacitracin 500 Units/gm Oint Foilpak UD TOP ONE (09:44)
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
== END 2018-03-16 10:03 | disposition home or self-care (01) ==
LOC: ED 08:11
DX: T20.211A Burn of second degree of right ear [any part, except ear drum], initial encounter (principal); X08.8XXA Exposure to other specified smoke, fire and flames, initial encounter; F17.210 Nicotine dependence, cigarettes, uncomplicated; F20.9 Schizophrenia, unspecified; I10 Essential (primary) hypertension

== ENCOUNTER 2018-04-17 09:42 | Inpatient (IN) | payer MEDICARE ==
[2018-04-17 09:42] VITALS: BMI 30.2
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
[2018-04-17 10:35] LABS: URINE BILIRUBIN NEGATIVE (NEGATIVE); URINE BLOOD MODERATE (NEGATIVE); URINE GLUCOSE (UA) NEGATIVE (NEGATIVE); URINE LEUKOCYTE ESTERASE NEGATIVE Leu/uL (NEGATIVE); URINE PROTEIN 100 mg/dL (<30 mg/dL); URINE UROBILINOGEN 0.2 E.U./dL (<1 E.U./dL)
[2018-04-17 10:36] LABS: BASO # 0.04 K/mm3 (0.0-2.0); BASO % 0.4 % (0.0-3.0); EOS # 0.1 (0.0-0.7); EOS % 0.8 % (1.5-5.0); HEMOGLOBIN 12.9 g/dL (12.0-16.0); LYMPH # 2.7 (1.2-3.4); LYMPH % 27.9 % (22.0-35.0); MEAN CELL VOLUME 93.1 fl (80.0-105.0); MEAN CORPUSCULAR HEMOGLOBIN 30.9 pg (25.0-35.0); MEAN CORPUSCULAR HGB CONC 33.2 g/dl (31.0-37.0); MEAN PLATELET VOLUME 10.2 fl (7.0-11.0); MONO # 0.8 (0.1-0.6); MONO % 7.8 % (1.0-6.0); RBC 4.18 10^6/uL (3.5-6.1); RED CELL DISTRIBUTION WIDTH 13.5 % (11.5-14.5); WHITE BLOOD COUNT 9.7 10^3/uL (4.5-11.0)
[2018-04-17 10:36] LABS: URINE APPEARANCE CLEAR (CLEAR); URINE COLOR YELLOW (YELLOW)
[2018-04-17 10:47] LABS: ACETAMINOPHEN < 10.0 ug/ml (10.0-20.0); ALB/GLOB RATIO 1.3 (1.1-1.8); ALBUMIN 4.5 g/dL (3.0-4.8); ALT/SGPT 18 U/L (7-56); AST/SGOT 31 U/L (14-36); BLOOD UREA NITROGEN 16 mg/dL (7-21); GFR NON-AFRICAN AMERICAN > 60; SALICYLATE < 1 mg/dL (2.0-20.0)
[2018-04-17 11:00] LABS: BARBITURATES, UR NEGATIVE (NEGATIVE); BENZODIAZEPINES, UR NEGATIVE (NEGATIVE); OPIATES, UR NEGATIVE (NEGATIVE); PHENCYCLIDINE, UR NEGATIVE (NEGATIVE)
[2018-04-17 11:05] LABS: URINE RBC 20 - 25 /hpf (0-2)
[2018-04-17 11:06] LABS: URINE AMORPHOUS SEDIMENT FEW /hpf; URINE BACTERIA MANY /hpf; URINE COARSE GRANULAR CAST TRACE /hpf; URINE FINE GRANULAR CAST 0 - 2 /hpf
[2018-04-17 11:21] LABS: FREE T4 1.32 ng/dL (0.78-2.19)
[2018-04-17 12:16] VITALS: O2SAT 98
[2018-04-17] MEDS ORDERED: Magnesium Hydroxide Susp 30 ml UD PO PRN (12:58)
[2018-04-17] MEDS ORDERED: Alum-Mag Hydrox-Simethicone Susp (30 mL) PO PRN (13:03)
--- NOTE | 2018-04-17 14:48 | PCM.BM ---
<Triston Salgado - Last Filed: 04/17/18 14:45> Treatment Plan Problems - Problems identified on initial assessmt INEEFECTIVE IMPULSE CONTROL Date Initiated: 04/17/18 Time Initiated: 14:46 Assessment reference: HP, NA, Other Status: Active MEDICATION NONADHERENCE Date Initiated: 04/17/18 Time Initiated: 14:48 Assessment reference: HP, NA, Other Status: Active THOUGHT PROCESS ALTERATION Date Initiated: 04/17/18 Time Initiated: 14:50 Assessment reference: HP, NA, Other Status: Active Treatment assets and liabiliti Patient Assests: ADL independent, negotiates basic needs, good past tx response Patient Liabilities: live alone, poor support system, relationship conflicts, legal issue, other - Milieu Protocol Maintain good personal hygiene: daily Encourage regular showers, daily Remind patient to perform daily oral care, daily Assist patient to perform ADL's Maintain personal safety: daily Educate patient to report safety concerns to staff, daily Monitor environment for contraband/sharps Medication safety: Monitor for expected outcome, potential side effects: daily, Assess barriers to learning: daily, Assess readiness for medication education: daily Discharge/Continuing Care - Education Needs Education Needs: Patient Medication, Patient Diagnosis/Disease Process, Patient Coping Skills, Patient Anger Management skills, Patient Placement options, Patient Community resources, Patient Activities of Daily Living, Patient Uses of Medical Equipment, Patient Health Practices/Safety, Patient Personal Hygiene/Grooming, Patient Aftercare Safety Plan - Discharge Discharge Criteria: Free of Suicidal thoughts, Free of Homicidal thoughts, Free of paranoid thoughts, Normal sleep pattern <Laureen Fajardo - Last Filed: 04/18/18 08:51> - Diagnosis (1) Polysubstance abuse Status: Acute Interventions: 04/18/18 08:51 Monitoring withdrawal symptoms Medical detoxification Pharmacotherapy for alcohol/benzos/opioid dependence Maintaining sobriety Relapse prevention Possible rehabilitation Motivational interviewing 12-step programs: AA meetings (2) Schizoaffective disorder Status: Acute Interventions: 04/18/18 08:51 Psychoeducation/psychotherapy Psychopharmacology/adjustment of medications as needed/ monitoring possible side effects Evaluate pt on daily basis Compliance with medications and follow up appointments Long acting medication if pt is noncompliant with pill form Suicide and homicide risk assessment and prevention, coping strategies, safety plan Relapse prevention Reduction of symptoms Improve functional status Possible assertive community treatment Cognitive behavioral therapy Family involvement Possible social skill training as outpatient <Gina Castillo - Last Filed: 04/21/18 12:05> Family Contact Family involvement: Famliy/SO not involved <Renee Camargo - Last Filed: 04/21/18 14:24>
--- NOTE | 2018-04-17 15:10 | CARD ---
APPROVED REPORT Date of service: 04/17/2018 EKG Measurement Heart [id number] <Conclusion> Normal sinus rhythm Normal ECG
[2018-04-17] MEDS: Divalproex 250 mg DR (BID formulation) PO SCH (21:11)
[2018-04-18] MEDS: Divalproex 250 mg DR (BID formulation) PO SCH ×2 (09:34→22:02)
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
[2018-04-18] MEDS: Multivitamin With Minerals Tab PO SCH (13:53)
[2018-04-19] MEDS: Divalproex 250 mg DR (BID formulation) PO SCH ×3 (09:11→21:55)
[2018-04-19] MEDS: Multivitamin With Minerals Tab PO SCH (09:12)
--- NOTE | 2018-04-19 09:33 | PCM.PYCHPN ---
Psychiatric Progress Note - Psychiatric Progress Note Patient seen today, length of contact: 25 MIN Problems Identified/Issues Discussed: I interviewed patient at bedside today. She is disheveled and disorganized. It is difficult to keep patient focused due to her scattered and flighty thought process. Her responses are inconsistent. Patient has been disorganized and impulsive on the unit. She generally irritable and requires a lot of redirection from inappropriate behaviors. Presently she denies any new discomfort or pain. She doesn't appear to be actively hallucinating but she is impulsive, bizarre, brittle, ferrara and too unpredictable. Her insight and judgement remain poor. Diagnostic Results: Schizoaffective disorder SIMD Substance Use disorder, severe Medication Change: No Medical Record Reviewed: Yes Mental Status Examination - Cognitive Function Orientation: Person, Place Attention: Poor Concentration: Poor Association: Loose Fund of Knowledge: Poor - Mood Mood: Anxious - Affect Affect: Constricted, Other (labile, irritable) - Formal Thought Process Formal Thought Process: Hallucinations, Delusions, Paranoia, Loosening of associations - Homicidal Ideation Homicidal Ideation: Yes Goal/Treatment Plan - Goal/Treatment Plan Progress Toward Problem(s) and Goals/Treatment Plan: * c/w current tx and plan * Vitals reviewed and noted below: Selected Entries 04/18/18 04/18/18 07:07 15:35 Temperature 97.4 F L Pulse Rate 75 76 Blood Pressure 126/79 120/74 * No new weekend lab results thus far * Ativan 2 mg po TID to be tapered as tolerated for alcohol withdrawal
--- NOTE | 2018-04-20 09:19 | PCM.PYCHPN ---
Psychiatric Progress Note - Psychiatric Progress Note Patient seen today, length of contact: 25 MIN Problems Identified/Issues Discussed: I interviewed patient at bedside today. She remains disheveled and disorganized. It is difficult to keep patient focused due to her scattered thought process. Her responses are inconsistent and this provider cannot engage in a meaningful interview with her. Staff notes indicate that patient has been disorganized, disrespectful and impulsive on the unit. She generally irritable and requires a lot of redirection from inappropriate behaviors. This is consistent with her other admissions. Presently she denies any new discomfort or pain. She doesn't appear to be actively hallucinating but she is impulsive, bizarre, brittle, ferrara and too unpredictable. Her insight and judgement remain poor. Diagnostic Results: Schizoaffective disorder SIMD Substance Use disorder, severe Medication Change: Yes (patient appears sedated, ativan was decreased) Medical Record Reviewed: Yes Mental Status Examination - Cognitive Function Orientation: Person, Place Attention: Poor Concentration: Poor Association: Loose Fund of Knowledge: Poor - Mood Mood: Anxious - Affect Affect: Constricted, Other (labile, irritable) - Formal Thought Process Formal Thought Process: Hallucinations, Delusions, Paranoia, Loosening of associations - Suicidal Ideation Suicidal Ideation: No - Homicidal Ideation Homicidal Ideation: No Goal/Treatment Plan - Goal/Treatment Plan Progress Toward Problem(s) and Goals/Treatment Plan: * c/w current tx and plan * Vitals reviewed and noted below: Selected Entries 04/18/18 04/18/18 04/19/18 07:07 15:35 15:00 Temperature 97.4 F L Pulse Rate 75 76 68 Blood Pressure 126/79 120/74 101/54 L * No new weekend lab results thus far * Ativan 2 mg po TID decreased to 1 mg AMHS on 04/20/18 as patient appears sedated. VSS, to be further tapered as tolerated for alcohol withdrawal
[2018-04-20] MEDS: Divalproex 250 mg DR (BID formulation) PO SCH ×2 (14:02→21:08)
[2018-04-20] MEDS: Multivitamin With Minerals Tab PO SCH (14:05)
[2018-04-21] MEDS: Divalproex 250 mg DR (BID formulation) PO SCH ×2 (10:10→21:54)
[2018-04-21] MEDS: Multivitamin With Minerals Tab PO SCH (10:11)
[2018-04-21 13:19] LABS: URINE BILIRUBIN NEGATIVE (NEGATIVE); URINE BLOOD TRACE-LYSED (NEGATIVE); URINE GLUCOSE (UA) NEGATIVE (NEGATIVE); URINE LEUKOCYTE ESTERASE NEGATIVE Leu/uL (NEGATIVE); URINE PROTEIN NEGATIVE mg/dL (<30 mg/dL); URINE UROBILINOGEN 0.2 E.U./dL (<1 E.U./dL)
[2018-04-21 13:29] LABS: URINE APPEARANCE CLEAR (CLEAR); URINE COLOR YELLOW (YELLOW)
[2018-04-21 13:34] LABS: URINE BACTERIA FEW /hpf; URINE EPITHELIAL CELLS 0 - 2 /hpf (0-5); URINE RBC 0 - 2 /hpf (0-2); URINE WBC 0 - 2 /hpf (0-6)
--- NOTE | 2018-04-21 15:21 | PCM.PYCHPN ---
Psychiatric Progress Note - Psychiatric Progress Note Patient seen today, length of contact: 25 MIN Patient Chief Complaint: "I am fine..." Problems Identified/Issues Discussed: Suicide/ homicide prevention, past psychiatric h/o, current psychiatric symptoms, medical problems, risk/benefits and alternatives of medications, medications compliance, coping strategies, substance abuse h/o, relapse prevention, importance of follow up with psychiatrist and therapist, discharge plan. Medical Problems: UA positive for trichomonas Diagnostic Results: 04/17/18 10:29 04/17/18 10:29 Lab Results 04/21/18 13:05: Urine Color Yellow, Urine Appearance Clear, Urine pH 7.0, Ur Specific [place] 1.015, Urine Protein Negative, Urine Glucose (UA) Negative, Urine Ketones Negative, Urine Blood Trace-lysed H, Urine Nitrate Negative, Urine Bilirubin Negative, Urine Urobilinogen 0.2, Ur Leukocyte Esterase Negative, Urine RBC 0 - 2, Urine WBC 0 - 2, Ur Epithelial Cells 0 - 2, Urine Bacteria Few, Urine Other Trichomonas 04/17/18 10:29: Free T4 1.32, TSH 3rd Generation 0.75, Alcohol, Quantitative 38 H 04/17/18 10:29: Sodium 138, Potassium 3.9, Chloride 107, Carbon Dioxide 20 L, Anion Gap 15, BUN 16, Creatinine 0.9, Est GFR ( Amer) > 60, Est GFR (Non- Af Amer) > 60, Random Glucose 64 L, Calcium 9.0, Magnesium 2.0, Total Bilirubin 0.4, AST 31, ALT 18, Alkaline Phosphatase 62, Total Protein 7.9, Albumin 4.5, Globulin 3.4, Albumin/Globulin Ratio 1.3 04/17/18 10:29: Salicylates < 1 L, Acetaminophen < 10.0 L 04/17/18 10:29: WBC 9.7 D, RBC 4.18, Hgb 12.9, Hct 38.9, MCV 93.1, MCH 30.9, MCHC 33.2, RDW 13.5, Plt Count 245, MPV 10.2, Neut % (Auto) 63.1, Lymph % (Auto) 27.9, [place] % (Auto) 7.8 H, Eos % (Auto) 0.8 L, Baso % (Auto) 0.4, Lymph # (Auto) 2.7, [place] # (Auto) 0.8 H, Eos # (Auto) 0.1, Baso # (Auto) 0.04, Absolute Neuts (auto) 6.09 04/17/18 10:25: Urine Color Yellow, Urine Appearance Clear, Urine pH 6.0, Ur Specific [place] >= 1.030, Urine Protein 100 H, Urine Glucose (UA) Negative, Urine Ketones Negative, Urine Blood Moderate H, Urine Nitrate Negative, Urine Bilirubin Negative, Urine Urobilinogen 0.2, Ur Leukocyte Esterase Negative, Urine RBC 20 - 25 H, Urine WBC 1 - 3, Ur Epithelial Cells 6 - 8 H, Amorphous Sediment Few, Urine Bacteria Many, Fine Granular Casts 0 - 2, Coarse Granular Casts Trace, Urine Other Fiber 04/17/18 10:25: Urine Opiates Screen Negative, Urine Methadone Screen Negative, Ur Barbiturates Screen Negative, Ur Phencyclidine Scrn Negative, Ur Amphetamines Screen Negative, U Benzodiazepines Scrn Negative, U Oth Cocaine Metabols Positive H, U Cannabinoids Screen Positive H Vital Signs Temp Pulse Resp BP Pulse Ox 04/19/18 15:00 68 101/54 L 04/18/18 15:35 76 120/74 04/18/18 07:07 97.4 F L 75 126/79 04/17/18 16:07 84 125/73 04/17/18 11:42 71 18 110/79 98 04/17/18 09:55 98.1 F 79 18 107/64 99 Laboratory Results - last 24 hr 04/21/18 13:05 Urine Color Yellow Urine Appearance Clear Urine pH 7.0 Ur Specific [place] 1.015 Urine Protein Negative Urine Glucose (UA) Negative Urine Ketones Negative Urine Blood Trace-lysed H Urine Nitrate Negative Urine Bilirubin Negative Urine Urobilinogen 0.2 Ur Leukocyte Esterase Negative Urine RBC 0 - 2 Urine WBC 0 - 2 Ur Epithelial Cells 0 - 2 Urine Bacteria Few Urine Other Trichomonas DSM 5 Symptoms Update: shortly, pt is a 43 year old female with long h/o mental illness (psychotic spectrum disorder), polysubstance abuse and dependence, patient has chronic noncompliance with her medications and follow-up appointments, multiple psychiatric admissions in the past, most recent was at [facility] March 26, 2018, Pt. has had 3 hospitalizations in the past 3 months [facility], patient was herself to the hospital looking for help for command type hallucinations, suicidal ideations, patient expressed aggressive support towards towards thoughts her girlfriend and her cat, as per emergency room report patient tried to hang the girlfriend's cat. Patient req uires further evaluation and stabilization and med management. Patient was seen and examined today in her room, patient presented with very poor personal hygiene, very strong here in order in the room, as per report from nursing staff patient is urinating on the floor, very disorganized, patient co mplained that she has frequent urinations, urine analysis was obtained, which showed trichomonas, medical consult as well as infectious disease consult was called. Going back to the patient presentation, patient presented to be disorganized, poor impulse control, needs constant redirections. So far patient tolerates medications well, no side effects observed or reported, aims 0, no EPS. Impression: Schizoaffective disorder Polysubstance abuse and dependence Medication Change: No Medical Record Reviewed: Yes Consults ordered or reviewed: Medical consult plus infectious disease consult Mental Status Examination - Cognitive Function Orientation: Person, Place Attention: Poor Concentration: Poor Association: Loose Fund of Knowledge: Poor - Mood Mood: Anxious - Affect Affect: Constricted, Other (labile, irritable) - Formal Thought Process Formal Thought Process: Hallucinations, Delusions, Paranoia, Loosening of associations - Suicidal Ideation Suicidal Ideation: No - Homicidal Ideation Homicidal Ideation: No Goal/Treatment Plan - Goal/Treatment Plan Need for Continued Stay: Remain at risks for inpatient hospitalization, Severe depression anxiety, Discharge may exacerbated symptoms, Severe functional impairment Progress Toward Problem(s) and Goals/Treatment Plan: Milieu/structure/supportive therapy consultation for discharge plan and social issues Med management Seroquel was initiated 100 mg twice a day for psychosis, today this freelance copywriter will increase it to 200 mg twice a day, patient is not neurolepticaly brian, will be safe Ativan was decreased Multivitamins, folic acid, thiamine Depakote 500 mg twice a day for mood stabilization Family involvement Follow up on labs Will monitor closely Pt was educated about risk/benefits and alternatives of medications, coping strategies (safety plan, suicide prevention), relapse prevention, importance of follow up with psychiatrist and therapist, stay away from drugs/alcohol/smoking Estimated Date of D/C: 04/25/18
[2018-04-22] MEDS: Multivitamin With Minerals Tab PO SCH (09:25)
[2018-04-22] MEDS: Divalproex 250 mg DR (BID formulation) PO SCH ×2 (09:25→21:57)
--- NOTE | 2018-04-22 13:23 | PCM.PYCHPN ---
Psychiatric Progress Note - Psychiatric Progress Note Patient seen today, length of contact: 30 minutes Patient Chief Complaint: "Oh, I feel very depressed, I am very upset that I have trichomonas, I am practicing safe sex, but my boyfriend is not...." Problems Identified/Issues Discussed: Suicide/ homicide prevention, past psychiatric h/o, current psychiatric symptoms, medical problems, risk/benefits and alternatives of medications, medications compliance, coping strategies, substance abuse h/o, relapse prevention, importance of follow up with psychiatrist and therapist, discharge plan. Medical Problems: UA positive for trichomonas Diagnostic Results: 04/17/18 10:29 04/17/18 10:29 Lab Results 04/21/18 13:05: Urine Color Yellow, Urine Appearance Clear, Urine pH 7.0, Ur Specific [place] 1.015, Urine Protein Negative, Urine Glucose (UA) Negative, Urine Ketones Negative, Urine Blood Trace-lysed H, Urine Nitrate Negative, Urine Bilirubin Negative, Urine Urobilinogen 0.2, Ur Leukocyte Esterase Negative, Urine RBC 0 - 2, Urine WBC 0 - 2, Ur Epithelial Cells 0 - 2, Urine Bacteria Few, Urine Other Trichomonas 04/17/18 10:29: Free T4 1.32, TSH 3rd Generation 0.75, Alcohol, Quantitative 38 H 04/17/18 10:29: Sodium 138, Potassium 3.9, Chloride 107, Carbon Dioxide 20 L, Anion Gap 15, BUN 16, Creatinine 0.9, Est GFR ( Amer) > 60, Est GFR (Non- Af Amer) > 60, Random Glucose 64 L, Calcium 9.0, Magnesium 2.0, Total Bilirubin 0.4, AST 31, ALT 18, Alkaline Phosphatase 62, Total Protein 7.9, Albumin 4.5, Globulin 3.4, Albumin/Globulin Ratio 1.3 04/17/18 10:29: Salicylates < 1 L, Acetaminophen < 10.0 L 04/17/18 10:29: WBC 9.7 D, RBC 4.18, Hgb 12.9, Hct 38.9, MCV 93.1, MCH 30.9, MCHC 33.2, RDW 13.5, Plt Count 245, MPV 10.2, Neut % (Auto) 63.1, Lymph % (Auto) 27.9, [place] % (Auto) 7.8 H, Eos % (Auto) 0.8 L, Baso % (Auto) 0.4, Lymph # (Auto) 2.7, [place] # (Auto) 0.8 H, Eos # (Auto) 0.1, Baso # (Auto) 0.04, Absolute Neuts (auto) 6.09 04/17/18 10:25: Urine Color Yellow, Urine Appearance Clear, Urine pH 6.0, Ur Specific [place] >= 1.030, Urine Protein 100 H, Urine Glucose (UA) Negative, Urine Ketones Negative, Urine Blood Moderate H, Urine Nitrate Negative, Urine Bilirubin Negative, Urine Urobilinogen 0.2, Ur Leukocyte Esterase Negative, Urine RBC 20 - 25 H, Urine WBC 1 - 3, Ur Epithelial Cells 6 - 8 H, Amorphous Sediment Few, Urine Bacteria Many, Fine Granular Casts 0 - 2, Coarse Granular Casts Trace, Urine Other Fiber 04/17/18 10:25: Urine Opiates Screen Negative, Urine Methadone Screen Negative, Ur Barbiturates Screen Negative, Ur Phencyclidine Scrn Negative, Ur Amphetamines Screen Negative, U Benzodiazepines Scrn Negative, U Oth Cocaine Metabols Positive H, U Cannabinoids Screen Positive H Vital Signs Temp Pulse Resp BP Pulse Ox 04/19/18 15:00 68 101/54 L 04/18/18 15:35 76 120/74 04/18/18 07:07 97.4 F L 75 126/79 04/17/18 16:07 84 125/73 04/17/18 11:42 71 18 110/79 98 04/17/18 09:55 98.1 F 79 18 107/64 99 Laboratory Results - last 24 hr 04/21/18 13:05 Urine Color Yellow Urine Appearance Clear Urine pH 7.0 Ur Specific [place] 1.015 Urine Protein Negative Urine Glucose (UA) Negative Urine Ketones Negative Urine Blood Trace-lysed H Urine Nitrate Negative Urine Bilirubin Negative Urine Urobilinogen 0.2 Ur Leukocyte Esterase Negative Urine RBC 0 - 2 Urine WBC 0 - 2 Ur Epithelial Cells 0 - 2 Urine Bacteria Few Urine Other Trichomonas DSM 5 Symptoms Update: shortly, pt is a 43 year old female with long h/o mental illness (psychotic spectrum disorder), polysubstance abuse and dependence, patient has chronic noncompliance with her medications and follow-up appointments, multiple psychiatric admissions in the past, most recent was at [facility] March 26, 2018, Pt. has had 3 hospitalizations in the past 3 months w/ [employer], patient was herself to the hospital looking for help for command type hallucinations, suicidal ideations, patient expressed aggressive support towards towards thoughts her girlfriend and her cat, as per emergency room report patient tried to hang the girlfriend's cat. Patient requires further evaluation and stabilization and med management. Patient was seen and examined today at the treatment team meeting room, patient presented with very poor personal hygiene, very strong urine odor, as per report from staff patient is taken shower, irritable, needs constant redirection. This sheet writer tried to address with the patient the fact that her urine analysis was positive for trichomonas infection, patient response was that she is "very sad, I am practicing safe sex boyfriend does not" no meaningful conversation possible because patient is disorganized and had thoughts speech, poor impulse control, needs constant redirections. So far patient tolerates medications well, no side effects observed or reported, aims 0, no EPS. Impression: Schizoaffective disorder Polysubstance abuse and dependence Medication Change: Yes (Seroquel increased) Medical Record Reviewed: Yes Consults ordered or reviewed: Medical consult plus infectious disease consult Mental Status Examination - Cognitive Function Orientation: Person, Place Attention: Poor Concentration: Poor Association: Loose Fund of Knowledge: Poor - Mood Mood: Anxious - Affect Affect: Constricted, Other (labile, irritable) - Formal Thought Process Formal Thought Process: Hallucinations, Delusions, Paranoia, Loosening of associations - Suicidal Ideation Suicidal Ideation: No - Homicidal Ideation Homicidal Ideation: No Goal/Treatment Plan - Goal/Treatment Plan Need for Continued Stay: Remain at risks for inpatient hospitalization, Severe depression anxiety, Discharge may exacerbated symptoms, Severe functional impairment Progress Toward Problem(s) and Goals/Treatment Plan: Milieu/structure/supportive therapy SW consultation for discharge plan and social issues Med management Seroquel 200 mg in the morning and 300 mg at the nighttime for psychosis Ativan was decreased Multivitamins, folic acid, thiamine Depakote 500 mg twice a day for mood stabilization Family involvement Follow up on labs Will monitor closely Pt was educated about risk/benefits and alternatives of medications, coping strategies (safety plan, suicide prevention), relapse prevention, importance of follow up with psychiatrist and therapist, stay away from drugs/alcohol/smoking Estimated Date of D/C: 04/25/18
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
[2018-04-23 07:07] VITALS: RESP 20; TEMP 98.1
[2018-04-23 08:15] LABS: GLUCOSE,FASTING 81 mg/dL (65-110); HDL CHOLESTEROL 64 mg/dL (29-60)
[2018-04-23] MEDS: Multivitamin With Minerals Tab PO SCH (08:25)
[2018-04-23 08:31] LABS: FREE T4 0.78 ng/dL (0.78-2.19)
[2018-04-23] MEDS: Divalproex 250 mg DR (BID formulation) PO SCH ×2 (09:26→21:24)
[2018-04-23 09:38] LABS: LDL CHOLESTEROL 92 mg/dL (0-129)
--- NOTE | 2018-04-23 14:45 | PCM.PYCHPN ---
Psychiatric Progress Note - Psychiatric Progress Note Patient seen today, length of contact: 30 minutes Patient Chief Complaint: "Oh, fine, everything is fine, I sleep fine, I eat fine, can I leave tomorrow?" Problems Identified/Issues Discussed: Suicide/ homicide prevention, past psychiatric h/o, current psychiatric symptoms, medical problems, risk/benefits and alternatives of medications, medications compliance, coping strategies, substance abuse h/o, relapse prevention, importance of follow up with psychiatrist and therapist, discharge plan. Medical Problems: UA positive for trichomonas Diagnostic Results: 04/17/18 10:29 04/17/18 10:29 Lab Results 04/21/18 13:05: Urine Color Yellow, Urine Appearance Clear, Urine pH 7.0, Ur Specific [place] 1.015, Urine Protein Negative, Urine Glucose (UA) Negative, U rine Ketones Negative, Urine Blood Trace-lysed H, Urine Nitrate Negative, Urine Bilirubin Negative, Urine Urobilinogen 0.2, Ur Leukocyte Esterase Negative, Urine RBC 0 - 2, Urine WBC 0 - 2, Ur Epithelial Cells 0 - 2, Urine Bacteria Few, Urine Other Trichomonas 04/17/18 10:29: Free T4 1.32, TSH 3rd Generation 0.75, Alcohol, Quantitative 38 H 04/17/18 10:29: Sodium 138, Potassium 3.9, Chloride 107, Carbon Dioxide 20 L, Anion Gap 15, BUN 16, Creatinine 0.9, Est GFR ( Amer) > 60, Est GFR (Non- Af Amer) > 60, Random Glucose 64 L, Calcium 9.0, Magnesium 2.0, Total Bilirubin 0.4, AST 31, ALT 18, Alkaline Phosphatase 62, Total Protein 7.9, Albumin 4.5, Globulin 3.4, Albumin/Globulin Ratio 1.3 04/17/18 10:29: Salicylates < 1 L, Acetaminophen < 10.0 L 04/17/18 10:29: WBC 9.7 D, RBC 4.18, Hgb 12.9, Hct 38.9, MCV 93.1, MCH 30.9, MCHC 33.2, RDW 13.5, Plt Count 245, MPV 10.2, Neut % (Auto) 63.1, Lymph % (Auto) 27.9, [place] % (Auto) 7.8 H, Eos % (Auto) 0.8 L, Baso % (Auto) 0.4, Lymph # (Auto) 2.7, [place] # (Auto) 0.8 H, Eos # (Auto) 0.1, Baso # (Auto) 0.04, Absolute Neuts (auto) 6.09 04/17/18 10:25: Urine Color Yellow, Urine Appearance Clear, Urine pH 6.0, Ur Specific [place] >= 1.030, Urine Protein 100 H, Urine Glucose (UA) Negative, Urine Ketones Negative, Urine Blood Moderate H, Urine Nitrate Negative, Urine Bilirubin Negative, Urine Urobilinogen 0.2, Ur Leukocyte Esterase Negative, Urine RBC 20 - 25 H, Urine WBC 1 - 3, Ur Epithelial Cells 6 - 8 H, Amorphous Sediment Few, Urine Bacteria Many, Fine Granular Casts 0 - 2, Coarse Granular Casts Trace, Urine Other Fiber 04/17/18 10:25: Urine Opiates Screen Negative, Urine Methadone Screen Negative, Ur Barbiturates Screen Negative, Ur Phencyclidine Scrn Negative, Ur Amphetamines Screen Negative, U Benzodiazepines Scrn Negative, U Oth Cocaine Metabols Positive H, U Cannabinoids Screen Positive H Vital Signs Temp Pulse Resp BP Pulse Ox 04/19/18 15:00 68 101/54 L 04/18/18 15:35 76 120/74 04/18/18 07:07 97.4 F L 75 126/79 04/17/18 16:07 84 125/73 04/17/18 11:42 71 18 110/79 98 04/17/18 09:55 98.1 F 79 18 107/64 99 Laboratory Results - last 24 hr 04/21/18 13:05 Urine Color Yellow Urine Appearance Clear Urine pH 7.0 Ur Specific [place] 1.015 Urine Protein Negative Urine Glucose (UA) Negative Urine Ketones Negative Urine Blood Trace-lysed H Urine Nitrate Negative Urine Bilirubin Negative Urine Urobilinogen 0.2 Ur Leukocyte Esterase Negative Urine RBC 0 - 2 Urine WBC 0 - 2 Ur Epithelial Cells 0 - 2 Urine Bacteria Few Urine Other Trichomonas Temp Pulse Resp BP Pulse Ox 98.1 F 71 20 109/60 98 04/23/18 07:00 04/23/18 07:00 04/23/18 07:00 04/23/18 07:00 04/17/18 11:42 DSM 5 Symptoms Update: shortly, pt is a 43 year old female with long h/o mental illness (psychotic spectrum disorder), polysubstance abuse and dependence, patient has chronic noncompliance with her medications and follow-up appointments, multiple psychiatric admissions in the past, most recent was at [facility] March 26, 2018, Pt. has had 3 hospitalizations in the past 3 months / [id number], patient was herself to the hospital looking for help for command type hallucinations, suicidal ideations, patient expressed aggressive support towards towards thoughts her girlfriend and her cat, as per emergency room report patient tried to hang the girlfriend's cat. Patient requires further evaluation and stabilization and med management. Patient was seen and examined today in her room, patient presented with very poor personal hygiene, but not malodorous, as per report from staff patient is not showering, still irritable, but not aggressive. Patient is superficially cooperative, still appears to be disorganized, illogical, impulses are unpredictable. Patient was seen by infectious disease doctor, Flagyl was started, education provided. So far patient tolerates medications well, no side effects observed or reported, aims 0, no EPS. Impression: Schizoaffective disorder Polysubstance abuse and dependence Medication Change: Yes (Ativan discontinued) Medical Record Reviewed: Yes Consults ordered or reviewed: Medical consult plus infectious disease consult Mental Status Examination - Cognitive Function Orientation: Person, Place Attention: Poor Concentration: Poor Association: Loose Fund of Knowledge: Poor - Mood Mood: Anxious - Affect Affect: Constricted, Other (labile, irritable) - Formal Thought Process Formal Thought Process: Hallucinations (Denied), Delusions (Denied), Paranoia ( denied), Loosening of associations - Suicidal Ideation Suicidal Ideation: No - Homicidal Ideation Homicidal Ideation: No Goal/Treatment Plan - Goal/Treatment Plan Need for Continued Stay: Remain at risks for inpatient hospitalization, Severe depression anxiety, Discharge may exacerbated symptoms, Severe functional impairment Progress Toward Problem(s) and Goals/Treatment Plan: Milieu/structure/supportive therapy SW consultation for discharge plan and social issues Med management Seroquel 200 mg in the morning and 300 mg at the nighttime for psychosis Ativan discontinued Multivitamins, folic acid, thiamine Depakote 500 mg twice a day for mood stabilization Depakote level tomorrow April 24, 2018 Family involvement Follow up on labs Will monitor closely Pt was educated about risk/benefits and alternatives of medications, coping strategies (safety plan, suicide prevention), relapse prevention, importance of follow up with psychiatrist and therapist, stay away from drugs/alcohol/smoking Estimated Date of D/C: 04/25/18
[2018-04-24] MEDS: Divalproex 250 mg DR (BID formulation) PO SCH ×2 (10:32→21:07)
[2018-04-24] MEDS: Multivitamin With Minerals Tab PO SCH (10:33)
--- NOTE | 2018-04-24 15:43 | PCM.PYCHPN ---
Psychiatric Progress Note - Psychiatric Progress Note Patient seen today, length of contact: 30 minutes Patient Chief Complaint: "I want to be a volunteer in [employer], I also want to be adopted." Problems Identified/Issues Discussed: Suicide/ homicide prevention, past psychiatric h/o, current psychiatric symptoms, medical problems, risk/benefits and alternatives of medications, medications compliance, coping strategies, substance abuse h/o, relapse prevention, importance of follow up with psychiatrist and therapist, discharge plan. Medical Problems: UA positive for trichomonas Diagnostic Results: 04/17/18 10:29 04/17/18 10:29 Lab Results 04/21/18 13:05: Urine Color Yellow, Urine Appearance Clear, Urine pH 7.0, Ur Specific [place] 1.015, Urine Protein Negative, Urine Glucose (UA) Negative, Urine Ketones Negative, Urine Blood Trace-lysed H, Urine Nitrate Negative, Urine Bilirubin Negative, Urine Urobilinogen 0.2, Ur Leukocyte Esterase Negative, Urine RBC 0 - 2, Urine WBC 0 - 2, Ur Epithelial Cells 0 - 2, Urine Bacteria Few, Urine Other Trichomonas 04/17/18 10:29: Free T4 1.32, TSH 3rd Generation 0.75, Alcohol, Quantitative 38 H 04/17/18 10:29: Sodium 138, Potassium 3.9, Chloride 107, Carbon Dioxide 20 L, Anion Gap 15, BUN 16, Creatinine 0.9, Est GFR ( Amer) > 60, Est GFR (Non- Af Amer) > 60, Random Glucose 64 L, Calcium 9.0, Magnesium 2.0, Total Bilirubin 0.4, AST 31, ALT 18, Alkaline Phosphatase 62, Total Protein 7.9, Albumin 4.5, Globulin 3.4, Albumin/Globulin Ratio 1.3 04/17/18 10:29: Salicylates < 1 L, Acetaminophen < 10.0 L 04/17/18 10:29: WBC 9.7 D, RBC 4.18, Hgb 12.9, Hct 38.9, MCV 93.1, MCH 30.9, MCHC 33.2, RDW 13.5, Plt Count 245, MPV 10.2, Neut % (Auto) 63.1, Lymph % (Auto) 27.9, [place] % (Auto) 7.8 H, Eos % (Auto) 0.8 L, Baso % (Auto) 0.4, Lymph # (Auto) 2.7, [place] # (Auto) 0.8 H, Eos # (Auto) 0.1, Baso # (Auto) 0.04, Absolute Neuts (auto) 6.09 04/17/18 10:25: Urine Color Yellow, Urine Appearance Clear, Urine pH 6.0, Ur Specific [place] >= 1.030, Urine Protein 100 H, Urine Glucose (UA) Negative, Urine Ketones Negative, Urine Blood Moderate H, Urine Nitrate Negative, Urine Bilirubin Negative, Urine Urobilinogen 0.2, Ur Leukocyte Esterase Negative, Urine RBC 20 - 25 H, Urine WBC 1 - 3, Ur Epithelial Cells 6 - 8 H, Amorphous Sediment Few, Urine Bacteria Many, Fine Granular Casts 0 - 2, Coarse Granular Casts Trace, Urine Other Fiber 04/17/18 10:25: Urine Opiates Screen Negative, Urine Methadone Screen Negative, Ur Barbiturates Screen Negative, Ur Phencyclidine Scrn Negative, Ur Amphetamines Screen Negative, U Benzodiazepines Scrn Negative, U Oth Cocaine Metabols Positive H, U Cannabinoids Screen Positive H Vital Signs Temp Pulse Resp BP Pulse Ox 04/19/18 15:00 68 101/54 L 04/18/18 15:35 76 120/74 04/18/18 07:07 97.4 F L 75 126/79 04/17/18 16:07 84 125/73 04/17/18 11:42 71 18 110/79 98 04/17/18 09:55 98.1 F 79 18 107/64 99 Laboratory Results - last 24 hr 04/21/18 13:05 Urine Color Yellow Urine Appearance Clear Urine pH 7.0 Ur Specific [place] 1.015 Urine Protein Negative Urine Glucose (UA) Negative Urine Ketones Negative Urine Blood Trace-lysed H Urine Nitrate Negative Urine Bilirubin Negative Urine Urobilinogen 0.2 Ur Leukocyte Esterase Negative Urine RBC 0 - 2 Urine WBC 0 - 2 Ur Epithelial Cells 0 - 2 Urine Bacteria Few Urine Other Trichomonas Temp Pulse Resp BP Pulse Ox 98.1 F 71 20 109/60 98 04/23/18 07:00 04/23/18 07:00 04/23/18 07:00 04/23/18 07:00 04/17/18 11:42 Abnormal Lab Results 04/23/18 04/23/18 07:00 07:30 RPR Nonreactive HIV 1&2 Ag/Ab, 4th Gen Nonreactive Laboratory Results - last 24 hr 04/23/18 04/23/18 07:00 07:30 RPR Nonreactive HIV 1&2 Ag/Ab, 4th Gen Nonreactive DSM 5 Symptoms Update: shortly, pt is a 43 year old female with long h/o mental illness (psychotic spectrum disorder), polysubstance abuse and dependence, patient has chronic noncompliance with her medications and follow-up appointments, multiple psychiatric admissions in the past, most recent was at [facility] March 26, 2018, Pt. has had 3 hospitalizations in the past 3 months / [employer], patient was herself to the hospital looking for help for command type hallucinations, suicidal ideations, patient expressed aggressive support towards towards thoughts her girlfriend and her cat, as per emergency room report patient tried to hang the girlfriend's cat. Patient requires further evaluation and stabilization and med management. Patient was seen and examined today in her room, patient presented with very poor personal hygiene, patient is disorganized, patient making irrational statements such as that she wants to be adopted, patient also reported that her plan is to be a volunteer in the [employer], majority of the statements are illogical, thought process is disorganized. Patient was seen by infectious disease doctor, Flagyl was started, education provided. So far patient tolerates medications well, no side effects observed or reported, aims 0, no EPS. Impression: Schizoaffective disorder Polysubstance abuse and dependence Medication Change: Yes (Seroquel increased) Medical Record Reviewed: Yes Consults ordered or reviewed: Medical consult plus infectious disease consult Mental Status Examination - Cognitive Function Orientation: Person, Place Attention: Poor Concentration: Poor Association: Loose Fund of Knowledge: Poor - Mood Mood: Anxious - Affect Affect: Constricted, Other (labile, irritable) - Formal Thought Process Formal Thought Process: Hallucinations (Denied), Delusions (Denied), Paranoia ( denied), Loosening of associations - Suicidal Ideation Suicidal Ideation: No - Homicidal Ideation Homicidal Ideation: No Goal/Treatment Plan - Goal/Treatment Plan Need for Continued Stay: Remain at risks for inpatient hospitalization, Severe depression anxiety, Discharge may exacerbated symptoms, Severe functional impairment Progress Toward Problem(s) and Goals/Treatment Plan: Milieu/structure/supportive therapy SW consultation for discharge plan and social issues Med management Seroquel 300 mg in the morning and 300 mg at the nighttime for psychosis Ativan discontinued Multivitamins, folic acid, thiamine Depakote 500 mg twice a day for mood stabilization Depakote level was not done today, will check tomorrow April 25, 2018 Family involvement Follow up on labs Will monitor closely Pt was educated about risk/benefits and alternatives of medications, coping strategies (safety plan, suicide prevention), relapse prevention, importance of follow up with psychiatrist and therapist, stay away from drugs/alcohol/smoking Estimated Date of D/C: 04/28/18
[2018-04-24 16:29] VITALS: BP 105/56; PULSE 88
[2018-04-25] MEDS: Multivitamin With Minerals Tab PO SCH (08:29)
[2018-04-25] MEDS: Divalproex 250 mg DR (BID formulation) PO SCH (09:42)
--- NOTE | 2018-04-25 15:45 | PCM.PYCHDC ---
Mental Status Examination - Mental Status Examination Orientation: Person, Place, Situation, Time Memory: Impaired (But much better) Mood: Neutral Affect: Constricted (But reactive) Speech: Appropriate (Times disorganized but overall better) Attention: Poor (Overall improved) Concentration: Poor (Overall improved) Association: Loose (Baseline but improved) Fund of Knowledge: Poor (Baseline but improved) Formal Thought Process: Circumstantial (Baseline) Description of patient's judgement and insight: Pt has somewhat improved insight into mental and medical illness, pt was compliant with medications and unit rules and regulations, pt was going to groups, was calm, cooperative, socially appropriate, no behavioral incidents, no agitation, no aggression. Psychotic Thoughts and Behaviors: Pt denied v/a/t hallucinations, denied paranoid ideations, pt does not appear to be psychotic, and thought process is goal directed. Suicidal Ideation: No Current Homicidal Ideation?: No Plan: pt adamantly denied thoughts of harming self or others denied intent or plan. Discharge Summary - Discharge Note Reason for Hospitalization: Patient was admitted to the psychiatric inpatient unit for evaluation and stabilization of psychosis,, type hallucinations, possible suicidal ideation. See admission note for more detailed information Psychiatric History (includes Medical, Family, Personal Hx): See HPI Laboratory Data: 04/17/18 10:29 04/17/18 10:29 Lab Results 04/23/18 07:30: RPR Nonreactive 04/23/18 07:00: HIV 1&2 Ag/Ab, 4th Gen Nonreactive 04/23/18 07:00: Free T4 0.78, TSH 3rd Generation 1.05 04/23/18 07:00: Fasting Glucose 81, Triglycerides 90, Cholesterol 194, LDL Cholesterol Direct 92, HDL Cholesterol 64 H 04/21/18 13:05: Urine Color Yellow, Urine Appearance Clear, Urine pH 7.0, Ur Specific [place] 1.015, Urine Protein Negative, Urine Glucose (UA) Negative, Urine Ketones Negative, Urine Blood Trace-lysed H, Urine Nitrate Negative, Urine Bilirubin Negative, Urine Urobilinogen 0.2, Ur Leukocyte Esterase Negative, Urine RBC 0 - 2, Urine WBC 0 - 2, Ur Epithelial Cells 0 - 2, Urine Bacteria Few, Urine Other Trichomonas 04/17/18 10:29: Free T4 1.32, TSH 3rd Generation 0.75, Alcohol, Quantitative 38 H 04/17/18 10:29: Sodium 138, Potassium 3.9, Chloride 107, Carbon Dioxide 20 L, Anion Gap 15, BUN 16, Creatinine 0.9, Est GFR ( Amer) > 60, Est GFR (Non- Af Amer) > 60, Random Glucose 64 L, Calcium 9.0, Magnesium 2.0, Total Bilirubin 0.4, AST 31, ALT 18, Alkaline Phosphatase 62, Total Protein 7.9, Albumin 4.5, Globulin 3.4, Albumin/Globulin Ratio 1.3 04/17/18 10:29: Salicylates < 1 L, Acetaminophen < 10.0 L 04/17/18 10:29: WBC 9.7 D, RBC 4.18, Hgb 12.9, Hct 38.9, MCV 93.1, MCH 30.9, MCHC 33.2, RDW 13.5, Plt Count 245, MPV 10.2, Neut % (Auto) 63.1, Lymph % (Auto) 27.9, [place] % (Auto) 7.8 H, Eos % (Auto) 0.8 L, Baso % (Auto) 0.4, Lymph # (Auto) 2.7, [place] # (Auto) 0.8 H, Eos # (Auto) 0.1, Baso # (Auto) 0.04, Absolute Neuts (auto) 6.09 04/17/18 10:25: Urine Color Yellow, Urine Appearance Clear, Urine pH 6.0, Ur Specific [place] >= 1.030, Urine Protein 100 H, Urine Glucose (UA) Negative, Urine Ketones Negative, Urine Blood Moderate H, Urine Nitrate Negative, Urine Bilirubin Negative, Urine Urobilinogen 0.2, Ur Leukocyte Esterase Negative, Urin e RBC 20 - 25 H, Urine WBC 1 - 3, Ur Epithelial Cells 6 - 8 H, Amorphous Sediment Few, Urine Bacteria Many, Fine Granular Casts 0 - 2, Coarse Granular Casts Trace, Urine Other Fiber 04/17/18 10:25: Urine Opiates Screen Negative, Urine Methadone Screen Negative, Ur Barbiturates Screen Negative, Ur Phencyclidine Scrn Negative, Ur Amphetamines Screen Negative, U Benzodiazepines Scrn Negative, U Oth Cocaine Metabols Positive H, U Cannabinoids Screen Positive H Vital Signs Temp Pulse Resp BP Pulse Ox 04/24/18 16:00 88 105/56 L 02/20/19 07:00 98.1 F 71 20 109/60 04/19/18 15:00 68 101/54 L 04/18/18 15:35 76 120/74 04/18/18 07:07 97.4 F L 75 126/79 04/17/18 16:07 84 125/73 04/17/18 11:42 71 18 110/79 98 04/17/18 09:55 98.1 F 79 18 107/64 99 Consultations:: List each consultation separately and include: 1. Reason for request. 2. Findings. 3. Follow-up Consultations: Medical consult plus infectious disease consult Please see notes for information Discussed with Dr. Padron today 04/25/2018 patient needs to continue Flagyl for another 7 days Summary of Hospital Course include:: 1. Description of specific treatment plan utilized for patients during their course of treatmen. 2. Summarize the time- course for resolution of acute symptoms and/or regressed behaviors. 3. Describe issues identified and worked on during hospitalization. 4. Describe medication utilized. 5. Describe medical problems identified and treated. 6. Reassessment of suicide risk Summary of Hospital Course: shortly, pt is a 43 year old female with long h/o mental illness (psychotic spectrum disorder), polysubstance abuse and dependence, patient has chronic noncompliance with her medications and follow-up appointments, multiple psychiatric admissions in the past, most recent was at [facility] March 26, 2018, Pt. has had 3 hospitalizations in the past 3 months w/ [facility], patient was herself to the hospital looking for help for command type hallucinations, suicidal ideations, patient expressed aggressive support towards towards thoughts her girlfriend and her cat, as per emergency room report patient tried to hang the girlfriend's cat. Patient required further evaluation and stabilization and med management. Please see admission note for more detailed information. Over the course of this hospitalization patient was stabilized on the following medications: Depakote 500 mg twice a day for mood stabilization Folic acid 1 mg daily Neurontin 300 mg 3 times a day for mood stabilization Flagyl 500 mg 3 times a day for trichomonas Multivitamins daily Seroquel 300 mg twice a day Time and 100 mg daily Trazodone 50 mg daily for insomnia and depression Patient tolerated medications well, no side effects observed or reported, aims 0, no EPS. Over the course of this hospitalization patient presented to be, all much better, patient was not interested to participate in unit activities but was compliant with her medications. Patient reached maximum effect from this hospitalization, patient is more organized, no agitation, no aggression, patient was considered to pose no imminent danger to self or others and ready for discharge. Patient will be following up at [facility] clinic, information about follow up appointment, time and address provided to the pt, (see SW note for more detailed information). It is a patient responsibility to follow up [facility] and [facility], PMD as well as specialists, patient is aware that she needs to continue taking Flagyl for another 7 days, patient was educated about safe sex, patient verbalized understanding. In case patient will need to obtain results of studies pending at discharge, patient was provided with contact information of Psychiatric Inpatient unit [phone] as well as Medical Record Department [phone], as well as [facility] team [phone]. Patient denied smoking, patient was provided with information AA meetings and NA meetings, patient will follow up at [facility] dual diagnosis program pt was provided with prescriptions see medication reconciliation form Pt was educated about safety plan in case of worsening of symptoms or in case of suicidal or homicidal ideation call 911 or go to the nearest ER, also was educated to take meds as prescribed and stay away from drugs, pt verbalized understanding. 04/17/18 10:29 04/17/18 10:29 Lab Results 04/17/18 10:29: Free T4 1.32, TSH 3rd Generation 0.75, Alcohol, Quantitative 38 H 04/17/18 10:29: Sodium 138, Potassium 3.9, Chloride 107, Carbon Dioxide 20 L, Anion Gap 15, BUN 16, Creatinine 0.9, Est GFR ( Amer) > 60, Est GFR (Non- Af Amer) > 60, Random Glucose 64 L, Calcium 9.0, Magnesium 2.0, Total Bilirubin 0.4, AST 31, ALT 18, Alkaline Phosphatase 62, Total Protein 7.9, Albumin 4.5, Globulin 3.4, Albumin/Globulin Ratio 1.3 04/17/18 10:29: Salicylates < 1 L, Acetaminophen < 10.0 L 04/17/18 10:29: WBC 9.7 D, RBC 4.18, Hgb 12.9, Hct 38.9, MCV 93.1, MCH 30.9, MCHC 33.2, RDW 13.5, Plt Count 245, MPV 10.2, Neut % (Auto) 63.1, Lymph % (Auto) 27.9, [place] % (Auto) 7.8 H, Eos % (Auto) 0.8 L, Baso % (Auto) 0.4, Lymph # (Auto) 2.7, [place] # (Auto) 0.8 H, Eos # (Auto) 0.1, Baso # (Auto) 0.04, Absolute Neuts (auto) 6.09 04/17/18 10:25: Urine Color Yellow, Urine Appearance Clear, Urine pH 6.0, Ur Specific [place] >= 1.030, Urine Protein 100 H, Urine Glucose (UA) Negative, Urine Ketones Negative, Urine Blood Moderate H, Urine Nitrate Negative, Urine Bilirubin Negative, Urine Urobilinogen 0.2, Ur Leukocyte Esterase Negative, Urine RBC 20 - 25 H, Urine WBC 1 - 3, Ur Epithelial Cells 6 - 8 H, Amorphous Sediment Few, Urine Bacteria Many, Fine Granular Casts 0 - 2, Coarse Granular Casts Trace, Urine Other Fiber 04/17/18 10:25: Urine Opiates Screen Negative, Urine Methadone Screen Negative, Ur Barbiturates Screen Negative, Ur Phencyclidine Scrn Negative, Ur Amphetamines Screen Negative, U Benzodiazepines Scrn Negative, U Oth Cocaine Metabols Positive H, U Cannabinoids Screen Positive H Vital Signs Temp Pulse Resp BP Pulse Ox 04/18/18 07:07 97.4 F L 75 126/79 04/17/18 16:07 84 125/73 04/17/18 11:42 71 18 110/79 98 04/17/18 09:55 98.1 F 79 18 107/64 99 - Diagnosis (1) Polysubstance abuse Status: Chronic Priority: High (2) Schizoaffective disorder Status: Chronic Priority: High - Final Diagnosis (DSM 5) Condition upon Discharge: STABLE Disposition: HOME/ ROUTINE Follow-up Treatment Plan: In case patient will need to obtain results of studies pending at discharge, patient was provided with contact information of Psychiatric Inpatient unit [phone] as well as Medical Record Department [phone], as well as [facility] team [phone]. Patient denied smoking, patient was provided with information AA meetings and NA meetings, patient will follow up at [facility] dual diagnosis program pt was provided with prescriptions see medication reconciliation form Pt was educated about safety plan in case of worsening of symptoms or in case of suicidal or homicidal ideation call 911 or go to the nearest ER, also was educated to take meds as prescribed and stay away from drugs, pt verbalized understanding. Prescriptions/Medication Reconciliation: Divalproex [Depakote DR(*BID*)] 500 mg PO BID #30 ect Folic Acid 1 mg PO DAILY #14 tab Gabapentin [Neurontin] 300 mg PO TID #45 cap metroNIDAZOLE [Flagyl] 500 mg PO Q8 #21 tab Multimineral/Multivitamin [Therapeutic-M Tab] 1 tab PO DAILY #14 tab QUEtiapine [SEROquel] 300 mg PO AMHS #30 tab Thiamine [Vitamin B1 Tab] 100 mg PO DAILY #14 tab traZODone [Desyrel] 50 mg PO HS #14 tab - Smoking Cessation Smoking Cessation Medication prescribed: No Reason for not providing: Patient refused - Antipsychotic Medications Pt discharged on 2 or more routine antipsychotic medications: No
== END 2018-04-25 12:26 | disposition home or self-care (01) | DRG 885 ==
LOC: ED 09:42 → ERH 11:45 → PSYC 12:43
PROVIDERS: ADMIT Psychiatry & Neurology Psychiatry; ATTEND Psychiatry & Neurology Psychiatry
PROC: GZ3ZZZZ Medication Management (ICD-10-PCS; principal; 2018-04-17)
DX: F25.9 Schizoaffective disorder, unspecified (principal); F19.20 Other psychoactive substance dependence, uncomplicated; F10.239 Alcohol dependence with withdrawal, unspecified; F19.24 Other psychoactive substance dependence with psychoactive substance-induced mood disorder; A59.9 Trichomoniasis, unspecified; I10 Essential (primary) hypertension; G47.00 Insomnia, unspecified; Y90.1 Blood alcohol level of 20-39 mg/100 ml; F17.210 Nicotine dependence, cigarettes, uncomplicated; Z59.0 Homelessness; Z91.14 Patient's other noncompliance with medication regimen; Z76.5 Malingerer [conscious simulation]

== ENCOUNTER 2018-05-11 13:06 | Inpatient (IN) | payer MEDICARE, OTHER ==
[2018-05-11 13:07] VITALS: BMI 30.2
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
[2018-05-11 14:36] LABS: BASO # 0.03 K/mm3 (0.0-2.0); BASO % 0.6 % (0.0-3.0); EOS # 0.1 (0.0-0.7); EOS % 1.5 % (1.5-5.0); HEMOGLOBIN 12.9 g/dL (12.0-16.0); LYMPH # 2.1 (1.2-3.4); LYMPH % 39.4 % (22.0-35.0); MEAN CELL VOLUME 91.9 fl (80.0-105.0); MEAN CORPUSCULAR HEMOGLOBIN 30.7 pg (25.0-35.0); MEAN CORPUSCULAR HGB CONC 33.4 g/dl (31.0-37.0); MONO # 0.7 (0.1-0.6); MONO % 13.3 % (1.0-6.0); RBC 4.2 10^6/uL (3.5-6.1); RED CELL DISTRIBUTION WIDTH 13.4 % (11.5-14.5); WHITE BLOOD COUNT 5.4 10^3/uL (4.5-11.0)
[2018-05-11 14:41] LABS: ALB/GLOB RATIO 1.3 (1.1-1.8); ALBUMIN 4.5 g/dL (3.0-4.8); ALT/SGPT 27 U/L (7-56); AST/SGOT 64 U/L (14-36); BLOOD UREA NITROGEN 15 mg/dL (7-21); CALCIUM 8.9 mg/dL (8.4-10.5); GFR NON-AFRICAN AMERICAN > 60
--- NOTE | 2018-05-11 17:31 | CT ---
Date of service: 05/11/2018 PROCEDURE: CT HEAD WITHOUT CONTRAST. HISTORY: fall COMPARISON: Noncontrast head CT 03/16/2018. TECHNIQUE: Axial computed tomography images were obtained through the head/brain without intravenous contrast. Radiation dose: Total exam DLP = 923.52 mGy-cm. This CT exam was performed using one or more of the following dose reduction techniques: Automated exposure control, adjustment of the mA and/or kV according to patient size, and/or use of iterative reconstruction technique. FINDINGS: HEMORRHAGE: No intracranial hemorrhage. BRAIN: Normal wright-white matter differentiation and density are appreciated throughout the cerebrum and cerebellum with the brainstem appearing unremarkable as well. There is no mass effect. There is no suspicious extra-axial fluid collection and the midline brain anatomy appears diffusely unremarkable. VENTRICLES: Unremarkable. No hydrocephalus. CALVARIUM: No destructive bony lesion or displaced fracture identified including through the skullbase. PARANASAL SINUSES: Unremarkable as visualized. No significant inflammatory changes. MASTOID AIR CELLS: Unremarkable as visualized. No inflammatory changes. OTHER FINDINGS: None. IMPRESSION: Stable, unremarkable unenhanced head CT.
[2018-05-11 17:55] LABS: URINE BILIRUBIN NEGATIVE (NEGATIVE); URINE BLOOD MODERATE (NEGATIVE); URINE GLUCOSE (UA) NEGATIVE (NEGATIVE); URINE LEUKOCYTE ESTERASE NEGATIVE Leu/uL (NEGATIVE); URINE PROTEIN 100 mg/dL (<30 mg/dL); URINE UROBILINOGEN 0.2 E.U./dL (<1 E.U./dL)
[2018-05-11 17:56] LABS: URINE APPEARANCE CLEAR (CLEAR); URINE COLOR YELLOW (YELLOW)
--- NOTE | 2018-05-11 18:33 | RAD ---
Date of service: 05/11/2018 PROCEDURE: Radiographs of the Lumbar Spine. HISTORY: pain COMPARISON: No prior. FINDINGS: BONES: Normal alignment. Mild multilevel lumbar spondylosis lumbarized S1 suggested. No spondylolysis identified. No listhesis. No fracture. DISC SPACES: Unremarkable. OTHER FINDINGS: None. IMPRESSION: Mild multilevel lumbar spondylosis. No fracture or spondylolisthesis identified. No spondylolysis either. Lumbarized S1.
--- NOTE | 2018-05-11 18:34 | RAD ---
Date of service: 05/11/2018 HISTORY: psych eval COMPARISON: Frontal chest radiograph 03/08/2018. FINDINGS: LUNGS: No active pulmonary disease. PLEURA: No significant pleural effusion identified, no pneumothorax apparent. CARDIOVASCULAR: No aortic atherosclerotic calcification present. Normal cardiac size. No pulmonary vascular congestion. OSSEOUS STRUCTURES: No significant abnormalities. VISUALIZED UPPER ABDOMEN: Normal. OTHER FINDINGS: None. IMPRESSION: No interval acute cardiopulmonary disease appreciated.
[2018-05-11 18:37] LABS: BARBITURATES, UR NEGATIVE (NEGATIVE); BENZODIAZEPINES, UR NEGATIVE (NEGATIVE); OPIATES, UR NEGATIVE (NEGATIVE); PHENCYCLIDINE, UR POSITIVE (NEGATIVE)
--- NOTE | 2018-05-11 18:38 | RAD ---
Date of service: 05/11/2018 HISTORY: pain COMPARISON: No prior. FINDINGS: BONES: Alignment maintained. No fracture. DISC SPACES: Minimal multilevel thoracic spondylosis mid to upper thoracic spine. SOFT TISSUES: Normal. OTHER FINDINGS: None. IMPRESSION: Minimal degenerative disc disease at multiple levels. No fracture or spondylolisthesis. Normal curvature.
[2018-05-11 19:20] LABS: URINE BACTERIA MOD /hpf; URINE WBC 0 - 2 /hpf (0-6)
[2018-05-11 22:47] VITALS: O2SAT 100
[2018-05-12 04:08] VITALS: RESP 18
--- NOTE | 2018-05-12 04:31 | PCM.BM ---
<Rickey Sheikh O - Last Filed: 05/12/18 04:28> Treatment Plan Problems - Problems identified on initial assessmt Medication non-adherence Date Initiated: 05/11/18 Time Initiated: 22:45 Assessment reference: NA Status: Active Auditory Hallucinations Date Initiated: 05/11/18 Time Initiated: 22:50 Assessment reference: NA Status: Active Altered thought process Date Initiated: 05/11/18 Assessment reference: NA Status: Active Self-care deficit Date Initiated: 05/12/18 Time Initiated: 04:29 Assessment reference: NA Status: Active Violence Date Initiated: 05/11/18 Time Initiated: 22:55 Assessment reference: NA Status: Active Treatment assets and liabiliti Patient Assests: adapts well, ADL independent, negotiates basic needs, good past tx response Patient Liabilities: relationship conflicts, substance abuse - Milieu Protocol Maintain good personal hygiene: daily Encourage regular showers, daily Remind patient to perform daily oral care, daily Assist patient to perform ADL's Conduct patient checks and document Observation sheet: Q15 minutes Maintain personal safety: daily Educate patient to report safety concerns to staff, daily Monitor environment for contraband/sharps Medication safety: Monitor for expected outcome, potential side effects: daily, Assess barriers to learning: daily, Assess readiness for medication education: daily Family Contact Family involvement: Patient does not wish Family/SO involvement - Goals for Treatment Patient goals for treatment: To get fully healed Discharge/Continuing Care - Education Needs Education Needs: Patient Medication, Patient Diagnosis/Disease Process, Patient Coping Skills - Discharge Discharge Criteria: Free of agitation, Normal sleep pattern, Ability to care for self <Laureen Fajardo A - Last Filed: 05/12/18 14:26> - Diagnosis (1) Schizoaffective disorder Status: Acute Interventions: 05/12/18 14:26 Psychoeducation/psychotherapy Psychopharmacology/adjustment of medications as needed/ monitoring possible side effects Evaluate pt on daily basis Compliance with medications and follow up appointments Long acting medication if pt is noncompliant with pill form Suicide and homicide risk assessment and prevention, coping strategies, safety plan Relapse prevention Reduction of symptoms Improve functional status Possible assertive community treatment Cognitive behavioral therapy Family involvement (2) Polysubstance abuse Status: Chronic Interventions: 05/12/18 14:26 Monitoring withdrawal symptoms Medical detoxification Pharmacotherapy for alcohol/benzos/opioid dependence Maintaining sobriety Relapse prevention Possible rehabilitation Motivational interviewing 12-step programs: AA meetings <Gina Castillo - Last Filed: 05/13/18 11:59> Family Contact Family involvement: Famliy/SO not involved <Renee Camargo - Last Filed: 05/13/18 12:02>
[2018-05-12] MEDS ORDERED: Alum-Mag Hydrox-Simethicone Susp (30 mL) PO PRN (06:00)
[2018-05-12] MEDS ORDERED: Divalproex 250 mg DR (BID formulation) PO SCH (08:00)
[2018-05-12 08:41] LABS: GLUCOSE,FASTING 92 mg/dL (65-110); HDL CHOLESTEROL 93 mg/dL (29-60)
[2018-05-12 08:52] LABS: LDL CHOLESTEROL 44 mg/dL (0-129)
[2018-05-12] MEDS ORDERED: DiphenhydrAMINE 50 mg/ml Inj IM PRN (09:55)
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
[2018-05-13 08:24] LABS: HEMOGLOBIN 12.3 g/dL (12.0-16.0); MEAN CORPUSCULAR HEMOGLOBIN 30.8 pg (25.0-35.0); MEAN CORPUSCULAR HGB CONC 33.5 g/dl (31.0-37.0); MEAN PLATELET VOLUME 10.5 fl (7.0-11.0); RBC 3.99 10^6/uL (3.5-6.1); RED CELL DISTRIBUTION WIDTH 12.8 % (11.5-14.5); WHITE BLOOD COUNT 4.6 10^3/uL (4.5-11.0)
[2018-05-13 08:31] LABS: IRON 43 ug/dL (45-180)
[2018-05-13 08:33] LABS: BLOOD UREA NITROGEN 19 mg/dL (7-21); CALCIUM 9.3 mg/dL (8.4-10.5); GFR NON-AFRICAN AMERICAN > 60
[2018-05-13 08:43] LABS: % IRON SATURATION 12 % (20-55); TOTAL IRON BINDING CAPACITY 350 ug/dL (265-497)
[2018-05-13 13:29] LABS: HEPATITIS B SURFACE AG Negative (NEGATIVE)
[2018-05-13 13:35] LABS: HEPATITIS A IGM NEGATIVE (NEGATIVE); HEPATITIS B CORE AB NEGATIVE (NEGATIVE)
[2018-05-13 13:46] LABS: HEPATITIS C ANTIBODY NEGATIVE (NEGATIVE)
[2018-05-13 14:15] LABS: FOLATE 15.5 ng/mL
--- NOTE | 2018-05-13 14:25 | PCM.PYCHPN ---
Psychiatric Progress Note - Psychiatric Progress Note Patient seen today, length of contact: 30 minutes Patient Chief Complaint: "I want to go to rehab, I am adamant about it" Problems Identified/Issues Discussed: Suicide/ homicide prevention, past psychiatric h/o, current psychiatric symptoms, medical problems, risk/benefits and alternatives of medications, medications compliance, coping strategies, substance abuse h/o, relapse prevention, importance of follow up with psychiatrist and therapist, discharge plan. Medical Problems: Patient has multiple medical issues, patient was seen by medical team, please see consultations for more detailed information Diagnostic Results: 05/13/18 08:00 05/13/18 08:00 Lab Results 05/13/18 08:00: WBC 4.6, RBC 3.99, Hgb 12.3, Hct 36.7, MCV 92.0, MCH 30.8, MCHC 33.5, RDW 12.8, Plt Count 159, MPV 10.5 05/13/18 08:00: Hepatitis A IgM Ab Negative, Hep Bs Antigen Negative, Hep B Core IgM Ab Negative, Hepatitis C Antibody Negative 05/13/18 08:00: Sodium 137, Potassium 4.3, Chloride 104, Carbon Dioxide 28, Anio n Gap 9 L, BUN 19, Creatinine 0.8, Est GFR ( Amer) > 60, Est GFR (Non-Af Amer) > 60, Random Glucose 96, Calcium 9.3, Vitamin B12 269, Folate 15.5 05/13/18 08:00: Hemoglobin A1c 5.4 05/13/18 08:00: Iron 43 L, TIBC 350, % Saturation 12 L 05/12/18 08:20: RPR Nonreactive 05/12/18 08:20: TSH 3rd Generation 1.99 05/12/18 08:20: Fasting Glucose 92, Triglycerides 245 H, Cholesterol 164, LDL Cholesterol Direct 44, HDL Cholesterol 93 H 05/11/18 17:27: Urine Opiates Screen Negative, Urine Methadone Screen Negative, Ur Barbiturates Screen Negative, Ur Phencyclidine Scrn Positive H, Ur A mphetamines Screen Negative, U Benzodiazepines Scrn Negative, U Oth Cocaine Metabols Positive H, U Cannabinoids Screen Negative 05/11/18 17:27: Urine Color Yellow, Urine Appearance Clear, Urine pH 6.0, Ur Specific [place] >= 1.030, Urine Protein 100 H, Urine Glucose (UA) Negative, Urine Ketones Negative, Urine Blood Moderate H, Urine Nitrate Negative, Urine Bilirubin Negative, Urine Urobilinogen 0.2, Ur Leukocyte Esterase Negative, Urine RBC 2 - 5 H, Urine WBC 0 - 2, Ur Epithelial Cells 6 - 8 H, Urine Bacteria Mod 05/11/18 13:20: Beta HCG, Quant < 2.39 05/11/18 13:20: Alcohol, Quantitative < 10 05/11/18 13:20: Sodium 138, Potassium 4.1, Chloride 101, Carbon Dioxide 31, Anion Gap 11, BUN 15, Creatinine 0.7, Est GFR ( Amer) > 60, Est GFR (Non- Af Amer) > 60, Random Glucose 80, Calcium 8.9, Magnesium 2.0, Total Bilirubin 0.4, AST 64 H D, ALT 27, Alkaline Phosphatase 52, Total Protein 7.9, Albumin 4.5, Globulin 3.4, Albumin/Globulin Ratio 1.3 05/11/18 13:20: WBC 5.4 D, RBC 4.20, Hgb 12.9, Hct 38.6, MCV 91.9, MCH 30.7, MCHC 33.4, RDW 13.4, Plt Count 221, MPV 10.0, Neut % (Auto) 45.2 L, Lymph % (Auto) 39.4 H, [place] % (Auto) 13.3 H, Eos % (Auto) 1.5, Baso % (Auto) 0.6, Lymph # (Auto) 2.1, [place] # (Auto) 0.7 H, Eos # (Auto) 0.1, Baso # (Auto) 0.03, Absolute Neuts (auto) 2.44 Vital Signs Temp Pulse Pulse Resp BP Pulse Ox 05/12/18 16:00 74 149/85 05/12/18 07:00 98.6 F 61 18 106/68 05/12/18 06:32 98.7 F 61 18 106/68 05/12/18 03:26 65 18 05/11/18 22:46 98.5 F 69 20 133/72 100 05/11/18 21:04 68 17 117/68 99 05/11/18 19:15 88 17 124/76 100 05/11/18 17:50 98.9 F 64 18 129/72 97 05/11/18 15:00 98.4 F 68 18 130/68 98 05/11/18 13:26 99.4 F 64 18 128/73 99 DSM 5 Symptoms Update: shortly, pt is a 43 year old female with long h/o mental illness (psychotic spec trum disorder), polysubstance abuse and dependence, patient has chronic noncompliance with her medications and follow-up appointments, multiple psychiatric admissions in the past, most recent was here in [facility] 04/18/18, Pt. has had 4 hospitalizations in the past 3 months w/ [facility], patient was herself to the hospital looking for help for depression, possible suicidal ideation with the plan to overdose on sleeping pills, pt also verbalized thoughts of harming her boyfriend, pt reported command type hallucinations. Patient requires further evaluation and stabilization and med management. Patient was seen and examined today next nursing station, hygiene is slightly b christina, patient still presented to be disorganized, now patient is fixated that she wants to go to inpatient rehab, at the same time patient seems to be irrational, asking about random places, demanding, intrusive behavior. Patient denied any hallucinations today, denied thoughts of harming himself or others. patient needed to have constant redirection, patient also was passing gases very loudly, and burping. So far patient tolerates medications well, no side effects observed or reported, aims 0, no EPS. Impression: As per history of schizoaffective disorder Polysubstance abuse and dependence Substance-induced psychosis/mood disorder Medication Change: Yes (Risperdal increased) Medical Record Reviewed: Yes Consults ordered or reviewed: Patient was seen by medical team please see Dr. Denton notes for more detailed information. Mental Status Examination - Cognitive Function Orientation: Person, Place Memory: Impaired Attention: Poor Concentration: Poor Association: Loose Fund of Knowledge: Poor - Mood Mood: Depressed - Affect Affect: Flat - Formal Thought Process Formal Thought Process: Hallucinations (Denied), Delusions, Paranoia - Suicidal Ideation Suicidal Ideation: No - Homicidal Ideation Homicidal Ideation: No Goal/Treatment Plan - Goal/Treatment Plan Need for Continued Stay: Remain at risks for inpatient hospitalization, Severe depression anxiety, Discharge may exacerbated symptoms, Severe functional impairment Progress Toward Problem(s) and Goals/Treatment Plan: Milieu/structure/supportive therapy SW consultation for discharge plan and social issues Med management: risperdal 1mg po tid for psychosis asper pt's request trazodone 50mg at the nighttime for insomnia as well as depression will give as needed meds medical consult ID consult Family involvement Follow up on labs Will monitor closely Pt was educated about risk/benefits and alternatives of medications, coping strategies (safety plan, suicide prevention), relapse prevention, importance of follow up with psychiatrist and therapist, stay away from drugs/alcohol/smoking Estimated Date of D/C: 05/20/18
--- NOTE | 2018-05-14 00:07 | PN ---
DATE: 05/13/2018 SUBJECTIVE: The patient is a 43-year-old female. The patient was seen and examined on 05/13/2018, sitting in the activity room complaining about different type of pains and aches . No headache. No dizziness. No chest pain. No palpitations. PHYSICAL EXAMINATION: VITAL SIGNS: Temperature 98.6, pulse 85, blood pressure 115/60, and respiratory rate 18. HEENT: Head is normocephalic and atraumatic. Eyes; PERRLA. Extraocular muscles are intact. Conjunctivae clear. Nose patent. Mucous membranes moist. NECK: Supple. No carotid bruits, JVD, or thyromegaly. CHEST: Bilaterally symmetrical. HEART: S1 and S2 positive. LUNGS: Clear to auscultation. ABDOMEN: Soft. Bowel sounds present. No organomegaly. EXTREMITIES: No edema. No cyanosis. NEUROLOGIC: The patient is awake and alert. Moving all 4 extremities. No focal deficits. MEDICATIONS: Ativan, Benadryl, Haldol, Maalox, milk of magnesia, Nicoderm, Risperdal, and TriCor. LABORATORY DATA: White blood cells 4.6, hemoglobin 12.3, hematocrit 36.7, and platelets 159. Sodium 137, potassium 4.3, BUN 19, creatinine 0.8, iron 43, and iron saturation 12. Proteinuria and hematuria. Drug screen positive for phencyclidine and cannabinoid. Hepatitis profile is negative. ASSESSMENT AND PLAN: Ms. Chelsea Aleman is a 43-year-old lady with iron deficiency, hypertriglyceridemia, proteinuria, and hematuria. Drug screen is positive for phencyclidine and cocaine. Hepatitis C is negative. Urine culture is negative. Seen by the psychiatrist, getting psych medications. History of schizophrenia. Gastrointestinal and deep vein thrombosis prophylaxes. Repeat labs. We will follow up. Vira Denton MD MTDD
[2018-05-14 07:20] VITALS: TEMP 98.1
[2018-05-14] MEDS: Iron Complex Polysacch 150mg Cap PO SCH (08:22)
[2018-05-14] MEDS: Multivitamin Therapeutic Tab PO SCH (08:22)
[2018-05-14] MEDS: Magnesium Hydroxide Susp 30 ml UD PO PRN (11:10)
--- NOTE | 2018-05-14 14:49 | PCM.PYCHPN ---
Psychiatric Progress Note - Psychiatric Progress Note Patient seen today, length of contact: 30 minutes Patient Chief Complaint: "I want to go to rehab, I am adamant about it" Problems Identified/Issues Discussed: Suicide/ homicide prevention, past psychiatric h/o, current psychiatric symptoms, medical problems, risk/benefits and alternatives of medications, medications compliance, coping strategies, substance abuse h/o, relapse prevention, importance of follow up with psychiatrist and therapist, discharge plan. Medical Problems: Patient has multiple medical issues, patient was seen by medical team, please see consultations for more detailed information Diagnostic Results: 05/13/18 08:00 05/13/18 08:00 Lab Results 05/13/18 08:00: WBC 4.6, RBC 3.99, Hgb 12.3, Hct 36.7, MCV 92.0, MCH 30.8, MCHC 33.5, RDW 12.8, Plt Count 159, MPV 10.5 05/13/18 08:00: Hepatitis A IgM Ab Negative, Hep Bs Antigen Negative, Hep B Core IgM Ab Negative, Hepatitis C Antibody Negative 05/13/18 08:00: Sodium 137, Potassium 4.3, Chloride 104, Carbon Dioxide 28, Anio n Gap 9 L, BUN 19, Creatinine 0.8, Est GFR ( Amer) > 60, Est GFR (Non-Af Amer) > 60, Random Glucose 96, Calcium 9.3, Vitamin B12 269, Folate 15.5 05/13/18 08:00: Hemoglobin A1c 5.4 05/13/18 08:00: Iron 43 L, TIBC 350, % Saturation 12 L 05/12/18 08:20: RPR Nonreactive 05/12/18 08:20: TSH 3rd Generation 1.99 05/12/18 08:20: Fasting Glucose 92, Triglycerides 245 H, Cholesterol 164, LDL Cholesterol Direct 44, HDL Cholesterol 93 H 05/11/18 17:27: Urine Opiates Screen Negative, Urine Methadone Screen Negative, Ur Barbiturates Screen Negative, Ur Phencyclidine Scrn Positive H, Ur A mphetamines Screen Negative, U Benzodiazepines Scrn Negative, U Oth Cocaine Metabols Positive H, U Cannabinoids Screen Negative 05/11/18 17:27: Urine Color Yellow, Urine Appearance Clear, Urine pH 6.0, Ur Specific [place] >= 1.030, Urine Protein 100 H, Urine Glucose (UA) Negative, Urine Ketones Negative, Urine Blood Moderate H, Urine Nitrate Negative, Urine Bilirubin Negative, Urine Urobilinogen 0.2, Ur Leukocyte Esterase Negative, Urine RBC 2 - 5 H, Urine WBC 0 - 2, Ur Epithelial Cells 6 - 8 H, Urine Bacteria Mod 05/11/18 13:20: Beta HCG, Quant < 2.39 05/11/18 13:20: Alcohol, Quantitative < 10 05/11/18 13:20: Sodium 138, Potassium 4.1, Chloride 101, Carbon Dioxide 31, Anion Gap 11, BUN 15, Creatinine 0.7, Est GFR ( Amer) > 60, Est GFR (Non- Af Amer) > 60, Random Glucose 80, Calcium 8.9, Magnesium 2.0, Total Bilirubin 0.4, AST 64 H D, ALT 27, Alkaline Phosphatase 52, Total Protein 7.9, Albumin 4.5, Globulin 3.4, Albumin/Globulin Ratio 1.3 05/11/18 13:20: WBC 5.4 D, RBC 4.20, Hgb 12.9, Hct 38.6, MCV 91.9, MCH 30.7, MCHC 33.4, RDW 13.4, Plt Count 221, MPV 10.0, Neut % (Auto) 45.2 L, Lymph % (Auto) 39.4 H, [place] % (Auto) 13.3 H, Eos % (Auto) 1.5, Baso % (Auto) 0.6, Lymph # (Auto) 2.1, [place] # (Auto) 0.7 H, Eos # (Auto) 0.1, Baso # (Auto) 0.03, Absolute Neuts (auto) 2.44 Vital Signs Temp Pulse Pulse Resp BP Pulse Ox 05/12/18 16:00 74 149/85 05/12/18 07:00 98.6 F 61 18 106/68 05/12/18 06:32 98.7 F 61 18 106/68 05/12/18 03:26 65 18 05/11/18 22:46 98.5 F 69 20 133/72 100 05/11/18 21:04 68 17 117/68 99 05/11/18 19:15 88 17 124/76 100 05/11/18 17:50 98.9 F 64 18 129/72 97 05/11/18 15:00 98.4 F 68 18 130/68 98 05/11/18 13:26 99.4 F 64 18 128/73 99 DSM 5 Symptoms Update: shortly, pt is a 43 year old female with long h/o mental illness (psychotic spe ctrum disorder), polysubstance abuse and dependence, patient has chronic noncompliance with her medications and follow-up appointments, multiple psychiatric admissions in the past, most recent was here in [facility] 04/18/18, Pt. has had 4 hospitalizations in the past 3 months w/ [facility], patient was herself to the hospital looking for help for depression, possible suicidal ideation with the plan to overdose on sleeping pills, pt also verbalized thoughts of harming her boyfriend, pt reported command type hallucinations. Patient requires further evaluation and stabilization and med management. Patient was seen and examined today at the treatment team meeting, hygiene is slightly better, patient still presented to be disorganized, inconsistent, patient is fixated that she wants to go to inpatient rehab yesterday, today patient was indecisive, said that regardless she wants to be d/c next week. pt was advised to complete her tx, pt got more than 5psych admissions for the past two months. Patient denied any hallucinations today, denied thoughts of harming himself or others. patient needed to have constant redirection, very intrusive, disruptive impulses are unpredictable.. So far patient tolerates medications well, no side effects observed or reported, aims 0, no EPS. Impression: As per history of schizoaffective disorder Polysubstance abuse and dependence Substance-induced psychosis/mood disorder Medication Change: Yes (Risperdal increased) Medical Record Reviewed: Yes Consults ordered or reviewed: Patient was seen by medical team please see Dr. Denton notes for more detailed information. Mental Status Examination - Cognitive Function Orientation: Person, Place Memory: Impaired Attention: Poor Concentration: Poor Association: Loose Fund of Knowledge: Poor - Mood Mood: Depressed - Affect Affect: Flat - Formal Thought Process Formal Thought Process: Hallucinations (Denied), Delusions, Paranoia - Suicidal Ideation Suicidal Ideation: No - Homicidal Ideation Homicidal Ideation: No Goal/Treatment Plan - Goal/Treatment Plan Need for Continued Stay: Remain at risks for inpatient hospitalization, Severe depression anxiety, Discharge may exacerbated symptoms, Severe functional impairment Progress Toward Problem(s) and Goals/Treatment Plan: Milieu/structure/supportive therapy SW consultation for discharge plan and social issues Med management: risperdal 1mg po bid and 2mg hs for psychosis as per pt's request trazodone 50mg at the nighttime for insomnia as well as depression will give as needed meds medical consult ID consult Family involvement Follow up on labs Will monitor closely Pt was educated about risk/benefits and alternatives of medications, coping strategies (safety plan, suicide prevention), relapse prevention, importance of follow up with psychiatrist and therapist, stay away from drugs/alcohol/smoking Estimated Date of D/C: 05/20/18
--- NOTE | 2018-05-15 03:47 | PN ---
DATE: 05/14/2018 SUBJECTIVE: The patient is A 43-year-old female. The patient was seen and examined at the bedside on 05/14/2018. Looking comfortable, sleepy, arousable. Moving all four extremities. No fever. No chills. No hematuria. No hematochezia. No headache or dizziness. No chest pain. No palpitation. PHYSICAL EXAMINATION: VITAL SIGNS: Temperature 98.1, pulse 96, blood pressure 110/68, and respiratory rate 18. HEENT: Head, normocephalic and atraumatic. Eyes, closed. Nose patent. Mucous membrane moist. NECK: Supple. No carotid bruit, JVD, or thyromegaly. CHEST: Bilaterally symmetrical. HEART: S1 and S2, positive. LUNGS: Clear to auscultation. ABDOMEN: Soft. Bowel sounds present. No organomegaly. EXTREMITIES: No edema. No cyanosis. NEUROLOGIC: The patient is sleepy, arousable. Follows simple commands. MEDICATIONS: Benadryl, trazodone, iron, Haldol, Maalox, milk of magnesia, Nicoderm patch, Risperdal, and TriCor. ASSESSMENT AND PLAN: Ms. Chelsea Aleman is a 43-year-old lady with hypercholesterolemia, hypertriglyceridemia, history of smoking. Getting Nicoderm patch. Getting TriCor for hypertriglyceridemia. Gaseous stomach, getting Maalox. Iron deficiency, getting iron. He is admitted due to psychiatric reason actually. Seen by Dr. Laureen Fajardo. Today, the patient said that she want to go to rehabilitation. I want to work on that. Gastrointestinal and deep venous thrombosis prophylaxis. The patient has mental illness, psychotic spectrum disorder, polysubstance abuse and dependency. The patient is chronic noncompliant with her medications and followup appointments, multiple psychiatric admissions in the past, most recent was in [facility] on 04/18/2018. The patient had already four hospitalizations in the past three months in [facility]. Gastrointestinal and deep venous thrombosis prophylaxis. Discussion done with nursing staff, and the patient will follow up. Vira Denton MD [facility] # [id number]
[2018-05-15] MEDS: Iron Complex Polysacch 150mg Cap PO SCH (08:23)
[2018-05-15] MEDS: Multivitamin Therapeutic Tab PO SCH (08:24)
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
--- NOTE | 2018-05-15 22:11 | PN ---
DATE: 05/15/2018 SUBJECTIVE: Patient is a 43-year-old. Patient was seen and examined at bedside on 05/15/2018, and looking comfortable. No fever. No chills,. No hematuria. No hematochezia. No headache. No dizziness. No chest pain. No palpitations. PHYSICAL EXAMINATION: VITAL SIGNS: Temperature 98.1, pulse 99, blood pressure 120/79, respiratory rate 18. HEENT: Head is normocephalic and atraumatic. Eyes; PERRLA. Extraocular muscles are intact. Conjunctivae clear. Nose patent. Mucous membranes moist. NECK: Supple. No carotid bruits. No JVD or thyromegaly. CHEST: Bilaterally symmetrical. HEART: S1 and S2 positive. LUNGS: Clear to auscultation. ABDOMEN: Soft. Bowel sounds positive. No organomegaly. EXTREMITIES: No edema. No cyanosis. NEUROLOGIC: The patient is awake and alert. Moving all 4 extremities. No focal deficits. MEDICATIONS: Ativan, Benadryl, Claritin, trazodone, Haldol, Maalox, milk of magnesia, Nicoderm, Risperdal, and TriCor. LABORATORY DATA: We do not have recent labs today, but I reviewed old labs. ASSESSMENT AND PLAN: Ms. Chelsea Aleman is a 43-year-old female with iron deficiency, hypertriglyceridemia, proteinuria, and hematuria. Drug screen is positive for phencyclidine and cocaine. Hepatitis profile is negative. Had multiple psychiatric admissions. history of suicidal or homicidal ideations. Has a long history of mental illness. Patient has chronic noncompliance with her medications and follow up appointments. Multiple psychiatric admissions in the past. Dr. Laureen Fajardo is the patient's psychiatrist. We will continue present treatment. Gastrointestinal and deep venous thrombosis prophylaxes. Repeat laboratories. We will follow up. Vira Denton MD [id number]
[2018-05-16] MEDS: Multivitamin Therapeutic Tab PO SCH (09:18)
[2018-05-16] MEDS: Iron Complex Polysacch 150mg Cap PO SCH (09:19)
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
--- NOTE | 2018-05-17 04:46 | PN ---
DATE: 05/16/2018 SUBJECTIVE: The patient is a 43-year-old female. The patient was seen and examined at the bedside on 05/16/2018. Looking comfortable. No fever. No chills. No hematuria. No hematochezia. No headaches. No dizziness. No chest pain. No palpitation. She is under the care of Dr. Laureen Fajardo, psychiatric department. PHYSICAL EXAMINATION: VITAL SIGNS: Temperature 98.1, pulse 98, blood pressure 120/75, respiratory rate 18. HEENT: Head: Normocephalic and atraumatic. Eyes: PERRLA. Extraocular muscles intact. Conjunctivae clear. Nose patent. NECK: Supple. No carotid bruits. No JVD or thyromegaly. CHEST: Bilaterally symmetrical. HEART: S1 and S2 positive. LUNGS: Clear to auscultation. ABDOMEN: Soft. Bowel sounds present. No organomegaly. EXTREMITIES: No edema. No cyanosis. MEDICATIONS: Ativan, Benadryl, Claritin, [place]-Dur, trazodone, iron, Haldol, MiraLax, milk of magnesia, NicoDerm patch, Risperdal, multivitamin, TriCor. ASSESSMENT AND PLAN: Ms. Chelsea Aleman is a 43-year-old lady with hypercholesteremia, hypertriglyceridemia, gastroesophageal reflux disease, dyspepsia, iron deficiency. Came in [facility]. According to her, "I am feeling better that I am good, I want to go to the rehab." The patient has long history of mental illness, psychotic spectrum disorder, polysubstance abuse, dependency, noncompliant with medications and urged to be compliant. Gastrointestinal and deep venous thrombosis prophylaxes. Repeat labs. We will follow up. Vira Denton MD
[2018-05-17] MEDS: Iron Complex Polysacch 150mg Cap PO SCH (09:04)
[2018-05-17] MEDS: Multivitamin Therapeutic Tab PO SCH (09:12)
--- NOTE | 2018-05-17 14:01 | PCM.PYCHPN ---
Psychiatric Progress Note - Psychiatric Progress Note Patient seen today, length of contact: 30 minutes Patient Chief Complaint: "I am better...tell that I am good, I want to go to the rehab..." Problems Identified/Issues Discussed: Suicide/ homicide prevention, past psychiatric h/o, current psychiatric symptoms, medical problems, risk/benefits and alternatives of medications, medications compliance, coping strategies, substance abuse h/o, relapse prevention, importance of follow up with psychiatrist and therapist, discharge plan. Medical Problems: Patient has multiple medical issues, patient was seen by medical team, please s ee consultations for more detailed information Diagnostic Results: 05/13/18 08:00 05/13/18 08:00 Lab Results 05/13/18 08:00: WBC 4.6, RBC 3.99, Hgb 12.3, Hct 36.7, MCV 92.0, MCH 30.8, MCHC 33.5, RDW 12.8, Plt Count 159, MPV 10.5 05/13/18 08:00: Hepatitis A IgM Ab Negative, Hep Bs Antigen Negative, Hep B Core IgM Ab Negative, Hepatitis C Antibody Negative 05/13/18 08:00: Sodium 137, Potassium 4.3, Chloride 104, Carbon Dioxide 28, Anion Gap 9 L, BUN 19, Creatinine 0.8, Est GFR ( Amer) > 60, Est GFR (Non-Af Amer) > 60, Random Glucose 96, Calcium 9.3, Vitamin B12 269, Folate 15.5 05/13/18 08:00: Hemoglobin A1c 5.4 05/13/18 08:00: Iron 43 L, TIBC 350, % Saturation 12 L 05/12/18 08:20: RPR Nonreactive 05/12/18 08:20: TSH 3rd Generation 1.99 05/12/18 08:20: Fasting Glucose 92, Triglycerides 245 H, Cholesterol 164, LDL Cholesterol Direct 44, HDL Cholesterol 93 H 05/11/18 17:27: Urine Opiates Screen Negative, Urine Methadone Screen Negative, Ur Barbiturates Screen Negative, Ur Phencyclidine Scrn Positive H, Ur Amphetamines Screen Negative, U Benzodiazepines Scrn Negative, U Oth Cocaine Metabols Positive H, U Cannabinoids Screen Negative 05/11/18 17:27: Urine Color Yellow, Urine Appearance Clear, Urine pH 6.0, Ur Specific [place] >= 1.030, Urine Protein 100 H, Urine Glucose (UA) Negative, Urine Ketones Negative, Urine Blood Moderate H, Urine Nitrate Negative, Urine Bilirubin Negative, Urine Urobilinogen 0.2, Ur Leukocyte Esterase Negative, Urine RBC 2 - 5 H, Urine WBC 0 - 2, Ur Epithelial Cells 6 - 8 H, Urine Bacteria Mod 05/11/18 13:20: Beta HCG, Quant < 2.39 05/11/18 13:20: Alcohol, Quantitative < 10 05/11/18 13:20: Sodium 138, Potassium 4.1, Chloride 101, Carbon Dioxide 31, Anion Gap 11, BUN 15, Creatinine 0.7, Est GFR ( Amer) > 60, Est GFR (Non- Af Amer) > 60, Random Glucose 80, Calcium 8.9, Magnesium 2.0, Total Bilirubin 0.4, AST 64 H D, ALT 27, Alkaline Phosphatase 52, Total Protein 7.9, Albumin 4.5, Globulin 3.4, Albumin/Globulin Ratio 1.3 05/11/18 13:20: WBC 5.4 D, RBC 4.20, Hgb 12.9, Hct 38.6, MCV 91.9, MCH 30.7, MCHC 33.4, RDW 13.4, Plt Count 221, MPV 10.0, Neut % (Auto) 45.2 L, Lymph % (Auto) 39.4 H, [place] % (Auto) 13.3 H, Eos % (Auto) 1.5, Baso % (Auto) 0.6, Lymph # (Auto) 2.1, [place] # (Auto) 0.7 H, Eos # (Auto) 0.1, Baso # (Auto) 0.03, Absolute Neuts (auto) 2.44 Vital Signs Temp Pulse Pulse Resp BP Pulse Ox 05/12/18 16:00 74 149/85 05/12/18 07:00 98.6 F 61 18 106/68 05/12/18 06:32 98.7 F 61 18 106/68 05/12/18 03:26 65 18 05/11/18 22:46 98.5 F 69 20 133/72 100 05/11/18 21:04 68 17 117/68 99 05/11/18 19:15 88 17 124/76 100 05/11/18 17:50 98.9 F 64 18 129/72 97 03/10/19 15:00 98.4 F 68 18 130/68 98 05/11/18 13:26 99.4 F 64 18 128/73 99 DSM 5 Symptoms Update: shortly, pt is a 43 year old female with long h/o mental illness (psychotic spectrum disorder), polysubstance abuse and dependence, patient has chronic noncompliance with her medications and follow-up appointments, multiple psychiatric admissions in the past, most recent was here in [facility] 04/18/18, Pt. has had 4 hospitalizations in the past 3 months w/ [facility], patient was herself to the hospital looking for help for depression, p ossible suicidal ideation with the plan to overdose on sleeping pills, pt also verbalized thoughts of harming her boyfriend, pt reported command type hallucinations. Patient requires further evaluation and stabilization and med management. Patient was seen and examined today in her room, patient presented with poor personal hygiene, uncombed hair, patient still has episodes of irritability, angry outbursts, no agitation, no aggression. Patient still exceeded disorganized thoughts and behavior but much calmer. Still requires strong encouragement to take shower, hygiene is far from being ideal. As per clinical social work therapist, while phone screening to inpatient rehab patient presented to be disorganized, interview cannot be completed. As per staff patient needed redirection. So far patient tolerates medications well, no side effects observed or reported, aims 0, no EPS. Impression: As per history of schizoaffective disorder Polysubstance abuse and dependence Substance-induced psychosis/mood disorder Medication Change: Yes (Risperdal increased) Medical Record Reviewed: Yes Mental Status Examination - Cognitive Function Orientation: Person, Place Memory: Impaired Attention: Poor (some improvement) Concentration: Poor (some improvement) Association: Loose Fund of Knowledge: Poor - Mood Mood: Depressed ("I feel better..") - Affect Affect: Flat - Formal Thought Process Formal Thought Process: Hallucinations (Denied), Circumstantial - Suicidal Ideation Suicidal Ideation: No - Homicidal Ideation Homicidal Ideation: No Goal/Treatment Plan - Goal/Treatment Plan Need for Continued Stay: Remain at risks for inpatient hospitalization, Severe depression anxiety, Discharge may exacerbated symptoms, Severe functional impairment Progress Toward Problem(s) and Goals/Treatment Plan: Milieu/structure/supportive therapy SW consultation for discharge plan and social issues Med management: risperdal 2mg po bid and 2mg hs for psychosis as per pt's request trazodone 50mg at the nighttime for insomnia as well as depression will give as needed meds medical consult ID consult Family involvement Follow up on labs Will monitor closely Pt was educated about risk/benefits and alternatives of medications, coping strategies (safety plan, suicide prevention), relapse prevention, importance of follow up with psychiatrist and therapist, stay away from drugs/alcohol/smoking Estimated Date of D/C: 05/20/18
[2018-05-18] MEDS: Multivitamin Therapeutic Tab PO SCH (08:52)
[2018-05-18] MEDS: Iron Complex Polysacch 150mg Cap PO SCH (08:52)
--- NOTE | 2018-05-18 11:45 | PCM.PYCHPN ---
Psychiatric Progress Note - Psychiatric Progress Note Patient seen today, length of contact: 30 minutes Patient Chief Complaint: ", I am better , ..." Problems Identified/Issues Discussed: Suicide/ homicide prevention, past psychiatric h/o, current psychiatric symptoms, medical problems, risk/benefits and alternatives of medications, medications compliance, coping strategies, substance abuse h/o, relapse prevention, importance of follow up with psychiatrist and therapist, discharge plan. Medical Problems: Patient has multiple medical issues, patient was seen by medical team, please see consultations for more detailed information Diagnostic Results: 05/13/18 08:00 05/13/18 08:00 Lab Results 05/13/18 08:00: WBC 4.6, RBC 3.99, Hgb 12.3, Hct 36.7, MCV 92.0, MCH 30.8, MCHC 33.5, RDW 12.8, Plt Count 159, MPV 10.5 05/13/18 08:00: Hepatitis A IgM Ab Negative, Hep Bs Antigen Negative, Hep B Core IgM Ab Negative, Hepatitis C Antibody Negative 05/13/18 08:00: Sodium 137, Potassium 4.3, Chloride 104, Carbon Dioxide 28, Anion Gap 9 L, BUN 19, Creatinine 0.8, Est GFR ( Amer) > 60, Est GFR (Non-Af Amer) > 60, Random Glucose 96, Calcium 9.3, Vitamin B12 269, Folate 15.5 05/13/18 08:00: Hemoglobin A1c 5.4 05/13/18 08:00: Iron 43 L, TIBC 350, % Saturation 12 L 05/12/18 08:20: RPR Nonreactive 05/12/18 08:20: TSH 3rd Generation 1.99 05/12/18 08:20: Fasting Glucose 92, Triglycerides 245 H, Cholesterol 164, LDL Cholesterol Direct 44, HDL Cholesterol 93 H 05/11/18 17:27: Urine Opiates Screen Negative, Urine Methadone Screen Negative, Ur Barbiturates Screen Negative, Ur Phencyclidine Scrn Positive H, Ur Amphe tamines Screen Negative, U Benzodiazepines Scrn Negative, U Oth Cocaine Metabols Positive H, U Cannabinoids Screen Negative 05/11/18 17:27: Urine Color Yellow, Urine Appearance Clear, Urine pH 6.0, Ur Specific [place] >= 1.030, Urine Protein 100 H, Urine Glucose (UA) Negative, Urine Ketones Negative, Urine Blood Moderate H, Urine Nitrate Negative, Urine Bilirubin Negative, Urine Urobilinogen 0.2, Ur Leukocyte Esterase Negative, Urine RBC 2 - 5 H, Urine WBC 0 - 2, Ur Epithelial Cells 6 - 8 H, Urine Bacteria Mod 05/11/18 13:20: Beta HCG, Quant < 2.39 05/11/18 13:20: Alcohol, Quantitative < 10 05/11/18 13:20: Sodium 138, Potassium 4.1, Chloride 101, Carbon Dioxide 31, A nion Gap 11, BUN 15, Creatinine 0.7, Est GFR ( Amer) > 60, Est GFR (Non- Af Amer) > 60, Random Glucose 80, Calcium 8.9, Magnesium 2.0, Total Bilirubin 0.4, AST 64 H D, ALT 27, Alkaline Phosphatase 52, Total Protein 7.9, Albumin 4.5, Globulin 3.4, Albumin/Globulin Ratio 1.3 05/11/18 13:20: WBC 5.4 D, RBC 4.20, Hgb 12.9, Hct 38.6, MCV 91.9, MCH 30.7, MCHC 33.4, RDW 13.4, Plt Count 221, MPV 10.0, Neut % (Auto) 45.2 L, Lymph % (Auto) 39.4 H, [place] % (Auto) 13.3 H, Eos % (Auto) 1.5, Baso % (Auto) 0.6, Lymph # (Auto) 2.1, [place] # (Auto) 0.7 H, Eos # (Auto) 0.1, Baso # (Auto) 0.03, Absolute Neuts (auto) 2.44 Vital Signs Temp Pulse Pulse Resp BP Pulse Ox 05/12/18 16:00 74 149/85 05/12/18 07:00 98.6 F 61 18 106/68 05/12/18 06:32 98.7 F 61 18 106/68 05/12/18 03:26 65 18 05/11/18 22:46 98.5 F 69 20 133/72 100 05/11/18 21:04 68 17 117/68 99 05/11/18 19:15 88 17 124/76 100 05/11/18 17:50 98.9 F 64 18 129/72 97 03/10/19 15:00 98.4 F 68 18 130/68 98 05/11/18 13:26 99.4 F 64 18 128/73 99 DSM 5 Symptoms Update: shortly, pt is a 43 year old female with long h/o mental illness (psychotic spectrum disorder), polysubstance abuse and dependence, patient has chronic noncompliance with her medications and follow-up appointments, multiple psychiatric admissions in the past, most recent was here in [facility] 04/18/18, Pt. has had 4 hospitalizations in the past 3 months / [facility], patient was herself to the hospital looking for help for depression, possible suicidal ideation with the plan to overdose on sleeping pills, pt also verbalized thoughts of harming her boyfriend, pt reported command type hallucinations. Patient requires further evaluation and stabilization and med management. Patient was seen and examined today in her room, patient presented with poor personal hygiene, uncombed hair, patient still has episodes of irritability, angry outbursts, no agitation, no aggression. Patient still exceeded disorganized thoughts and behavior but much calmer, as per nursing staff, patient still preoccupied with food, personal hygiene is improving, no aggression/agitation.. Still requires strong encouragement to take shower. So far patient tolerates medications well, no side effects observed or reported, aims 0, no EPS. Impression: As per history of schizoaffective disorder Polysubstance abuse and dependence Substance-induced psychosis/mood disorder Medication Change: No (Risperdal increased 05/17/18) Medical Record Reviewed: Yes Consults ordered or reviewed: Patient was seen by medical team please see Dr. Denton notes for more detailed information. Mental Status Examination - Cognitive Function Orientation: Person, Place Memory: Impaired Attention: Poor (some improvement) Concentration: Poor (some improvement) Association: Loose Fund of Knowledge: Poor - Mood Mood: Depressed ("I feel better..") - Affect Affect: Constricted (But more reactive/mood congruent) - Formal Thought Process Formal Thought Process: Hallucinations (Denied), Circumstantial - Suicidal Ideation Suicidal Ideation: No - Homicidal Ideation Homicidal Ideation: No Goal/Treatment Plan - Goal/Treatment Plan Need for Continued Stay: Remain at risks for inpatient hospitalization, Severe depression anxiety, Discharge may exacerbated symptoms, Severe functional impairment Progress Toward Problem(s) and Goals/Treatment Plan: Milieu/structure/supportive therapy SW consultation for discharge plan and social issues, inpatient rehab Med management: risperdal 2mg po bid and 2mg hs for psychosis as per pt's request trazodone 50mg at the nighttime for insomnia as well as depression will give as needed meds medical consult ID consult Family involvement Follow up on labs Will monitor closely Pt was educated about risk/benefits and alternatives of medications, coping strategies (safety plan, suicide prevention), relapse prevention, importance of follow up with psychiatrist and therapist, stay away from drugs/alcohol/smoking Estimated Date of D/C: 05/20/18
[2018-05-18] MEDS: Magnesium Hydroxide Susp 30 ml UD PO PRN (18:51)
--- NOTE | 2018-05-19 02:03 | PN ---
DATE: 05/18/2018 SUBJECTIVE: The patient is a 43-year-old female. The patient was seen and examined at the bedside on 05/18/2018. According to the patient, she is feeling better. No fever. No chills. No hematuria. No hematochezia. No swelling of the legs. No headache or dizziness. PHYSICAL EXAMINATION: VITAL SIGNS: Temperature 98.1, pulse 98, blood pressure 120/75, and respiratory rate 18. HEENT: Head: Normocephalic and atraumatic. Eyes: PERRLA. Extraocular muscles intact. Conjunctivae clear. Nose patent. Mucous membrane moist. NECK: Supple. No carotid bruits. No JVD or thyromegaly. CHEST: Bilaterally symmetrical. HEART: S1 and S2 positive. LUNGS: Clear to auscultation. ABDOMEN: Soft. Bowel sounds present. No organomegaly. EXTREMITIES: No edema. No cyanosis. NEUROLOGIC: The patient is awake, alert. Moving all four extremities. No focal deficits. MEDICATIONS: Ativan, Benadryl, Claritin, trazodone, Plavix, Haldol, Maalox, milk of magnesia, Nicoderm, Risperdal, multivitamins, TriCor. LABORATORY DATA: White blood cells 4.6, hemoglobin 12.3, hematocrit 36.7, platelets 159. ASSESSMENT AND PLAN: Ms. Chelsea Aleman is a 43-year-old lady with iron-deficiency, hypertriglyceridemia, dyslipidemia, urinary tract infection, has multiple medical problems, has multiple psychiatric admissions, has a long history of mental illness. The patient has many hospitalizations. Now is under control of Dr. Laureen Fajardo. Gastrointestinal and deep venous thrombosis prophylaxis. Repeat lab. The patient has schizoaffective disorder, use of polysubstance abuse and dependency. We will follow up. Vira Denton MD
[2018-05-19] MEDS: Multivitamin Therapeutic Tab PO SCH (08:10)
[2018-05-19] MEDS: Iron Complex Polysacch 150mg Cap PO SCH (08:10)
--- NOTE | 2018-05-19 09:01 | PN ---
DATE: 05/17/2018 SUBJECTIVE: The patient was seen and examined at the bedside on 05/17/2018, looking comfortable. No fever. No chills. No hematuria or hematochezia. No headache or dizziness. No chest pain. No palpitations. Anxiety settling down slowly. PHYSICAL EXAMINATION: VITAL SIGNS: Temperature 98.1, pulse 84, blood pressure 120/75, and respiratory rate 18. HEENT: Head is normocephalic and atraumatic. Eyes; PERRLA. Extraocular muscles are intact. Conjunctivae clear. Nose patent. Mucous membranes are moist. NECK: Supple. No carotid bruits. No JVD or thyromegaly. CHEST: Bilaterally symmetrical. HEART: S1 and S2 positive. LUNGS: Clear to auscultation. ABDOMEN: Soft; bowel sounds present. No organomegaly. EXTREMITIES: No edema. No cyanosis. NEUROLOGIC: The patient is awake and alert. Moving all four extremities. No focal deficits. MEDICATIONS: Ativan, Benadryl, Claritin. Vira Denton MD
--- NOTE | 2018-05-19 15:22 | PCM.PYCHPN ---
Psychiatric Progress Note - Psychiatric Progress Note Patient seen today, length of contact: 30 minutes Patient Chief Complaint: "f...k you, what do you mean I cannot go home, so what if I am not taking shower?" Problems Identified/Issues Discussed: Suicide/ homicide prevention, past psychiatric h/o, current psychiatric symptoms, medical problems, risk/benefits and alternatives of medications, medications compliance, coping strategies, substance abuse h/o, relapse preven tion, importance of follow up with psychiatrist and therapist, discharge plan. Medical Problems: Patient has multiple medical issues, patient was seen by medical team, please see consultations for more detailed information Diagnostic Results: 05/13/18 08:00 05/13/18 08:00 Lab Results 05/13/18 08:00: WBC 4.6, RBC 3.99, Hgb 12.3, Hct 36.7, MCV 92.0, MCH 30.8, MCHC 33.5, RDW 12.8, Plt Count 159, MPV 10.5 05/13/18 08:00: Hepatitis A IgM Ab Negative, Hep Bs Antigen Negative, Hep B Core IgM Ab Negative, Hepatitis C Antibody Negative 05/13/18 08:00: Sodium 137, Potassium 4.3, Chloride 104, Carbon Dioxide 28, Anion Gap 9 L, BUN 19, Creatinine 0.8, Est GFR ( Amer) > 60, Est GFR (Non-Af Amer) > 60, Random Glucose 96, Calcium 9.3, Vitamin B12 269, Folate 15.5 05/13/18 08:00: Hemoglobin A1c 5.4 05/13/18 08:00: Iron 43 L, TIBC 350, % Saturation 12 L 05/12/18 08:20: RPR Nonreactive 05/12/18 08:20: TSH 3rd Generation 1.99 05/12/18 08:20: Fasting Glucose 92, Triglycerides 245 H, Cholesterol 164, LDL Cholesterol Direct 44, HDL Cholesterol 93 H 05/11/18 17:27: Urine Opiates Screen Negative, Urine Methadone Screen Negative, Ur Barbiturates Screen Negative, Ur Phencyclidine Scrn Positive H, Ur Amphetamines Screen Negative, U Benzodiazepines Scrn Negative, U Oth Cocaine Metabols Positive H, U Cannabinoids Screen Negative 05/11/18 17:27: Urine Color Yellow, Urine Appearance Clear, Urine pH 6.0, Ur Specific [place] >= 1.030, Urine Protein 100 H, Urine Glucose (UA) Negative, Urine Ketones Negative, Urine Blood Moderate H, Urine Nitrate Negative, Urine Bilirubin Negative, Urine Urobilinogen 0.2, Ur Leukocyte Esterase Negative, Urine RBC 2 - 5 H, Urine WBC 0 - 2, Ur Epithelial Cells 6 - 8 H, Urine Bacteria Mod 05/11/18 13:20: Beta HCG, Quant < 2.39 05/11/18 13:20: Alcohol, Quantitative < 10 05/11/18 13:20: Sodium 138, Potassium 4.1, Chloride 101, Carbon Dioxide 31, Anion Gap 11, BUN 15, Creatinine 0.7, Est GFR ( Amer) > 60, Est GFR (Non- Af Amer) > 60, Random Glucose 80, Calcium 8.9, Magnesium 2.0, Total Bilirubin 0.4, AST 64 H D, ALT 27, Alkaline Phosphatase 52, Total Protein 7.9, Albumin 4 .5, Globulin 3.4, Albumin/Globulin Ratio 1.3 05/11/18 13:20: WBC 5.4 D, RBC 4.20, Hgb 12.9, Hct 38.6, MCV 91.9, MCH 30.7, MCHC 33.4, RDW 13.4, Plt Count 221, MPV 10.0, Neut % (Auto) 45.2 L, Lymph % (Auto) 39.4 H, [place] % (Auto) 13.3 H, Eos % (Auto) 1.5, Baso % (Auto) 0.6, Lymph # (Auto) 2.1, [place] # (Auto) 0.7 H, Eos # (Auto) 0.1, Baso # (Auto) 0.03, Absolute Neuts (auto) 2.44 Vital Signs Temp Pulse Pulse Resp BP Pulse Ox 05/12/18 16:00 74 149/85 05/12/18 07:00 98.6 F 61 18 106/68 05/12/18 06:32 98.7 F 61 18 106/68 05/12/18 03:26 65 18 05/11/18 22:46 98.5 F 69 20 133/72 100 05/11/18 21:04 68 17 117/68 99 05/11/18 19:15 88 17 124/76 100 03/10/19 17:50 98.9 F 64 18 129/72 97 05/11/18 15:00 98.4 F 68 18 130/68 98 05/11/18 13:26 99.4 F 64 18 128/73 99 DSM 5 Symptoms Update: shortly, pt is a 43 year old female with long h/o mental illness (psychotic spectrum disorder), polysubstance abuse and dependence, patient has chronic noncompliance with her medications and follow-up appointments, multiple psychiatric admissions in the past, most recent was here in [facility] 04/18/18, Pt. has had 4 hospitalizations in the past 3 months w/ [facility], patient was herself to the hospital looking for help for depression, possible suicidal ideation with the plan to overdose on sleeping pills, pt also verbalized thoughts of harming her boyfriend, pt reported command type hallucinations. Patient requires further evaluation and stabilization and med management. Patient was seen and examined today with the treatment to maintain, patient presented to be irritable, paranoid, when patient got to know that she is not discharged today started to scream and curse at this proposal lead writer. Patient is still with disorganized thoughts/behavior, preoccupied with food, personal hygiene is improving. Still requires strong encouragement to take shower. Patient requested to be discharged, submitted a 48-hour notice, now does not want to go to inpatient rehab. So far patient tolerates medications well, no side effects observed or reported, aims 0, no EPS. Impression: As per history of schizoaffective disorder Polysubstance abuse and dependence Substance-induced psychosis/mood disorder Medication Change: Yes (Increase to 2 mg twice a day and 3 mg at the night, Cogentin started) Medical Record Reviewed: Yes Consults ordered or reviewed: Patient was seen by medical team please see Dr. Denton notes for more detailed information. Mental Status Examination - Cognitive Function Orientation: Person, Place Memory: Impaired Attention: Poor (some improvement) Concentration: Poor (some improvement) Association: Loose Fund of Knowledge: Poor - Mood Mood: Depressed ("Dr. Garduno I am good, Dr. Garduno Good") - Affect Affect: Constricted (But more reactive/mood congruent) - Formal Thought Process Formal Thought Process: Hallucinations (Denied), Circumstantial - Suicidal Ideation Suicidal Ideation: No - Homicidal Ideation Homicidal Ideation: No Goal/Treatment Plan - Goal/Treatment Plan Need for Continued Stay: Remain at risks for inpatient hospitalization, Severe depression anxiety, Discharge may exacerbated symptoms, Severe functional impairment Progress Toward Problem(s) and Goals/Treatment Plan: Milieu/structure/supportive therapy SW consultation for discharge plan and social issues, inpatient rehab Med management: risperdal 2mg po bid and 3mg hs for psychosis as per pt's request Cogentin 1 mg at morning and bedtime for EPS trazodone 50mg at the nighttime for insomnia as well as depression will give as needed meds medical consult ID consult Family involvement Follow up on labs Will monitor closely Pt was educated about risk/benefits and alternatives of medications, coping strategies (safety plan, suicide prevention), relapse prevention, importance of follow up with psychiatrist and therapist, stay away from drugs/alcohol/smoking Patient submitted a 48-hour notice today, but the present moment does not meet the criteria for your review to [facility] screening, will follow up Estimated Date of D/C: 05/21/18
[2018-05-19 16:39] VITALS: BP 128/87; PULSE 92
--- NOTE | 2018-05-20 08:15 | PN ---
DATE: 05/19/2018 SUBJECTIVE: The patient is a 43-year-old female. The patient is seen and examined at the bedside on 05/19/2018. Looking comfortable. No fever, no chills, no hematuria, no hematochezia. No headache or dizziness, no chest pain, no palpitations. The patient is still anxious. PHYSICAL EXAMINATION: VITAL SIGNS: Temperature 98.1, pulse 92, blood pressure 128/87, pulse oximetry 100%, respiratory rate 18. HEENT: Head: Normocephalic and atraumatic. Eyes: PERRLA. Extraocular muscles intact. Conjunctivae clear. Nose patent. Mucous membranes moist. NECK: Supple. No carotid bruit, JVD or thyromegaly. CHEST: Bilaterally symmetrical. HEART: S1 and S2 positive. LUNGS: Clear to auscultation. ABDOMEN: Soft. Bowel sounds present. No organomegaly. EXTREMITIES: No edema. No cyanosis. NEUROLOGICAL: The patient is awake and alert, moving all four extremities. No focal deficits. MEDICATIONS: Ativan, Benadryl, Claritin, Cogentin, trazodone, Ferrex, Haldol, Nicoderm, Risperdal, TriCor. LABORATORY DATA: We do not have recent lab today but I reviewed old labs. ASSESSMENT AND PLAN: The patient is a 43-year-old lady with iron deficiency, hypertriglyceridemia, anxiety, history of polysubstance abuse and dependency, noncompliant with medications, urged her to be compliant. Gastrointestinal and deep venous thrombosis prophylaxis. Repeat laboratories. The patient is under the care of Psychiatry. We will follow up. Vira Denton MD
[2018-05-20] MEDS: Multivitamin Therapeutic Tab PO SCH (08:45)
[2018-05-20] MEDS: Iron Complex Polysacch 150mg Cap PO SCH (08:45)
--- NOTE | 2018-05-20 15:08 | PCM.PYCHDC ---
Mental Status Examination - Mental Status Examination Orientation: Person, Place, Situation, Time Memory: Impaired (Chronic) Mood: Neutral Affect: Constricted Attention: Poor (Baseline) Concentration: Poor (Baseline) Association: Loose (Baseline) Fund of Knowledge: Poor (Baseline) Formal Thought Process: Circumstantial Description of patient's judgement and insight: Patient has somewhat improved insight into her current mental illness, addiction to drugs,pt was compliant with medications and unit rules and regulations, pt was attending therapy groups minimally, but overall was calm, cooperative, at times patient being demanding, cursing, and impulsive but overall better. Psychotic Thoughts and Behaviors: Pt denied v/a/t hallucinations, denied paranoid ideations, pt does not appear to be psychotic, and thought process is goal directed. Suicidal Ideation: No Current Homicidal Ideation?: No Plan: pt adamantly denied thoughts of harming self or others denied intent or plan. Discharge Summary - Discharge Note Reason for Hospitalization: Disorganized thoughts and behavior Psychiatric History (includes Medical, Family, Personal Hx): See HPI Laboratory Data: 05/13/18 08:00 05/13/18 08:00 Lab Results 05/19/18 10:30: Urine HCG, Qual Negative 05/13/18 08:00: WBC 4.6, RBC 3.99, Hgb 12.3, Hct 36.7, MCV 92.0, MCH 30.8, MCHC 33.5, RDW 12.8, Plt Count 159, MPV 10.5 05/13/18 08:00: Hepatitis A IgM Ab Negative, Hep Bs Antigen Negative, Hep B Core IgM Ab Negative, Hepatitis C Antibody Negative 05/13/18 08:00: Sodium 137, Potassium 4.3, Chloride 104, Carbon Dioxide 28, Anion Gap 9 L, BUN 19, Creatinine 0.8, Est GFR ( Amer) > 60, Est GFR (Non-Af Amer) > 60, Random Glucose 96, Calcium 9.3, Vitamin B12 269, Folate 15.5 05/13/18 08:00: Hemoglobin A1c 5.4 05/13/18 08:00: Iron 43 L, TIBC 350, % Saturation 12 L 05/13/18 07:00: HIV 1&2 Ag/Ab, 4th Gen Nonreactive 05/12/18 08:20: RPR Nonreactive 05/12/18 08:20: TSH 3rd Generation 1.99 05/12/18 08:20: Fasting Glucose 92, Triglycerides 245 H, Cholesterol 164, LDL Cholesterol Direct 44, HDL Cholesterol 93 H 05/11/18 17:27: Urine Opiates Screen Negative, Urine Methadone Screen Negative, Ur Barbiturates Screen Negative, Ur Phencyclidine Scrn Positive H, Ur Amphetamines Screen Negative, U Benzodiazepines Scrn Negative, U Oth Cocaine Metabols Positive H, U Cannabinoids Screen Negative 05/11/18 17:27: Urine Color Yellow, Urine Appearance Clear, Urine pH 6.0, Ur Specific Mccleary >= 1.030, Urine Protein 100 H, Urine Glucose (UA) Negative, Urine Ketones Negative, Urine Blood Moderate H, Urine Nitrate Negative, Urine Bilirubin Negative, Urine Urobilinogen 0.2, Ur Leukocyte Esterase Negative, Urine RBC 2 - 5 H, Urine WBC 0 - 2, Ur Epithelial Cells 6 - 8 H, Urine Bacteria Mod 05/11/18 13:20: Beta HCG, Quant < 2.39 05/11/18 13:20: Alcohol, Quantitative < 10 05/11/18 13:20: Sodium 138, Potassium 4.1, Chloride 101, Carbon Dioxide 31, Anion Gap 11, BUN 15, Creatinine 0.7, Est GFR ( Amer) > 60, Est GFR (Non- Af Amer) > 60, Random Glucose 80, Calcium 8.9, Magnesium 2.0, Total Bilirubin 0.4, AST 64 H D, ALT 27, Alkaline Phosphatase 52, Total Protein 7.9, Albumin 4.5, Globulin 3.4, Albumin/Globulin Ratio 1.3 05/11/18 13:20: WBC 5.4 D, RBC 4.20, Hgb 12.9, Hct 38.6, MCV 91.9, MCH 30.7, MCHC 33.4, RDW 13.4, Plt Count 221, MPV 10.0, Neut % (Auto) 45.2 L, Lymph % (Auto) 39.4 H, [place] % (Auto) 13.3 H, Eos % (Auto) 1.5, Baso % (Auto) 0.6, Lymph # (Auto) 2.1, [place] # (Auto) 0.7 H, Eos # (Auto) 0.1, Baso # (Auto) 0.03, Absolute Neuts (auto) 2.44 Vital Signs Temp Pulse Pulse Resp BP Pulse Ox 05/19/18 16:39 92 H 128/87 05/16/18 15:59 98 H 120/75 05/16/18 07:00 86 18 118/76 05/15/18 16:06 99 H 124/79 05/14/18 07:00 98.1 F 96 H 18 110/68 05/13/18 16:00 85 115/60 05/12/18 16:00 74 149/85 05/12/18 07:00 98.6 F 61 18 106/68 05/12/18 06:32 98.7 F 61 18 106/68 05/12/18 03:26 65 18 05/11/18 22:46 98.5 F 69 20 133/72 100 05/11/18 21:04 68 17 117/68 99 05/11/18 19:15 88 17 124/76 100 05/11/18 17:50 98.9 F 64 18 129/72 97 05/11/18 15:00 98.4 F 68 18 130/68 98 05/11/18 13:26 99.4 F 64 18 128/73 99 Consultations:: List each consultation separately and include: 1. Reason for request. 2. Findings. 3. Follow-up Consultations: Patient was seen by medical team please see Dr. Denton notes for more detailed information. Summary of Hospital Course include:: 1. Description of specific treatment plan utilized for patients during their course of treatmen. 2. Summarize the time- course for resolution of acute symptoms and/or regressed behaviors. 3. Describe issues identified and worked on during hospitalization. 4. Describe medication utilized. 5. Describe medical problems identified and treated. 6. Reassessment of suicide risk Summary of Hospital Course: shortly, pt is a 43 year old female with long h/o mental illness (psychotic spectrum disorder), polysubstance abuse and dependence, patient has chronic noncompliance with her medications and follow-up appointments, multiple psychiatric admissions in the past, most recent was here in [facility] 04/18/18, Pt. has had 4 hospitalizations in the past 3 months w/ [facility], patient was herself to the hospital looking for help for depression, possible suicidal ideation with the plan to overdose on sleeping pills, pt also verbalized thoughts of harming her boyfriend, pt reported command type martinez ucinations. Patient requires further evaluation and stabilization and med management. See admission note for more detailed information. Patient was relatively stabilized on the following medications: Cogentin 1 mg twice a day for possible EPS symptoms Risperdal 2 mg twice a day and 3 mg at the nighttime for disorganized thoughts and behavior, pt said that she wants to be on this medication, pt said that this is the only medication was helping her Trazodone 50 mg at nighttime for insomnia NicoDerm Multivitamins Claritin Ferrous sulfate TriCor Patient tolerated medications well, no side effects observed or reported, feelings 0, no EPS. Patient submitted a 48-hour notice, demanding to be discharged, at the present moment patient does not meet the criteria for screening, patient will be dis charged AGAINST MEDICAL ADVICE. Patient refused to be referred to inpatient rehab patient does not want to participate in discharge planning, patient might benefit from prolonged hospitalization as well as inpatient rehab, but patient refused to stay in the hospital any longer, wants to be discharged AGAINST MEDICAL ADVICE, this conventional mortgage underwriter has no other options other than discharge patient. In regards of the medical issues patient was seen by Dr. Denton, he did about safe sex, pt was dx with trichomonas infection last admission. At the time of the discharge patient pose no imminent danger to self or others, will be following up at the dual diagnosis program, information about follow up appointment, time and address provided to the pt, (see SW note for more detailed information). It is a patient responsibility to follow up with outpatient clinic, PMD as well as specialists In case patient will need to obtain results of studies pending at discharge, patient was provided with contact information of Psychiatric Inpatient unit [phone] as well as Medical Record Department [phone], as well as [facility] Telephone Order Clerk Room Service team [phone]. Nicotine patch was provided Naltrexone treatment is not indicated at this time Counseling about smoking and drugs cessation provided AA meetings as well as [facility] smoking cessation treatment program information was provided by the pt was provided with prescriptions (see medication reconciliation form) Pt was educated about safety plan in case of worsening of symptoms or in case of suicidal or homicidal ideation call 911 or go to the nearest ER, also was educated to take meds as prescribed and stay away from drugs, pt verbalized understanding. 05/13/18 08:00 05/13/18 08:00 Lab Results 05/19/18 10:30: Urine HCG, Qual Negative 05/13/18 08:00: WBC 4.6, RBC 3.99, Hgb 12.3, Hct 36.7, MCV 92.0, MCH 30.8, MCHC 33.5, RDW 12.8, Plt Count 159, MPV 10.5 05/13/18 08:00: Hepatitis A IgM Ab Negative, Hep Bs Antigen Negative, Hep B Core IgM Ab Negative, Hepatitis C Antibody Negative 05/13/18 08:00: Sodium 137, Potassium 4.3, Chloride 104, Carbon Dioxide 28, Anion Gap 9 L, BUN 19, Creatinine 0.8, Est GFR ( Amer) > 60, Est GFR (Non-Af Amer) > 60, Random Glucose 96, Calcium 9.3, Vitamin B12 269, Folate 15.5 05/13/18 08:00: Hemoglobin A1c 5.4 05/13/18 08:00: Iron 43 L, TIBC 350, % Saturation 12 L 05/13/18 07:00: HIV 1&2 Ag/Ab, 4th Gen Nonreactive 05/12/18 08:20: RPR Nonreactive 05/12/18 08:20: TSH 3rd Generation 1.99 05/12/18 08:20: Fasting Glucose 92, Triglycerides 245 H, Cholesterol 164, LDL Cholesterol Direct 44, HDL Cholesterol 93 H 05/11/18 17:27: Urine Opiates Screen Negative, Urine Methadone Screen Negative, Ur Barbiturates Screen Negative, Ur Phencyclidine Scrn Positive H, Ur Amphetami melvin Screen Negative, U Benzodiazepines Scrn Negative, U Oth Cocaine Metabols Positive H, U Cannabinoids Screen Negative 05/11/18 17:27: Urine Color Yellow, Urine Appearance Clear, Urine pH 6.0, Ur Specific Mccleary >= 1.030, Urine Protein 100 H, Urine Glucose (UA) Negative, Urine Ketones Negative, Urine Blood Moderate H, Urine Nitrate Negative, Urine Bilirubin Negative, Urine Urobilinogen 0.2, Ur Leukocyte Esterase Negative, Urine RBC 2 - 5 H, Urine WBC 0 - 2, Ur Epithelial Cells 6 - 8 H, Urine Bacteria Mod 05/11/18 13:20: Beta HCG, Quant < 2.39 05/11/18 13:20: Alcohol, Quantitative < 10 05/11/18 13:20: Sodium 138, Potassium 4.1, Chloride 101, Carbon Dioxide 31, Anion Gap 11, BUN 15, Creatinine 0.7, Est GFR ( Amer) > 60, Est GFR (Non- Af Amer) > 60, Random Glucose 80, Calcium 8.9, Magnesium 2.0, Total Bilirubin 0.4, AST 64 H D, ALT 27, Alkaline Phosphatase 52, Total Protein 7.9, Albumin 4.5, Globulin 3.4, Albumin/Globulin Ratio 1.3 05/11/18 13:20: WBC 5.4 D, RBC 4.20, Hgb 12.9, Hct 38.6, MCV 91.9, MCH 30.7, MCHC 33.4, RDW 13.4, Plt Count 221, MPV 10.0, Neut % (Auto) 45.2 L, Lymph % (Auto) 39.4 H, [place] % (Auto) 13.3 H, Eos % (Auto) 1.5, Baso % (Auto) 0.6, Lymph # (Auto) 2.1, [place] # (Auto) 0.7 H, Eos # (Auto) 0.1, Baso # (Auto) 0.03, Absolute Neuts (auto) 2.44 - Diagnosis (1) Schizoaffective disorder Status: Chronic Priority: High (2) Polysubstance abuse Status: Chronic Priority: High - Final Diagnosis (DSM 5) Condition upon Discharge: STABLE Disposition: AGAINST MEDICAL ADVICE Follow-up Treatment Plan: At the time of the discharge patient pose no imminent danger to self or others, will be following up at the dual diagnosis program, information about follow up appointment, time and address provided to the pt, (see note for more detailed information). It is a patient responsibility to follow up with outpatient clinic, PMD as well as specialists In case patient will need to obtain results of studies pending at discharge, patient was provided with contact information of Psychiatric Inpatient unit [phone] as well as Medical Record Department [phone], as well as [facility] Telephone Order Clerk Room Service team [phone]. Nicotine patch was provided Naltrexone treatment is not indicated at this time Counseling about smoking and drugs cessation provided AA meetings as well as [facility] smoking cessation treatment program information was provided by the pt was provided with prescriptions (see medication reconciliation form) Pt was educated about safety plan in case of worsening of symptoms or in case of suicidal or homicidal ideation call 911 or go to the nearest ER, also was educated to take meds as prescribed and stay away from drugs, pt verbalized understanding. Prescriptions/Medication Reconciliation: Benztropine [Cogentin] 1 mg PO AMHS #30 tab Fenofibrate [Tricor] 145 mg PO DAILY #7 tab Iron Polysaccharide [Ferrex-150] 150 mg PO DAILY #7 cap Loratadine [Claritin] 10 mg PO DAILY #7 tab Multivitamin Therapeutic Tab [Thera Tab] 1 tab PO 0800 #14 tab Nicotine 21 mg/24 hr [Nicoderm Cq] 1 patch TD DAILY #14 patch risperiDONE [RisperDAL Tab] 2 mg PO BID #14 tab risperiDONE [RisperDAL Tab] 3 mg PO HS #14 tab traZODone [Desyrel] 50 mg PO HS #14 tab - Smoking Cessation Smoking Cessation Medication prescribed: Yes - Antipsychotic Medications Pt discharged on 2 or more routine antipsychotic medications: No
== END 2018-05-20 13:15 | disposition left against medical advice (07) | DRG 885 ==
LOC: ED 13:06 → ERH 17:20 → PSYC 21:08
PROVIDERS: ADMIT Psychiatry & Neurology Psychiatry; ATTEND Psychiatry & Neurology Psychiatry
PROC: GZ3ZZZZ Medication Management (ICD-10-PCS; principal; 2018-05-11)
DX: F25.0 Schizoaffective disorder, bipolar type (principal); R45.851 Suicidal ideations; F16.24 Hallucinogen dependence with hallucinogen-induced mood disorder; E78.1 Pure hyperglyceridemia; E78.00 Pure hypercholesterolemia, unspecified; I10 Essential (primary) hypertension; G47.00 Insomnia, unspecified; F41.9 Anxiety disorder, unspecified; M47.816 Spondylosis without myelopathy or radiculopathy, lumbar region; S09.90XA Unspecified injury of head, initial encounter; Y04.0XXA Assault by unarmed brawl or fight, initial encounter; F17.210 Nicotine dependence, cigarettes, uncomplicated; Z91.14 Patient's other noncompliance with medication regimen; Z91.19 Patient's noncompliance with other medical treatment and regimen

== ENCOUNTER 2018-06-01 08:59 | Emergency (ER) | payer MEDICARE ==
[2018-06-01 09:00] VITALS: BMI 30.2
[2018-06-01 09:58] VITALS: BP 130/82; PULSE 77; RESP 16; TEMP 97.9; O2SAT 99
[2018-06-01] MEDS ORDERED: Sodium Chloride 0.9% 1,000 ML IV STA (10:05)
--- NOTE | 2018-06-01 10:30 | ED PDOC ---
Arrival/HPI - General Chief Complaint: Cough, Cold, Congestion Time Seen by Provider: 06/01/18 09:07 Historian: Patient - History of Present Illness Narrative History of Present Illness (Text): 06/01/18 10:27 43-year-old female with a history of schizophrenia presents today with cough times 1 week. Patient states she is also complaining of nauseousness. States she vomited once. Denies fevers or chills. Patient denies sick contacts. Patient states she is not here for psychiatric reasons. Patient denies headache or dizziness. Patient states her period was 1 week ago. No other complaints Time/Duration: 1 week Symptom Course: Unchanged Past Medical History - Provider Review Nursing Documentation Reviewed: Yes - Travel History Have you recently traveled outside [place] w/in the past 3 mons?: No - Past History Past History: No Previous - Infectious Disease Hx of Infectious Diseases: None - Tetanus Immunization Tetanus Immunization: Unknown - Cardiac Hx Cardiac Disorders: Yes Hx Hypertension: Yes - Pulmonary Hx Respiratory Disorders: Yes Hx Asthma: Yes - Neurological Hx Seizures: No - HEENT Hx HEENT Disorder: Yes Other/Comment: Astigmatism - Renal Hx Renal Disorder: Yes - Endocrine/Metabolic Hx Endocrine Disorders: No - Hematological/Oncological Hx Blood Disorders: Yes Hx Anemia: Yes - Integumentary Hx Dermatological Disorder: No - Musculoskeletal/Rheumatological Hx Musculoskeletal Disorders: Yes Hx Arthritis: Yes - Gastrointestinal Hx Gastrointestinal Disorders: No - Genitourinary/Gynecological Hx Sexually Transmitted Diseases: No - Psychiatric Hx Psychophysiologic Disorder: Yes Hx Schizophrenia: Yes Hx Substance Use: Yes - Surgical History Other/Comment: Laparoscopy ovarian cyst - Anesthesia Hx Anesthesia: Yes Hx Anesthesia Reactions: No Hx Malignant Hyperthermia: No - Suicidal Assessment Feels Threatened In Home Enviroment: No Family/Social History - Physician Review Nursing Documentation Reviewed: Yes Family/Social History: Unknown Family HX Smoking Status: Heavy Smoker > 10 Cigarettes Daily Hx Alcohol Use: Yes Hx Substance Use: Yes Substance used: marijuana, PCP Hx Substance Use Treatment: No Allergies/Home Meds Allergies/Adverse Reactions: Allergies shellfish derived Allergy (Verified 06/01/18 09:49) .unknown Home Medications: Home Meds Medication Instructions Recorded Confirmed No Known Home Med 06/01/18 06/01/18 Review of Systems - Review of Systems Constitutional: absent: Fatigue, Fevers ENT: Sinus Congestion Respiratory: Cough. absent: SOB Cardiovascular: absent: Chest Pain Gastrointestinal: Nausea, Vomiting. absent: Abdominal Pain Genitourinary Female: absent: Dysuria, Hematuria, Urine Output Changes Musculoskeletal: absent: Arthralgias Skin: absent: Rash Neurological: absent: Headache, Dizziness Psychiatric: absent: Anxiety, Depression Physical Exam Vital Signs Reviewed: Yes Vital Signs Temp Pulse Resp BP Pulse Ox 06/01/18 09:51 97.9 F 77 16 130/82 99 Temperature: Afebrile Blood Pressure: Normal Pulse: Regular Respiratory Rate: Normal Appearance: Positive for: Well-Appearing, Non-Toxic, Comfortable Pain Distress: None Mental Status: Positive for: Alert and Oriented X 3 - Systems Exam Head: Present: Atraumatic Extroacular Muscles: Present: EOMI Conjunctiva: Present: Normal Ears: Present: Normal, NORMAL TM Mouth: Present: Moist Mucous Membranes Pharnyx: Present: Normal Nose (External): Present: Atraumatic Nose (Internal): Present: Normal Inspection Neck: Present: Normal Range of Motion Respiratory/Chest: Present: Clear to Auscultation, Good Air Exchange. No: Respiratory Distress, Accessory Muscle Use, Wheezes, Retracting, Rhonchi, Tachypneic Cardiovascular: Present: Regular Rate and Rhythm Abdomen: No: Tenderness, Distention, Rebound, Guarding Upper Extremity: Present: Normal ROM Lower Extremity: Present: Normal ROM Neurological: Present: GCS=15, Speech Normal Skin: Present: Warm, Dry, Normal Color. No: Rashes Psychiatric: Present: Alert, Oriented x 3 Medical Decision Making ED Course and Treatment: 06/01/18 10:29 43-year-old female with a one-week history of cough with one episode of vomiting Patient is nontoxic, no distress stable vital signs Patient is nontoxic well-appearing in no distress vital signs are stable. pt refused EKG and cxr. CBC WNL CMP WNL INR: 1.2 Tylenol WNL Salicylate WNL Alcohol level WNL Urine drug screen + cocaine UA; + blood pt now agrees to cxr and ekg. cxr: FINDINGS: LUNGS: No active pulmonary disease. PLEURA: No significant pleural effusion identified, no pneumothorax apparent. CARDIOVASCULAR: No aortic atherosclerotic calcification present. Normal cardiac size. No pulmonary vascular congestion. OSSEOUS STRUCTURES: No significant abnormalities. VISUALIZED UPPER ABDOMEN: Normal. OTHER FINDINGS: None. IMPRESSION: No active disease. ekg normal sinus rhythm at 71 bpm normal axis normal intervals no ST elevations pt reassessment; pt urinated on the floor in her room. CAT scan of the abdomen and pelvis:FINDINGS: LOWER THORAX: Unremarkable. LIVER: Unremarkable. No gross lesion or ductal dilatation. GALLBLADDER AND BILE DUCTS: Unremarkable. PANCREAS: Unremarkable. No gross lesion or ductal dilatation. SPLEEN: Unremarkable. ADRENALS: Unremarkable. No mass. KIDNEYS AND URETERS: Unremarkable. No hydronephrosis. No solid mass. VASCULATURE: Unremarkable. No aortic aneurysm. No aortic atherosclerotic calcification or mural plaque present. BOWEL: Unremarkable. No obstruction. No gross mural thickening. APPENDIX: Unremarkable. Normal appendix. PERITONEUM: Unremarkable. No free fluid. No free air. LYMPH NODES: Unremarkable. No enlarged lymph nodes. BLADDER: Unremarkable. REPRODUCTIVE: There is a subserosal or pedunculated fibroid extending from the uterine fundus anteriorly. This measures 47 x 52 mm. This has increased in size from the recent study where it measured 32 x 37 mm. BONES: No acute fracture. OTHER FINDINGS: None. IMPRESSION: There is a subserosal or pedunculated fibroid extending from the uterine fundus anteriorly. This measures 47 x 52 mm. This has increased in size from the recent study where it measured 32 x 37 mm. No acute intra-abdominal findings Patient reassessment: Patient is sleeping in the emergency room in no distress. No vomiting during her ER stay. I discussed all results in depth with the patient and advised the patient a fibroid in the uterus needing follow-up with the certified medical dosimetrist. Patient was advised me to return if symptoms worsen persist or if new concerning symptoms develop Patient verbalizes understanding of discharge instructions and need for immediate followup. All aspects of this case were discussed the attending of record. Impression; cough, fibroid Increase fluids Follow-up with a primary care physician within the next 2 days Follow-up with the certified medical dosimetrist within the next 2 days regarding your uterine fibroid Return immediately if symptoms worsen persist or if new concerning symptoms develop Reassessment Condition: Re-examined, Improved - RAD Interpretation Radiology Orders: 06/01/18 10:05 ABD & PELVIS W/O PO OR IV CONT [CT] Stat 06/01/18 10:19 CHEST TWO VIEWS (PA/LAT) [RAD] Stat - Medication Orders Current Medication Orders: Sodium Chloride (Sodium Chloride 0.9%) 1,000 mls @ 999 mls/hr IV .Q1H1M STA Stop: 06/01/18 11:05 Disposition/Present on Arrival - Present on Arrival Any Indicators Present on Arrival: No History of DVT/PE: No History of Uncontrolled Diabetes: No Urinary Catheter: No History of Decub. Ulcer: No History Surgical Site Infection Following: None - Disposition Have Diagnosis and Disposition been Completed?: Yes Diagnosis: Cough, Fibroid Disposition: HOME/ ROUTINE Disposition Time: 14:13 Patient Plan: Discharge Condition: GOOD Discharge Instructions (ExitCare): Cough, Adult (DC), Uterine Fibroids Additional Instructions: Increase fluids Follow-up with a primary care physician within the next 2 days Follow-up with the certified medical dosimetrist within the next 2 days regarding your uterine fibroid Return immediately if symptoms worsen persist or if new concerning symptoms develop Referrals: Sheldon Rose MD [Primary Care Provider] - Follow up with primary Raman Lepe MD [Staff Provider] - Follow up with primary Forms: [facility] ([place])
[2018-06-01 10:33] LABS: URINE BILIRUBIN NEGATIVE (NEGATIVE); URINE BLOOD TRACE-LYSED (NEGATIVE); URINE GLUCOSE (UA) NEGATIVE (NEGATIVE); URINE LEUKOCYTE ESTERASE NEGATIVE Leu/uL (NEGATIVE); URINE PROTEIN 100 mg/dL (<30 mg/dL); URINE UROBILINOGEN 0.2 E.U./dL (<1 E.U./dL)
[2018-06-01 10:34] LABS: URINE APPEARANCE CLEAR (CLEAR); URINE COLOR YELLOW (YELLOW)
[2018-06-01 10:43] LABS: URINE BACTERIA SMALL /hpf; URINE EPITHELIAL CELLS 0 - 2 /hpf (0-5); URINE RBC 0 - 2 /hpf (0-2)
[2018-06-01 10:55] LABS: BASO # 0.03 K/mm3 (0.0-2.0); BASO % 0.3 % (0.0-3.0); EOS # 0.1 (0.0-0.7); EOS % 0.7 % (1.5-5.0); HEMOGLOBIN 12.8 g/dL (12.0-16.0); LYMPH # 2.7 (1.2-3.4); LYMPH % 28.2 % (22.0-35.0); MEAN CELL VOLUME 92.1 fl (80.0-105.0); MEAN CORPUSCULAR HEMOGLOBIN 30.5 pg (25.0-35.0); MEAN CORPUSCULAR HGB CONC 33.1 g/dl (31.0-37.0); MEAN PLATELET VOLUME 10.1 fl (7.0-11.0); MONO # 0.7 (0.1-0.6); RBC 4.2 10^6/uL (3.5-6.1); RED CELL DISTRIBUTION WIDTH 13.7 % (11.5-14.5); WHITE BLOOD COUNT 9.5 10^3/uL (4.5-11.0)
[2018-06-01 10:57] LABS: BARBITURATES, UR NEGATIVE (NEGATIVE); BENZODIAZEPINES, UR NEGATIVE (NEGATIVE); OPIATES, UR NEGATIVE (NEGATIVE); PHENCYCLIDINE, UR NEGATIVE (NEGATIVE)
[2018-06-01 10:58] LABS: ACETAMINOPHEN < 10.0 ug/ml (10.0-20.0); SALICYLATE < 1 mg/dL (2.0-20.0)
[2018-06-01 10:59] LABS: INR 1.2; PARTIAL THROMBOPLASTIN TIME 39.9 Seconds (26.9-38.3); PROTHROMBIN TIME 13.6 SECONDS (9.4-12.5)
[2018-06-01 11:05] LABS: ALB/GLOB RATIO 1.3 (1.1-1.8); ALBUMIN 4.2 g/dL (3.0-4.8); ALT/SGPT 18 U/L (7-56); AST/SGOT 36 U/L (14-36); BLOOD UREA NITROGEN 9 mg/dL (7-21); CALCIUM 9.1 mg/dL (8.4-10.5); GFR NON-AFRICAN AMERICAN > 60
--- NOTE | 2018-06-01 12:33 | RAD ---
Date of service: 06/01/2018 HISTORY: cough x 1 week COMPARISON: No prior. TECHNIQUE: 1 view obtained. FINDINGS: LUNGS: No active pulmonary disease. PLEURA: No significant pleural effusion identified, no pneumothorax apparent. CARDIOVASCULAR: No aortic atherosclerotic calcification present. Normal cardiac size. No pulmonary vascular congestion. OSSEOUS STRUCTURES: No significant abnormalities. VISUALIZED UPPER ABDOMEN: Normal. OTHER FINDINGS: None. IMPRESSION: No active disease.
--- NOTE | 2018-06-01 12:59 | CT ---
Date of service: 06/01/2018 PROCEDURE: CT Abdomen and Pelvis without intravenous contrast HISTORY: ABDOMINAL PAIN COMPARISON: 03/08/2018 TECHNIQUE: Without contrast.. Contrast dose: Radiation dose: Total exam DLP = 545.67 mGy-cm. This CT exam was performed using one or more of the following dose reduction techniques: Automated exposure control, adjustment of the mA and/or kV according to patient size, and/or use of iterative reconstruction technique. FINDINGS: LOWER THORAX: Unremarkable. LIVER: Unremarkable. No gross lesion or ductal dilatation. GALLBLADDER AND BILE DUCTS: Unremarkable. PANCREAS: Unremarkable. No gross lesion or ductal dilatation. SPLEEN: Unremarkable. ADRENALS: Unremarkable. No mass. KIDNEYS AND URETERS: Unremarkable. No hydronephrosis. No solid mass. VASCULATURE: Unremarkable. No aortic aneurysm. No aortic atherosclerotic calcification or mural plaque present. BOWEL: Unremarkable. No obstruction. No gross mural thickening. APPENDIX: Unremarkable. Normal appendix. PERITONEUM: Unremarkable. No free fluid. No free air. LYMPH NODES: Unremarkable. No enlarged lymph nodes. BLADDER: Unremarkable. REPRODUCTIVE: There is a subserosal or pedunculated fibroid extending from the uterine fundus anteriorly. This measures 47 x 52 mm. This has increased in size from the recent study where it measured 32 x 37 mm. BONES: No acute fracture. OTHER FINDINGS: None. IMPRESSION: There is a subserosal or pedunculated fibroid extending from the uterine fundus anteriorly. This measures 47 x 52 mm. This has increased in size from the recent study where it measured 32 x 37 mm. No acute intra-abdominal findings
--- NOTE | 2018-06-01 17:33 | CARD ---
APPROVED REPORT Date of service: 06/01/2018 EKG Measurement Heart [id number] [id number] <Conclusion> Normal sinus rhythm Prolonged QT Abnormal ECG
== END 2018-06-01 14:21 | disposition home or self-care (01) ==
LOC: ED 08:59
DX: R05 Cough (principal); D25.9 Leiomyoma of uterus, unspecified; I10 Essential (primary) hypertension; J45.909 Unspecified asthma, uncomplicated; F17.210 Nicotine dependence, cigarettes, uncomplicated
CPT/HCPCS: 71045; 74176; 80053; 80320; 80324; 80329; 80345; 80346; 80349; 80353; 80358; 80361; 81001; 81025; 83992; 85025; 85610; 85730; 93005; 96360; 99283; J7030